=== PATIENT | female | born 1995 | race Caucasian/White ===

== ENCOUNTER 2024-05-20 13:29 | Outpatient (OUT) | payer OTHER, SELFPAY ==
--- NOTE | 2024-05-20 13:32 | US_ITS ---
[address] [address] Patient Name: AUTUMN MCCLURE MRN: [id number] date: 1995 Sex: F Assigned Patient Location: [facility] Current Patient Location: Accession/Order Number: [id number] Exam Date: 05/20/2024 13:32 Report Date: 05/21/2024 04:09 At the request of: ARLETTE GOLD Procedure: US OB transvaginal EXAMINATION: US OB transvaginal HISTORY: MISSED MENSES COMPARISON: No relevant comparison available. FINDINGS: GESTATIONAL SAC: Present and normal appearing. YOLK SAC: Present and normal appearing. POLE: Present and normal appearing. CARDIAC: Present. UTERUS: Normal size and appearance. OVARIES: Right: Normal. Left: Not seen. CERVIX: 5.1 cm in length and closed. CUL-DE-SAC: Normal. OTHER: None. AGE BY LMP: 8 weeks 5 days EMANUEL BY LMP: 12/25/2024 AGE BY US CRL: 8 weeks 5 days EMANUEL BY US CRL: 12/25/2024 US/US OB transvaginal IMPRESSION: 1. Single live intrauterine . Electronically authenticated by: THIAGO LAKHANI Date: 05/21/2024 04:09
== END 2024-05-20 13:30 | disposition home or self-care (01) ==
LOC: NOMS 13:29
PROVIDERS: PCP Family Medicine; Visit Provider Obstetrics & Gynecology
DX: Z34.91 Encounter for supervision of normal pregnancy, unspecified, first trimester (principal); Z3A.08 8 weeks gestation of pregnancy; N92.6 Irregular menstruation, unspecified
CPT/HCPCS: 76817

== ENCOUNTER 2024-06-21 10:46 | Outpatient (OUT) | payer OTHER, SELFPAY ==
--- OUTSIDE RECORDS SUMMARY | 2024-06-21 11:05 | XMS_ITS | CCD ---
Author Organization [facility] Inform ion Partnership [facility] Care Team Providers Care Field Logistics Coordinator Name Role Phone DR VINCENT DUARTE Admitting DR VINCENT Hilario Attending Unavailable DR AZ WARD Consulting Unavailable GUSTAVO GONZALEZ Consulting Unavailable REYES SEXTON Attending Unavailable Reyes Sexton MD Primary Care Provider [phone] Medications Current Medications Medication Drug Class(es) Dates Sig (Normalized) Sig (Original) MV-Min-Fe Fum-FA-DHA ( 1 PO) (1 source) MV-Min- Fe Fum-FA-DHA ( 1 PO) Take 1 tablet by mouth Daily Active Problems Active Problems Problem Classification Problem Date Documented Date Episodic/Chronic Abdominal pain (4 sources) Right lower quadrant pain; Translations: [Unspecified abdominal pain] Onset: 03-16-2022 Episodic Chronic kidney disease (1 source) Chronic kidney disease stage 2; Translations: [Chronic kidney disease, stage 2 (mild)] Onset: 08-06-2023 08-06-2023 Chronic Disorders usually diagnosed in infancy, childhood, or adolescence (1 source) Attention deficit hyperactivity disorder, predominantly inattentive type; Translations: [Other specified behavioral and emotional disorders with onset usually occurring in childhood and adolescence] Onset: 04-09-2023 04-09-2023 Chronic Malaise and fatigue (1 source) Fatigue; Translations: [Chronic fatigue, unspecified] Onset: 08-06-2023 08-06-2023 Chronic Menstrual disorders (2 sources) Missed period; Translations: [Irregular menstruation, unspecified] Onset: 04-09-2023 05-20-2024 Chronic Other and delivery including normal (3 sources) First trimester ; Translations: [Encounter for supervision of normal , unspecified, first trimester] 05-20-2024 Episodic Otitis media and related conditions (1 source) Chronic salpingitis of bilateral eustachian tubes; Translations: [Chronic Eustachian salpingitis, bilateral] Onset: 04-09-2023 04-09-2023 Chronic Residual codes; unclassified (1 source) Gestation period, 8 weeks; Translations: [8 weeks gestation of ] 05-20-2024 Episodic Urinary tract infections (1 source) Urinary tract infection, site not specified; Translations: [UTI SITE NOT SPECIFIED] Onset: 03-19-2022 Episodic Past or Other Problems Problem Classification Problem Date Documented Da te Episodic/Chronic Heart valve disorders (1 source) Heart murmur; Translations: [Cardiac murmur, unspecified] Onset: 04-09-2023 04-09-2023 Episodic Other gastrointestinal disorders (1 source) Chronic constipation; Translations: [Other constipation] Onset: 04-09-2023 04-09-2023 Episodic Results Test Name Value Interpretation Reference Range Facility HCG ( test) Ql (U)o n 05-20-2024 Interpretation and review of laboratory results Abnormal [facility] Preg Test, Ur [facility]inal[facility] macro (dipstick) panel (U)on 05-20-2024 Bilirubin, UA Negative Negative - 4(70) +++ mg/dL [facility] Blood, UA Negative Negative - 50 Shady/mcL [facility] Clarity, UA Clear [facility] re Color, UA Colorless [facility] Glucose, UA Negative Negative - 1999(110) ++++ mg/dL [facility] Interpretation and review of laboratory results Abnormal [facility] Ketones, UA Negative Negative - 160(16) ++++ mg/dL [facility] Leukocytes, UA Trace Negative - 500+++ Kell/mcL [facility] Nitrite, UA Negative Negative - Positive [facility] pH, UA 6.0 5 - 9 [facility] Protein, UA Negative Negative - 1999(20) ++++ mg/dL [facility] Spec Grav, UA 1.005 1 - 1.03 [facility] Urobilinogen, UA 0.2 0.2 - 12 [facility] AMYLASEon 03-16-2022 Amylase [Catalytic activity/Vol] 42 U/L Normal 25-115 [facility] Comment on above: Performed By: #### L IPA, CMP, ALEX #### [facility] [address] [address] [address] Ashley Fung CBC AUTO DIFFon 03-16-2022 BASO # 0.0 103/ul Normal 0.0-0.1 [facility] Comment on above: Performed By: #### C BC #### [facility] [address] [address] [address] Ashley Fung Basophils/100 WBC (Bld) 0.3 % Normal 0.2-2.0 [facility] Comment on above: Performed By: #### C BC #### [facility] [address] [address] [address] Ashley Fung EO # 0.1 103/ul Normal 0.0-0.7 [facility] Comment on above: Performed By: #### C BC #### [facility] [address] [place] [address] Dr. Ashley Fung Eosinophils/100 WBC (Bld) 0.9 % Normal 0.9-7.0 [facility] Comment on above: Performed By: #### C BC #### [facility] [address] [address] [address] Ashley Fung Erythrocyte distribution width (RBC) [Ratio] 11.1 % Normal 11.0-15.0 [facility] Comment on above: Performed By: #### C BC #### [facility] [address] [address] [address] Ashley Fung Hematocrit (Bld) [Volume fraction] 33.9 % Critically low 36.0-48.0 [facility] Comment on above: Performed By: #### C BC #### [facility] [address] [address] [address] Ashley Fung Hemoglobin (Bld) [Mass/Vol] 12.2 g/dL Normal 12.0-16.0 [facility] Comment on above: Performed By: #### C BC #### [facility] [address] [address] [address] Ashley Fung IG # 0.01 10e3/ul Normal 0.00-0.03 [facility] Comment on above: Performed By: #### C BC #### [facility] [address] [place] [address] Dr. Ashley Fung IG % 0.1 % Normal 0.0-0.5 [facility] Comment on above: Performed By: #### C BC #### [facility] [address] [place] [address] Dr. Ashley Fung LYMPH # 1.8 103/ul Normal 1.2-3.8 [facility] Comment on above: Performed By: #### C BC #### [facility] [address] [place] [address] Dr. Ashley Fung Lymphocytes/100 WBC (Bld) 23.2 % Normal 20.5-60.0 [facility] Comment on above: Performed By: #### C BC #### [facility] [address] [place] [address] Dr. Ashley Fung MANUAL DIFF REQ NO Normal [facility] Comment on above: Performed By: #### C BC #### [facility] [address] [place] [address] Dr. Ashley Fung MCH (RBC) [Entitic mass] 31.0 pg Normal 26.7-34.0 [facility] Comment on above: Performed By: #### C BC #### [facility] [address] [place] [address] Dr. Ashley Fung MCHC (RBC) [Mass/Vol] 36.0 g/dL Critically high 29.9-35.2 [facility] Comment on above: Performed By: #### C BC #### [facility] [address] [place] [address] Dr. Ashley Fung MCV (RBC) [Entitic vol] 86.0 fL Normal 81.0-99.0 [facility] Comment on above: Performed By: #### C BC #### [facility] [address] [place] [address] Dr. Ashley Fung MONO # 0.5 103/ul Normal 0.3-0.8 [facility] Comment on above: Performed By: #### C BC #### [facility] [address] [address] [address] Ashley Fung Monocytes/100 WBC (Bld) 6.0 % Normal 1.7-12.0 [facility] Comment on above: Performed By: #### C BC #### [facility] [address] [address] [address] Ashley Fung NEUT # 5.3 103/ul Normal 1.4-6.5 [facility] Comment on above: Performed By: #### C BC #### [facility] [address] [place] [address] Dr. Ashley Fung Neutrophils/100 WBC (Bld) 69.5 % Normal 43.0-75.0 [facility] Comment on above: Performed By: #### C BC #### [facility] [address] [place] [address] Dr. Ashley Fung Platelet mean volume (Bld) [Entitic vol] 9.9 fL Normal 9.5-13.5 [facility] Comment on above: Performed By: #### C BC #### [facility] [address] [place] [address] Dr. Ashley Fung PLT 199 103/ul Normal 150-450 [facility] Comment on above: Performed By: #### C BC #### [facility] [address] [place] [address] Dr. Ashley Fung RBC 3.94 106/ul Critically low 4.20-5.[address] [facility] Comment on above: Performed By: #### C BC #### [facility] [address] [place] [address] Dr. Ashley Fung WBC 7.6 103/ul Normal 4.0-11.0 [facility] Comment on above: Performed By: #### C BC #### [facility] [address] [place] [address] ABD/PELV W CONon 03-16-[address] ABD/PELV W CON EXAMINATION: CT ABD/PELV W CON HISTORY: Right sided abdominal pain COMPARISON: None. TECHNIQUE: CT of abdomen/pelvis with intravenous contrast. Dose reduction techniques were achieved by using automated exposure control and/or adjustment of mA and/or kV according to patient size and/or use of iterative reconstruction technique. FINDINGS: Return Agent Airport: No pertinent findings, which are not already discussed below. Tubes/lines/drains: None. CHEST: Lungs: Clear. Cardiac and vascular: No cardiomegaly or significant pericardial effusion. ABDOMEN: Liver: Mild focal fatty infiltration adjacent to the falciform ligament. Mild periportal edema. Patent portal vein. Gallbladder and Biliary Tree: Unremarkable. Spleen: Heterogeneous enhancement without wedge-shaped hypoattenuation or mass. Normal size. Pancreas: Unremarkable. Adrenal Glands: Unremarkable. Kidneys, Ureters, Bladder: No concerning renal lesions or masses. No urolithiasis. No hydronephrosis or hydroureterosis. Unremarkable bladder. Bilateral ureteral jets visualized on the delayed pelvic images. Gastrointestinal: No mural thickening or inflammatory changes. No dilated loops of small or large bowel. Normal appendix. Reproductive organ(s): Unremarkable. Lymphatic: No concerning retroperitoneal, mesenteric, or inguinal adenopathy. Vessels: Unremarkable. BONES AND SOFT TISSUE: Bones: No acute fracture. No concerning osseous lesions. Soft Tissue: Minute fat-containing umbilical hernia. IMPRESSION: 1. No acute intra-abdominal/pelv ic findings. 2. Mild periportal edema, nonspecific although can be seen with aggressive rehydration therapy, hepatitis, as well as a number of additional etiologies to include hepatic, and CHF. 3. Heterogeneous enhancement of the spleen, which could be secondary to contrast bolus although phase of contrast is more portal venous than arterial. Electronically authenticated by: GUSTAVO GONZALEZ Date: 2022-03-16 10:03 Normal [facility] CULTURE URINEon 03-16-2022 CULTURE URINE Culture Observations: LIGHT GROWTH OF MIXED GENITAL YAHAIRA. NO POTENTIAL PATHOGENS SEEN. Normal [facility] Comment on above: Performed By: #### U RCX #### [facility] [address] [address] [address] Ashley Fung ER URINE PROFILEon 2 Bilirubin Ql (U) SMALL Abnormal NEGATIVE [facility] Comment on above: Performed By: #### E RUR, UMICRO #### [facility] [address] [address] [address] Ashley Fung Clarity (U) SL CLOUDY Abnormal CLEAR [facility] Comment on above: Performed By: #### Sky HOLLEY UMICRO #### [facility] [address] [place] [address] Dr. Ashley Fung Color (U) DK. YELLOW Normal YELLOW [facility] Comment on above: Performed By: #### Sky HOLLEY UMICRO #### [facility] [address] [place] [address] Dr. Ashley PANIAGUA A micrscopic examination will be performed if indicated. Normal [facility] Comment on above: Performed By: #### Sky HOLLEY UMICRO #### [facility] [address] [place] [address] Dr. Ashley Fung Glucose Ql (U) Negative Normal NEGATIVE [facility] Comment on above: Performed By: #### Sky HOLLEY UMICRO #### [facility] [address] [place] [address] Dr. Ashley Fung Hemoglobin Ql (U) Negative Normal NEGATIVE [facility] Comment on above: Performed By: #### Sky HOLLEY UMICRO #### [facility] [address] [place] [address] Dr. Ashley Fung Ketones Ql (U) TRACE Abnormal NEGATIVE [facility] Comment on above: Performed By: #### Sky HOLLEY UMICRO #### [facility] [address] [place] [address] Dr. Ashley Fung LEUKOCYTES TRACE Abnormal NEGATIVE [facility] Comment on above: Performed By: #### Sky HOLLEY UMICRO #### [facility] [address] [place] [address] Dr. Ashley Fung Nitrite Ql (U) Negative Normal NEGATIVE [facility] Comment on above: Performed By: #### Sky HOLLEY UMICRO #### [facility] [address] [place] [address] Dr. Ashley Fung pH (U) 7.0 [pH] Normal 5-9 [facility] Comment on above: Performed By: #### Sky HOLLEY UMICRO #### [facility] [address] [place] [address] Dr. Ashley Fung Protein (U) [Mass/Vol] 100 mg/dL Abnormal NEGATIVE/ TRACE [facility] Comment on above: Performed By: #### TAHIRA PAULSONRO #### [facility] [address] [place] [address] Dr. Ashley Fung SPEC GRAVITY 1.025 Normal 1.005-<=1.025 [facility] Comment on above: Performed By: #### TAHIRA PAULSONRO #### [facility] [address] [place] [address] Dr. Ashley Fung UR MICRO IND INDICATED Normal [facility] Comment on above: Performed By: #### TAHIRA PAULSONRO #### [facility] [address] [place] [address] Dr. Ashley Fung Urobilinogen Qn (U) 1.0 {Stephanie'U}/dL Normal 0.2 - 1. 0 [facility] Comment on above: Performed By: #### TAHIRA PAULSONRO #### [facility] [address] [place] [address] Dr. Ashley Fung LIPASEon 03-16-2022 Lipase [Catalytic activity/Vol] 100.0 U/L Normal 73.0-393.0 [facility] Comment on above: Performed By: #### L IPA, CMP, ALEX #### [facility] [address] [place] [address] Dr. Ashley Fung PREG HCG QUALon 03-16-2022 , QUAL Negative Normal NEGATIVE [facility] Comment on above: Performed By: #### P REG #### [facility] [address] [place] [address] Dr. Ashley Fung PROF 14(COMP METB)on 022 Albumin [Mass/Vol] 3.3 g/dL Critically low 3.4-5.0 [facility] Comment on above: Performed By: #### L IPA, CMP, ALEX #### [facility] [address] [place] [address] Dr. Ashley Fung Albumin/Globulin [Mass ratio] 1.0 {ratio} Normal [facility] Comment on above: Performed By: #### L IPA, CMP, ALEX #### [facility] [address] [place] [address] Dr. Ashley Fung ALP [Catalytic activity/Vol] 58 U/L Normal 46-116 [facility] Comment on above: Performed By: #### L IPA, CMP, ALEX #### [facility] [address] [place] [address] Dr. Ashley Fung ALT [Catalytic activity/Vol] 15 U/L Normal 14-59 [facility] Comment on above: Performed By: #### L IPA, CMP, ALEX #### [facility] [address] [place] [address] Dr. Ashley Fung Anion gap [Moles/Vol] 11.2 mmol/L Normal [facility] Comment on above: Performed By: #### L IPA, CMP, ALEX #### [facility] [address] [place] [address] Dr. Ashley Fung AST [Catalytic activity/Vol] 15 U/L Normal 15-37 [facility] Comment on above: Performed By: #### L IPA, CMP, ALEX #### [facility] [address] [place] [address] Dr. Ashley Fung Bilirubin [Mass/Vol] 0.4 mg/dL Normal 0.2-1.0 [facility] Comment on above: Performed By: #### L IPA, CMP, ALEX #### [facility] [address] [place] [address] Dr. Ashley Fung Calcium [Mass/Vol] 8.7 mg/dL Normal 8.5-10.1 [facility] Comment on above: Performed By: #### L IPA, CMP, ALEX #### [facility] [address] [place] [address] Dr. Ashley Fung Chloride [Moles/Vol] 106 mmol/L Normal 98-107 [facility] Comment on above: Performed By: #### L IPA, CMP, ALEX #### [facility] [address] [place] [address] Dr. Ashley Fung CO2 [Moles/Vol] 27.4 mmol/L Normal 21.0-32.0 [facility] Comment on above: Performed By: #### L IPA CMP, ALEX #### [facility] [address] [address] [address] Ashley Fung Creatinine [Mass/Vol] 1.22 mg/dL Critically high 0.55-1.02 [facility] Comment on above: Performed By: #### L IPA CMP, ALEX #### [facility] [address] [address] [address] Ashley Fung EGFR-AF CITIZEN OF [place] >60 Normal >=60 [facility] Comment on above: Performed By: #### L IPA CMP, ALEX #### [facility] [address] [place] [address] Dr. Ashley Fung EGFR-NON AF CITIZEN OF [place] 52 mL/min/1.73m2 Critically low >=60 [facility] Comment on above: Performed By: #### L IPA CMP, ALEX #### [facility] [address] [place] [address] Dr. Ashley Fung Globulin (S) [Mass/Vol] 3.4 g/dL Normal [facility] Comment on above: Performed By: #### L IPA CMP, ALEX #### [facility] [address] [place] [address] Dr. Ashley Fung Glucose [Mass/Vol] 116 mg/dL Critically high 74-106 [facility] Comment on above: Performed By: #### L IPA CMP, ALEX #### [facility] [address] [address] [address] Ashley Fung Potassium [Moles/Vol] 3.6 mmol/L Normal 3.5-5.1 [facility] Comment on above: Performed By: #### L IPA CMP, ALEX #### [facility] [address] [place] [address] Dr. Ashley Fung Protein [Mass/Vol] 6.7 g/dL Normal 6.4-8.2 [facility] Comment on above: Performed By: #### L IPA, CMP, ALEX #### [facility] [address] [place] [address] Dr. Ashley Fung Sodium [Moles/Vol] 141 mmol/L Normal 136-145 [facility] Comment on above: Performed By: #### L VIDHI CARVAJAL, ALEX #### [facility] [address] [place] [address] Dr. Ashley Fung Urea nitrogen [Mass/Vol] 15.0 mg/dL Normal 7.0-18.0 [facility] Comment on above: Performed By: #### L VIDHI CARVAJAL, ALEX #### [facility] [address] [place] [address] Dr. Ashley Fung Urea nitrogen/Creatinine [Mass ratio] 12.3 mg/mg Normal [facility] Comment on above: Performed By: #### L VIDHI CARVAJAL, ALEX #### [facility] [address] [place] [address] Dr. Ashley Fung URINE MICROSCOPIC ONLYon BACTERIA TRACE Abnormal NONE SEEN [facility] Comment on above: Performed By: #### Sky HOLLEY UMICRO #### [facility] [address] [place] [address] Dr. Ashley Fung Bacteria identified Cx Nom (U) INDICATED Normal [facility] Comment on above: Performed By: #### Sky HOLLEY, UMICRO #### [facility] [address] [place] [address] Dr. Ashley Fung CAST SEEN Abnormal NONE SEEN [facility] Comment on above: Performed By: #### Sky HOLLEY UMICRO #### [facility] [address] [place] [address] Dr. Ashley Fung Crystals LM Nom (Urine sed) NONE SEEN Normal NONE SEEN [facility] Comment on above: Performed By: #### E KISHAN UMICRO #### [facility] [address] [place] [address] Dr. Ashley Fung Epithelial cells LM Ql (Urine sed) RARE Normal NONE SEEN /RARE [facility] Comment on above: Performed By: #### Sky HOLLEY, UMICRO #### [facility] [address] [place] [address] Dr. Ashley Fung MUCOUS MODERATE Abnormal NONE SEEN [facility] Comment on above: Performed By: #### E RUR, UMICRO #### [facility] [address] [address] [address] Ashley Fung RBC NONE SEEN Abnormal 0-2 [facility] Comment on above: Performed By: #### E RUR, UMICRO #### [facility] [address] [address] [address] Ashley Fung WBC 2-5 Abnormal NONE SEEN [facility] Comment on above: Performed By: #### E RUR, UMICRO #### [facility] [address] [address] [address] Ashley Fung XR Abdomen 2 Viewson 022 XR Abdomen 2 Views HISTORY: Low abdominal pain, constipation FINDINGS: Moderate colon stool normally distributed throughout abdomen and pelvis. No evidence of bowel obstruction or free air. No biliary or urinary tract stones. IMPRESSION: Moderate colon stool, no obstruction. Report reported and signed by Mahin London on 11/28/2021 0729 Normal [facility] [employer] Encounters Encounter Date Encounter Type Care Provider Facility Start: 05-20-2024 End: 05-20-2024 Office outpatient visit 5 minutes [facility] Tawanna Nurse [facility] Comment on above: GA: 8w5d Start: 05-20-2024 End: 05-20-2024 ambulatory REYES SEXTON Not Available Start: 07-10-2023 End: 07-10-2023 ambulatory REYES SEXTON Not Available Start: 03-16-2022 End: 03-16-[address] VINCENT DUARTE Facility:[facility] Procedures Date Procedure Procedure Detail Performing Clinician Start: 05-20-2024 Urnls dip stick/tabl et rgnt non-auto w/o micrscp Teo Stacy DO Work Phone: Plan of Treatment Date Care Activity Detail Author Start: 06-21-2024 End: 06-21-2024 Patient encounter procedure 06/21/2024 9:50 AM EST Routine [facility] [address] [place] [id number] Tawanna, Teo, [address] [place] [address] [facility] Start: 05-20-2024 End: 05-20-2025 ABO/Rh ABO/Rh Lab Routine Missed menses , unspecified gestational age Expected: 05/20/2024 (Approximate), Expires: 05/20/2025 [facility] Comment on above: Expected: 05/20/2024 (Approximate), Expires: 05/20/2025 Start: 05-20-2024 End: 05-20-2025 Blood type and Indirect antibody screen panel - Blood Type and screen Lab Routine Missed menses , unspecified gestational age Expected: 05/20/2024 (Approximate), Expires: 05/20/2025 [facility] Work Phone: Comment on above: Expected: 05/20/2024 (Approximate), Expires: 05/20/2025 Start: 05-20-2024 End: 05-20-2025 Drugs of abuse panel - Urine by Screen method Rapid drug screen, urine Lab Routine , unspecified gestational age Encounter for supervision of normal first in first trimester Expected: 05/20/2024 (Approximate), Expires: 05/20/2025 [facility] Comment on above: Expected: 05/20/2024 (Approximate), Expires: 05/20/2025 Start: 05-20-2024 End: 05-20-2025 US Pelvis transvaginal US OB transvaginal Imaging Routine Missed menses Expected: 05/20/2024 (Approximate), Expires: 05/20/2025 [facility] Comment on above: Expected: 05/20/2024 (Approximate), Expires: 05/20/2025 Start: 04-11-2024 Influenza vaccination Influenza Vacc ine (#1) [facility] Start: 02-19-2024 Screening for malign ant neoplasm of cervix [facility] Start: 2015 Screening for malign ant neoplasm of cervix Pap Smear [facility] Bacteria identified in Urine by Culture Urine culture Microbiology Routine Missed menses Ordered: 05/20/2024 [facility] Comment on above: Ordered: 05/20/2024 CBC W Auto Different ial panel - Blood CBC and differential Lab Routine Missed menses , unspecified gestational age Ordered: 05/20/2024 [facility] Comment on above: Ordered: 05/20/2024 Hemoglobin A1c/Hemoglobin.total in Blood Hemoglobin A1c Lab Routine Missed menses , unspecified gestational age Ordered: 05/20/2024 [facility] Comment on above: Ordered: 05/20/2024 Hepatitis B virus surface Ag [Presence] in Serum or Plasma by Immunoassay Hepatitis B surface antigen Lab Routine Missed menses , unspecified gestational age Ordered: 05/20/2024 [facility] Comment on above: Ordered: 05/20/2024 Hepatitis C virus Ab [Presence] in Serum or Plasma by Immunoassay Hepatitis C antibody Lab Routine Missed menses , unspecified gestational age Ordered: 05/20/2024 [facility] Comment on above: Ordered: 05/20/2024 HIV-1/HIV-2 antigen/antibody combination immunoassay HIV-1 and HIV-2 antibodies Lab Routine Missed menses , unspecified gestational age Ordered: 05/20/2024 [facility] Comment on above: Ordered: 05/20/2024 Reagin Ab [Presence] in Serum by RPR RPR Lab Routine Missed menses , unspecified gestational age Ordered: 05/20/2024 [facility] Comment on above: Ordered: 05/20/2024 Rubella antibody, IgG Rubella an tibody, IgG Lab Routine Missed menses , unspecified gestational age Ordered: 05/20/2024 [facility] Comment on above: Ordered: 05/20/2024 Immunizations Immunization Date Immunization Notes Care Provider Od[place] tracy 02-09-2013 meningococcal polysa ccharide (groups A, C, Y and W-135) diphtheria toxoid conjugate vaccine (MCV4P) [facility] Nurse [facility] 02-09-2013 tetanus toxoid, redu rosario diphtheria toxoid, and acellular pertussis vaccine, adsorbed [facility] Nurse [facility] 03-23-1999 diphtheria, tetanus toxoids and acellular pertussis vaccine [facility] Nurse [facility] are 03-23-1999 measles, mumps and r ubella virus vaccine [facility] Nurse [facility] 03-23-1999 trivalent poliovirus vaccine, live, oral [facility] Nurse [facility] 03-02-1997 diphtheria, tetanus toxoids and acellular pertussis vaccine [facility] are 02-16-1996 diphtheria, tetanus toxoids and acellular pertussis vaccine [facility] Nurse [facility] are 02-16-1996 measles, mumps and r ubella virus vaccine [facility] Nurse [facility] 06-11-1995 diphtheria, tetanus toxoids and acellular pertussis vaccine, Haemophilus influenzae type b conjugate, and poliovirus vaccine, inactivated ([id number]) [facility] Nurse [facility] 06-11-1995 hepatitis B vaccine, pediatric or pediatric/adolescent dosage [facility] Nurse [facility] 1994 haemophilus influenz ae type b vaccine, conjugate unspecified formulation [facility] Nurse [facility] 1994 hepatitis B vaccine, pediatric or pediatric/adolescent dosage [facility] 1994 trivalent poliovirus vaccine, live, oral [facility] 1994 diphtheria, tetanus toxoids and acellular pertussis vaccine, Haemophilus influenzae type b conjugate, and poliovirus vaccine, inactivated ([id number]) [facility] 1994 hepatitis B vaccine, pediatric or pediatric/adolescent dosage [facility] Nurse [facility] Payers Date Payer Category Payer Unknown [employer] [id number] 2023-Present [address] [place] [address] [id number] 2023 Unknown [id number] 1994 Unknown [id number] 1994 Unknown [id number] 1994 Unknown [id number] Unknown [id number] Social History Date Type Detail Facility Start: 05-25-2023 Tobacco smoking stat [facility] Never smoked tobacco [facility] Start: 05-25-2023 Tobacco use and exposure Smoke less tobacco non-user [facility] Start: 05-20-2024 Alcoholic beverage intake Curr ent drinker of alcohol (finding) [facility] Start: 07-10-2023 End: 05-20-2024 [facility]olic beverage [facility] Start: 07-10-2023 Tobacco use panel [facility] Start: 04-09-2023 Alcohol Comment Caffeine intak e: 1-2 cups per day coffee [facility] Start: 04-03-2024 [facility] Start: 1994 Sex assigned at Not on file [facility] History of Present illness Narrative 05-20-2024 Miryam Matthews, ADRIANA - 05/20/2024 2:00 PM EDT Note Date & Type Note Facility 05-20-2024 History of Presen t illness Narrative Reason for Appointment: Patient ID: Eloina Breaux is a 29 y.o. female who presents for Amenorrhea Patient presents today for a Nurse OB Intake appointment. Patient is 8w5d with a Estimated Date of Delivery: 12/25/24 OB History Para Term AB Living 1 SAB IAB Ectopic Multiple Live Births # Outcome Date GA Lbr Stoney/2nd Weight Sex Type Anes PTL Lv 1 Current Current Medications: currently has no medications in their medication list. Medical History: Active Ambulatory Problems Diagnosis Date Noted ADD (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 hyperactivity 04/09/2023 Chronic constipation 04/09/2023 Chronic eustachian salpingitis of both ears 04/09/2023 Dysmenorrhea 04/09/2023 Heart murmur 04/09/2023 Stage 2 chronic kidney disease 08/06/2023 Chronic fatigue 08/06/2023 Resolved Ambulatory Problems Diagnosis Date Noted No Resolved Ambulatory Problems Past Medical History: Diagnosis Date ADD (attention deficit disorder) Anxiety Chronic vaginitis Sleep initiation disorder Family History Problem Relation Name Age of Onset Cancer Father Other (Non hodgkins lymphoma) Father No Known Problems Brother Colon cancer Other mothers fam hx Social History Tobacco Use Smoking status: Never Smokeless tobacco: Never Vaping Use Vaping status: Never Used Substance Use Topics Alcohol use: Yes Alcohol/week: 2.0 standard drinks of alcohol Types: 2 Standard drinks or equivalent per week Comment: Caffeine intake: 1-2 cups per day coffee Drug use: Never Past Surgical History: Procedure Laterality Date CYST REMOVAL cyst removed off tailbone TONSILLECTOMY 1996 EUGENIO TOOTH EXTRACTION 07/29/2016 No Known Allergies Vitals: Estimated body mass index is 28.62 kg/m as calculated from the following: Height as of 07/10/23: 5' 5 . Weight as of 07/10/23: 172 lb. BP: Patient's last menstrual period was 03/20/2024. Assessment/Plan Diagnoses and all orders for this visit: Missed menses - Type and screen; Future - ABO/Rh; Future - CBC and differential - Hemoglobin A1c - RPR - Rubella antibody, IgG - Hepatitis B surface antigen - Hepatitis C antibody - HIV-1 and HIV-2 antibodies - Urine culture - US OB transvaginal; Future - POCT , urine manually resulted - POCT urinalysis dipstick manually resulted 8 weeks gestation of First trimester , unspecified gestational age - Type and screen; Future - ABO/Rh; Future - CBC and differential - Hemoglobin A1c - RPR - Rubella antibody, IgG - Hepatitis B surface antigen - Hepatitis C antibody - HIV-1 and HIV-2 antibodies - Rapid drug screen, urine; Future Encounter for supervision of normal first in first trimester - Rapid drug screen, urine; Future Nurse Note: OB Intake: Patient presents today for first OB visit. Patients history has been reviewed in great detail including any potential risks. Patient signed consent forms and patient desires testing in both trimesters. Patient currently has no complaints and has been advised to drink 6-8 glasses of water a day, eat no raw or undercooked meat, and stay away from [facility]. Patient has also been advised to not change litter boxes and eat 6 small meals a day. Patient has been consulted regarding the do's and don'ts of . Patient was given labs and all questions and concerns were answered. Patient did not want to do [place] labs at this time. Follow Up: Patient is to return in 4 weeks for routine OB appointment. Follow Up: Patient is to have labs drawn at directed and return to office for initial OB appointment with provider. Patient may call office as needed with any concerns or questions. Nurse Visit Completed by: Miryam Matthews LPN documented in this encounter [facility] Evaluation note Note Date & Type Note Facility Evaluation note Diagnosis Missed menses 8 weeks gestation of First trimester state, incidental , unspecified gestational age Encounter for supervision of normal first in first trimester documented in this encounter [facility] Summary Purpose Family History No Family History Records FoundNo Family History Records FoundNo Family History Records Found Advance Directives No Advanced Directives Records FoundNo Advanced Directives Records FoundNo Advanced Directives Records Found Additional Source Comments INFORMATION SOURCE (unrecogn ized section and content) DATE CREATED AUTHOR 11/29/2021 [facility] dical Specialist DATE CREATED AUTHOR AUTHOR'S ORGANIZ ATION 03/19/2022 [facility] DATE CREATED AUTHOR AUTHOR'S ORGANIZ ATION 05/22/2024 [facility] dical Specialists EPIC Reason for Visit (unrecogniz ed section and content) Reason Comments Amenorrhea Care Teams (unrecognized sec tion and content) Field Logistics Coordinator Relationship Specialty Start Date End Date Reyes Sexton MD [address] [place] [address] PCP - General Family Medicine 12/17/22 FOR RECORDS PERTAINING TO PATIENTS WHO ARE OR HAVE BEEN ENROLLED IN A CHEMICAL DEPENDENCY/SUBSTANCEABUSE PROGRAM, SOME INFORMATION MAY BE OMITTED. This clinical summary was aggregated from multiple sources. Caution should be exercised in using it in the provision of clinical care. This summary normalizes information from multiple sources, and as a consequence, information in this document may materially change the coding, format and clinical context of patient data. In addition, data may be omitted in some cases. CLINICAL DECISIONS SHOULD BE BASED ON THE PRIMARY CLINICAL RECORDS. [facility] [employer] [facility]. provides no warranty or guarantee of the accuracy or completeness of information in this document.
[2024-06-21 11:16] LABS: Basophils Percent Auto 0.3 % (0.2-2.0); Eosinophils Percent Auto 0.5 % (0.9-7.0); Hematocrit 35.7 % (36.0-48.0); Hemoglobin 13.1 g/dL (12.0-16.0); Immature Granulocytes Abs Auto 0.02 10^3/uL (0.00-0.03); Immature Granulocytes Pct Auto 0.3 % (0.0-0.5); Lymphocytes Absolute Auto 1.7 10^3/uL (1.2-3.8); Lymphocytes Percent Auto 25.5 % (20.5-60.0); Mean Corpuscular HGB Conc 36.7 g/dL (29.9-35.2); Mean Corpuscular Hemoglobin 32.3 pg (26.7-34.0); Mean Corpuscular Volume 88.1 fL (81.0-99.0); Mean Platelet Volume 10.3 fL (9.5-13.5); Monocytes Absolute Auto 0.4 10^3/uL (0.3-0.8); Monocytes Percent Auto 5.6 % (1.7-12.0); Neutrophils Absolute Auto 4.4 10^3/uL (1.4-6.5); Neutrophils Percent Auto 67.8 % (43.0-75.0); Platelet Count 217 10^3/uL (150-450); Red Blood Count 4.05 10^6/uL (4.20-5.40); Red Cell Distribution Width 12.1 % (11.0-15.0); White Blood Count 6.5 10^3/uL (4.0-11.0)
[2024-06-21 11:33] LABS: Amphetamine Screen Urine NEGATIVE (NEGATIVE); Barbiturates Screen Urine NEGATIVE (NEGATIVE); Benzodiazepines Screen Urine NEGATIVE (NEGATIVE); Buprenorphine Screen Urine NEGATIVE (NEGATIVE); Cannabinoid Screen Urine NEGATIVE (NEGATIVE); Cocaine Screen Urine NEGATIVE (NEGATIVE); Methadone Screen Urine NEGATIVE (NEGATIVE); Methamphetamines Screen Urine NEGATIVE (NEGATIVE); Opiate Screen Urine NEGATIVE (NEGATIVE); Oxycodone Screen Urine NEGATIVE (NEGATIVE); Phencyclidine Screen Urine NEGATIVE (NEGATIVE); Tricyclic Antidepressant Urine NEGATIVE (NEGATIVE)
[2024-06-21 12:06] LABS: Estimated Average Glucose 88 mg/dL; Glycohemoglobin A1C 4.7 % (4.5-6.2)
[2024-06-21 14:49] LABS: BOX Test Reference Lab UNITY; BOX Test Sent Out UNITY
[2024-06-22 06:09] LABS: HBsAg Screen Negative (Negative); HCV Ab Non Reactive (Non Reactive); HIV Ab/p24 Ag Screen Non Reactive (Non Reactive)
[2024-06-22 13:08] LABS: Rapid Plasma Reagin, Quant Non Reactive titer (NonRea<1:1)
== END 2024-06-21 10:47 | disposition home or self-care (01) ==
LOC: LAB 10:47
PROVIDERS: PCP Family Medicine; Visit Provider Obstetrics & Gynecology
DX: Z34.01 Encounter for supervision of normal first pregnancy, first trimester (principal); Z36.0 Encounter for antenatal screening for chromosomal anomalies; N92.6 Irregular menstruation, unspecified
CPT/HCPCS: 36415; 80307; 83036; 85025; 86592; 86762; 86803; 86850; 86900; 86901; 87086; 87340; 87389

== ENCOUNTER 2024-07-22 19:35 | Outpatient (REF) | payer OTHER, SELFPAY ==
--- OUTSIDE RECORDS SUMMARY | 2024-07-22 19:40 | XMS_ITS | CCD ---
Author Organization [facility] Inform ion Partnership [facility] Care Team Providers Care Grants Assistant Name Role Phone DR VINCENT DUARTE Admitting DR VINCENT Hilario Attending Unavailable DR AZ WARD Consulting Unavailable GUSTAVO GONZALEZ Consulting Unavailable Reyes Sexton MD Primary Care Provider [phone] REYES SEXTON Attending Unavailable ARLETTE STACY Attending Unavailable Reyes Sexton MD Primary Care Provider Medications Current Medications Medication Drug Class(es) Dates Sig (Normalized) Sig (Original) MV-Min-Fe Fum-FA-DHA ( 1 PO) (5 sources) MV-Min- Fe Fum-FA-DHA ( 1 PO) Take 1 tablet by mouth Daily Active Problems Active Problems Problem Classification Problem Date Documented Date Episodic/Chronic Abdominal pain (4 sources) Right lower quadrant pain; Translations: [Unspecified abdominal pain] Onset: 03-16-2022 Episodic Chronic kidney disease (5 sources) Chronic kidney disease stage 2; Translations: [Chronic kidney disease, stage 2 (mild)] Onset: 08-06-2023 08-06-2023 Chronic Disorders usually diagnosed in infancy, childhood, or adolescence (5 sources) Attention deficit hyperactivity disorder, predominantly inattentive type; Translations: [Other specified behavioral and emotional disorders with onset usually occurring in childhood and adolescence] Onset: 04-09-2023 04-09-2023 Chronic Malaise and fatigue (5 sources) Fatigue; Translations: [Chronic fatigue, unspecified] Onset: 08-06-2023 08-06-2023 Chronic Menstrual disorders (6 sources) Missed period; Translations: [Irregular menstruation, unspecified] Onset: 04-09-2023 05-20-2024 Chronic Other and delivery including normal (7 sources) First trimester ; Translations: [Encounter for supervision of normal , unspecified, first trimester] 05-20-2024 Episodic Otitis media and related conditions (5 sources) Chronic salpingitis of bilateral eustachian tubes; Translations: [Chronic Eustachian salpingitis, bilateral] Onset: 04-09-2023 04-09-2023 Chronic Residual codes; unclassified (1 source) Gestation period, 8 weeks; Translations: [8 weeks gestation of ] 05-20-2024 Episodic Residual codes; unclassified (2 sources) Gestation period, 12 weeks; Translations: [12 weeks gestation of ] 06-21-2024 Episodic Urinary tract infections (1 source) Urinary tract infection, site not specified; Translations: [UTI SITE NOT SPECIFIED] Onset: 03-19-2022 Episodic Past or Other Problems Problem Classification Problem Date Documented Da te Episodic/Chronic Heart valve disorders (5 sources) Heart murmur; Translations: [Cardiac murmur, unspecified] Onset: 04-09-2023 04-09-2023 Episodic Other gastrointestinal disorders (5 sources) Chronic constipation; Translations: [Other constipation] Onset: 04-09-2023 04-09-2023 Episodic Results Test Name Value Interpretation Reference Range Facility ALL RUBELLA IGG ABon 024 RUBELLA ANTIBODIES, IGG 18.80 Immune >0.99 index [facility] Comment on above: Non-immune <0.90 Equivocal 0.90 - 0.99 Immune >0.99 Performed at: [facility] [address] [id number] Drain Layer: Michael Talamantes PhD, Phone: [phone] HBSAG SCREENon 06-22-2024 HBSAG SCREEN Negative Negative [facility] Comment on above: Performed at: [facility] [address] [id number] Drain Layer: Michael Talamantes PhD, Phone: [phone] HCV ANTIBODY RFX TO QUANT PC Jalen 06-22-2024 HCV AB Non-Reactive Non Reactive [facility] INTERPRETATION: Comment . [facility] Comment on above: Not infected with HC V unless early or acute infection is suspected (which may be delayed in an immunocompromised individual), or other evidence exists to indicate HCV infection. HIV AB/P24 AG WITH REFLEXon 06-22-2024 HIV AB/P24 AG SCREEN Non-Reactive Non Reactive [facility] Comment on above: HIV-1/HIV-2 antibodi es and HIV-1 p24 antigen were NOT detected. There is no laboratory evidence of HIV infection. HIV Negative Performed at: [address] [id number] Drain Layer: Michael Talamantes PhD, Phone: [phone] No [facility] RAPID PLASMA REAGIN, QUANTon 06-22-2024 RAPID PLASMA REAGIN, QUANT Non-Reactive NonRea<1:1 titer [facility] Comment on above: Please Note: This te st does not meet current guidelines for screening and diagnosis of syphilis. This test is intended for following treatment response in patients being treated for syphilis infection. To screen for syphilis infection, a reflex cascade that includes both RPR and a treponema-specific assay should be utilized, such as Treponema pallidum (Syphilis) Screening [place] (330218) or Rapid Plasma Reagin (RPR) Test With Reflex to Quantitative RPR and Confirmatory Treponema pallidum Antibodies (530577). Performed at: [address] [id number] Drain Layer: Michael Talamantes PhD, Phone: [phone] URINE CULTURE, ROUTINEon Bacteria identified Cx Nom (U) Urine Culture, Routine [facility] Bacteria identified Cx Nom (U) Mixed urogenital yahaira [facility] Bacteria identified Cx Nom (U) Less than 10,000 colonies/mL [facility] Bacteria identified Cx Nom (U) Performed at: [facility] Bacteria identified Cx Nom (U) [address] [place] [phone] [facility] Bacteria identified Cx Nom (U) Drain Layer: Michael Talamantes PhD, Phone: [phone] [facility] ALL CBC WITH AUTO DIFFon BASOPHILS ABSOLUTE AUTO 0 [facility] Basophils/100 WBC (Bld) 0.3 % 0.2 - 2.0 % [facility] Eosinophils/100 WBC (Bld) 0.5 % Low 0.9 - 7.0 % [facility] Erythrocyte distribution width (RBC) [Ratio] 12.1 % 11.0 - 15.0 % [facility] Hematocrit (Bld) [Volume fraction] 35.7 % Low 36.0 - 48.0 % [facility] Hemoglobin (Bld) [Mass/Vol] 13.1 g/dL 12.0 - 16.0 g/dL [facility] IMMATURE GRANULOCYTES ABS AUTO 0.02 [facility] Immature granulocytes/100 WBC (Bld) 0.3 % 0.0 - 0.5 % [facility] Interpretation and review of laboratory results Abnormal [facility] LYMPHOCYTES ABSOLUTE AUTO 1.7 [facility] Lymphocytes/100 WBC (Bld) 25.5 % 20.5 - 60.0 % [facility] MCH (RBC) [Entitic mass] 32.3 pg 26.7 - 34.0 pg [facility] MCHC (RBC) [Mass/Vol] 36.7 g/dL High 29.9 - 35.2 g/dL [facility] MCV (RBC) [Entitic vol] 88.1 fL 81.0 - 99.0 fL [facility] MONOCYTES ABSOLUTE AUTO 0.4 [facility] Monocytes/100 WBC (Bld) 5.6 % 1.7 - 12.0 % [facility] NEUTROPHILS ABSOLUTE AUTO 4.4 [facility] Neutrophils/100 WBC (Bld) 67.8 % 43.0 - 75.0 % [facility] Platelet mean volume (Bld) [Entitic vol] 10.3 fL 9.5 - 13.5 fL [facility] EO # 0 [facility] TBH PLT 217 [facility] RBC 4.05 Low [facility] WBC 6.5 [facility] ALL TYPE AND SCREENon 2023 ABO and Rh group Nom (Bld) Blood group A Rh(D) negative [facility] BOX TESTon 06-21-2024 BOX TEST SENT OUT [facility] BOX1 [facility] BOX2 06/21/24 [facility] MLR HEMOGLOBIN A1Con 024 Glucose [Mass/Vol] 88 mg/dL [facility] HbA1c (Bld) [Mass fraction] 4.7 % 4.5 - 6.2 % [facility] Comment on above: ADA RECOMMENDED LIMI T 4.0 - 6.0 ADA THERAPEUTIC TARGET < 7.0 ACTION SUGGESTED [facility] RAPID (URINE )on 06-21-2024 AMPHETAMINE SCREEN URINE Negative NEGATIVE [facility] BARBITURATES SCREEN URINE Negative NEGATIVE [facility] BENZODIAZEPINES SCREEN URINE Negative NEGATIVE [facility] BUPRENORPHINE SCREEN URINE Negative NEGATIVE [facility] Comment on above: DRUG CLASS TEST SYST EM CUT-OFF CONCENTRATIONS ARE FOLLOWS: AMP (Amphetamine): 500 ng/mL BAR (Barbiturates): 200 ng/mL BZO (Benzodiazepines): 150 ng/mL BUP (Buprenorphine): 10 ng/mL MASON (Cocaine): 150 ng/mL mAMP (Methamphetamine): 500 ng/mL MTD (Methadone): 200 ng/mL OPI (Opiates): 100 ng/mL OXY (Oxycodone): 100 ng/mL PCP (Phencyclidine): 25 ng/mL THC (Cannabinoids): 50 ng/mL TCA (Trycyclic Antidepressants): 300 ng/mL CANNABINOID SCREEN URINE Negative NEGATIVE [facility] COCAINE SCREEN URINE Negative NEGATIVE [facility] METHADONE SCREEN URINE Negative NEGATIVE [facility] METHAMPHETAMINES SCREEN URINE Negative NEGATIVE [facility] OPIATE SCREEN URINE Negative NEGATIVE [facility] OXYCODONE SCREEN URINE Negative NEGATIVE [facility] PHENCYCLIDINE SCREEN URINE Negative NEGATIVE [facility] TRICYCLIC ANTIDEPRESSANT URINE Negative NEGATIVE [facility] Urinalysis macro (dipstick) panel (U)on 06-21-2024 Bilirubin, UA Negative Negative - 4(70) +++ mg/dL [facility] Blood, UA Negative Negative - 50 [place]/mcL [facility] Clarity, UA Clear [facility] Color, UA Yellow [facility] Glucose, UA Negative Negative - 1999(110) ++++ mg/dL [facility] Interpretation and review of laboratory results Normal [facility] Ketones, UA Negative Negative - 160(16) ++++ mg/dL [facility] Leukocytes, UA Negative Negative - 500+++ Kell/mcL [facility] Nitrite, UA Negative Negative - Positive [facility] pH, UA 5.5 5 - 9 [facility] Protein, UA Negative Negative - 1999(20) ++++ mg/dL [facility] Spec Grav, UA 1.02 1 - 1.03 [facility] Urobilinogen, UA 1.0 0.2 - 12 mg/dL [facility] HCG ( test) Ql (U)o n 05-20-2024 Interpretation and review of laboratory results Abnormal [facility] Preg Test, Ur Positive [facility] Urinalysis macro (dipstick) panel (U)on 05-20-2024 Bilirubin, UA Negative Negative - 4(70) +++ mg/dL [facility] Blood, UA Negative Negative - 50 [place]/mcL [facility] Clarity, UA Clear [facility] Color, UA Colorless [facility] Glucose, UA Negative Negative - 2000(110) ++++ mg/dL [facility] Interpretation and review of laboratory results Abnormal [facility] Ketones, UA Negative Negative - 160(16) ++++ mg/dL [facility] Leukocytes, UA Trace Negative - 500+++ Kell/mcL [facility] Nitrite, UA Negative Negative - Positive [facility] pH, UA 6.0 5 - 9 [facility] Protein, UA Negative Negative - 1999(20) ++++ mg/dL [facility] Spec Grav, UA 1.005 1 - 1.03 [facility] Urobilinogen, UA 0.2 0.2 - 12 mg/dL [facility] AMYLASEon 03-16-2022 Amylase [Catalytic activity/Vol] 42 U/L Normal 25-115 [facility] Comment on above: Performed By: #### L IPA, CMP, DONNA #### [facility] [address] [place] [address] Dr. Ashley Fung CBC AUTO DIFFon 03-16-2022 BASO # 0.0 103/ul Normal 0.0-0.1 [facility] Comment on above: Performed By: #### C BC #### [facility] [address] [place] [address] Dr. Ashley Fung Basophils/100 WBC (Bld) 0.3 % Normal 0.2-2.0 [facility] Comment on above: Performed By: #### C BC #### [facility] [address] [place] [address] Dr. Ashley Fung EO # 0.1 103/ul Normal 0.0-0.7 [facility] Comment on above: Performed By: #### C BC #### [facility] [address] [place] [address] Dr. Ashley Fung Eosinophils/100 WBC (Bld) 0.9 % Normal 0.9-7.0 [facility] Comment on above: Performed By: #### C BC #### [facility] [address] [place] [address] Dr. Ashley Fung Erythrocyte distribution width (RBC) [Ratio] 11.1 % Normal 11.0-15.0 [facility] Comment on above: Performed By: #### C BC #### [facility] [address] [place] [address] Dr. Ashley Fung Hematocrit (Bld) [Volume fraction] 33.9 % Critically low 36.0-48.0 [facility] Comment on above: Performed By: #### C BC #### [facility] [address] [place] [address] Dr. Ashley Fung Hemoglobin (Bld) [Mass/Vol] 12.2 g/dL Normal 12.0-16.0 [facility] Comment on above: Performed By: #### C BC #### [facility] [address] [place] [address] Dr. Ashley Fung IG # 0.01 10e3/ul Normal 0.00-0.03 [facility] Comment on above: Performed By: #### C BC #### [facility] [address] [place] [address] Dr. Ashley Fung IG % 0.1 % Normal 0.0-0.5 [facility] Comment on above: Performed By: #### C BC #### [facility] [address] [place] [address] Dr. Ashley Fung LYMPH # 1.8 103/ul Normal 1.2-3.8 [facility] Comment on above: Performed By: #### C BC #### [facility] [address] [place] [address] Dr. Ashley Fung Lymphocytes/100 WBC (Bld) 23.2 % Normal 20.5-60.0 [facility] Comment on above: Performed By: #### C BC #### [facility] [address] [place] [address] Dr. Ashley Fung MANUAL DIFF REQ NO Normal [facility] Comment on above: Performed By: #### C BC #### [facility] [address] [place] [address] Dr. Ashley Fung MCH (RBC) [Entitic mass] 31.0 pg Normal 26.7-34.0 [facility] Comment on above: Performed By: #### C BC #### [facility] [address] [place] [address] Dr. Ashley Fung MCHC (RBC) [Mass/Vol] 36.0 g/dL Critically high 29.9-35.2 [facility] Comment on above: Performed By: #### C BC #### [facility] [address] [place] [address] Dr. Ashley Fung MCV (RBC) [Entitic vol] 86.0 fL Normal 81.0-99.0 [facility] Comment on above: Performed By: #### C BC #### [facility] [address] [place] [address] Dr. Ashley Fung MONO # 0.5 103/ul Normal 0.3-0.8 [facility] Comment on above: Performed By: #### C BC #### [facility] [address] [place] [address] Dr. Ashley Fung Monocytes/100 WBC (Bld) 6.0 % Normal 1.7-12.0 [facility] Comment on above: Performed By: #### C BC #### [facility] [address] [place] [address] Dr. Ashley Fung NEUT # 5.3 103/ul Normal 1.4-6.5 [facility] Comment on above: Performed By: #### C BC #### [facility] [address] [place] [address] Dr. Ashley Fung Neutrophils/100 WBC (Bld) 69.5 % Normal 43.0-75.0 [facility] Comment on above: Performed By: #### C BC #### [facility] [address] [place] [address] Dr. Ashley Fung Platelet mean volume (Bld) [Entitic vol] 9.9 fL Normal 9.5-13.5 [facility] Comment on above: Performed By: #### C BC #### [facility] [address] [place] [address] Dr. Ashley Fung PLT 199 103/ul Normal 150-450 [facility] Comment on above: Performed By: #### C BC #### [facility] [address] [address] [address] Ashley Fung RBC 3.94 106/ul Critically low 4.20-5.40 [facility] Comment on above: Performed By: #### C BC #### [facility] [address] [place] [address] Dr. Ashley Fung WBC 7.6 103/ul Normal 4.0-11.0 [facility] Comment on above: Performed By: #### C BC #### [facility] [address] [place] [address] ABD/PELV W CONon 03-16-[address] ABD/PELV W CON EXAMINATION: CT ABD/PELV W CON HISTORY: Right sided abdominal pain COMPARISON: None. TECHNIQUE: CT of abdomen/pelvis with intravenous contrast. Dose reduction techniques were achieved by using automated exposure control and/or adjustment of mA and/or kV according to patient size and/or use of iterative reconstruction technique. FINDINGS: Senior Materials Analyst: No pertinent findings, which are not already [...] fat-containing umbilical hernia. IMPRESSION: 1. No acute intra-abdominal/pelvi c findings. 2. Mild periportal edema, nonspecific although can be seen with aggressive rehydration therapy, hepatitis, as well as a number of additional etiologies to include hepatic, and CHF. 3. Heterogeneous enhancement of the spleen, which could be secondary to contrast bolus although phase of contrast is more portal venous than arterial. Electronically authenticated by: GUSTAVO GONZALEZ Date: 2022-03-16 10:03 Normal [facility] CULTURE URINEon 03-16-2022 CULTURE URINE Culture Observations : LIGHT GROWTH OF MIXED GENITAL YAHAIRA. NO POTENTIAL PATHOGENS SEEN. Normal [facility] Comment on above: Performed By: #### U RCX #### [facility] [address] [place] [address] Dr. Ashley Fung ER URINE PROFILEon 2 Bilirubin Ql (U) SMALL Abnormal NEGATIVE [facility] Comment on above: Performed By: #### E RUR, UMICRO #### [facility] [address] [place] [address] Dr. Ashley Fung Clarity (U) SL CLOUDY Abnormal CLEAR [facility] Comment on above: Performed By: #### E RUR, UMICRO #### [facility] [address] [place] [address] Dr. Ashley Fung Color (U) DK. YELLOW Normal YELLOW [facility] Comment on above: Performed By: #### E RUR, UMICRO #### [facility] [address] [place] [address] Dr. Ashley Fung ERUAHD A micrscopic examination will be performed if indicated. Normal [facility] Comment on above: Performed By: #### E RUR, UMICRO #### [facility] [address] [place] [address] Dr. Ashley Fung Glucose Ql (U) Negative Normal NEGATIVE [facility] Comment on above: Performed By: #### E RUR, UMICRO #### [facility] [address] [place] [address] Dr. Ashley Fung Hemoglobin Ql (U) Negative Normal NEGATIVE [facility] Comment on above: Performed By: #### TAHIRA PAULSONRO #### [facility] [address] [place] [address] Dr. Ashley Fung Ketones Ql (U) TRACE Abnormal NEGATIVE [facility] Comment on above: Performed By: #### TAHIRA PAULSONRO #### [facility] [address] [place] [address] Dr. Ashley Fung LEUKOCYTES TRACE Abnormal NEGATIVE [facility] Comment on above: Performed By: #### TAHIRA PAULSONRO #### [facility] [address] [place] [address] Dr. Ashley Fung Nitrite Ql (U) Negative Normal NEGATIVE [facility] Comment on above: Performed By: #### TAHIRA PAULSONRO #### [facility] [address] [place] [address] Dr. Ashley Fung pH (U) 7.0 [pH] Normal 5-9 [facility] Comment on above: Performed By: #### STEPHIE PAULSON #### [facility] [address] [place] [address] Dr. Ashley Fung Protein (U) [Mass/Vol] 100 mg/dL Abnormal NEGATIVE/ TRACE [facility] Comment on above: Performed By: #### TAHIRA PAULSONRO #### [facility] [address] [place] [address] Dr. Ashley Fung SPEC GRAVITY 1.025 Normal 1.005-<=1.025 [facility] Comment on above: Performed By: #### STEPHIE PAULSON #### [facility] [address] [place] [address] Dr. Ashley Fung UR MICRO IND INDICATED Normal [facility] Comment on above: Performed By: #### TAHIRA PAULSONRO #### [facility] [address] [place] [address] Dr. Ashley Fung Urobilinogen Qn (U) 1.0 {Stephanie'U}/dL Normal 0.2 - 1. 0 [facility] Comment on above: Performed By: #### E STEPHIE HOLLEY #### [facility] [address] [address] [address] Ashley Fung LIPASEon 03-16-2022 Lipase [Catalytic activity/Vol] 100.0 U/L Normal 73.0-393.0 [facility] Comment on above: Performed By: #### L IPA, CMP, DONNA #### [facility] [address] [place] [address] Dr. Ashley Fung PREG HCG QUALon 03-16-2022 , QUAL Negative Normal NEGATIVE [facility] Comment on above: Performed By: #### P REG #### [facility] [address] [place] [address] Dr. Ashley Fung PROF 14(COMP METB)on 022 Albumin [Mass/Vol] 3.3 g/dL Critically low 3.4-5.0 [facility] Comment on above: Performed By: #### L IPA, CMP, DONNA #### [facility] [address] [place] [address] Dr. Ashley Fung Albumin/Globulin [Mass ratio] 1.0 {ratio} Normal [facility] Comment on above: Performed By: #### L IPA, CMP, DONNA #### [facility] [address] [place] [address] Dr. Ashley Fung ALP [Catalytic activity/Vol] 58 U/L Normal 46-116 [facility] Comment on above: Performed By: #### L IPA, CMP, DONNA #### [facility] [address] [place] [address] Dr. Ashley Fung ALT [Catalytic activity/Vol] 15 U/L Normal 14-59 [facility] Comment on above: Performed By: #### L IPA, CMP, DONNA #### [facility] [address] [place] [address] Dr. Ashley Fung Anion gap [Moles/Vol] 11.2 mmol/L Normal [facility] Comment on above: Performed By: #### L IPA, CMP, DONNA #### [facility] [address] [address] [address] Ashley Fung AST [Catalytic activity/Vol] 15 U/L Normal 15-37 [facility] Comment on above: Performed By: #### L IPA, CMP, DONNA #### [facility] [address] [address] [address] Ashley Fung Bilirubin [Mass/Vol] 0.4 mg/dL Normal 0.2-1.0 [facility] Comment on above: Performed By: #### L IPA, CMP, DONNA #### [facility] [address] [place] [address] Dr. Ashley Fung Calcium [Mass/Vol] 8.7 mg/dL Normal 8.5-10.1 [facility] Comment on above: Performed By: #### L IPA, CMP, DONNA #### [facility] [address] [place] [address] Dr. Ashley Fung Chloride [Moles/Vol] 106 mmol/L Normal 98-107 [facility] Comment on above: Performed By: #### L IPA, CMP, DONNA #### [facility] [address] [address] [address] Ashley Fung CO2 [Moles/Vol] 27.4 mmol/L Normal 21.0-32.0 [facility] Comment on above: Performed By: #### L IPA, CMP, DONNA #### [facility] [address] [place] [address] Dr. Ashley Fung Creatinine [Mass/Vol] 1.22 mg/dL Critically high 0.55-1.02 [facility] Comment on above: Performed By: #### L IPA, CMP, DONNA #### [facility] [address] [place] [address] Dr. Ashley Fung EGFR-AF BOLIVIAN >60 Normal >=60 [facility] Comment on above: Performed By: #### L IPA, CMP, DONNA #### [facility] [address] [place] [address] Dr. Ashley Fung EGFR-NON AF BOLIVIAN 52 mL/min/1.73m2 Critically low >=60 [facility] Comment on above: Performed By: #### L IPA, CMP, DONNA #### [facility] [address] [address] [address] Ashley Fung Globulin (S) [Mass/Vol] 3.4 g/dL Normal [facility] Comment on above: Performed By: #### L IPA, CMP, DONNA #### [facility] [address] [place] [address] Dr. Ashley Fung Glucose [Mass/Vol] 116 mg/dL Critically high 74-106 [facility] Comment on above: Performed By: #### L IPA, CMP, DONNA #### [facility] [address] [place] [address] Dr. Ashley Fung Potassium [Moles/Vol] 3.6 mmol/L Normal 3.5-5.1 [facility] Comment on above: Performed By: #### L IPA, CMP, DONNA #### [facility] [address] [place] [address] Dr. Ashley Fung Protein [Mass/Vol] 6.7 g/dL Normal 6.4-8.2 [facility] Comment on above: Performed By: #### L IPA, CMP, DONNA #### [facility] [address] [place] [address] Dr. Ashley Fung Sodium [Moles/Vol] 141 mmol/L Normal 136-145 [facility] Comment on above: Performed By: #### L IPA, CMP, DONNA #### [facility] [address] [place] [address] Dr. Ashley Fung Urea nitrogen [Mass/Vol] 15.0 mg/dL Normal 7.0-18.0 [facility] Comment on above: Performed By: #### L IPA, CMP, DONNA #### [facility] [address] [place] [address] Dr. Ashley Fung Urea nitrogen/Creatinine [Mass ratio] 12.3 mg/mg Normal [facility] Comment on above: Performed By: #### L IPA, CMP, DONNA #### [facility] [address] [place] [address] Dr. Ashley Fung URINE MICROSCOPIC ONLYon BACTERIA TRACE Abnormal NONE SEEN [facility] Comment on above: Performed By: #### E RUR, UMICRO #### [facility] [address] [place] [address] Dr. Ashley Fung Bacteria identified Cx Nom (U) INDICATED Normal [facility] Comment on above: Performed By: #### E RUR, UMICRO #### [facility] [address] [place] [address] Dr. Ashley Fung CAST SEEN Abnormal NONE SEEN [facility] Comment on above: Performed By: #### E RUR, UMICRO #### [facility] [address] [place] [address] Dr. Ashley Fung Crystals LM Nom (Urine sed) NONE SEEN Normal NONE SEEN [facility] Comment on above: Performed By: #### E RUR, UMICRO #### [facility] [address] [place] [address] Dr. Ashley Fung Epithelial cells LM Ql (Urine sed) RARE Normal NONE SEEN /RARE [facility] Comment on above: Performed By: #### E RUR UMICRO #### [facility] [address] [place] [address] Dr. Ashley Fugn MUCOUS MODERATE Abnormal NONE SEEN [facility] Comment on above: Performed By: #### E RUR, UMICRO #### [facility] [address] [place] [address] Dr. Ashley Fung RBC NONE SEEN Abnormal 0-2 [facility] Comment on above: Performed By: #### E RUR, UMICRO #### [facility] [address] [place] [address] Dr. Ashley Fung WBC 2-5 Abnormal NONE SEEN [facility] Comment on above: Performed By: #### E RUR UMICRO #### [facility] [address] [place] [address] Dr. Ashley Fung XR Abdomen 2 Viewson 022 XR Abdomen 2 Views HISTORY: Low abdominal pain, constipation FINDINGS: Moderate colon stool normally distributed throughout abdomen and pelvis. No evidence of bowel obstruction or free air. No biliary or urinary tract stones. IMPRESSION: Moderate colon stool, no obstruction. Report reported and signed by Mahin London on 11/28/2021 0729 Normal [facility] [employer] Vital Signs Date Time Vital Sign Value Performing Clinician Kerwin steen 06-21-2024 09:57-0500 Body mass index (BMI) [Ratio] 28.76 kg/m2 Arlette Tawanna DO Work Phone: [facility] 06-21-2024 09:57-0500 Body weight 78.38 kg Arlette Tawanna DO Work Phone: [facility] 06-21-2024 09:57-0500 Diastolic blood pressure 72 mm[Hg] Arlette Tawanna DO Work Phone: [facility] 06-21-2024 09:57-0500 Systolic blood pressure 118 mm[Hg] Arlette Tawanna DO Work Phone: [facility] Healthcare Encounters Encounter Date Encounter Type Care Provider Facility Start: 06-21-2024 End: 06-21-2024 Bamboo flowsheet Arlette Tawanna DO Work Phone: [facility] Start: 06-21-2024 End: 06-21-2024 Bamboo flowsheet Arlette Tawanna DO Work Phone: [facility] Start: 06-21-2024 End: 06-21-2024 Clinisync Result Encounter Generic External Data Provider [facility] External Department Unsolicited Start: 06-21-2024 End: 06-21-2024 flow sheet Arlette Tawanna DO Work Phone: [facility] Comment on above: Second trimester pre gnancy; First trimester ; 12 weeks gestation of Start: 06-21-2024 End: 06-21-2024 ambulatory ARLETTE TAWANNA Not Available Start: 05-20-2024 End: 05-20-2024 Office outpatient visit 5 minutes [facility] Nurse [facility] Comment on above: GA: 8w5d Start: 05-20-2024 End: 05-20-2024 ambulatory EDWARD HEMEYER Not Available Start: 07-10-2023 End: 07-10-2023 ambulatory REYES SEXTON Not Available Start: 03-16-2022 End: 03-16-[address] VINCENT DUARTE Facility: Procedures Date Procedure Procedure Detail Performing Clinician Start: 06-21-2024 Antibody screen Generic Provider Start: 06-21-2024 Urnls dip stick/tabl et rgnt non-auto w/o micrscp Arlette Tawanna DO Work Phone: Start: 06-21-2024 ALL CBC WITH AUTO DIFF Arlette Tawanna DO Work Phone: Start: 06-21-2024 ALL RUBELLA IGG AB Core y Tawanna DO Work Phone: Start: 06-21-2024 ALL TYPE AND SCREEN Cor ey Tawanna DO Work Phone: Start: 06-21-2024 BOX TEST Arlette Fazi o DO Work Phone: Start: 06-21-2024 HBSAG SCREEN Generic Ex ternal Data Provider Start: 06-21-2024 HCV ANTIBODY RFX TO QUANT PCR Arlette Tawanna DO Work Phone: Start: 06-21-2024 HIV AB/P24 AG WITH REFLEX Arlette Tawanna DO Work Phone: Start: 06-21-2024 MLR HEMOGLOBIN A1C Core y Tawanna DO Work Phone: Start: 06-21-2024 RAPID PLASMA REAGIN, QUANT Generic External Data Provider Start: 06-21-2024 Bacteria identified in Urine by Culture Generic External Data Provider Start: 06-21-2024 [facility] DRUG SCREEN RAPI D (URINE) Generic External Data Provider Start: 05-20-2024 Urnls dip stick/tabl et rgnt non-auto w/o micrscp Arlette Tawanna DO Work Phone: Plan of Treatment Date Care Activity Detail Author Start: 07-22-2024 End: 07-22-2024 Patient encounter procedure 07/22/2024 1:30 PM EST Routine [facility] [address] [place] [address] Donna Kennedy PA [address] [place] [address] [facility] Start: 06-21-2024 End: 06-21-2024 Patient encounter procedure 06/21/2024 9:50 AM EST Routine [facility] [address] [place] [id number] Arlette Stacy DO [address] [place] [address] [facility] OB Start: 05-20-2024 End: 05-20-2025 ABO/Rh ABO/Rh Lab Routine Missed menses , unspecified gestational age Expected: 05/20/2024 (Approximate), Expires: 05/20/2025 [facility] Comment on above: Expected: 05/20/2024 (Approximate), Expires: 05/20/2025 Start: 05-20-2024 End: 05-20-2025 Blood type and Indirect antibody screen panel - Blood Type and screen Lab Routine Missed menses , unspecified gestational age Expected: 05/20/2024 (Approximate), Expires: 05/20/2025 [facility] Work Phone: Comment on above: Expected: 05/20/2024 (Approximate), Expires: 05/20/2025 Start: 05-20-2024 End: 05-20-2025 Drugs of abuse panel - Urine by Screen method Rapid drug screen, urine Lab Routine , unspecified gestational age Encounter for supervision of normal first in first trimester Expected: 05/20/2024 (Approximate), Expires: 05/20/2025 [facility] Comment on above: Expected: 05/20/2024 (Approximate), Expires: 05/20/2025 Start: 05-20-2024 End: 05-20-2025 US Pelvis transvaginal US OB transvaginal Imaging Routine Missed menses Expected: 05/20/2024 (Approximate), Expires: 05/20/2025 [facility] Comment on above: Expected: 05/20/2024 (Approximate), Expires: 05/20/2025 Start: 04-11-2024 Influenza vaccination Influenza Vacc ine (#1) [facility] Start: 02-19-2024 Screening for malign ant neoplasm of cervix [facility] Start: 2015 Screening for malign ant neoplasm of cervix Pap Smear [facility] Bacteria identified in Urine by Culture Urine culture Microbiology Routine Missed menses Ordered: 05/20/2024 [facility] Comment on above: Ordered: 05/20/2024 CBC W Auto Different ial panel - Blood CBC and differential Lab Routine Missed menses , unspecified gestational age Ordered: 05/20/2024 [facility] Comment on above: Ordered: 05/20/2024 Hemoglobin A1c/Hemoglobin.total in Blood Hemoglobin A1c Lab Routine Missed menses , unspecified gestational age Ordered: 05/20/2024 [facility] Comment on above: Ordered: 05/20/2024 Hepatitis B virus surface Ag [Presence] in Serum or Plasma by Immunoassay Hepatitis B surface antigen Lab Routine Missed menses , unspecified gestational age Ordered: 05/20/2024 [facility] Comment on above: Ordered: 05/20/2024 Hepatitis C virus Ab [Presence] in Serum or Plasma by Immunoassay Hepatitis C antibody Lab Routine Missed menses , unspecified gestational age Ordered: 05/20/2024 [facility] Comment on above: Ordered: 05/20/2024 HIV-1/HIV-2 antigen/antibody combination immunoassay HIV-1 and HIV-2 antibodies Lab Routine Missed menses , unspecified gestational age Ordered: 05/20/2024 [facility] Comment on above: Ordered: 05/20/2024 Reagin Ab [Presence] in Serum by RPR RPR Lab Routine Missed menses , unspecified gestational age Ordered: 05/20/2024 [facility] Comment on above: Ordered: 05/20/2024 Rubella antibody, IgG Rubella an tibody, IgG Lab Routine Missed menses , unspecified gestational age Ordered: 05/20/2024 [facility] Comment on above: Ordered: 05/20/2024 Immunizations Immunization Date Immunization Notes Care Provider Odessa tracy 02-09-2013 meningococcal polysa ccharide (groups A, C, Y and W-135) diphtheria toxoid conjugate vaccine (MCV4P) [facility] Nurse [facility] 02-09-2013 tetanus toxoid, redu rosario diphtheria toxoid, and acellular pertussis vaccine, adsorbed [facility] Nurse [facility] 03-23-1999 diphtheria, tetanus toxoids and acellular pertussis vaccine [facility] Nurse [facility] are 03-23-1999 measles, mumps and r ubella virus vaccine [facility] Nurse [facility] 03-23-1999 trivalent poliovirus vaccine, live, oral [facility] Nurse [facility] 03-02-1997 diphtheria, tetanus toxoids and acellular pertussis vaccine [facility] Nurse [facility] are 02-16-1996 diphtheria, tetanus toxoids and acellular pertussis vaccine [facility] Nurse [facility] are 02-16-1996 measles, mumps and r ubella virus vaccine [facility] Nurse [facility] 06-11-1995 diphtheria, tetanus toxoids and acellular pertussis vaccine, Haemophilus influenzae type b conjugate, and poliovirus vaccine, inactivated ([id number]) [facility] Nurse [facility] 06-11-1995 hepatitis B vaccine, pediatric or pediatric/adolescent dosage [facility] Nurse [facility] 1994 haemophilus influenz ae type b vaccine, conjugate unspecified formulation [facility] Nurse [facility] 1994 hepatitis B vaccine, pediatric or pediatric/adolescent dosage [facility] Nurse [facility] 1994 trivalent poliovirus vaccine, live, oral [facility] Nurse [facility] 1994 diphtheria, tetanus toxoids and acellular pertussis vaccine, Haemophilus influenzae type b conjugate, and poliovirus vaccine, inactivated ([id number]) [facility] Nurse [facility] 1994 hepatitis B vaccine, pediatric or pediatric/adolescent dosage [facility] Nurse [facility] Payers Date Payer Category Payer Private Health Insurance [employer] [id number] 2023 Unknown [employer] [id number] 2023-Present [address] [place] [address] [id number] 2023 Unknown [id number] 1994 Unknown [id number] 1994 Unknown [id number] 1994 Unknown [id number] 1994 Unknown [id number] Unknown [id number] Social History Date Type Detail Facility Start: 05-25-2023 Tobacco smoking stat [facility] Never smoked tobacco [facility] Start: 05-25-2023 Tobacco use and exposure Smoke less tobacco non-user [facility] Start: 05-20-2024 End: 06-21-2024 Alcoholic beverage intake Current drinker of alcohol (finding) [facility] Start: 07-10-2023 End: 05-20-2024 [facility]coholic beverage intake [facility] Start: 07-10-2023 Tobacco use panel [facility] Start: 04-09-2023 Alcohol Comment Caffeine intak e: 1-2 cups per day coffee [facility] Start: 04-03-2024 [facility] Start: 1994 Sex assigned at Not on file [facility] History of Present illness Narrative 06-21-2024 Bren Moreno LPN - 06/21/2024 9:50 AM EST Note Date & Type Note Facility 06-21-2024 History of Presen t illness Narrative Reason for Appointment: Patient ID: Eloina Breaux is a 29 y.o. female who presents for Routine Visit Patient presents today for Return OB appointment. MEDICATIONS Current Outpatient Medications Medication Instructions MV-Min-Fe Fum-FA-DHA ( 1 PO) 1 tablet, Oral, Daily ALLERGIES No Known Allergies PROBLEMS Active Ambulatory Problems Diagnosis Date Noted ADD (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 hyperactivity 04/09/2023 Chronic constipation 04/09/2023 Chronic eustachian salpingitis of both ears 04/09/2023 Dysmenorrhea 04/09/2023 Heart murmur 04/09/2023 Stage 2 chronic kidney disease 08/06/2023 Chronic fatigue 08/06/2023 Resolved Ambulatory Problems Diagnosis Date Noted No Resolved Ambulatory Problems Past Medical History: Diagnosis Date ADD (attention deficit disorder) Anxiety Chronic vaginitis Sleep initiation disorder HISTORY PAST MEDICAL HISTORY SOCIAL HISTORY Past Medical History: Diagnosis Date ADD (attention deficit disorder) went through counseling to confirm DX Anxiety Chronic vaginitis Sleep initiation disorder Social History Tobacco Use Smoking status: Never Smokeless tobacco: Never Vaping Use Vaping status: Never Used Substance Use Topics Alcohol use: Yes Alcohol/week: 2.0 standard drinks of alcohol Types: 2 Standard drinks or equivalent per week Comment: Caffeine intake: 1-2 cups per day coffee Drug use: Never FAMILY HISTORY Family History Problem Relation Name Age of Onset Cancer Father Other (Non hodgkins lymphoma) Father No Known Problems Brother Colon cancer Other mothers fam hx SURGICAL HISTORY Past Surgical History: Procedure Laterality Date CYST REMOVAL cyst removed off tailbone TONSILLECTOMY 1997 WISDOM TOOTH EXTRACTION 07/29/2016 REVIEW OF SYSTEMS Review of Systems: Review of Systems All other systems reviewed and are negative. OBJECTIVE Objective: Physical Exam Constitutional: Appearance: Normal appearance. She is well-developed. Cardiovascular: Rate and Rhythm: Normal rate and regular rhythm. Pulmonary: Effort: Pulmonary effort is normal. Breath sounds: Normal breath sounds. Abdominal: General: Bowel sounds are normal. There is no distension. Palpations: Abdomen is soft. Tenderness: There is no abdominal tenderness. There is no guarding or rebound. Musculoskeletal: General: No swelling. Normal range of motion. Right lower leg: No edema. Left lower leg: No edema. Neurological: Mental Status: She is alert and oriented to person, place, and time. Skin: General: Skin is warm and dry. Psychiatric: Mood and Affect: Mood normal. Behavior: Behavior normal. Vitals and nursing note reviewed. Exam conducted with a tso present. Vitals: Estimated body mass index is 28.76 kg/m as calculated from the following: Height as of 23: 5' 5 . Weight as of this encounter: 172 lb 12.8 oz. BP: 118/72 Patient's last menstrual period was 03/20/2024. ASSESSMENT & PLAN ICD-10-CM 1. Second trimester Z34.92 Urine dip 2. First trimester Z34.91 Urine dip 3. 12 weeks gestation of Z3A.12 Urine dip New OB: Patient presents today for 1st time obstetrics appointment with provider. Patient is currently 13w2d . Patients history has been reviewed in great detail including any potential risks. Patient stated she currently has no complaints. Expectations throughout regarding labs, ultrasounds, and appointments have been discussed with the patient in detail. It was reiterated that the patient is to drink 6-8 glasses of water a day, eat 6 small meals a day, do not consume raw or undercooked meat, and stay away from [facility]. Patient has been consulted regarding any further do's and don'ts of . Patient voiced understanding and all questions and concerns were answered. Patient given orders for OB labs and [place] to be drawn today at [facility]. Orders Placed This Encounter Procedures Urine dip Follow Up: Patient is to return in 4 weeks for routine OB appointment. Documented by Bren Moreno LPN on behalf of: Arlette Stacy DO documented in this encounter [facility] History of Present illness Narrative 05-20-2024 Miryam Matthews LPN - 05/20/2024 2:00 PM EDT Note Date [...] REMOVAL cyst removed off tailbone TONSILLECTOMY 1996 WISDOM TOOTH EXTRACTION 07/29/2016 No Known Allergies Vitals: [...] or undercooked meat, and stay away from [facility]. Patient has also been advised to not change litter boxes and eat 6 small meals a day. Patient has been consulted regarding the do's and don'ts of . Patient was given labs and all questions and concerns were answered. Patient did not want to do [place] labs at this time. Follow Up: Patient is to return in 4 weeks for routine OB appointment. Follow Up: Patient is to have labs drawn at directed and return to office for initial OB appointment with provider. Patient may call office as needed with any concerns or questions. Nurse Visit Completed by: Miryam Matthews LPN documented in this encounter [facility] Evaluation note Note Date & Type Note Facility Evaluation note Diagnosis Missed menses 8 weeks gestation of First trimester state, incidental , unspecified gestational age Encounter for supervision of normal first in first trimester documented in this encounter [facility] Evaluation note Note Date & Type Note Facility Evaluation note Diagnosis Second trimester state, incidental First trimester state, incidental 12 weeks gestation of documented in this encounter [facility] Summary Purpose Family History No Family History Records FoundNo Family History Records FoundNo Family History Records Found Advance Directives No Advanced Directives Records FoundNo Advanced Directives Records FoundNo Advanced Directives Records Found Additional Source Comments INFORMATION SOURCE (unrecogn ized section and content) DATE CREATED AUTHOR 11/29/2021 [facility] Specialist DATE CREATED AUTHOR AUTHOR'S ORGANIZ ATION 03/19/2022 [facility] DATE CREATED AUTHOR AUTHOR'S ORGANIZ ATION 06/22/2024 [facility]ists EPIC Reason for Visit (unrecogniz ed section and content) Reason Comments Amenorrhea Reason Comments Routine Visit Care Teams (unrecognized sec tion and content) Grants Assistant Relationship Specialty Start Date End Date Reyes Sexton MD [address] [place] [address] PCP - General Family Medicine 12/17/22 Grants Assistant Relationship Specialty Start Date End Date Reyes Sexton MD [address] [phone] (Fax) PCP - General Family Medicine 12/17/22 Grants Assistant Relationship Specialty Start Date End Date Reyes Sexton MD [address] [place] [address] (Fax) PCP - General Family Medicine 12/17/22 Grants Assistant Relationship Specialty Start Date End Date Reyes Sexton MD [address] [place] [phone] (Fax) PCP - General Family Medicine 12/17/22 FOR [...] BE BASED ON THE PRIMARY CLINICAL RECORDS. [facility]. provides no warranty or guarantee of the accuracy or completeness of information in this document.
[2024-07-29 11:10] LABS: Age Gdln ACOG Testing Note (.); HPV Aptima Negative (Negative); IGP, Aptima HPV, rfx 16/18,45 Note (.)
== END 2024-07-22 19:36 | disposition home or self-care (01) ==
LOC: LAB 19:35
PROVIDERS: PCP Family Medicine; Visit Provider Physician Assistant
DX: Z01.419 Encounter for gynecological examination (general) (routine) without abnormal findings (principal)
CPT/HCPCS: 87624; 88175

== ENCOUNTER 2024-10-08 07:33 | Outpatient (RCR) | payer OTHER, SELFPAY ==
[2024-10-08 09:35] VITALS: BP 115/73; PULSE 96; TEMP 36.1; O2SAT 97
[2024-10-08] MEDS: RHO(D) IMMUNE GLOBULIN 1,500 UNIT SYRINGE 1500 UNIT IM (09:38)
[2024-10-08 09:56] LABS: Basophils Percent Auto 0.1 % (0.2-2.0); Eosinophils Absolute Auto 0.1 10^3/uL (0.0-0.7); Eosinophils Percent Auto 0.7 % (0.9-7.0); Hematocrit 30.5 % (36.0-48.0); Hemoglobin 10.8 g/dL (12.0-16.0); Immature Granulocytes Abs Auto 0.03 10^3/uL (0.00-0.03); Immature Granulocytes Pct Auto 0.4 % (0.0-0.5); Lymphocytes Absolute Auto 1.5 10^3/uL (1.2-3.8); Lymphocytes Percent Auto 20.1 % (20.5-60.0); Mean Corpuscular HGB Conc 35.4 g/dL (29.9-35.2); Mean Corpuscular Hemoglobin 32.7 pg (26.7-34.0); Mean Corpuscular Volume 92.4 fL (81.0-99.0); Mean Platelet Volume 10.3 fL (9.5-13.5); Monocytes Absolute Auto 0.4 10^3/uL (0.3-0.8); Monocytes Percent Auto 5.8 % (1.7-12.0); Neutrophils Absolute Auto 5.3 10^3/uL (1.4-6.5); Neutrophils Percent Auto 72.9 % (43.0-75.0); Platelet Count 194 10^3/uL (150-450); Red Cell Distribution Width 12.3 % (11.0-15.0); White Blood Count 7.2 10^3/uL (4.0-11.0)
[2024-10-08 10:29] LABS: Glucose 1 Hour 173 mg/dL (<130)
== END 2024-10-08 23:59 | disposition home or self-care (01) ==
LOC: INF 07:33
PROVIDERS: PCP Family Medicine; Visit Provider Obstetrics & Gynecology
DX: O26.893 Other specified pregnancy related conditions, third trimester (principal); Z67.91 Unspecified blood type, Rh negative; Z3A.00 Weeks of gestation of pregnancy not specified; Z13.1 Encounter for screening for diabetes mellitus
CPT/HCPCS: 36415; 82950; 85025; 86850; 86900; 86901; 96372; J2791

== ENCOUNTER 2024-10-14 07:58 | Outpatient (OUT) | payer OTHER, SELFPAY ==
--- OUTSIDE RECORDS SUMMARY | 2024-10-14 08:11 | XMS_ITS | CCD ---
Author Organization [facility] Care Team Providers [facility] Coordinator Name Role Phone DR VINCENT DUARTE Admitting DR VINCENT Hilario Attending Unavailable DR AZ WARD Consulting Unavailable GUSTAVO GONZALEZ Consulting Unavailable Argelia KATZ, Reyes Bates Primary Care Provider Reyes Stout MD Primary Care Provider Reyes Stout MD Primary Care Provider [phone] Donna Coleman Unavailable DONNA PEGUERO Attending Unavailable ARLETTE STACY Attending Unavailable ARLETTE STACY Attending Unavailable DONNA PEGUERO Attending Unavailable ARLETTE STACY Attending Unavailable Medications Current Medications Medication Drug Class(es) Dates Sig (Normalized) Sig (Original) MV-Min-Fe Fum-FA-DHA ( 1 PO) (20 sources) MV-Min- Fe Fum-FA-DHA ( 1 PO) Take 1 tablet by mouth Daily Active Problems Active Problems Problem Classification Problem Date Documented Date Episodic/Chronic Abdominal pain (4 sources) Right lower quadrant pain; Translations: [Unspecified abdominal pain] Onset: 03-16-2022 Episodic Chronic kidney disease (20 sources) Chronic kidney disease stage 2; Translations: [Chronic kidney disease, stage 2 (mild)] Onset: 08-06-2023 08-06-2023 Chronic Disorders usually diagnosed in infancy, childhood, or adolescence (20 sources) Attention deficit hyperactivity disorder, predominantly inattentive type; Translations: [Other specified behavioral and emotional disorders with onset usually occurring in childhood and adolescence] Onset: 04-09-2023 04-09-2023 Chronic Immunizations and screening for infectious disease (2 sources) Exposure to sexually transmissible disorder; Translations: [Contact with and (suspected) exposure to infections with a predominantly sexual mode of transmission] 07-22-2024 Episodic Malaise and fatigue (20 sources) Fatigue; Translations: [Chronic fatigue, unspecified] Onset: 08-06-2023 08-06-2023 Chronic Menstrual disorders (20 sources) Missed period; Translations: [Irregular menstruation, unspecified] Onset: 04-09-2023 05-20-2024 Chronic Other female genital disorders (2 sources) Vaginal discharge; Translations: [Other specified noninflammatory disorders of vagina] 07-22-2024 Episodic Other and delivery including normal (15 sources) First trimester ; Translations: [Encounter for supervision of normal , unspecified, first trimester] 05-20-2024 Episodic Other screening for suspected conditions (not mental disorders or infectious disease) (4 sources) Patient encounter status; Translations: [Encounter for other specified screening] 07-22-2024 Episodic Otitis media and related conditions (20 sources) Chronic salpingitis of bilateral eustachian tubes; Translations: [Chronic Eustachian salpingitis, bilateral] Onset: 04-09-2023 04-09-2023 Chronic Residual codes; unclassified (1 source) Gestation period, 8 weeks; Translations: [8 weeks gestation of ] 05-20-2024 Episodic Residual codes; unclassified (2 sources) Gestation period, 12 weeks; Translations: [12 weeks gestation of ] 06-21-2024 Episodic Residual codes; unclassified (2 sources) Gestation period, 17 weeks; Translations: [17 weeks gestation of ] 07-22-2024 Episodic Residual codes; unclassified (2 sources) Gestation period, 22 weeks; Translations: [22 weeks gestation of ] 08-24-2024 Episodic Residual codes; unclassified (2 sources) Gestation period, 26 weeks; Translations: [26 weeks gestation of ] 09-21-2024 Episodic Residual codes; unclassified (2 sources) Gestation period, 28 weeks; Translations: [28 weeks gestation of ] 10-06-2024 Episodic Urinary tract infections (1 source) Urinary tract infection, site not specified; Translations: [UTI SITE NOT SPECIFIED] Onset: 03-19-2022 Episodic Past or Other Problems Problem Classification Problem Date Documented Da te Episodic/Chronic Heart valve disorders (20 sources) Heart murmur; Translations: [Cardiac murmur, unspecified] Onset: 04-09-2023 04-09-2023 Episodic Other gastrointestinal disorders (20 sources) Chronic constipation; Translations: [Other constipation] Onset: 04-09-2023 04-09-2023 Episodic Results Test Name Value Interpretation Reference Range Facility ALL CBC WITH AUTO DIFFon BASOPHILS ABSOLUTE AUTO 0 [facility] Basophils/100 WBC (Bld) 0.1 % Low 0.2 - 2.0 % [facility] Eosinophils/100 WBC (Bld) 0.7 % Low 0.9 - 7.0 % [facility] Erythrocyte distribution width (RBC) [Ratio] 12.3 % 11.0 - 15.0 % [facility] Hematocrit (Bld) [Volume fraction] 30.5 % Low 36.0 - 48.0 % [facility] Hemoglobin (Bld) [Mass/Vol] 10.8 g/dL Low 12.0 - 16.0 g/dL [facility] IMMATURE GRANULOCYTES ABS AUTO 0.03 [facility] Immature granulocytes/100 WBC (Bld) 0.4 % 0.0 - 0.5 % [facility] Interpretation and review of laboratory results Abnormal [facility] LYMPHOCYTES ABSOLUTE AUTO 1.5 [facility] Lymphocytes/100 WBC (Bld) 20.1 % Low 20.5 - 60.0 % [facility] MCH (RBC) [Entitic mass] 32.7 pg 26.7 - 34.0 pg [facility] MCHC (RBC) [Mass/Vol] 35.4 g/dL High 29.9 - 35.2 g/dL [facility] MCV (RBC) [Entitic vol] 92.4 fL 81.0 - 99.0 fL [facility] MONOCYTES ABSOLUTE AUTO 0.4 [facility] Monocytes/100 WBC (Bld) 5.8 % 1.7 - 12.0 % [facility] NEUTROPHILS ABSOLUTE AUTO 5.3 [facility] Neutrophils/100 WBC (Bld) 72.9 % 43.0 - 75.0 % [facility] Platelet mean volume (Bld) [Entitic vol] 10.3 fL 9.5 - 13.5 fL [facility] TBH EO # 0.1 [facility] TBH PLT 194 [facility] RBC 3.3 Low [facility] WBC 7.2 [facility] US OB LIMITED 1+ FETUSESon 0 09-22-2024 US OB LIMITED 1+ FETUSES EXAM: US OB LIMITED 1+ FETUSES HISTORY: Follow up anatomy. COMPARISON: OB ultrasound 08/18/2024. TECHNIQUE: Two-dimensional transabdominal grayscale ultrasound imaging of the pelvis was performed. FINDINGS: Gestation: Single Presentation: Breech Cardiac Activity: Present - Not measured Placental Location: Posterior with no sonographic abnormalities identified. Cervical canal: Not visualized Amniotic Fluid: Appears adequate ANATOMY LVOT: Unremarkable RVOT: Unremarkable IMPRESSION: 1. Single, live intrauterine gestation 26 weeks, 4 days by LMP. EMANUEL is 12/25/2024. 2. Unremarkable RVOT and LVOT. Electronically Signed:Electronically signed by CURTIS ROSS II, MD, PHD at 24-Sep-2024 08:39:21 AM [facility] Normal Not Available Comment on above: Order Comment: US OB INCOMPLETE ANATOMY Estimated Date of Delivery: 12/25/24 Gestational Age as of 08/24/2024: 22w3d Urinalysis macro (dipstick) panel (U)on 09-21-2024 Bilirubin, UA Negative Negative - 4(70) +++ mg/dL [facility] Blood, UA Negative Negative - 50 [place]ady/mcL [facility] Clarity, UA Clear [facility] Color, UA Yellow [facility] Glucose, UA Negative Negative - 1999(110) ++++ mg/dL [facility] Interpretation and review of laboratory results Normal [facility] Ketones, UA Negative Negative - 160(16) ++++ mg/dL [facility] Leukocytes, UA Negative Negative - 500+++ Kell/mcL [facility] Nitrite, UA Negative Negative - Positive [facility] pH, UA 7 5 - 9 [facility] Protein, UA Negative Negative - 2000(20) ++++ mg/dL [facility] Spec Grav, UA 1.01 1 - 1.03 [facility] Urobilinogen, UA 0.2 0.2 - 12 mg/dL [facility] Urinalysis macro (dipstick) panel (U)on 08-24-2024 Bilirubin, UA Negative Negative - 4(70) +++ mg/dL [facility] Blood, UA Negative Negative - 50 [place]/mcL [facility] Clarity, UA Clear [facility] Color, UA Yellow [facility] Glucose, UA Negative Negative - 2000(110) ++++ mg/dL [facility] Interpretation and review of laboratory results Abnormal [facility] Ketones, UA Negative Negative - 160(16) ++++ mg/dL [facility] Leukocytes, UA Trace Negative - 500+++ Kell/mcL [facility] Nitrite, UA Negative Negative - Positive [facility] pH, UA 7 5 - 9 [facility] Protein, UA Trace Negative - 2000(20) ++++ mg/dL [facility] Spec Grav, UA 1.02 1 - 1.03 [facility] Urobilinogen, UA 1.0 0.2 - 12 mg/dL [facility] US OB 14+ WEEKS ANATOMY SCAN on 08-18-2024 US OB 14+ WEEKS ANATOMY SCAN TITLE OF EXAM: OB Ultrasound: REASON FOR EXAM: Anatomy. COMPARISON: None. TECHNIQUE: Grayscale and M-mode Doppler imaging is performed. FINDINGS: heart rate: 140 bpm BPD: 5.3 cm HC: 19.6 cm AC: 16.8 cm FL: 3.8 cm GA for sonogram: 21.7 wk (20.3-23.1) Cervix length: 4.6 cm EMANUEL: 12/25/2024 Weight Estimate: Weight: 464 gm / 1 lbs, 0 oz (396-532 gm) [place] Normal: 444 gm (369-520 gm) [place] Wt%: 65% for 21.6 wks Presentation: Cephalic Lie: Longitudinal Amniotic Fluid: Subjectively normal Placental Location: Posterior Distance from Placenta edge to Cervical os: 3.3 cm Cervical Length: 4.6 cm Closed Heart Rate: 140 bpm Anatomy Observed: Lateral Ventricles: Visualized Cerebellum: Visualized Posterior Fossa: Visualized Nose Lips: Visualized Orbits: Visualized 4 Chamber heart: Visualized RVOT/LVOT: Not visualized, position Diaphragm: Visualized Stomach: Visualized Kidneys: Visualized Abd Cord Insert: Visualized Bladder: Visualized Umbilical Arteries: Visualized 3 Vessel Cord: Visualized Spine: Visualized Extremities: Visualized Gender: Not visualized Comments: Active fetus 22 w 0 d IMPRESSION: Single live intrauterine gestation in cephalic position. Visualized structures are unremarkable. Dictated and transcribed 08/18/24/dpd This report has been electronically signed and approved by the interpreting radiologist. Normal Not Available Comment on above: Order Comment: US OB ANATOMY SINGLE W US OB CERVICAL LENGTH Estimated Date of Delivery: 12/25/24 Gestational Age as of 07/22/2024: 21w2d IGP,APTIMA HPV,AGE GDLNon AGE GDLN ACOG TESTING Note . [facility] Comment on above: TESTS RESULT FLAG UN ITS REF RANGE LAB Clinician Provided Cytology Information Source.............Cervix No. of containers..01 ThinPrep Vial Age Algo ACOG Kinsey... FLAG LEGEND: L-Low Normal,H-High Normal,LL-Alert Low,HH-Alert High <-Panic Low,>-Panic High,A-Abnormal,AA-Critical Abnormal Performed at: 01 =G [address] [place] [address] Teri Armijo MD, HPV APTIMA Negative Negative [facility] Comment on above: This nucleic acid am plification test detects fourteen high- risk HPV types (16,18,31,33,35,39,45,51,52,56,58,59,66,68) without differentiation. Performed at: =[address], [place] [id number] [employer] Teacher: Teri Armijo MD, Phone: [phone] Performed at: [address] [id number] [employer] Teacher: Ashley Sunshine PhD, Phone: [phone] IGP, APTIMA HPV, RFX 16/18,45 Note . [facility] Comment on above: TESTS RESULT FLAG UN ITS REF RANGE LAB DIAGNOSIS: 02 NEGATIVE FOR INTRAEPITHELIAL LESION OR MALIGNANCY. Specimen adequacy: 02 Satisfactory for evaluation. No endocervical component is identified. Performed by: 02 Christine Davis, Executive Administrative Asst (ASC) . 02 Note: Note 03 The Pap smear is a screening test designed to aid in the detection of premalignant and malignant conditions of the uterine cervix. It is not a diagnostic procedure and should not be used as the sole means of detecting cervical cancer. Both false-positive and false-negative reports do occur. Test Methodology: Note 03 This liquid based ThinPrep(R) pap test was screened with the use of an image guided system. HPV Genotype Reflex Note 02 Criteria not met, HPV Genotype not performed. FLAG LEGEND: L-Low Normal,H-High Normal,LL-Alert Low,HH-Alert High <-Panic Low,>-Panic High,A-Abnormal,AA-Critical Abnormal Performed at: 02 [place] [facility] [address] [place] [id number] Ashley Sunshine PhD, 03 WB [facility] [address] [address] Teri Armijo MD, SPATULA-ALONE CERVIX [facility] RECURRENT VAGINITIS (HTRX)on 12-14-2024 ATOPOBIUM VAGINAE 0 [facility] ATOPOBIUM VAGINAE Not detected [facility] BVAB 2,3 (BACTERIAL VAGINOSIS ASSOCIATED BACTERIA 2, 3); MOBILUNCUS SPP 0 [facility] BVAB 2,3 (BACTERIAL VAGINOSIS ASSOCIATED BACTERIA 2, 3); MOBILUNCUS SPP Not detected [facility] DARIA ALBICANS, PARAPSILOSIS, TROPICALIS 0 [facility] DARIA ALBICANS, PARAPSILOSIS, TROPICALIS Not detected [facility] DARIA GLABRATA 0 [facility] DARIA GLABRATA Not detected [facility] DARIA KRUSEI 0 [facility] DARIA KRUSEI Not detected [facility] CHLAMYDIA TRACHOMATIS 0 [facility] CHLAMYDIA TRACHOMATIS Not detected N [facility] GARDNERELLA VAGINALIS 0 [facility] GARDNERELLA VAGINALIS Not detected N [facility] MEGASPHAERA (TYPES 1, 2) 0 [facility] MEGASPHAERA (TYPES 1, 2) Not detected [facility] MYCOPLASMA GENITALIUM 0 [facility] MYCOPLASMA GENITALIUM Not detected N [facility] NEISSERIA GONORRHOEAE 0 [facility] NEISSERIA GONORRHOEAE Not detected N [facility] TRICHOMONAS VAGINALIS 0 [facility] TRICHOMONAS VAGINALIS Not detected N [facility] Urinalysis macro (dipstick) panel (U)on 07-22-2024 Bilirubin, UA Negative Negative - 4(70) +++ mg/dL [facility] Blood, UA Negative Negative - 50 [place]/mcL [facility] Clarity, UA Clear [facility] Color, UA Yellow [facility] Glucose, UA Negative Negative - 1999(110) ++++ mg/dL [facility] Interpretation and review of laboratory results Normal [facility] Ketones, UA Negative Negative - 160(16) ++++ mg/dL [facility] Leukocytes, UA Negative Negative - 500+++ Kell/mcL [facility] Nitrite, UA Negative Negative - Positive [facility] pH, UA 6 5 - 9 [facility] Protein, UA Negative Negative - 1999(20) ++++ mg/dL [facility] Spec Grav, UA 1.02 1 - 1.03 [facility] Urobilinogen, UA 1.0 0.2 - 12 mg/dL [facility] ALL RUBELLA IGG ABon 06-22-2 024 RUBELLA ANTIBODIES, IGG 18.80 Immune >0.99 index [facility] Comment on above: Non-immune <0.90 Equivocal 0.90 - 0.99 Immune >0.99 Performed at: [address] [id number] [employer] Teacher: Michael Talamantes PhD, Phone: [phone] HBSAG SCREENon 06-22-2024 HBSAG SCREEN Negative Negative [facility] Comment on above: Performed at: [address] [id number] [employer] Teacher: Michael Talamantes PhD, Phone: [phone] HCV ANTIBODY RFX TO QUANT [facility] Jalen 06-22-2024 HCV AB Non-Reactive Non Reactive [facility] INTERPRETATION: Comment . [facility] Comment on above: Not infected with HC V unless early or acute infection is suspected (which may be delayed in an immunocompromised individual), or other evidence exists to indicate HCV infection. HIV AB/P24 AG WITH REFLEXon 06-22-2024 HIV AB/P24 AG SCREEN Non-Reactive Non Reactive [facility] Comment on above: HIV-1/HIV-2 antibodi es and HIV-1 p24 antigen were NOT detected. There is no laboratory evidence of HIV infection. HIV Negative Performed at: [address] [id number] [employer] Teacher: Michael Talamantes PhD, Phone: [phone] No [facility] 06-[facility] RAPID PLASMA REAGIN, QUANTon 06-22-2024 RAPID PLASMA REAGIN, QUANT Non-Reactive NonRea<1:1 titer [facility] Comment on above: Please Note: This te st does not meet current guidelines for screening and diagnosis of syphilis. This test is intended for following treatment response in patients being treated for syphilis infection. To screen for syphilis infection, a reflex cascade that includes both RPR and a treponema-specific assay should be utilized, such as Treponema pallidum (Syphilis) Screening [place] (195348) or Rapid Plasma Reagin (RPR) Test With Reflex to Quantitative RPR and Confirmatory Treponema pallidum Antibodies (688504). Performed at: [address] [id number] [employer] Teacher: Michael Talamantes PhD, Phone: [phone] URINE CULTURE, ROUTINEon Bacteria identified Cx Nom (U) Urine Culture, Routine [facility] Bacteria identified Cx Nom (U) Mixed urogenital yahaira [facility] Bacteria identified Cx Nom (U) Less than 10,000 colonies/mL [facility] Bacteria identified Cx Nom (U) Performed at: [facility] Bacteria identified Cx Nom (U) [address] [place], [place] [id number] [facility] Bacteria identified Cx Nom (U) [employer] Teacher: Michael Talamantes PhD, Phone: [phone] [facility] ALL CBC WITH AUTO DIFFon BASOPHILS ABSOLUTE AUTO 0 [facility] Basophils/100 WBC (Bld) 0.3 % 0.2 - 2.0 % [facility] Eosinophils/100 WBC (Bld) 0.5 % Low 0.9 - 7.0 % [facility] Erythrocyte distribution width (RBC) [Ratio] 12.1 % 11.0 - 15.0 % [facility] Hematocrit (Bld) [Volume fraction] 35.7 % Low 36.0 - 48.0 % [facility] Hemoglobin (Bld) [Mass/Vol] 13.1 g/dL 12.0 - 16.0 g/dL [facility] IMMATURE GRANULOCYTES ABS AUTO 0.02 [facility] Immature granulocytes/100 WBC (Bld) 0.3 % 0.0 - 0.5 % [facility] Interpretation and review of laboratory results Abnormal [facility] LYMPHOCYTES ABSOLUTE AUTO 1.7 [facility] Lymphocytes/100 WBC (Bld) 25.5 % 20.5 - 60.0 % [facility] MCH (RBC) [Entitic mass] 32.3 pg 26.7 - 34.0 pg [facility] MCHC (RBC) [Mass/Vol] 36.7 g/dL High 29.9 - 35.2 g/dL [facility] MCV (RBC) [Entitic vol] 88.1 fL 81.0 - 99.0 fL [facility] MONOCYTES ABSOLUTE AUTO 0.4 [facility] Monocytes/100 WBC (Bld) 5.6 % 1.7 - 12.0 % [facility] NEUTROPHILS ABSOLUTE AUTO 4.4 [facility] Neutrophils/100 WBC (Bld) 67.8 % 43.0 - 75.0 % [facility] Platelet mean volume (Bld) [Entitic vol] 10.3 fL 9.5 - 13.5 [facility]L [facility] PLT 217 [facility] RBC 4.05 Low [facility] WBC 6.5 [facility] TYPE AND SCREENon 2023 ABO and Rh group Nom (Bld) Blood group A Rh(D) negative [facility] BOX TESTon 06-21-2024 BOX TEST SENT OUT [facility] BOX1 UNITY [facility] BOX2 06/21/24 [facility] UNITY BOX [facility] MLR HEMOGLOBIN A1Con 024 Glucose [Mass/Vol] 88 mg/dL [facility] HbA1c (Bld) [Mass fraction] 4.7 % 4.5 - 6.2 % [facility] Comment on above: ADA RECOMMENDED LIMI T 4.0 - 6.0 ADA THERAPEUTIC TARGET < 7.0 ACTION SUGGESTED > 7.0 [facility] DRUG SCREEN RAPID (URINE )on 06-21-2024 AMPHETAMINE SCREEN URINE Negative NEGATIVE [facility] BARBITURATES SCREEN URINE Negative NEGATIVE [facility] BENZODIAZEPINES SCREEN URINE Negative NEGATIVE [facility] BUPRENORPHINE SCREEN URINE Negative NEGATIVE [facility] Comment on above: DRUG CLASS TEST SYST [...] 300 ng/mL CANNABINOID SCREEN URINE Negative NEGATIVE [facility] COCAINE SCREEN URINE Negative NEGATIVE [facility] METHADONE SCREEN URINE Negative NEGATIVE [facility] METHAMPHETAMINES SCREEN URINE Negative NEGATIVE [facility] OPIATE SCREEN URINE Negative NEGATIVE [facility] OXYCODONE SCREEN URINE Negative NEGATIVE [facility] PHENCYCLIDINE SCREEN URINE Negative NEGATIVE [facility] TRICYCLIC ANTIDEPRESSANT URINE Negative NEGATIVE [facility] Urinalysis macro (dipstick) panel (U)on 06-21-2024 Bilirubin, UA Negative Negative - 4(70) +++ mg/dL [facility] Blood, UA Negative Negative - 50 [place]ady/mcL [facility] Clarity, UA Clear [facility] Color, UA Yellow [facility] Glucose, UA Negative Negative - 1999(110) ++++ mg/dL [facility] Interpretation and review of laboratory results Normal [facility] Ketones, UA Negative Negative - 160(16) ++++ mg/dL [facility] Leukocytes, UA Negative Negative - 500+++ Kell/mcL [facility] Nitrite, UA Negative Negative - Positive [facility] pH, UA 5.5 5 - 9 [facility] Protein, UA Negative Negative - 1999(20) ++++ mg/dL [facility] Spec Grav, UA 1.02 1 - 1.03 [facility] Urobilinogen, UA 1.0 0.2 - 12 mg/dL [facility] HCG ( test) Ql (U)o n 05-20-2024 Interpretation and review of laboratory results Abnormal [facility] Preg Test, Ur Positive [facility] Urinalysis macro (dipstick) panel (U)on 05-20-2024 Bilirubin, UA Negative Negative - 4(70) +++ mg/dL [facility] Blood, UA Negative Negative - 50 [place]ady/mcL [facility] Clarity, UA Clear [facility] Color, UA Colorless [facility] Glucose, UA Negative Negative - 1999(110) ++++ mg/dL [facility] Interpretation and review of laboratory results Abnormal [facility] Ketones, UA Negative Negative - 160(16) ++++ mg/dL [facility] Leukocytes, UA Trace Negative - 500+++ Kell/mcL [facility] Nitrite, UA Negative Negative - Positive [facility] pH, UA 6.0 5 - 9 [facility] Protein, UA Negative Negative - 1999(20) ++++ mg/dL [facility] Spec Grav, UA 1.005 1 - 1.03 [facility] [place] Urobilinogen, UA 0.2 0.2 - 12 mg/dL [facility] AMYLASEon 03-16-2022 Amylase [Catalytic activity/Vol] 42 U/L Normal 25-115 [facility] Comment on above: Performed By: #### L IPA, CMP, DONNA #### [facility] [address] [address] [address] Ashley Fung CBC AUTO DIFFon 03-16-2022 BASO # 0.0 103/ul Normal 0.0-0.1 [facility] Comment on above: Performed By: #### C BC #### [facility] [address] [address] [address] Ashley Fung Basophils/100 WBC (Bld) 0.3 % Normal 0.2-2.0 [facility] Comment on above: Performed By: #### C BC #### [facility] [address] [address] [address] Ashley Fung EO # 0.1 103/ul Normal 0.0-0.7 [facility] Comment on above: Performed By: #### C BC #### [facility] [address] [address] [address] Ashley Fung Eosinophils/100 WBC (Bld) 0.9 % Normal 0.9-7.0 [facility] Comment on above: Performed By: #### C BC #### [facility] [address] [address] [address] Ashley Fung Erythrocyte distribution width (RBC) [Ratio] 11.1 % Normal 11.0-15.0 [facility] Comment on above: Performed By: #### C BC #### [facility] [address] [address] [address] Ashley Fung Hematocrit (Bld) [Volume fraction] 33.9 % Critically low 36.0-48.0 [facility] Comment on above: Performed By: #### C BC #### [facility] [address] [address] [address] Ashley Fung Hemoglobin (Bld) [Mass/Vol] 12.2 g/dL Normal 12.0-16.0 [facility] Comment on above: Performed By: #### C BC #### [facility] [address] [address] [address] Ashley Fung IG # 0.01 10e3/ul Normal 0.00-0.03 [facility] Comment on above: Performed By: #### C BC #### [facility] [address] [place] [address] Dr. Ashley Fung IG % 0.1 % Normal 0.0-0.5 [facility] Comment on above: Performed By: #### C BC #### [facility] [address] [place] [address] Dr. Ashley Fung LYMPH # 1.8 103/ul Normal 1.2-3.8 [facility] Comment on above: Performed By: #### C BC #### [facility] [address] [place] [address] Dr. Ashley Fung Lymphocytes/100 WBC (Bld) 23.2 % Normal 20.5-60.0 [facility] Comment on above: Performed By: #### C BC #### [facility] [address] [place] [address] Dr. Ashley Fung MANUAL DIFF REQ NO Normal [facility] Comment on above: Performed By: #### C BC #### [facility] [address] [place] [address] Dr. Ashley Fung MCH (RBC) [Entitic mass] 31.0 pg Normal 26.7-34.0 [facility] Comment on above: Performed By: #### C BC #### [facility] [address] [place] [address] Dr. Ashley Fung MCHC (RBC) [Mass/Vol] 36.0 g/dL Critically high 29.9-35.2 [facility] Comment on above: Performed By: #### C BC #### [facility] [address] [place] [address] Dr. Ashley Fung MCV (RBC) [Entitic vol] 86.0 fL Normal 81.0-99.0 [facility] Comment on above: Performed By: #### C BC #### [facility] [address] [place] [address] Dr. Ashley Fung MONO # 0.5 103/ul Normal 0.3-0.8 [facility] Comment on above: Performed By: #### C BC #### [facility] [address] [address] [address] Ashley Fung Monocytes/100 WBC (Bld) 6.0 % Normal 1.7-12.0 [facility] Comment on above: Performed By: #### C BC #### [facility] [address] [address] [address] Ashley Fung NEUT # 5.3 103/ul Normal 1.4-6.5 [facility] Comment on above: Performed By: #### C BC #### [facility] [address] [place] [address] Dr. Ashley Fung Neutrophils/100 WBC (Bld) 69.5 % Normal 43.0-75.0 [facility] Comment on above: Performed By: #### C BC #### [facility] [address] [place] [address] Dr. Ashley Fung Platelet mean volume (Bld) [Entitic vol] 9.9 fL Normal 9.5-13.5 [facility] Comment on above: Performed By: #### C BC #### [facility] [address] [place] [address] Dr. Ashley Fung PLT 199 103/ul Normal 150-450 [facility] Comment on above: Performed By: #### C BC #### [facility] [address] [place] [address] Dr. Ashley Fung RBC 3.94 106/ul Critically low 4.20-5.40 [facility] Comment on above: Performed By: #### C BC #### [facility] [address] [place] [address] Dr. Ashley Fung WBC 7.6 103/ul Normal 4.0-11.0 [facility] Comment on above: Performed By: #### C BC #### [facility] [address] [place] [address] ABD/PELV W CONon 03-16-[address] ABD/PELV W CON EXAMINATION: CT ABD/PELV W CON HISTORY: Right sided abdominal pain COMPARISON: None. TECHNIQUE: CT of abdomen/pelvis with intravenous contrast. Dose reduction techniques were achieved by using automated exposure control and/or adjustment of mA and/or kV according to patient size and/or use of iterative reconstruction technique. FINDINGS: Family Development Extension Specialist: No pertinent findings, which are not already [...] GUSTAVO GONZALEZ Date: 2022-03-16 10:03 Normal [facility] CULTURE URINEon 03-16-2022 CULTURE URINE Culture Observations : LIGHT GROWTH OF MIXED GENITAL YAHAIRA. NO POTENTIAL PATHOGENS SEEN. Normal [facility] Comment on above: Performed By: #### U RCX #### [facility] [address] [place] [address] Dr. Ashley Fung ER URINE PROFILEon 2 Bilirubin Ql (U) SMALL Abnormal NEGATIVE [facility] Comment on above: Performed By: #### E RURTAHIRARO #### [facility] [address] [place] [address] Dr. Ashley Fung Clarity (U) SL CLOUDY Abnormal CLEAR [facility] Comment on above: Performed By: #### Sky HOLLEY, UMICRO #### [facility] [address] [place] [address] Dr. Ashley Fung Color (U) DK. YELLOW Normal YELLOW [facility] Comment on above: Performed By: #### E CHAPITOR, UMICRO #### [facility] [address] [place] [address] Dr. Ashley Fung ERUAHCory A micrscopic examination will be performed if indicated. Normal [facility] Comment on above: Performed By: #### E KISHAN, UMICRO #### [facility] [address] [place] [address] Dr. Ashley Fung Glucose Ql (U) Negative Normal NEGATIVE [facility] Comment on above: Performed By: #### Sky HOLLEY UMICRO #### [facility] [address] [place] [address] Dr. Ashley Fung Hemoglobin Ql (U) Negative Normal NEGATIVE [facility] Comment on above: Performed By: #### Sky HOLLEY UMICRO #### [facility] [address] [place] [address] Dr. Ashley Fung Ketones Ql (U) TRACE Abnormal NEGATIVE [facility] Comment on above: Performed By: #### Sky HOLLEY UMICRO #### [facility] [address] [place] [address] Dr. Ashley Fung LEUKOCYTES TRACE Abnormal NEGATIVE [facility] Comment on above: Performed By: #### Sky HOLLEY UMICRO #### [facility] [address] [place] [address] Dr. Ashley Fung Nitrite Ql (U) Negative Normal NEGATIVE [facility] Comment on above: Performed By: #### Sky HOLLEY, UMICRO #### [facility] [address] [place] [address] Dr. Ashley Fung pH (U) 7.0 [pH] Normal 5-9 [facility] Comment on above: Performed By: #### Sky HOLLEY UMICRO #### [facility] [address] [place] [address] Dr. Ashley Fung Protein (U) [Mass/Vol] 100 mg/dL Abnormal NEGATIVE/ TRACE [facility] Comment on above: Performed By: #### TAHIRA PAULSONRO #### [facility] [address] [place] [address] Dr. Ashley Fung SPEC GRAVITY 1.025 Normal 1.005-<=1.025 [facility] Comment on above: Performed By: #### TAHIRA PAULSONRO #### [facility] [address] [place] [address] Dr. Ashley Fung UR MICRO IND INDICATED Normal [facility] Comment on above: Performed By: #### TAHIRA PAULSONRO #### [facility] [address] [place] [address] Dr. Ashley Fung Urobilinogen Qn (U) 1.0 {Stephanie'U}/dL Normal 0.2 - 1. 0 [facility] Comment on above: Performed By: #### TAHIRA PAULSONRO #### [facility] [address] [place] [address] Dr. Ashley Fung LIPASEon 03-16-2022 Lipase [Catalytic activity/Vol] 100.0 U/L Normal 73.0-393.0 [facility] Comment on above: Performed By: #### L IPA, CMP, DONNA #### [facility] [address] [place] [address] Dr. Ashley Fung PREG HCG QUALon 03-16-2022 , QUAL Negative Normal NEGATIVE [facility] Comment on above: Performed By: #### P REG #### [facility] [address] [place] [address] Dr. Ashley Fung PROF 14(COMP METB)on 022 Albumin [Mass/Vol] 3.3 g/dL Critically low 3.4-5.0 [facility] Comment on above: Performed By: #### L IPA, CMP, DONNA #### [facility] [address] [place] [address] Dr. Ashley Fung Albumin/Globulin [Mass ratio] 1.0 {ratio} Normal [facility] Comment on above: Performed By: #### L IPA, CMP, DONNA #### [facility] [address] [place] [address] Dr. Ashley Fung ALP [Catalytic activity/Vol] 58 U/L Normal 46-116 [facility] Comment on above: Performed By: #### L IPA, CMP, DONNA #### [facility] [address] [place] [address] Dr. Ashley Fung ALT [Catalytic activity/Vol] 15 U/L Normal 14-59 [facility] Comment on above: Performed By: #### L IPA, CMP, DONNA #### [facility] [address] [place] [address] Dr. Ashley Fung Anion gap [Moles/Vol] 11.2 mmol/L Normal [facility] Comment on above: Performed By: #### L IPA, CMP, DONNA #### [facility] [address] [place] [address] Dr. Ashley Fung AST [Catalytic activity/Vol] 15 U/L Normal 15-37 [facility] Comment on above: Performed By: #### L IPA, CMP, DONNA #### [facility] [address] [place] [address] Dr. Ashley Fung Bilirubin [Mass/Vol] 0.4 mg/dL Normal 0.2-1.0 [facility] Comment on above: Performed By: #### L IPA, CMP, DONNA #### [facility] [address] [place] [address] Dr. Ashley Fung Calcium [Mass/Vol] 8.7 mg/dL Normal 8.5-10.1 [facility] Comment on above: Performed By: #### L IPA, CMP, DONNA #### [facility] [address] [place] [address] Dr. Ashley Fung Chloride [Moles/Vol] 106 mmol/L Normal 98-107 [facility] Comment on above: Performed By: #### L IPA, CMP, DONNA #### [facility] [address] [place] [address] Dr. Ashley Fung CO2 [Moles/Vol] 27.4 mmol/L Normal 21.0-32.0 [facility] Comment on above: Performed By: #### L IPA CMP, DONNA #### [facility] [address] [address] [address] Ashley Fung Creatinine [Mass/Vol] 1.22 mg/dL Critically high 0.55-1.02 [facility] Comment on above: Performed By: #### L IPA CMP, DONNA #### [facility] [address] [address] [address] Ashley Fung EGFR-AF STATELESS >60 Normal >=60 [facility] Comment on above: Performed By: #### L IPA CMP, DONNA #### [facility] [address] [place] [address] Dr. Ashley Fung EGFR-NON AF STATELESS 52 mL/min/1.73m2 Critically low >=60 [facility] Comment on above: Performed By: #### L IPA CMP, DONNA #### [facility] [address] [place] [address] Dr. Ashley Fung Globulin (S) [Mass/Vol] 3.4 g/dL Normal [facility] Comment on above: Performed By: #### L IPA CMP, DONNA #### [facility] [address] [place] [address] Dr. Ashley Fung Glucose [Mass/Vol] 116 mg/dL Critically high 74-106 [facility] Comment on above: Performed By: #### L IPA CMP, DONNA #### [facility] [address] [address] [address] Ashley Fung Potassium [Moles/Vol] 3.6 mmol/L Normal 3.5-5.1 [facility] Comment on above: Performed By: #### L IPA CMP, DONNA #### [facility] [address] [address] [address] Ashley Fung Protein [Mass/Vol] 6.7 g/dL Normal 6.4-8.2 [facility] Comment on above: Performed By: #### L IPA CMP, DONNA #### [facility] [address] [place] [address] Dr. Ashley Fung Sodium [Moles/Vol] 141 mmol/L Normal 136-145 [facility] Comment on above: Performed By: #### L IPA, CMP, DONNA #### [facility] [address] [place] [address] Dr. Ashley Fung Urea nitrogen [Mass/Vol] 15.0 mg/dL Normal 7.0-18.0 [facility] Comment on above: Performed By: #### L IPA, CMP, DONNA #### [facility] [address] [place] [address] Dr. Ashley Fung Urea nitrogen/Creatinine [Mass ratio] 12.3 mg/mg Normal [facility] Comment on above: Performed By: #### L IPA, CMP, DONNA #### [facility] [address] [place] [address] Dr. Ashley Fung URINE MICROSCOPIC ONLYon BACTERIA TRACE Abnormal NONE SEEN [facility] Comment on above: Performed By: #### Sky URIARTER, UMICRO #### [facility] [address] [place] [address] Dr. Ashley Fung Bacteria identified Cx Nom (U) INDICATED Normal [facility] Comment on above: Performed By: #### Sky URIARTER, UMICRO #### [facility] [address] [place] [address] Dr. Ashley Fung CAST SEEN Abnormal NONE SEEN [facility] Comment on above: Performed By: #### Sky URIARTER, UMICRO #### [facility] [address] [place] [address] Dr. Ashley Fung Crystals LM Nom (Urine sed) NONE SEEN Normal NONE SEEN [facility] Comment on above: Performed By: #### E RUR, UMICRO #### [facility] [address] [place] [address] Dr. Ahsley Fung Epithelial cells LM Ql (Urine sed) RARE Normal NONE SEEN /RARE [facility] Comment on above: Performed By: #### E RUR, UMICRO #### [facility] [address] [address] [address] Ashley Fung MUCOUS MODERATE Abnormal NONE SEEN [facility] Comment on above: Performed By: #### E RUR, UMICRO #### [facility] [address] [address] [address] Ashley Fung RBC NONE SEEN Abnormal 0-2 [facility] Comment on above: Performed By: #### E RUR, UMICRO #### [facility] [address] [address] [address] Ashley Fung WBC 2-5 Abnormal NONE SEEN [facility] Comment on above: Performed By: #### E RUR, UMICRO #### [facility] [address] [place] [address] Dr. Ashley Fung XR Abdomen 2 Viewson 022 XR Abdomen 2 Views HISTORY: Low abdominal pain, constipation FINDINGS: Moderate colon stool normally distributed throughout abdomen and pelvis. No evidence of bowel obstruction or free air. No biliary or urinary tract stones. IMPRESSION: Moderate colon stool, no obstruction. Report reported and signed by Mahin London on 11/28/2021 0729 Normal [facility] Risk Management Specialist Vital Signs Date Time Vital Sign Value Performing Clinician Faci lity 10-06-2024 15:05-0500 Body mass index (BMI) [Ratio] 30.92 kg/m2 Arlette Tawanna DO Work Phone: [facility] 10-06-2024 15:05-0500 Body weight 84.28 kg Arlette Tawanna DO Work Phone: [facility] 10-06-2024 15:05-0500 Diastolic blood pressure 70 mm[Hg] Arlette Tawanna DO Work Phone: [facility] 10-06-2024 15:05-0500 Systolic blood pressure 110 mm[Hg] Arlette Tawanna DO Work Phone: [facility] 09-21-2024 14:51-0500 Body mass index (BMI) [Ratio] 31.62 kg/m2 Donna MADERA Work Phone: [facility] 09-21-2024 14:51-0500 Body weight 86.18 kg Donna [place] PA Work Phone: [facility] 09-21-2024 14:51-0500 Diastolic blood pressure 62 mm[Hg] Donna Marielena PA Work Phone: [facility] 09-21-2024 14:51-0500 Systolic blood pressure 106 mm[Hg] Donna Marielena PA Work Phone: [facility] 08-24-2024 14:10-0500 Body mass index (BMI) [Ratio] 29.69 kg/m2 Arlette Tawanna DO Work Phone: [facility] 08-24-2024 14:10-0500 Body weight 80.92 kg Arlette Tawanna DO Work Phone: [facility] 08-24-2024 14:10-0500 Diastolic blood pressure 66 mm[Hg] Arlette Tawanna DO Work Phone: [facility] 08-24-2024 14:10-0500 Systolic blood pressure 112 mm[Hg] Arlette Tawanna DO Work Phone: [facility] 07-22-2024 14:05-0500 Body mass index (BMI) [Ratio] 28.92 kg/m2 Donna Marielena PA Work Phone: [facility] 07-22-2024 14:05-0500 Body weight 78.83 kg Donna Marielena PA Work Phone: [facility] 07-22-2024 14:05-0500 Diastolic blood pressure 74 mm[Hg] Donna [place] PA Work Phone: [facility] 07-22-2024 14:05-0500 Systolic blood pressure 120 mm[Hg] Donna Marielena PA Work Phone: [facility] 06-21-2024 09:57-0500 Body mass index (BMI) [Ratio] 28.76 kg/m2 Arlette Tawanna DO Work Phone: [facility] 06-21-2024 09:57-0500 Body weight 78.38 kg Arlette Tawanna DO Work Phone: [facility] 06-21-2024 09:57-0500 Diastolic blood pressure 72 mm[Hg] Arlette Tawanna DO Work Phone: [facility] 06-21-2024 09:57-0500 Systolic blood pressure 118 mm[Hg] Arlette Tawanna DO Work Phone: [facility] Encounters Encounter Date Encounter Type Care Provider Facility Start: 10-08-2024 End: 10-08-2024 Clinisync Result Encounter Generic External Data Provider [facility] External Department Unsolicited Start: 10-08-2024 End: 10-08-2024 Clinisync Result Encounter Generic External Data Provider [facility] External [facility] Unsolicited Start: 10-06-2024 End: 10-06-2024 flow sheet Arlette Tawanna DO Work Phone: [facility] Comment on above: Third trimester preg erica; 28 weeks gestation of Start: 10-06-2024 End: 10-06-2024 ambulatory ARLETTE TAWANNA Not Available Start: 10-06-2024 End: 10-06-2024 Bamboo flowsheet Arlette Tawanna DO Work Phone: [facility] Start: 10-06-2024 End: 10-06-2024 Bamboo flowsheet Arlette Tawanna DO Work Phone: [facility] Start: 09-22-2024 End: 09-22-2024 ambulatory DONNA MARIELENA Not Available Start: 09-21-2024 End: 09-21-2024 flow sheet Donna MADERA Work Phone: [facility] Comment on above: Second trimester pre gnancy; 26 weeks gestation of Start: 09-21-2024 End: 09-21-2024 ambulatory DONNA MARIELENA Not Available Start: 09-21-2024 End: 09-21-2024 Bamboo flowsheet Donna MADERA Work Phone: [facility] Start: 09-21-2024 End: 09-21-2024 Bamboo flowsheet Donna MADERA Work Phone: [facility] Start: 08-24-2024 End: 08-24-2024 flow sheet Arlette Tawanna DO Work Phone: [facility] Comment on above: Diabetes mellitus sc reening; 22 weeks gestation of ; Second trimester Start: 08-24-2024 End: 08-24-2024 ambulatory ARLETTE TAWANNA Not Available Start: 08-24-2024 End: 08-24-2024 Bamboo flowsheet Arlette Tawanna DO Work Phone: [facility] Start: 08-24-2024 End: 08-24-2024 Bamboo flowsheet Arlette Tawanna DO Work Phone: [facility] Start: 08-18-2024 End: 08-18-2024 ambulatory DONNA PEGUERO Not Available Start: 07-22-2024 End: 07-22-2024 Bamboo flowsheet Donna MADERA Work Phone: [facility] Start: 07-22-2024 End: 07-29-2024 Bamboo flowsheet Donna MADERA Work Phone: [facility] Start: 07-22-2024 End: 07-29-2024 Clinisync Result Encounter Generic External Data Provider [facility] External Department Unsolicited Start: 07-22-2024 End: 07-24-2024 External Result Encounter Donna MADERA Work Phone: [facility] External Department Unsolicited Start: 07-22-2024 End: 07-22-2024 Patient encounter procedure Donna MADERA Work Phone: [facility] Healthcare Work Phone: Start: 07-22-2024 End: 07-22-2024 Periodic preventive med est patient 18-39 yrs Donna MADERA Work Phone: [facility] Comment on above: Well woman exam with routine gynecological exam; Second trimester ; 17 weeks gestation of ; Vaginal discharge; STD exposure; Screening, , for anatomic survey Start: 07-22-2024 End: 07-22-2024 ambulatory DONNA PEGUERO Not Available Start: 06-21-2024 End: 06-21-2024 Bamboo flowsheet Arlette Tawanna DO Work Phone: [facility] Start: 06-21-2024 End: 06-21-2024 Bamboo flowsheet Arlette Tawanna DO Work Phone: [facility] Start: 06-21-2024 End: 06-21-2024 Clinisync Result Encounter Generic External Data Provider [facility] External Department Unsolicited Start: 06-21-2024 End: 06-21-2024 flow sheet Arlette Tawanna DO Work Phone: [facility] Comment on above: Second trimester pre gnancy; First trimester ; 12 weeks gestation of Start: 06-21-2024 End: 06-21-2024 ambulatory ARLETTE TAWANNA Not Available Start: 05-20-2024 End: 05-20-2024 Office outpatient visit 5 minutes [facility] Nurse [facility] Comment on above: GA: 8w5d Start: 05-20-2024 End: 05-20-2024 ambulatory DONNA PEGUERO Not Available Start: 03-16-2022 End: 03-16-[address] VINCENT DUARTE Facility: Procedures Date Procedure Procedure Detail Performing Clinician Start: 10-08-2024 ALL CBC WITH AUTO DIFF Arlette Tawanna DO Work Phone: Start: 09-21-2024 Urnls dip stick/tabl et rgnt non-auto w/o micrscp Donna MADERA Work Phone: Start: 08-24-2024 Urnls dip stick/tabl et rgnt non-auto w/o micrscp Arlette Tawanna DO Work Phone: Start: 07-22-2024 RECURRENT VAGINITIS (HTRX) Donna MADERA Work Phone: Start: 07-22-2024 Urnls dip stick/tabl et rgnt non-auto w/o micrscp Donna MADERA Work Phone: Start: 07-22-2024 IGP,APTIMA HPV,AGE GDLN Donna MADERA Work Phone: Start: 07-22-2024 Microscopic observat ion [Identifier] in Cervix by Cyto stain Arlette Tawanna DO Work Phone: Start: 06-21-2024 Antibody screen Generic Provider Start: 06-21-2024 Urnls dip stick/tabl et rgnt non-auto w/o micrscp Arlette Tawanna DO Work Phone: Start: 06-21-2024 ALL CBC WITH AUTO DIFF Arlette Tawanna DO Work Phone: Start: 06-21-2024 ALL RUBELLA IGG AB Core y Tawanna DO Work Phone: Start: 06-21-2024 ALL TYPE AND SCREEN Cor ey Tawanna DO Work Phone: Start: 06-21-2024 BOX TEST Arlette [employer] DO Work Phone: Start: 06-21-2024 HBSAG SCREEN Generic Ex ternal Data Provider Start: 06-21-2024 HCV ANTIBODY RFX TO QUANT PCR Arlette Tawanna DO Work Phone: Start: 06-21-2024 HIV AB/P24 AG WITH REFLEX Arlette [employer] DO Work Phone: Start: 06-21-2024 MLR HEMOGLOBIN [...] Treatment Date Care Activity Detail Author Start: 07-22-2029 Screening for malign ant neoplasm of cervix [facility] Start: 10-25-2024 End: 10-25-2024 Patient encounter procedure 10/25/2024 1:00 PM EDT Routine [facility] [address] [place] [id number] Arlette Stacy, DO [address] [place] [address] [facility] Start: 10-06-2024 End: 10-06-2024 Patient encounter procedure [facility] [facility] Comment on above: Arrived Start: 09-22-2024 End: 09-22-2024 Professional / ancillary services management 09/22/2024 2:00 PM EST Ancillary Procedure [facility] [address] [place] [id number] [facility] Start: 09-21-2024 End: 09-21-2024 Patient encounter procedure [facility] Comment on above: Arrived Start: 08-24-2024 End: 08-24-2024 Patient encounter procedure [facility] Comment on above: Arrived Start: 08-24-2024 End: 08-24-2025 CBC panel - Blood by Automated count CBC Lab Routine Diabetes mellitus screening Expected: 08/24/2024 (Approximate), Expires: 08/24/2025 [facility] Work Phone: Comment on above: Expected: 08/24/2024 (Approximate), Expires: 08/24/2025 Start: 08-24-2024 End: 08-24-2025 Measurement of glucose 1 hour after glucose challenge for glucose tolerance test Glucose tolerance, 1 hour Lab Routine Diabetes mellitus screening Expected: 08/24/2024 (Approximate), Expires: 08/24/2025 [facility] Comment on above: Expected: 08/24/2024 (Approximate), Expires: 08/24/2025 Start: 08-24-2024 End: 08-24-2025 US for US OB limited 1+ fetuses Imaging Routine 22 weeks gestation of Second trimester Expected: 08/24/2024, Expires: 08/24/2025 [facility] Comment on above: Expected: 08/24/2024 , Expires: 08/24/2025 Start: 07-22-2024 End: 01-20-2025 Alpha fetoprotein, maternal Alpha fetoprotein, maternal Lab Routine Second trimester 17 weeks gestation of Expected: 07/22/2024 (Approximate), Expires: 01/20/2025 [facility] Comment on above: Expected: 07/22/2024 (Approximate), Expires: 01/20/2025 Start: 07-22-2024 End: 07-22-2025 US for US OB ANATOMY SINGLE W US OB CERVICAL LENGTH Imaging Routine Screening, , for anatomic survey Expected: 07/22/2024 (Approximate), Expires: 07/22/2025 [facility] Comment on above: Expected: 07/22/2024 (Approximate), Expires: 07/22/2025 Start: 07-22-2024 End: 07-22-2024 Patient encounter procedure [facility] Comment on above: Arrived Start: 06-21-2024 End: 06-21-2024 Patient encounter procedure 06/21/2024 9:50 AM EST Routine [facility] [address] [place] [id number] Arlette Stacy DO [address] [place] [address] [facility] Start: 05-20-2024 End: 05-20-2025 ABO/Rh ABO/Rh Lab Routine Missed menses , unspecified gestational age Expected: 05/20/2024 (Approximate), Expires: 05/20/2025 [facility] Comment on above: Expected: 05/20/2024 (Approximate), Expires: 05/20/2025 Start: 05-20-2024 End: 05-20-2025 Blood type and Indirect antibody screen panel - Blood Type and screen Lab Routine Missed menses , unspecified gestational age Expected: 05/20/2024 (Approximate), Expires: 05/20/2025 [facility] Work Phone: Comment on above: Expected: 05/20/2024 (Approximate), Expires: 05/20/2025 Start: 05-20-2024 End: 05-20-2025 Drugs of abuse panel - Urine by Screen method Rapid drug screen, urine Lab Routine , unspecified gestational age Encounter for supervision of normal first in first trimester Expected: 05/20/2024 (Approximate), Expires: 05/20/2025 [facility] Comment on above: Expected: 05/20/2024 (Approximate), Expires: 05/20/2025 Start: 05-20-2024 End: 05-20-2025 US Pelvis transvaginal US OB transvaginal Imaging Routine Missed menses Expected: 05/20/2024 (Approximate), Expires: 05/20/2025 [facility] Comment on above: Expected: 05/20/2024 (Approximate), Expires: 05/20/2025 Start: 04-11-2024 Influenza vaccination Influenza Vacc ine (#1) [facility] Start: 02-19-2024 Screening for malign ant neoplasm of cervix [facility] Start: 2015 Screening for malign ant neoplasm of cervix Pap Smear [facility] Bacteria identified in Urine by Culture Urine culture Microbiology Routine Missed menses Ordered: 05/20/2024 [facility] Comment on above: Ordered: 05/20/2024 CBC W Auto Different ial panel - Blood CBC and differential Lab Routine Missed menses , unspecified gestational age Ordered: 05/20/2024 [facility] Comment on above: Ordered: 05/20/2024 CHLAMYDIA TRACHOMATI S (GENITO/STI) CHLAMYDIA TRACHOMATIS (GENITO/STI) Lab Routine STD exposure Ordered: 07/22/2024 [facility] Comment on above: Ordered: 07/22/2024 Cytology Cervical or vaginal smear or scraping study Pap Smear Pathology and Cytology Routine Well woman exam with routine gynecological exam Ordered: 07/22/2024 [facility] Comment on above: Ordered: 07/22/2024 Hemoglobin A1c/Hemoglobin.total in Blood Hemoglobin A1c Lab Routine Missed menses , unspecified gestational age Ordered: 05/20/2024 [facility] Comment on above: Ordered: 05/20/2024 Hepatitis B virus surface Ag [Presence] in Serum or Plasma by Immunoassay Hepatitis B surface antigen Lab Routine Missed menses , unspecified gestational age Ordered: 05/20/2024 [facility] Comment on above: Ordered: 05/20/2024 Hepatitis C virus Ab [Presence] in Serum or Plasma by Immunoassay Hepatitis C antibody Lab Routine Missed menses , unspecified gestational age Ordered: 05/20/2024 [facility] Comment on above: Ordered: 05/20/2024 HIV-1/HIV-2 antigen/antibody combination immunoassay HIV-1 and HIV-2 antibodies Lab Routine Missed menses , unspecified gestational age Ordered: 05/20/2024 [facility] Comment on above: Ordered: 05/20/2024 Human papilloma viru s DNA [Presence] in Unspecified specimen by Probe with amplification HPV DNA probe, amplified Microbiology Routine Well woman exam with routine gynecological exam Ordered: 07/22/2024 [facility] Comment on above: Ordered: 07/22/2024 Neisseria gonorrhoea e DNA [Presence] in Unspecified specimen by RAMONITA with probe detection Neisseria gonorrhea DNA probe, direct Lab Routine STD exposure Ordered: 07/22/2024 [facility] Comment on above: Ordered: 07/22/2024 Reagin Ab [Presence] in Serum by RPR RPR Lab Routine Missed menses , unspecified gestational age Ordered: 05/20/2024 [facility] Comment on above: Ordered: 05/20/2024 Rubella antibody, IgG Rubella an tibody, IgG Lab Routine Missed menses , unspecified gestational age Ordered: 05/20/2024 [facility] Comment on above: Ordered: 05/20/2024 SURESWAB(R) ADVANCED VAGINITIS PLUS, TMA SURESWAB(R) ADVANCED VAGINITIS PLUS, TMA Pathology and Cytology Routine Vaginal discharge Ordered: 07/22/2024 [facility] Work Phone: Comment on above: Ordered: 07/22/2024 Immunizations Immunization Date Immunization Notes Care Provider [place] tracy 02-09-2013 meningococcal polysa ccharide (groups A, C, Y and W-135) diphtheria toxoid conjugate vaccine (MCV4P) [facility] 02-09-2013 tetanus toxoid, redu rosario diphtheria toxoid, and acellular pertussis vaccine, adsorbed [facility] 03-23-1999 diphtheria, tetanus toxoids and acellular pertussis vaccine [facility] are 03-23-1999 measles, mumps and r ubella virus vaccine [facility] Nurse [facility] 03-23-1999 trivalent poliovirus vaccine, live, oral [facility] 03-02-1997 diphtheria, tetanus toxoids and acellular pertussis vaccine [facility] are 02-16-1996 diphtheria, tetanus toxoids and acellular pertussis vaccine [facility] Nurse [facility] are 02-16-1996 measles, mumps and r ubella virus vaccine [facility] 06-11-1995 diphtheria, tetanus toxoids and acellular pertussis vaccine, Haemophilus influenzae type b conjugate, and poliovirus vaccine, inactivated ([id number]) [facility] Nurse [facility] 06-11-1995 hepatitis B vaccine, pediatric or pediatric/adolescent dosage [facility] Nurse [facility] 1994 haemophilus influenz ae type b vaccine, conjugate unspecified formulation [facility] Nurse [facility] 1994 hepatitis B vaccine, pediatric or pediatric/adolescent dosage [facility] Nurse [facility] 1994 trivalent poliovirus vaccine, live, oral [facility] Nurse [facility] 1994 diphtheria, tetanus toxoids and acellular pertussis vaccine, Haemophilus influenzae type b conjugate, and poliovirus vaccine, inactivated ([id number]) [facility] Nurse [facility] 1994 hepatitis B vaccine, pediatric or pediatric/adolescent dosage [facility] Nurse [facility] Payers Date Payer Category Payer Private Health Insurance [employer] [id number] 2023 Unknown [employer] [id number] 2023-Present [address] [place] [address] [id number] 2023 Unknown [id number] 1994 Unknown [id number] 1994 Unknown [id number]. 9 1994 Unknown [id number]. 9 1994 Unknown [id number]. 9 1994 Unknown [id number]. 9 1994 Unknown [id number] [id number]. 9 1994 Unknown [id number] [id number]. 9 1994 Unknown [id number] [id number]. 9 1994 Unknown [id number] 1259 Unknown [id number] Social History Date Type Detail Facility Start: 05-25-2023 Tobacco smoking stat [facility] Never smoked tobacco [facility] Start: 05-25-2023 Tobacco use and exposure Smoke less tobacco non-user [facility] Start: 05-20-2024 End: 10-06-2024 Alcoholic beverage intake Current drinker of alcohol (finding) [facility] Start: 05-20-2024 End: 10-06-2024 Alcoholic beverage intake [facility] Start: 07-10-2023 End: 05-20-2024 Tobacco use panel [facility] Start: 04-09-2023 Alcohol Comment Caffeine intak e: 1-2 cups per day coffee [facility] Start: 04-03-2024 [facility] Start: 1994 Sex assigned at Not on file [facility] Clinical Notes 05-20-2024 to 10-06-2024 Sofie Ramos NP - 10/06/2024 3:10 PM CASSY Goldstein - 09/21/2024 2:20 PM Adelita Rey LPN - 08/24/2024 2:10 PM CASSY Goldstein - 07/22/2024 1:40 PM EST Note Date & Type Note Facility 10-06-2024 History of Presen t illness Narrative Reason [...] SYSTEMS Review of Systems: Review of Systems Constitutional: Negative. HENT: Negative. Eyes: Negative. Respiratory: Negative. Cardiovascular: Negative. Gastrointestinal: Negative. Genitourinary: Negative. Musculoskeletal: Negative. Skin: Negative. Neurological: Negative. Psychiatric/Behavioral: Negative. Hematological: Negative. Endocrine: Negative. Allergic/Immunologic: Negative. OBJECTIVE Objective: Physical Exam Constitutional: Appearance: Normal appearance. She is normal weight. HENT: Head: Normocephalic. Cardiovascular: Rate and Rhythm: Normal rate. Pulses: Normal pulses. Pulmonary: Effort: Pulmonary effort is normal. Breath sounds: Normal breath sounds. Abdominal: Palpations: Abdomen is soft. Musculoskeletal: General: Normal range of motion. Neurological: General: No focal deficit present. Mental Status: She is alert and oriented to person, place, and time. Psychiatric: Mood and Affect: Mood normal. Behavior: Behavior normal. Thought Content: Thought content normal. Judgment: Judgment normal. Vitals and nursing note reviewed. Vitals: Estimated body mass index is 30.92 kg/m as calculated from the following: Height as of 23: 5' 5 . Weight as of this encounter: 185 lb 12.8 oz. BP: 110/70 Patient's last menstrual period was 03/20/2024. ASSESSMENT & PLAN ICD-10-CM 1. Third trimester Z34.93 2. 28 weeks gestation of Z3A.28 Return OB: Patient presents today for a routine obstetrics appointment. Patient is currently 28w4d . Patient states she is doing well but has complaints of being tired due to current . Patient has verbalizes frequent movement. labor precautions was discussed/given and patient was instructed to perform kick counts three times a day. Patient reports mild complaints of GERD we discussed options for pharmacological treatment. She denies any current vomiting and is going to attempt to avoid not eating 2 hours before lying down at night and if this does not improve we will revisit pharmacological treatment. She does have the order for Rhogam and needs to schedule with the hospital, they have reached out to her to schedule. She is going to schedule her 1 hour GTT on the same day. No orders of the defined types were placed in this encounter. Follow Up: Patient is to return to office in 2 week for routine OB appointment. Documented by Sofie Ramos NP on behalf of: Arlette Stacy DO documented in this encounter [facility] 09-21-2024 History of Presen t illness Narrative Reason [...] SYSTEMS Review of Systems: Review of Systems OBJECTIVE Objective: OBGyn Exam Vitals: Estimated body mass index is 31.62 kg/m as calculated from the following: Height as of 07/10/23: 5' 5 . Weight as of this encounter: 190 lb. BP: 106/62 Patient's last menstrual period was 03/20/2024. ASSESSMENT & PLAN ICD-10-CM 1. Second trimester Z34.92 POCT urinalysis dipstick manually resulted 2. 26 weeks gestation of Z3A.26 Return OB: Patient presents today for a routine obstetrics appointment. Patient is currently 26w3d . Patient states she is doing well but has complaints of being tired due to current . Patient has verbalizes frequent movement. labor precautions was discussed/given and patient was instructed to perform kick counts three times a day. Orders Placed This Encounter Procedures POCT urinalysis dipstick manually resulted Follow Up: Patient is to return to office in 2 week for routine OB appointment. Documented by Brandy Ruiz MA on behalf of: CASSY De La Torre documented in this encounter [facility] 08-24-2024 History of Presen t illness Narrative Reason [...] SYSTEMS Review of Systems: Review of Systems Constitutional: Negative. HENT: Negative. Eyes: Negative. Respiratory: Negative. Cardiovascular: Negative. Gastrointestinal: Negative. Genitourinary: Negative. Musculoskeletal: Negative. Skin: Negative. Neurological: Negative. All other systems reviewed and are negative. Hematological: Negative. Endocrine: Negative. Allergic/Immunologic: Negative. OBJECTIVE Objective: Physical Exam Constitutional: Appearance: Normal [...] nursing note reviewed. Exam conducted with a interior paneler present. Vitals: Estimated body mass index is 29.69 kg/m as calculated from the following: Height as of 07/10/23: 5' 5 . Weight as of this encounter: 178 lb 6.4 oz. BP: 112/66 Patient's last menstrual period was 03/20/2024. ASSESSMENT & PLAN ICD-10-CM 1. Diabetes mellitus screening Z13.1 CBC Glucose tolerance, 1 hour CBC Glucose tolerance, 1 hour 2. 22 weeks gestation of Z3A.22 POCT urinalysis dipstick manually resulted 3. Second trimester Z34.92 Patient presents today for a routine obstetrics appointment. Patient is currently 22w3d with a Estimated Date of Delivery: 12/25/24. Pt given glucose screening with instructions. Pt to return in 4 weeks for scheduled OB appt. Documented by Caroline Rey LPN on behalf of: Arlette Stacy DO documented in this encounter [facility] 07-22-2024 History of Presen t illness Narrative Reason for Appointment: Patient ID: Eloina Breaux is a 29 y.o. female who presents for Well Women Visit, Routine Visit, and STI Screening Patient presents today for Annual Exam. and Return OB appointment. MEDICATIONS Current Outpatient Medications [...] SYSTEMS Review of Systems: Review of Systems Constitutional: Negative. HENT: Negative. Eyes: Negative. Respiratory: Negative. Cardiovascular: Negative. Gastrointestinal: Negative. Genitourinary: Negative. Musculoskeletal: Negative. Skin: Negative. Neurological: Negative. All other systems reviewed and are negative. Hematological: Negative. Endocrine: Negative. Allergic/Immunologic: Negative. OBJECTIVE Objective: Physical Exam Constitutional: Appearance: Normal appearance. She is normal weight. HENT: Head: Normocephalic. Cardiovascular: Rate and Rhythm: Normal rate. Pulses: Normal pulses. Pulmonary: Effort: Pulmonary effort is normal. Breath sounds: Normal breath sounds. Abdominal: Palpations: Abdomen is soft. Musculoskeletal: General: Normal range of motion. Neurological: General: No focal deficit present. Mental Status: She is alert and oriented to person, place, and time. Psychiatric: Mood and Affect: Mood normal. Behavior: Behavior normal. Thought Content: Thought content normal. Judgment: Judgment normal. Vitals and nursing note reviewed. Vitals: Estimated body mass index is 28.92 kg/m as calculated from the following: Height as of 23: 5' 5 . Weight as of this encounter: 173 lb 12.8 oz. BP: 120/74 Patient's last menstrual period was 03/20/2024. ASSESSMENT & PLAN ICD-10-CM 1. Well woman exam with routine gynecological exam Z01.419 Pap Smear HPV DNA probe, amplified 2. Second trimester Z34.92 POCT urinalysis dipstick manually resulted Alpha fetoprotein, maternal Alpha fetoprotein, maternal 3. 17 weeks gestation of Z3A.17 POCT urinalysis dipstick manually resulted Alpha fetoprotein, maternal Alpha fetoprotein, maternal 4. Vaginal discharge N89.8 SURESWAB(R) ADVANCED VAGINITIS PLUS, TMA 5. STD exposure Z20.2 CHLAMYDIA TRACHOMATIS (GENITO/STI) Neisseria gonorrhea DNA probe, direct 6. Screening, , for anatomic survey Z36.89 US OB ANATOMY SINGLE W US OB CERVICAL LENGTH Return OB/Annual Exam: Patient presents today for a annual exam/routine obstetrics appointment. Patient is currently 17w5d . Patient states she is doing well but has complaints of nausea in the morning. Pap and cultures was obtained without difficulty and patient was given orders for anatomy scan and msAFP to be obtained. Orders Placed This Encounter Procedures HPV DNA probe, amplified US OB ANATOMY SINGLE W US OB CERVICAL LENGTH CHLAMYDIA TRACHOMATIS (GENITO/STI) Neisseria gonorrhea DNA probe, direct Alpha fetoprotein, maternal POCT urinalysis dipstick manually resulted Follow Up: Patient is to schedule annual exam for next year and return to office in 4 weeks for OB appointment. Documented by CASSY De La Torre on behalf of: CASSY De La Torre documented in this encounter [facility] 06-21-2024 History of Presen t illness Narrative [...] tailbone TONSILLECTOMY 1996 WISDOM TOOTH EXTRACTION 07/29/2016 REVIEW OF SYSTEMS [...] nursing note reviewed. Exam conducted with a interior paneler present. Vitals: Estimated body mass index is 28.76 kg/m as calculated from the following: Height as of 07/10/23: 5' 5 . Weight as of this [...] or undercooked meat, and stay away from [facility]. Patient has been consulted regarding any further do's and don'ts of . Patient voiced understanding and all questions and concerns were answered. Patient given orders for OB labs and [place] to be drawn today at [facility]. Orders Placed This Encounter Procedures Urine dip Follow Up: Patient is to return in 4 weeks for routine OB appointment. Documented by Bren Moreno LPN on behalf of: Arlette Stacy DO documented in this encounter [facility] 05-20-2024 History of Presen t illness Narrative [...] or undercooked meat, and stay away from [facility]. Patient has also been advised to not change litter boxes and eat 6 small meals a day. Patient has been consulted regarding the do's and don'ts of . Patient was given labs and all questions and concerns were answered. Patient did not want to do [place] labs at this time. Follow Up: Patient is to return in 4 weeks for routine OB appointment. Follow Up: Patient is to have labs drawn at directed and return to office for initial OB appointment with provider. Patient may call office as needed with any concerns or questions. Nurse Visit Completed by: Miryam Matthews LPN documented in this encounter [facility] Evaluation note Diagnosis Missed menses 8 weeks gestation of First trimester state, incidental , unspecified gestational age Encounter for supervision of normal first in first trimester documented in this encounter [facility] Diagnosis Second trimester state, incidental First trimester state, incidental 12 weeks gestation of documented in this encounter [facility]* Diagnosis Well woman exam with routine gynecological exam Routine gynecological examination Second trimester state, incidental 17 weeks gestation of Vaginal discharge Leukorrhea, not specified as infective STD exposure Screening, , for anatomic survey Encounter for anatomic survey documented in this [facility] Diagnosis Diabetes mellitus screening Screening for diabetes mellitus 22 weeks gestation of Second trimester state, incidental documented [facility] Diagnosis Second trimester state, incidental 26 weeks gestation of documented in this [facility]* Diagnosis Third trimester state, incidental 28 weeks gestation of documented in this encounter [facility] Summary Purpose Family History No Family History Records FoundNo Family History Records FoundNo Family History Records Found Advance Directives No Advanced Directives Records FoundNo Advanced Directives Records FoundNo Advanced Directives Records Found Additional Source Comments INFORMATION SOURCE (unrecogn ized section and content) DATE CREATED AUTHOR 11/29/2021 [facility] dical Specialist DATE CREATED AUTHOR AUTHOR'S ORGANIZ ATION 03/19/2022 [facility] DATE CREATED AUTHOR AUTHOR'S ORGANIZ ATION 10/08/2024 [facility] dical Specialists EPIC Reason for Visit (unrecogniz ed section and content) Reason Comments Amenorrhea Reason Comments Routine Visit Reason Comments Well Women Visit Routine Visit STI Screening Care Teams (unrecognized sec tion and content) [facility] Coordinator Relationship Specialty Start Date End Date Reyes Stout MD [address] [place] [address] (Fax) PCP - General Family Medicine 12/17/22 [facility] Coordinator Relationship Specialty Start Date End Date Reyes Stout MD [address] [place] [address] (Fax) PCP - General Family Medicine 12/17/22 [facility] Coordinator Relationship Specialty Start Date End Date Reyes Stout MD [address] [place] [address] (Fax) PCP - General Family Medicine 12/17/22 [facility] Coordinator Relationship Specialty Start Date End Date Reyes Stout MD [address] [place] [address] (Fax) PCP - General Family Medicine 12/17/22 [facility] Coordinator Relationship Specialty Start Date End Date Reyes Stout MD [address] [place] [address] (Fax) PCP - General Family Medicine 12/17/22 [facility] Coordinator Relationship Specialty Start Date End Date Reyes Stout MD [address] [place] [address] (Fax) PCP - General Family Medicine 12/17/22 [facility] Coordinator Relationship Specialty Start Date End Date Reyes Stout MD [address] [place] [address] (Fax) PCP - General Family Medicine 12/17/22 [facility] Coordinator Relationship Specialty Start Date End Date Reyes Stout MD [address] [place] [address] (Fax) PCP - General Family Medicine 12/17/22 [facility] Coordinator Relationship Specialty Start Date End Date Reyes Stout MD [address] [facility] [address] [place] [address] PCP - [facility] 12/17/22 Donna Peguero PA [address] [place] [address] PCP - [facility]compli 01/10/24 08/10/99 [facility] Coordinator Relationship Specialty Start Date End Date Reyes Stout MD [address] [facility] [address] [address] [place] [address] PCP - [facility] 12/17/22 Donna Peguero PA [address] [place] [address] [facility] Acompli 01/10/24 08/10/99 FOR RECORDS PERTAINING TO PATIENTS WHO ARE [...] BE BASED ON THE PRIMARY CLINICAL RECORDS. [employer] [facility]. provides no warranty or guarantee of the accuracy or completeness of information in this document.
[2024-10-14 08:26] LABS: Glucose Fasting 82 mg/dL (<95)
[2024-10-14 09:55] LABS: Glucose 1 Hour 157 mg/dL (<180)
[2024-10-14 10:54] LABS: Glucose 2 Hour 137 mg/dL (<155)
[2024-10-14 11:22] LABS: Glucose 3 Hour 111 mg/dL (<140)
== END 2024-10-14 07:59 | disposition home or self-care (01) ==
LOC: LAB 07:58
PROVIDERS: PCP Family Medicine; Visit Provider Obstetrics & Gynecology
DX: O26.893 Other specified pregnancy related conditions, third trimester (principal); R73.09 Other abnormal glucose
CPT/HCPCS: 36415; 82951; 82952

== ENCOUNTER 2024-11-29 12:06 | Outpatient (REF) | payer OTHER, SELFPAY ==
--- OUTSIDE RECORDS SUMMARY | 2024-11-29 12:19 | XMS_ITS | CCD ---
Author Organization [facility] Care Team Providers Care Doctor Chiropractic Name Role Phone DR VINCENT DUARTE Admitting DR VINCENT Hilario Attending Unavailable ED, DR BERNARDO Consulting Unavailable GUSTAVO GONZALEZ Consulting Unavailable Argelia KATZ, Reyes Bates Primary Care Provider [phone] Reyes Stout MD Primary Care Provider Reyes Stout MD Primary Care Provider [phone] Donna Coleman Unavailable ARLETTE STACY Attending Unavailable DONNA PEGUERO Attending Unavailable ARLETTE STACY Attending Unavailable DONNA PEGUERO Attending Unavailable ARLETTE STACY Attending Unavailable TAWANNA, ARLETTE Attending Unavailable SOFEI RAMOS Referring Unavailable ARLETTE STACY Attending Unavailable ARLETTE STACY Attending Unavailable Medications Current Medications Medication Drug Class(es) Dates Sig (Normalized) Sig (Original) polysaccharide iron complex 391 mg oral capsule (5 sources) Start: 10-11-2024 End: 11-10-2024 take 1 capsule by mouth once daily iron polysaccharides (ProFe) 391.3 (180 Fe) MG capsule Indications: Anemia during in third trimester Take 1 capsule (391.3 mg) by mouth Daily 30 capsule 6 10/11/2024 11/10/2024 Active MV-Min-Fe Fum-FA-DHA ( 1 PO) (20 sources) [...] 07-22-2024 Episodic Other and delivery including normal (19 sources) First trimester ; Translations: [Encounter for [...] [28 weeks gestation of ] 10-06-2024 Episodic Residual codes; unclassified (2 sources) Gestation period, 33 weeks; Translations: [33 weeks gestation of ] 11-09-2024 Episodic Residual codes; unclassified (2 sources) Gestation period, 35 weeks; Translations: [35 weeks gestation of ] 11-23-2024 Episodic Urinary tract infections (1 source) Urinary [...] Test Name Value Interpretation Reference Range Facility Urinalysis macro (dipstick) panel (U)on 11-23-2024 Bilirubin, UA Negative Negative - 4(70) +++ mg/dL [facility] Blood, UA Negative Negative - 50 Shady/mcL [facility] Clarity, UA Clear [facility] Color, UA Yellow [facility] Glucose, UA Negative Negative - 1999(110) ++++ mg/dL [facility] Interpretation and review of laboratory results Abnormal [facility] Ketones, UA Negative Negative - 160(16) ++++ mg/dL [facility] Leukocytes, UA Positive Negative - 500+++ Kell/mcL [facility] Comment on above: Small Nitrite, UA Negative Negative - Positive [facility] pH, UA 7 5 - 9 [facility] Protein, UA Trace Negative - 1999(20) ++++ mg/dL [facility] Spec Grav, UA 1.025 1 - 1.03 [facility] Urobilinogen, UA 0.2 0.2 - 12 mg/dL [facility] Urinalysis macro (dipstick) panel (U)on 11-09-2024 Bilirubin, UA Negative Negative - 4(70) +++ mg/dL [facility] Blood, UA Negative Negative - 50 Shady/mcL [facility] Clarity, UA Clear [facility] Color, UA Yellow [facility] Glucose, UA Negative Negative - 1999(110) ++++ mg/dL [facility] Interpretation and review of laboratory results Abnormal [facility] Ketones, UA Negative Negative - 160(16) ++++ mg/dL [facility] Leukocytes, UA Positive Negative - 500+++ Kell/mcL [facility] Comment on above: small Nitrite, UA Negative Negative - Positive [facility] pH, UA 8.5 5 - 9 [facility] Protein, UA Trace Negative - 1999(20) ++++ mg/dL [facility] Spec Grav, UA 1.02 1 - 1.03 [facility] Urobilinogen, UA 0.2 0.2 - 12 mg/dL [facility] US OB FOLLOW UP TRANSABDOMIN AL APPROACHon 10-27-2024 US OB FOLLOW UP TRANSABDOMINAL APPROACH EXAM: US OB FOLLOW UP TRANSABDOMINAL APPROACH HISTORY: Inconsistent size. COMPARISON: Ob ultrasound 09/22/2024. TECHNIQUE: Two-dimensional transabdominal grayscale ultrasound imaging of the pelvis was performed. FINDINGS: Gestation: Single Presentation: Breech Cardiac Activity: 131 beats per minute Placental Location: Posterior with no sonographic abnormalities identified. Cervical canal: Not visualized Amniotic Fluid Index: 9.3 cm MEASUREMENTS: BPD: 7.6 cm EGA: 30 weeks 2 days HC: 29.6 cm EGA: 32 weeks 5 days AC: 28.0 cm EGA: 32 weeks 0 days FL: 6.0 cm EGA: 31 weeks 2 days HC/AC Ratio: 1.06 The gestational age by today's ultrasound is 31 weeks 4 days (+/- 15 days gestation). Estimated Weight: 1822 grams, +/- 273 grams ( 4 lb 0 oz). Weight Percentile for gestational age: 43 % IMPRESSION: 1. Single, live intrauterine gestation 31 weeks, 4 days by LMP. Today's ultrasound measurements correlate with a gestational age of 31 weeks 4 days. Estimated weight is 1822 grams, +/- 273 grams ( 4 lb 0 oz) which correlates to 43 %. EMANUEL is 12/25/2024. Electronically Signed:Electronically signed by CURTIS ROSS II, MD, PHD at 28-Oct-2024 08:46:48 AM [facility] Normal Not Available Comment on above: Order Comment: US OB SCAN FOR GROWTH Estimated Date of Delivery: 12/25/24 Gestational Age as of 10/25/2024: 31w2d GLUCOSE TOLERANCE 3 HOURon 0 10-14-2024 GLUCOSE TOLERANCE 3 HOUR mg/dL [facility] Comment on above: GLU FAST 82 (<95) Co l: 10/14/24 0805 GLU 1HR 157 (<180) Col: 10/14/24 0908 GLU 2HR 137 (<155) Col: 10/14/24 1008 GLU 3HR 111 (<140) Col: 10/14/24 1107 [facility] ALL CBC WITH AUTO DIFFon BASOPHILS ABSOLUTE AUTO 0 [facility] Basophils/100 WBC (Bld) 0.1 % Low 0.2 - 2.0 % [facility] Eosinophils/100 WBC (Bld) 0.7 % Low 0.9 - 7.0 % [facility] Erythrocyte distribution width (RBC) [Ratio] 12.3 % 11.0 - 15.0 % [facility] Hematocrit (Bld) [Volume fraction] 30.5 % Low 36.0 - 48.0 % [facility] Hemoglobin (Bld) [Mass/Vol] 10.8 g/dL Low 12.0 - 16.0 g/dL [facility] IMMATURE GRANULOCYTES ABS AUTO 0.03 [facility] Immature granulocytes/100 WBC (Bld) 0.4 % 0.0 - 0.5 % [facility] Interpretation and review of laboratory results Abnormal [facility] LYMPHOCYTES ABSOLUTE AUTO 1.5 [facility] Lymphocytes/100 WBC (Bld) 20.1 % Low 20.5 - 60.0 % [facility] MCH (RBC) [Entitic mass] 32.7 pg 26.7 - 34.0 pg [facility] MCHC (RBC) [Mass/Vol] 35.4 g/dL High 29.9 - 35.2 g/dL [facility] MCV (RBC) [Entitic vol] 92.4 fL 81.0 - 99.0 fL [facility] MONOCYTES ABSOLUTE AUTO 0.4 [facility] Monocytes/100 WBC (Bld) 5.8 % 1.7 - 12.0 % [facility] NEUTROPHILS ABSOLUTE AUTO 5.3 [facility] Neutrophils/100 WBC (Bld) 72.9 % 43.0 - 75.0 % [facility] Platelet mean volume (Bld) [Entitic vol] 10.3 fL 9.5 - 13.5 fL [facility] TBH EO # 0.1 [facility] TBH PLT 194 [facility] TB RBC 3.3 Low [facility] WBC 7.2 [facility] US OB LIMITED 1+ FETUSESon 0 09-22-2024 [...] II, MD, PHD at 24-Sep-2024 08:39:21 AM [facility] Normal Not Available Comment on above: Order Comment: US OB INCOMPLETE ANATOMY Estimated Date of Delivery: 12/25/24 Gestational Age as of 08/24/2024: 22w3d Urinalysis macro (dipstick) panel (U)on 09-21-2024 Bilirubin, UA Negative Negative - 4(70) +++ mg/dL [facility] Blood, UA Negative Negative - 50 Shady/mcL [facility] Clarity, UA Clear [facility] Color, UA Yellow [facility] Glucose, UA Negative Negative - 1999(110) ++++ mg/dL [facility] Interpretation and review of laboratory results Normal [facility] Ketones, UA Negative Negative - 160(16) ++++ mg/dL [facility] Leukocytes, UA Negative Negative - 500+++ Kell/mcL [facility] Nitrite, UA Negative Negative - Positive [facility] pH, UA 7 5 - 9 [facility] Protein, UA Negative Negative - 1999(20) ++++ mg/dL [facility] Spec Grav, UA 1.01 1 - 1.03 [facility] Urobilinogen, UA 0.2 0.2 - 12 mg/dL [facility] Urinalysis macro (dipstick) panel (U)on 08-24-2024 Bilirubin, UA Negative Negative - 4(70) +++ mg/dL [facility] Blood, UA Negative Negative - 50 Shady/mcL [facility] Clarity, UA Clear [facility] Color, UA Yellow [facility] Glucose, UA Negative Negative - 2000(110) ++++ mg/dL [facility] Interpretation and review of laboratory results Abnormal [facility] Ketones, UA Negative Negative - 160(16) ++++ mg/dL [facility] Leukocytes, UA Trace Negative - 500+++ Kell/mcL [facility] Nitrite, UA Negative Negative - Positive [facility] pH, UA 7 5 - 9 [facility] Protein, UA Trace Negative - 2000(20) ++++ mg/dL [facility] Spec Grav, UA 1.02 1 - 1.03 [facility] Urobilinogen, UA 1.0 0.2 - 12 mg/dL [...] GDLNon AGE GDLN ACOG TESTING Note . [facility] Comment on above: TESTS RESULT FLAG UN ITS REF RANGE LAB Clinician Provided Cytology Information Source.............Cervix No. of containers..01 ThinPrep Vial Age Algo ACOG Kinsey... 30-65 01 FLAG LEGEND: L-Low Normal,H-High Normal,LL-Alert Low,HH-Alert High <-Panic Low,>-Panic High,A-Abnormal,AA-Critical Abnormal Performed at: 01 =G [address] [address] Teri Armijo MD, HPV APTIMA Negative Negative [facility] Comment on above: This nucleic acid am plification test detects fourteen high- risk HPV types (16,18,31,33,35,39,45,51,52,56,58,59,66,68) without differentiation. Performed at: =[facility] [address] [facility], [place] [id number] It Assistant: Teri Armijo MD, Phone: [phone] Performed at: [address], [place] [id number] It Assistant: Ashley Sunshine PhD, Phone: [phone] IGP, APTIMA HPV, RFX 16/18,45 Note . [facility] Comment on above: TESTS RESULT FLAG UN ITS REF RANGE LAB DIAGNOSIS: 02 NEGATIVE FOR INTRAEPITHELIAL LESION OR MALIGNANCY. Specimen adequacy: 02 Satisfactory for evaluation. No endocervical component is identified. Performed by: 02 Christine Davis, Strip Mill Operator ([facility]) . 02 Note: Note 03 The Pap [...] High <-Panic Low,>-Panic High,A-Abnormal,AA-Critical Abnormal Performed at: [address] [place] [address] Court, [place] [address] Ashley Sunshine PhD, [address] [facility] [address] [address] Teri Armijo MD, SPATULA-ALONE CERVIX [facility] RECURRENT VAGINITIS (HTRX)on 07-24-2024 ATOPOBIUM VAGINAE 0 [facility] ATOPOBIUM VAGINAE Not detected [facility] BVAB 2,3 (BACTERIAL VAGINOSIS ASSOCIATED BACTERIA 2, 3); MOBILUNCUS SPP 0 [facility] BVAB 2,3 (BACTERIAL VAGINOSIS ASSOCIATED BACTERIA 2, 3); MOBILUNCUS SPP Not detected [facility] DARIA ALBICANS, PARAPSILOSIS, TROPICALIS 0 [facility] DARIA ALBICANS, PARAPSILOSIS, TROPICALIS Not detected [facility] DARIA GLABRATA 0 [facility] DARIA GLABRATA Not detected [facility] DARIA KRUSEI 0 [facility] DARIA KRUSEI Not detected [facility] CHLAMYDIA TRACHOMATIS 0 [facility] CHLAMYDIA TRACHOMATIS Not detected [facility] GARDNERELLA VAGINALIS 0 [facility] GARDNERELLA VAGINALIS Not detected [facility] MEGASPHAERA (TYPES 1, 2) 0 [facility] MEGASPHAERA (TYPES 1, 2) Not detected [facility] MYCOPLASMA GENITALIUM 0 [facility] MYCOPLASMA GENITALIUM Not detected [facility] NEISSERIA GONORRHOEAE 0 [facility] NEISSERIA GONORRHOEAE Not detected [facility] TRICHOMONAS VAGINALIS 0 [facility] TRICHOMONAS VAGINALIS Not detected [facility] Urinalysis macro (dipstick) panel (U)on 07-22-2024 Bilirubin, UA Negative Negative - 4(70) +++ mg/dL [facility] Blood, UA Negative Negative - 50 Shady/mcL [facility] Clarity, UA Clear [facility] Color, UA Yellow [facility] Glucose, UA Negative Negative - 2000(110) ++++ mg/dL [facility] Interpretation and review of laboratory results Normal [facility] Ketones, UA Negative Negative - 160(16) ++++ mg/dL [facility] Leukocytes, UA Negative Negative - 500+++ Kell/mcL [facility] Nitrite, UA Negative Negative - Positive [facility] pH, UA 6 5 - 9 [facility] Protein, UA Negative Negative - 1999(20) ++++ mg/dL [facility] Spec Grav, UA 1.02 1 - 1.03 [facility] Urobilinogen, UA 1.0 0.2 - 12 mg/dL [facility] ALL RUBELLA IGG ABon 024 RUBELLA ANTIBODIES, IGG 18.80 Immune >0.99 index [facility] Comment on above: Non-immune <0.90 Equivocal 0.90 - 0.99 Immune >0.99 Performed at: [facility] [id number] It Assistant: Michael Talamantes PhD, Phone: [phone] HBSAG SCREENon 06-22-2024 HBSAG SCREEN Negative Negative [facility] Comment on above: Performed at: [address] [id number] It Assistant: Michael Talamantes PhD, Phone: [phone] HCV ANTIBODY RFX TO QUANT PC Jalen 06-22-2024 HCV AB Non-Reactive Non Reactive [facility] INTERPRETATION: Comment . [facility] Comment on above: Not infected with HC V unless early or acute infection is suspected (which may be delayed in an immunocompromised individual), or other evidence exists to indicate HCV infection. HIV AB/P24 AG WITH REFLEXon 06-22-2024 HIV AB/P24 AG SCREEN Non-Reactive Non Reactive [facility] Comment on above: HIV-1/HIV-2 antibodi es and HIV-1 p24 antigen were NOT detected. There is no laboratory evidence of HIV infection. HIV Negative Performed at: [facility] [id number] It Assistant: Michael Talamantes PhD, Phone: [phone] No Panel Informationon 06-22 [facility] RAPID PLASMA REAGIN, QUANTon 06-22-2024 RAPID PLASMA REAGIN, QUANT Non-Reactive NonRea<1:1 titer [facility] Comment on above: Please Note: This te st does not meet current guidelines for screening and diagnosis of syphilis. This test is intended for following treatment response in patients being treated for syphilis infection. To screen for syphilis infection, a reflex cascade that includes both RPR and a treponema-specific assay should be utilized, such as Treponema pallidum (Syphilis) Screening [place] (156527) or Rapid Plasma Reagin (RPR) Test With Reflex to Quantitative RPR and Confirmatory Treponema pallidum Antibodies (620542). Performed at: [address] [id number] It Assistant: Michael Talamantes PhD, Phone: [phone] URINE CULTURE, ROUTINEon Bacteria identified Cx Nom (U) Urine Culture, Routine [facility] Bacteria identified Cx Nom (U) Mixed urogenital yahaira [facility] Bacteria identified Cx Nom (U) Less than 10,000 colonies/mL [facility] Bacteria identified Cx Nom (U) [facility] Cx Nom (U[facility] [address] [place] [phone] [facility] Bacteria identified Cx Nom (U) It Assistant: Michael Talamantes PhD, Phone: [phone] [facility] ALL CBC WITH AUTO DIFFon BASOPHILS ABSOLUTE AUTO 0 [facility] Basophils/100 WBC (Bld) 0.3 % 0.2 - 2.0 % [facility] Eosinophils/100 WBC (Bld) 0.5 % Low 0.9 - 7.0 % [facility] Erythrocyte distribution width (RBC) [Ratio] 12.1 % 11.0 - 15.0 % [facility] Hematocrit (Bld) [Volume fraction] 35.7 % Low 36.0 - 48.0 % [facility] Hemoglobin (Bld) [Mass/Vol] 13.1 g/dL 12.0 - 16.0 g/dL [facility] IMMATURE GRANULOCYTES ABS AUTO 0.02 [facility] Immature granulocytes/100 WBC (Bld) 0.3 % 0.0 - 0.5 % [facility] Interpretation and review of laboratory results Abnormal [facility] LYMPHOCYTES ABSOLUTE AUTO 1.7 [facility] Lymphocytes/100 WBC (Bld) 25.5 % 20.5 - 60.0 % [facility] MCH (RBC) [Entitic mass] 32.3 pg 26.7 - 34.0 pg [facility] MCHC (RBC) [Mass/Vol] 36.7 g/dL High 29.9 - 35.2 g/dL [facility] MCV (RBC) [Entitic vol] 88.1 fL 81.0 - 99.0 fL [facility] MONOCYTES ABSOLUTE AUTO 0.4 [facility] Monocytes/100 WBC (Bld) 5.6 % 1.7 - 12.0 % [facility] NEUTROPHILS ABSOLUTE AUTO 4.4 [facility] Neutrophils/100 WBC (Bld) 67.8 % 43.0 - 75.0 % [facility] Platelet mean volume (Bld) [Entitic vol] 10.3 fL 9.5 - 13.5 fL [facility] TBH EO # 0 [facility] PLT 217 [facility] RBC 4.05 Low [facility] WBC 6.5 [facility] AND SCREENon 2023 ABO and Rh group Nom (Bld) Blood group A Rh(D) negative [facility] BOX TESTon 06-21-2024 BOX TEST SENT OUT [facility] BOX1 [facility] BOX2 06/21/24 [facility] BOX [facility] MLR HEMOGLOBIN A1Con 024 Glucose [Mass/Vol] 88 mg/dL [facility] HbA1c (Bld) [Mass fraction] 4.7 % 4.5 - 6.2 % [facility] Comment on above: ADA RECOMMENDED LIMI T 4.0 - 6.0 ADA THERAPEUTIC TARGET < 7.0 ACTION SUGGESTED > 7.0 [facility] DRUG SCREEN RAPID (URINE )on 06-21-2024 AMPHETAMINE SCREEN URINE Negative NEGATIVE [facility] BARBITURATES SCREEN URINE Negative NEGATIVE [facility] BENZODIAZEPINES SCREEN URINE Negative NEGATIVE [facility] BUPRENORPHINE SCREEN URINE Negative NEGATIVE [facility] Comment on above: DRUG CLASS TEST SYST [...] 300 ng/mL CANNABINOID SCREEN URINE Negative NEGATIVE [facility] COCAINE SCREEN URINE Negative NEGATIVE [facility] METHADONE SCREEN URINE Negative NEGATIVE [facility] METHAMPHETAMINES SCREEN URINE Negative NEGATIVE [facility] OPIATE SCREEN URINE Negative NEGATIVE [facility] OXYCODONE SCREEN URINE Negative NEGATIVE [facility] PHENCYCLIDINE SCREEN URINE Negative NEGATIVE [facility] TRICYCLIC ANTIDEPRESSANT URINE Negative NEGATIVE [facility] Urinalysis macro (dipstick) panel (U)on 06-21-2024 Bilirubin, UA Negative Negative - 4(70) +++ mg/dL [facility] Blood, UA Negative Negative - 50 Shady/mcL [facility] Clarity, UA Clear [facility] Color, UA Yellow [facility] Glucose, UA Negative Negative - 1999(110) ++++ mg/dL [facility] Interpretation and review of laboratory results Normal [facility] Ketones, UA Negative Negative - 160(16) ++++ mg/dL [facility] Leukocytes, UA Negative Negative - 500+++ Kell/mcL [facility] Nitrite, UA Negative Negative - Positive [facility] pH, UA 5.5 5 - 9 [facility] Protein, UA Negative Negative - 1999(20) ++++ mg/dL [facility] Spec Grav, UA 1.02 1 - 1.03 [facility] Urobilinogen, UA 1.0 0.2 - 12 mg/dL [facility] HCG ( test) Ql (U)o n 05-20-2024 Interpretation and review of laboratory results Abnormal [facility] Preg Test, Ur Positive [facility] Urinalysis macro (dipstick) panel (U)on 05-20-2024 Bilirubin, UA Negative Negative - (70) +++ mg/dL [facility] Blood, UA Negative Negative - 50 Shady/mcL [facility] Clarity, UA Clear [facility] Color, UA Colorless [facility] Glucose, UA Negative Negative - 1999(110) ++++ mg/dL [facility] Interpretation and review of laboratory results Abnormal [facility] Ketones, UA Negative Negative - 160(16) ++++ mg/dL [facility] Leukocytes, UA Trace Negative - 500+++ Kell/mcL [facility] Nitrite, UA Negative Negative - Positive [facility] pH, UA 6.0 5 - 9 [facility] Protein, UA Negative Negative - 1999(20) ++++ mg/dL [facility] Spec Grav, UA 1.005 1 - 1.03 [facility] Urobilinogen, UA 0.2 0.2 - 12 mg/dL [facility] AMYLASEon 03-16-2022 Amylase [Catalytic activity/Vol] 42 U/L Normal 25-115 [facility] Comment on above: Performed By: #### L IPA, CMP, DONNA #### [facility] [address] [address] [address] Ashley Fung CBC AUTO DIFFon 03-16-2022 BASO # 0.0 103/ul Normal 0.0-0.1 [facility] Comment on above: Performed By: #### C BC #### [facility] [address] [place] [address] Dr. Ashley Fung Basophils/100 WBC (Bld) 0.3 % Normal 0.2-2.0 [facility] Comment on above: Performed By: #### C BC #### [facility] [address] [place] [address] Dr. Ashley Fung EO # 0.1 103/ul Normal 0.0-0.7 [facility] Comment on above: Performed By: #### C BC #### [facility] [address] [place] [address] Dr. Ashley Fung Eosinophils/100 WBC (Bld) 0.9 % Normal 0.9-7.0 [facility] Comment on above: Performed By: #### C BC #### [facility] [address] [place] [address] Dr. Ashley Fung Erythrocyte distribution width (RBC) [Ratio] 11.1 % Normal 11.0-15.0 [facility] Comment on above: Performed By: #### C BC #### [facility] [address] [place] [address] Dr. Ashley Fung Hematocrit (Bld) [Volume fraction] 33.9 % Critically low 36.0-48.0 [facility] Comment on above: Performed By: #### C BC #### [facility] [address] [place] [address] Dr. Ashley Fung Hemoglobin (Bld) [Mass/Vol] 12.2 g/dL Normal 12.0-16.0 [facility] Comment on above: Performed By: #### C BC #### [facility] [address] [place] [address] Dr. Ashley Fung IG # 0.01 10e3/ul Normal 0.00-0.03 [facility] Comment on above: Performed By: #### C BC #### [facility] [address] [place] [address] Dr. Ashley Fung IG % 0.1 % Normal 0.0-0.5 [facility] Comment on above: Performed By: #### C BC #### [facility] [address] [place] [address] Dr. Ashley Fung LYMPH # 1.8 103/ul Normal 1.2-3.8 [facility] Comment on above: Performed By: #### C BC #### [facility] [address] [place] [address] Dr. Ashley Fung Lymphocytes/100 WBC (Bld) 23.2 % Normal 20.5-60.0 [facility] Comment on above: Performed By: #### C BC #### [facility] [address] [place] [address] Dr. Ashley Fung MANUAL DIFF REQ NO Normal [facility] Comment on above: Performed By: #### C BC #### [facility] [address] [place] [address] Dr. Ashley Fung MCH (RBC) [Entitic mass] 31.0 pg Normal 26.7-34.0 [facility] Comment on above: Performed By: #### C BC #### [facility] [address] [place] [address] Dr. Ashley Fung MCHC (RBC) [Mass/Vol] 36.0 g/dL Critically high 29.9-35.2 [facility] Comment on above: Performed By: #### C BC #### [facility] [address] [place] [address] Dr. Ashley Fung MCV (RBC) [Entitic vol] 86.0 fL Normal 81.0-99.0 [facility] Comment on above: Performed By: #### C BC #### [facility] [address] [place] [address] Dr. Ashley Fung MONO # 0.5 103/ul Normal 0.3-0.8 [facility] Comment on above: Performed By: #### C BC #### [facility] [address] [place] [address] Dr. Ashley Fung Monocytes/100 WBC (Bld) 6.0 % Normal 1.7-12.0 [facility] Comment on above: Performed By: #### C BC #### [facility] [address] [place] [address] Dr. Ashley Fung NEUT # 5.3 103/ul Normal 1.4-6.5 [facility] Comment on above: Performed By: #### C BC #### [facility] [address] [place] [address] Dr. Ashley Fung Neutrophils/100 WBC (Bld) 69.5 % Normal 43.0-75.0 [facility] Comment on above: Performed By: #### C BC #### [facility] [address] [place] [address] Dr. Ashley Fung Platelet mean volume (Bld) [Entitic vol] 9.9 fL Normal 9.5-13.5 [facility] Comment on above: Performed By: #### C BC #### [facility] [address] [place] [address] Dr. Ashley Fung PLT 199 103/ul Normal 150-450 [facility] Comment on above: Performed By: #### C BC #### [facility] [address] [place] [address] Dr. Ashley Fung RBC 3.94 106/ul Critically low 4.20-5.40 [facility] Comment on above: Performed By: #### C BC #### [facility] [address] [place] [address] Dr. Ashley Fung WBC 7.6 103/ul Normal 4.0-11.0 [facility] Comment on above: Performed By: #### C BC #### [facility] [address] [address] ABD/PELV W CONon 03-16-20 CT ABD/PELV W CON EXAMINATION: CT ABD/PELV W CON HISTORY: Right sided abdominal pain COMPARISON: None. TECHNIQUE: CT of abdomen/pelvis with intravenous contrast. Dose reduction techniques were achieved by using automated exposure control and/or adjustment of mA and/or kV according to patient size and/or use of iterative reconstruction technique. FINDINGS: Icd 9 Coder: No pertinent findings, which are not already [...] by: GUSTAVO GONZALEZ Date: 2022-03-16 10:03 Normal [facility] CULTURE URINEon 03-16-2022 CULTURE URINE Culture Observations : LIGHT GROWTH OF MIXED GENITAL YAHAIRA. NO POTENTIAL PATHOGENS SEEN. Normal [facility] Comment on above: Performed By: #### U RCX #### [facility] [address] [address] [address] Ashley Fung ER URINE PROFILEon 2 Bilirubin Ql (U) SMALL Abnormal NEGATIVE [facility] Comment on above: Performed By: #### Sky HOLLEY UMICRO #### [facility] [address] [place] [address] Dr. Ashley Fung Clarity (U) SL CLOUDY Abnormal CLEAR [facility] Comment on above: Performed By: #### LEIGH PAULSONICRO #### [facility] [address] [place] [address] Dr. Ashley Fung Color (U) DK. YELLOW Normal YELLOW [facility] Comment on above: Performed By: #### TAHIRA PAULSONRO #### [facility] [address] [place] [address] Dr. Ashley PANIAGUA A micrscopic examination will be performed if indicated. Normal [facility] Comment on above: Performed By: #### TAHIRA PAULSONRO #### [facility] [address] [place] [address] Dr. Ashley Fung Glucose Ql (U) Negative Normal NEGATIVE [facility] Comment on above: Performed By: #### TAHIRA PAULSONRO #### [facility] [address] [place] [address] Dr. Ashley Fung Hemoglobin Ql (U) Negative Normal NEGATIVE [facility] Comment on above: Performed By: #### TAHIRA PAULSONRO #### [facility] [address] [place] [address] Dr. Ashley Fung Ketones Ql (U) TRACE Abnormal NEGATIVE [facility] Comment on above: Performed By: #### TAHIRA PAULSONRO #### [facility] [address] [place] [address] Dr. Ashley Fung LEUKOCYTES TRACE Abnormal NEGATIVE [facility] Comment on above: Performed By: #### TAHIRA PAULSONRO #### [facility] [address] [place] [address] Dr. Ashley Fung Nitrite Ql (U) Negative Normal NEGATIVE [facility] Comment on above: Performed By: #### Sky HOLLEY UMICRO #### [facility] [address] [place] [address] Dr. Ashley Fung pH (U) 7.0 [pH] Normal 5-9 [facility] Comment on above: Performed By: #### Sky HOLLEY UMICRO #### [facility] [address] [place] [address] Dr. Ashley Fung Protein (U) [Mass/Vol] 100 mg/dL Abnormal NEGATIVE/ TRACE [facility] Comment on above: Performed By: #### Sky HOLLEY UMICRO #### [facility] [address] [place] [address] Dr. Ashley Fung SPEC GRAVITY 1.025 Normal 1.005-<=1.025 [facility] Comment on above: Performed By: #### LEIGH PAULSONICRO #### [facility] [address] [place] [address] Dr. Ashley Fung UR MICRO IND INDICATED Normal [facility] Comment on above: Performed By: #### Sky HOLLEY UMICRO #### [facility] [address] [place] [address] Dr. Ashley Fung Urobilinogen Qn (U) 1.0 {Stephanie'U}/dL Normal 0.2 - 1. 0 [facility] Comment on above: Performed By: #### LEIGH PAULSONICRO #### [facility] [address] [place] [address] Dr. Ashley Fung LIPASEon 03-16-2022 Lipase [Catalytic activity/Vol] 100.0 U/L Normal 73.0-393.0 [facility] Comment on above: Performed By: #### L IPA, CMP, DONNA #### [facility] [address] [place] [address] Dr. Ashley Fung PREG HCG QUALon 03-16-2022 , QUAL Negative Normal NEGATIVE [facility] Comment on above: Performed By: #### P REG #### [facility] [address] [place] [address] Dr. Ashley Fung PROF 14(COMP METB)on 022 Albumin [Mass/Vol] 3.3 g/dL Critically low 3.4-5.0 [facility] Comment on above: Performed By: #### L IPA, CMP, DONNA #### [facility] [address] [address] [address] Ashley Fung Albumin/Globulin [Mass ratio] 1.0 {ratio} Normal [facility] Comment on above: Performed By: #### L IPA, CMP, DONNA #### [facility] [address] [address] [address] Ashley Fung ALP [Catalytic activity/Vol] 58 U/L Normal 46-116 [facility] Comment on above: Performed By: #### L IPA, CMP, DONNA #### [facility] [address] [address] [address] Ashley Fung ALT [Catalytic activity/Vol] 15 U/L Normal 14-59 [facility] Comment on above: Performed By: #### L IPA, CMP, DONNA #### [facility] [address] [address] [address] Ashley Fung Anion gap [Moles/Vol] 11.2 mmol/L Normal [facility] Comment on above: Performed By: #### L IPA, CMP, DONNA #### [facility] [address] [address] [address] Ashley Fung AST [Catalytic activity/Vol] 15 U/L Normal 15-37 [facility] Comment on above: Performed By: #### L IPA, CMP, DONNA #### [facility] [address] [address] [address] Ashley Fung Bilirubin [Mass/Vol] 0.4 mg/dL Normal 0.2-1.0 [facility] Comment on above: Performed By: #### L IPA, CMP, DONNA #### [facility] [address] [address] [address] Ashley Fung Calcium [Mass/Vol] 8.7 mg/dL Normal 8.5-10.1 [place] Comment on above: Performed By: #### L IPA, CMP, DONNA #### [facility] [address] [address] [address] Ashley Fung Chloride [Moles/Vol] 106 mmol/L Normal 98-107 [facility] Comment on above: Performed By: #### L IPA, CMP, DONNA #### [facility] [address] [address] [address] Ashley Fung CO2 [Moles/Vol] 27.4 mmol/L Normal 21.0-32.0 [facility] Comment on above: Performed By: #### L IPA, CMP, DONNA #### [facility] [address] [address] [address] Ashley Fung Creatinine [Mass/Vol] 1.22 mg/dL Critically high 0.55-1.02 [facility] Comment on above: Performed By: #### L IPA, CMP, DONNA #### [facility] [address] [address] [address] Ashley Fung EGFR-AF SAUDI ARABIAN >60 Normal >=60 [facility] Comment on above: Performed By: #### L IPA, CMP, DONNA #### [facility] [address] [address] [address] Ashley Fung EGFR-NON AF SAUDI ARABIAN 52 mL/min/1.73m2 Critically low >=60 [facility] Comment on above: Performed By: #### L IPA, CMP, DONNA #### [facility] [address] [address] [address] Ashley Fung Globulin (S) [Mass/Vol] 3.4 g/dL Normal [facility] Comment on above: Performed By: #### L IPA, CMP, DONNA #### [facility] [address] [address] [address] Ashley Fung Glucose [Mass/Vol] 116 mg/dL Critically high 74-106 [facility] Comment on above: Performed By: #### L IPA, CMP, DONNA #### [facility] [address] [address] [address] Ashley Fung Potassium [Moles/Vol] 3.6 mmol/L Normal 3.5-5.1 [facility] Comment on above: Performed By: #### L IPA, CMP, DONNA #### [facility] [address] [place] [address] Dr. Ashley Fung Protein [Mass/Vol] 6.7 g/dL Normal 6.4-8.[address] [facility] Comment on above: Performed By: #### L IPA, CMP, DNONA #### [facility] [address] [place] [address] Dr. Ashley Fung Sodium [Moles/Vol] 141 mmol/L Normal 136-[address] [facility] Comment on above: Performed By: #### L IPA, CMP, DONNA #### [facility] [address] [place] [address] Dr. Ashley Fung Urea nitrogen [Mass/Vol] 15.0 mg/dL Normal 7.0-18.0 [facility] Comment on above: Performed By: #### L IPA, CMP, DONNA #### [facility] [address] [place] [address] Dr. Ashley Fung Urea nitrogen/Creatinine [Mass ratio] 12.3 mg/mg Normal [facility] Comment on above: Performed By: #### L IPA, CMP, DONNA #### [facility] [address] [place] [address] Dr. Ashley Fung URINE MICROSCOPIC ONLYon BACTERIA TRACE Abnormal NONE SEEN [facility] Comment on above: Performed By: #### Syk HOLLEY UMICRO #### [facility] [address] [place] [address] Dr. Ashley Fung Bacteria identified Cx Nom (U) INDICATED Normal [facility] Comment on above: Performed By: #### E KISHAN UMICRO #### [facility] [address] [place] [address] Dr. Ashley Fung CAST SEEN Abnormal NONE SEEN [facility] Comment on above: Performed By: #### E KISHAN UMICRO #### [facility] [address] [place] [address] Dr. Ashley Fung Crystals LM Nom (Urine sed) NONE SEEN Normal NONE SEEN [facility] Comment on above: Performed By: #### E RUR, UMICRO #### [facility] [address] [address] [address] Ashley Fung Epithelial cells LM Ql (Urine sed) RARE Normal NONE SEEN /RARE [facility] Comment on above: Performed By: #### E RUR, UMICRO #### [facility] [address] [address] [address] Ashley Fung MUCOUS MODERATE Abnormal NONE SEEN [facility] Comment on above: Performed By: #### E RUR, UMICRO #### [facility] [address] [address] [address] Ashley Fung RBC NONE SEEN Abnormal 0-2 [facility] Comment on above: Performed By: #### E RUR, UMICRO #### [facility] [address] [address] [address] Ashley Fung WBC 2-5 Abnormal NONE SEEN [facility] Comment on above: Performed By: #### E RUR, UMICRO #### [facility] [address] [address] [address] Ashley Fung XR Abdomen 2 Viewson 022 XR Abdomen 2 Views HISTORY: Low abdominal pain, constipation FINDINGS: Moderate colon stool normally distributed throughout abdomen and pelvis. No evidence of bowel obstruction or free air. No biliary or urinary tract stones. IMPRESSION: Moderate colon stool, no obstruction. 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 Vital Signs Date Time Vital Sign Value Performing Clinician Faci lity 11-23-2024 14:28-040 Body mass index (BMI) [Ratio] 32.78 kg/m2 [email or web address] Work Phone: [facility] 11-23-2024 14:040 Body weight 89.36 kg [email or web address] Work Phone: [facility] 11-23-2024 14:28-040 Diastolic blood pressure 70 mm[Hg] [email or web address] Work Phone: [facility] 11-23-2024 14:28-0400 Systolic blood pressure 106 mm[Hg] Arlette Tawanna DO Work Phone: [facility] 11-09-2024 10:07-0400 Body mass index (BMI) [Ratio] 31.78 kg/m2 Arlette Tawanna DO Work Phone: [facility] 11-09-2024 10:07-0400 Body weight 86.64 kg Arlette Tawanna DO Work Phone: [facility] 11-09-2024 10:07-0400 Diastolic blood pressure 68 mm[Hg] Arlette Tawanna DO Work Phone: [facility] 11-09-2024 10:07-0400 Systolic blood pressure 104 mm[Hg] Arlette Tawanna DO Work Phone: [facility] 10-06-2024 15:05-0500 Body mass index (BMI) [Ratio] 30.92 kg/m2 Arlette Tawanna DO Work Phone: [facility] 10-06-2024 15:05-0500 Body weight 84.28 kg Arlette Tawanna DO Work Phone: [facility] 10-06-2024 15:05-0500 Diastolic blood pressure 70 mm[Hg] Arlette Tawanna DO Work Phone: [facility] 10-06-2024 15:05-0500 Systolic blood pressure 110 mm[Hg] Alrette Tawanna DO Work Phone: [facility] 09-21-2024 14:51-0500 Body mass index (BMI) [Ratio] 31.62 kg/m2 Donna MADERA Work Phone: [facility] 09-21-2024 14:51-0500 Body weight 86.18 kg Donna MADERA Work Phone: [facility] 09-21-2024 14:51-0500 Diastolic blood pressure 62 mm[Hg] Donna MADERA Work Phone: [facility] 09-21-2024 14:51-0500 Systolic blood pressure 106 mm[Hg] Donna Brent PA Work Phone: [facility] 08-24-2024 14:10-0500 Body mass index (BMI) [Ratio] 29.69 kg/m2 Arlette Tawanna DO Work Phone: [facility] 08-24-2024 14:10-0500 Body weight 80.92 kg Arlette Tawanna DO Work Phone: [facility] 08-24-2024 14:10-0500 Diastolic blood pressure 66 mm[Hg] Arlette Tawanna DO Work Phone: [facility] 08-24-2024 14:10-0500 Systolic blood pressure 112 mm[Hg] Arlette Tawanna DO Work Phone: [facility] 07-22-2024 14:05-0500 Body mass index (BMI) [Ratio] 28.92 kg/m2 Donna MADERA Work Phone: [facility] 07-22-2024 14:05-0500 Body weight 78.83 kg Donna Peguero PA Work Phone: [facility] 07-22-2024 14:05-0500 Diastolic blood pressure 74 mm[Hg] Donna Peguero PA Work Phone: [facility] 07-22-2024 14:05-0500 Systolic blood pressure 120 mm[Hg] Donna Peguero PA Work Phone: [facility] 06-21-2024 09:57-0500 Body mass index (BMI) [Ratio] 28.76 kg/m2 Arlette Tawanna DO Work Phone: [facility] 06-21-2024 09:57-0500 Body weight 78.38 kg Arlette Tawanna DO Work Phone: [facility] 06-21-2024 09:57-0500 Diastolic blood pressure 72 mm[Hg] Arlette Tawanna DO Work Phone: [facility] 06-21-2024 09:57-0500 Systolic blood pressure 118 mm[Hg] Arlette Tawanna DO Work Phone: [facility] Encounters Encounter Date Encounter Type Care Provider Facility Start: 11-29-2024 End: 11-29-2024 Bamboo flowsheet Arlette Tawanna DO Work Phone: [facility] Start: 11-29-2024 End: 11-29-2024 Bamboo flowsheet Arlette Tawanna DO Work Phone: [facility] Start: 11-23-2024 End: 11-23-2024 flow sheet Arlette Tawanna DO Work Phone: [facility] Comment on above: Third trimester preg erica; 35 weeks gestation of Start: 11-23-2024 End: 11-23-2024 ambulatory ARLETTE TAWANNA Not Available Start: 11-23-2024 End: 11-23-2024 Bamboo flowsheet Arlette Tawanna DO Work Phone: [facility] Start: 11-23-2024 End: 11-23-2024 Bamboo flowsheet Arlette Tawanna DO Work Phone: [facility] Start: 11-09-2024 End: 11-09-2024 Bamboo flowsheet Arlette Tawanna DO Work Phone: [facility] Start: 11-09-2024 End: 11-09-2024 Bamboo flowsheet Arlette Tawanna DO Work Phone: [facility] Start: 11-09-2024 End: 11-09-2024 ambulatory ARLETTE TAWANNA Not Available Start: 11-09-2024 End: 11-09-2024 flow sheet Arlette Tawanna DO Work Phone: [facility] Comment on above: 33 weeks gestation o f ; Third trimester Start: 10-27-2024 End: 10-27-2024 ambulatory SOFIE NANCY Not Available Start: 10-25-2024 End: 10-25-2024 Bamboo flowsheet Arlette Tawanna DO Work Phone: [facility] Start: 10-25-2024 End: 10-25-2024 Bamboo flowsheet Arlette Tawanna DO Work Phone: [facility] Start: 10-25-2024 End: 10-25-2024 ambulatory ARLETTE TAWANNA Not Available Start: 10-14-2024 End: 10-14-2024 Clinisync Result Encounter Arlette Tawanna DO Work Phone: [facility] Unsolicited Start: 10-14-2024 End: 10-14-2024 Clinisync Result Encounter Arlette Tawanna DO Work Phone: [facility] Unsolicited Start: 10-08-2024 End: 10-08-2024 Clinisync Result Encounter Generic External Data Provider [facility] Unsolicited Start: 10-08-2024 End: 10-08-2024 Clinisync Result Encounter Generic External Data Provider [facility] Unsolicited Start: 10-06-2024 End: 10-06-2024 flow sheet Arlette Tawanna DO Work Phone: [facility] Comment on above: Third trimester preg erica; 28 weeks gestation of Start: 10-06-2024 End: 10-06-2024 ambulatory ARLETTE TAWANNA Not Available Start: 10-06-2024 End: 10-06-2024 Bamboo flowsheet Arlette Tawanna DO Work Phone: [facility] Start: 10-06-2024 End: 10-06-2024 Bamboo flowsheet Arlette Tawanna DO Work Phone: [facility] Start: 09-22-2024 End: 09-22-2024 ambulatory ARLETTE TAWANNA Not Available Start: 09-21-2024 End: 09-21-2024 flow sheet oDnna MADERA Work Phone: [facility] Comment on above: Second trimester pre gnancy; 26 weeks gestation of Start: 09-21-2024 End: 09-21-2024 ambulatory DONNA PEGUERO Not Available Start: 09-21-2024 End: 09-21-2024 Bamboo flowsheet Donna MADERA Work Phone: [facility] Start: 09-21-2024 End: 09-21-2024 Bamboo flowsheet Donna MADERA Work Phone: [facility] Start: 08-24-2024 End: 08-24-2024 flow sheet Arlette Tawanna DO Work Phone: [facility] Comment on above: Diabetes mellitus sc reening; 22 weeks gestation of ; Second trimester Start: 08-24-2024 End: 08-24-2024 ambulatory ARLETTE TAWANNA Not Available Start: 08-24-2024 End: 08-24-2024 Bamboo flowsheet Arlette Tawanna DO Work Phone: [facility] Start: 08-24-2024 End: 08-24-2024 Bamboo flowsheet Arlette Tawanna DO Work Phone: [facility] Start: 08-18-2024 End: 08-18-2024 ambulatory ARLETTE TAWANNA Not Available Start: 07-22-2024 End: 07-22-2024 Bamboo flowsheet Donna MADERA Work Phone: [facility] Start: 07-22-2024 End: 07-29-2024 Bamboo flowsheet Donna MADERA Work Phone: [facility] Start: 07-22-2024 End: 07-29-2024 Clinisync Result Encounter Generic External Data Provider [facility] Unsolicited Start: 07-22-2024 End: 07-24-2024 External Result Encounter Donna MADERA Work Phone: [facility] Unsolicited Start: 07-22-2024 End: 07-22-2024 Patient encounter procedure Donna MADERA Work Phone: [facility] Work Phone: Start: 07-22-2024 End: 07-22-2024 Periodic preventive med est patient 18-39 yrs Donna MADERA Work Phone: [facility] Comment on above: Well woman [...] GA: 8w5d Start: 05-20-2024 End: 05-20-2024 ambulatory ARLETTE TAWANNA Not Available Start: 03-16-2022 End: 03-16-[address] VINCENT DUARTE Facility: Procedures Date Procedure Procedure Detail Performing Clinician Start: 11-23-2024 Urnls dip stick/tabl et rgnt non-auto w/o micrscp Arlette Tawanna DO Work Phone: Start: 11-09-2024 Urnls dip stick/tabl et rgnt non-auto w/o micrscp Arlette Tawanna DO Work Phone: Start: 10-14-2024 GLUCOSE TOLERANCE 3 HOUR Generic External Data Provider Start: 10-08-2024 ALL CBC WITH AUTO DIFF [...] Culture Generic External Data Provider Start: 06-21-2024 TB DRUG SCREEN RAPI D (URINE) Generic External Data Provider Start: 05-20-2024 Urnls dip stick/tabl et rgnt non-auto w/o micrscp Arlette Stacy DO Work Phone: Plan of Treatment Date Care Activity Detail Author Start: 07-22-2029 Screening for malign ant neoplasm of cervix [facility] Start: 04-11-2025 Influenza vaccination Influenz a Vaccine (Season Ended) [facility] Start: 11-29-2024 End: 11-29-2024 Patient encounter procedure [facility] Comment on above: Arrived Start: 11-23-2024 End: 11-23-2024 Patient encounter procedure [facility] Comment on above: Arrived Start: 10-25-2024 End: 10-25-2024 Patient encounter procedure [facility] Comment on above: Arrived Start: 10-06-2024 End: 10-06-2024 Patient encounter procedure [facility] Comment on above: Arrived Start: 09-22-2024 End: 09-22-2024 Professional / ancillary services management 09/22/2024 2:00 PM EST Ancillary Procedure [facility] [address] [place] [address] [facility] Start: 09-21-2024 End: 09-21-2024 Patient encounter procedure [facility] Comment on above: Arrived Start: 08-24-2024 End: 08-24-2024 Patient encounter procedure [facility] Comment on above: Arrived Start: 08-24-2024 End: 08-24-2025 CBC panel - Blood by Automated count CBC Lab Routine Diabetes mellitus screening Expected: 08/24/2024 (Approximate), Expires: 08/24/2025 [facility] Work Phone: Comment on above: Expected: 08/24/2024 (Approximate), Expires: 08/24/2025 Start: 08-24-2024 End: 08-24-2025 Measurement of glucose 1 hour after glucose challenge for glucose tolerance test Glucose tolerance, 1 hour Lab Routine Diabetes mellitus screening Expected: 08/24/2024 (Approximate), Expires: 08/24/2025 [facility] Comment on above: Expected: 08/24/2024 (Approximate), Expires: 08/24/2025 Start: 08-24-2024 End: 08-24-2025 US for US OB limited 1+ fetuses Imaging Routine 22 weeks gestation of Second trimester Expected: 08/24/2024, Expires: 08/24/2025 [facility] Comment on above: Expected: 08/24/2024 , [...] AM EST Routine [facility] [address] [place] [id number] Arlette Stacy DO [address] [place] [address] [facility] Start: 05-20-2024 End: 05-20-2025 ABO/Rh ABO/Rh Lab Routine Missed menses , unspecified gestational age Expected: 05/20/2024 (Approximate), Expires: 05/20/2025 [facility] Comment on above: Expected: 05/20/2024 (Approximate), [...] [facility] Comment on above: Ordered: 05/20/2024 CHLAMYDIA TRACHOMATI S (GENITO/STI) CHLAMYDIA TRACHOMATIS (GENITO/STI) Lab Routine STD exposure Ordered: 07/22/2024 [facility] Comment on above: Ordered: 07/22/2024 Cytology Cervical or vaginal smear or scraping study Pap Smear Pathology and Cytology Routine Well woman exam with routine gynecological exam Ordered: 07/22/2024 [facility] Comment on above: Ordered: 07/22/2024 Hemoglobin A1c/Hemoglobin.total [...] [facility] Comment on above: Ordered: 05/20/2024 Human papilloma viru s DNA [Presence] in Unspecified specimen by Probe with amplification HPV DNA probe, amplified Microbiology Routine Well woman exam with routine gynecological exam Ordered: 07/22/2024 [facility] Comment on above: Ordered: 07/22/2024 Neisseria gonorrhoea e DNA [Presence] in Unspecified specimen by RAMONITA with probe detection Neisseria gonorrhea DNA probe, direct Lab Routine STD exposure Ordered: 07/22/2024 [facility] Comment on above: Ordered: 07/22/2024 Reagin Ab [Presence] in Serum by RPR RPR Lab Routine Missed menses , unspecified gestational age Ordered: 05/20/2024 [facility] Comment on above: Ordered: 05/20/2024 Rubella antibody, IgG Rubella an tibody, IgG Lab Routine Missed menses , unspecified gestational age Ordered: 05/20/2024 [facility] Comment on above: Ordered: 05/20/2024 SURESWAB(R) ADVANCED VAGINITIS PLUS, TMA SURESWAB(R) ADVANCED VAGINITIS PLUS, TMA Pathology and Cytology Routine Vaginal discharge Ordered: 07/22/2024 [facility] Work Phone: Comment on above: Ordered: 07/22/2024 Immunizations Immunization Date Immunization Notes Care Provider Odessa tracy 02-09-2013 meningococcal polysa ccharide (groups A, C, Y and W-135) diphtheria toxoid conjugate vaccine (MCV4P) Nom Nurse [facility] 02-09-2013 tetanus toxoid, redu rosario diphtheria toxoid, and acellular pertussis vaccine, adsorbed [facility] Nurse [facility] 03-23-1999 diphtheria, tetanus toxoids and acellular pertussis vaccine [facility] are 03-23-1999 measles, mumps and r ubella virus vaccine [facility] 03-23-1999 trivalent poliovirus vaccine, live, oral [facility] Nurse [facility] 03-02-1997 diphtheria, tetanus toxoids and acellular pertussis vaccine [facility] are 02-16-1996 diphtheria, tetanus toxoids and acellular pertussis vaccine [facility] are 02-16-1996 measles, mumps and r ubella virus vaccine [facility] 06-11-1995 diphtheria, tetanus toxoids and acellular pertussis vaccine, Haemophilus influenzae type b conjugate, and poliovirus vaccine, inactivated (PQcO-Cyd-BJT) [facility] 06-11-1995 hepatitis B vaccine, pediatric or pediatric/adolescent dosage [facility] 1994 haemophilus influenz ae type b vaccine, conjugate unspecified formulation [facility] Nurse [facility] 1994 hepatitis B vaccine, pediatric or pediatric/adolescent dosage [facility] 1994 trivalent poliovirus vaccine, live, oral [facility] 1994 diphtheria, tetanus toxoids and acellular pertussis vaccine, Haemophilus influenzae type b conjugate, and poliovirus vaccine, inactivated (VXaW-Spa-CFF) [facility] 1994 hepatitis B vaccine, pediatric or pediatric/adolescent dosage [facility] Payers Date Payer Category Payer [facility] Insurance [employer] [id number] 2023 Unknown [employer] [id number] 2023-Present [address] [place] [address] [id number] 2023 Unknown [id number] 1994 Unknown [id number] 2.16.840.1.076575.3.579.2. 593 1994 Unknown [id number] 2.16.840.1.399091.3.579.2. 1258 1994 Unknown [id number] 2.16.840.1.804037.3.579.2. 1258 1994 Unknown [id number] 2.16.840.1.170170.3.579.2. 1258 1994 Unknown [id number] 2.16.840.1.665710.3.579.2. 1258 1994 Unknown [id number] 2.16.840.1.944408.3.579.2. 1258 1994 Unknown [id number] 2.16.840.1.188508.3.579.2. 1258 1994 Unknown [id number] 2.16.840.1.328357.3.579.2. 1258 1994 Unknown [id number] 2.16.840.1.954919.3.579.2. 1258 1994 Unknown [id number] 2.16.840.1.231992.3.579.2. 1258 1994 Unknown [id number] 2.16.840.1.628277.3.579.2. 1258 1994 Unknown [id number] 2.16.840.1.216411.3.579.2. 1259 1994 Unknown [id number] 2.16.840.1.446289.3.579.2. 1259 Unknown [id number] Social History Date Type Detail Facility Start: 05-25-2023 Tobacco smoking stat [facility] Never smoked tobacco [facility] Start: 05-25-2023 Tobacco use and exposure Smoke less tobacco non-user [facility] Start: 05-20-2024 End: 11-09-2024 Alcoholic beverage intake Current drinker of alcohol (finding) [facility] Start: 05-20-2024 End: 11-09-2024 [facility]coholic beverage intake [facility] Start: 07-10-2023 End: 05-20-2024 Tobacco use panel [facility] Start: 04-09-2023 Alcohol Comment Caffeine intak e: 1-2 cups per day coffee [facility] Start: 04-03-2024 [facility] Start: 1995 Sex assigned at Not on file [facility] Clinical Notes 05-20-2024 to 11-23-2024 Caroline Rey LPN - 11/23/2024 2:20 PM CASSY Aguila - 11/09/2024 9:50 AM Gertrudis Ramos NP - 10/06/2024 3:10 PM CASSY Goldstein - 09/21/2024 2:20 PM CASSY Goldstein - 07/22/2024 1:40 PM EST Note Date & Type Note Facility 11-23-2024 History of Presen t illness Narrative Reason for Appointment: Patient ID: Eloina Breaux is a 29 y.o. female who presents for Routine Visit Patient presents today for Return OB appointment. MEDICATIONS Current Outpatient Medications Medication Instructions MV-Min-Fe Fum-FA-DHA ( 1 PO) 1 tablet, Daily ALLERGIES No Known Allergies PROBLEMS Active [...] nursing note reviewed. Exam conducted with a health club attendant present. Vitals: Estimated body mass index is 32.78 kg/m as calculated from the following: Height as of 07/10/23: 5' 5 . Weight as of this encounter: 197 lb. BP: 106/70 Patient's last menstrual period was 03/20/2024. ASSESSMENT & PLAN ICD-10-CM 1. Third trimester Z34.93 POCT urinalysis dipstick manually resulted 2. 35 weeks gestation of Z3A.35 Return OB: Patient presents today for a routine obstetrics appointment. Patient is currently 35w3d . Patient states she is doing well but has complaints of being tired due to current . Patient has verbalizes frequent movement. labor precautions was discussed/given and patient was instructed to perform kick counts three times a day. Orders Placed This Encounter Procedures POCT urinalysis dipstick manually resulted Follow Up: Patient is to return to office in 1 week for routine OB appointment. Documented by Caroline Rey LPN on behalf of: Arlette Stacy DO documented in this encounter [facility] 11-09-2024 History of Presen t illness Narrative Reason for Appointment: Patient ID: Eloina Breaux is a 29 y.o. female who presents for No chief complaint on file. Patient presents today for Return OB appointment. MEDICATIONS Current Outpatient Medications Medication Instructions iron polysaccharides (PROFE) 391.3 mg, Oral, Daily MV-Min-Fe Fum-FA-DHA ( 1 PO) 1 tablet, Daily ALLERGIES No Known Allergies PROBLEMS Active [...] reviewed. Vitals: Estimated body mass index is 31.78 kg/m as calculated from the following: Height as of 07/10/23: 5' 5 . Weight as of this encounter: 191 lb. BP: 104/68 Patient's last menstrual period was 03/20/2024. ASSESSMENT & PLAN ICD-10-CM 1. 33 weeks gestation of Z3A.33 POCT urinalysis dipstick manually resulted 2. Third trimester Z34.93 POCT urinalysis dipstick manually resulted Return OB: Patient presents today for a routine obstetrics appointment. Patient is currently 33w3d . Patient states she is doing well [...] week for routine OB appointment. Documented by CASSY [place] on behalf of: Arlette Stacy DO documented in this encounter [facility] 10-06-2024 History of Presen t illness Narrative [...] Arlette Stacy DO documented in this encounter [facility] 09-21-2024 History of Presen t illness Narrative [...] [place] documented in this encounter [facility] 08-24-2024 History of Presen t illness Narrative [...] nursing note reviewed. Exam conducted with a health club attendant present. Vitals: Estimated body mass index is [...] Arlette Stacy DO documented in this encounter [facility] 07-22-2024 History of Presen t illness Narrative [...] [place] documented in this encounter [facility] 06-21-2024 History of Presen t illness Narrative [...] nursing note reviewed. Exam conducted with a health club attendant present. Vitals: Estimated body mass index is [...] or undercooked meat, and stay away from [facility]. Patient has been consulted regarding any further do's and don'ts of . Patient voiced understanding and all questions and concerns were answered. Patient given orders for OB labs and [place]keye to be drawn today at [facility]. Orders Placed This Encounter Procedures Urine dip Follow Up: Patient is to return in 4 weeks for routine OB appointment. Documented by Bren Moreno LPN on behalf of: Arlette Stacy DO documented in this encounter [facility] 05-20-2024 History of Presen t illness Narrative [...] or undercooked meat, and stay away from [facility]. Patient has also been advised to not change litter boxes and eat 6 small meals a day. Patient has been consulted regarding the do's and don'ts of . Patient was given labs and all questions and concerns were answered. Patient did not want to do Buckeye labs at this time. Follow Up: Patient is to return in 4 weeks for routine OB appointment. Follow Up: Patient is to have labs drawn at directed and return to office for initial OB appointment with provider. Patient may call office as needed with any concerns or questions. Nurse Visit Completed by: Miryam Matthews LPN documented in this encounter [facility] Evaluation note Diagnosis Missed menses 8 [...] [facility] Diagnosis 33 weeks gestation of Third trimester state, incidental [facility] Diagnosis Third trimester state, incidental 35 weeks gestation of documented in this encounter [facility] Summary Purpose Family History No Family History Records FoundNo Family History Records FoundNo Family History Records Found Advance Directives No Advanced Directives Records FoundNo Advanced Directives Records FoundNo Advanced Directives Records Found Additional Source Comments INFORMATION SOURCE (unrecogn ized section and content) DATE CREATED AUTHOR 11/29/2021 [facility] dical Specialist DATE CREATED AUTHOR AUTHOR'S ORGANIZ ATION 03/19/2022 [facility] pital DATE CREATED AUTHOR AUTHOR'S ORGANIZ ATION 11/25/2024 [facility] dical Specialists EPIC Reason for Visit (unrecogniz ed section and content) Reason Comments Amenorrhea Reason Comments Routine Visit Reason Comments Well Women Visit Routine Visit STI Screening Care Teams (unrecognized sec tion and content) Doctor Chiropractic Relationship Specialty Start Date End Date Reyes Stout MD [address] [place] [address] (Fax) PCP - General Family Medicine 12/17/22 Doctor Chiropractic Relationship Specialty Start Date End Date Reyes Stout MD [address] [place] [address] (Fax) PCP - General Family Medicine 12/17/22 Doctor Chiropractic Relationship Specialty Start Date End Date Reyes Stout MD [address] [place] [phone] (Fax) PCP - General Family Medicine 12/17/22 Doctor Chiropractic Relationship Specialty Start Date End Date Reyes Stout MD [address] [place] [phone] (Fax) PCP - General Family Medicine 12/17/22 Doctor Chiropractic Relationship Specialty Start Date End Date Reyes Stout MD [address] [place] [address] (Fax) PCP - General Family Medicine 12/17/22 Doctor Chiropractic Relationship Specialty Start Date End Date Reyes Stout MD [address] [place] [address] (Fax) PCP - General Family Medicine 12/17/22 Doctor Chiropractic Relationship Specialty Start Date End Date Reyes Stout MD [address] [place] [address] (Fax) PCP - General Family Medicine 12/17/22 Doctor Chiropractic Relationship Specialty Start Date End Date Reyes Stout MD [address] [place] [address] (Fax) PCP - General Family Medicine 12/17/22 Doctor Chiropractic Relationship Specialty Start Date End Date Reyes Stout MD [address] [place] [address] (Fax) PCP - General Family Medicine 12/17/22 Donna Peguero PA [address] [place] [address] PCP - Medical [place] [employer] 01/10/24 08/10/99 Doctor Chiropractic Relationship Specialty Start Date End Date Reyes Stout MD [address] [address] (Fax) PCP - General Family Medicine 12/17/22 Donna Peguero PA [address] [place] [address] PCP - Medical [place] [employer] 01/10/24 08/10/99 Doctor Chiropractic Relationship Specialty Start Date End Date Reyes Stout MD [address] [address] (Fax) PCP - General Family Medicine 12/17/22 Donna Peguero PA [address] [place] [address] PCP - Medical [place] [employer] 01/10/24 08/10/99 Doctor Chiropractic Relationship Specialty Start Date End Date Reyes Stout MD [address] [place] [address] (Fax) PCP - General Family Medicine 12/17/22 Donna Peguero PA [address] [place], [facility] PCP - Medical [place] [employer] 01/10/24 08/10/99 FOR RECORDS PERTAINING TO PATIENTS [...] BE BASED ON THE PRIMARY CLINICAL RECORDS. [employer] provides no warranty or guarantee of the accuracy or completeness of information in this document.
== END 2024-11-29 12:07 | disposition home or self-care (01) ==
LOC: LAB 12:06
PROVIDERS: PCP Family Medicine; Visit Provider Obstetrics & Gynecology
DX: Z34.93 Encounter for supervision of normal pregnancy, unspecified, third trimester (principal); Z3A.36 36 weeks gestation of pregnancy
CPT/HCPCS: 36415; 87081

== ENCOUNTER 2024-12-17 14:52 | Outpatient (OUT) | payer OTHER, SELFPAY ==
--- NOTE | 2024-12-17 | US_ITS ---
The [address] [address] Patient Name: AUTUMN MCCLURE MRN: [facility]:[id number] date: 1995 Sex: F Assigned Patient Location: Current Patient Location: Accession/Order Number: [id number] Exam Date: 12/20/2024 09:29 Report Date: 12/20/2024 09:36 At the request of: ARLETTE GOLD DO Procedure: US OB growth ULTRASOUND OB GROWTH COMPARISON: 05/20/2024 CLINICAL DATA: Large for gestational age There is a single live intrauterine gestation in cephalic presentation. There is cardiac and somatic activity with heart rate of 141 bpm. The amniotic fluid index measures 16.1 cm which is in upper normal range. There is a potential nuchal cord. The following measurements were obtained: Biparietal diameter 9.5 cm 38 weeks 5 days 77% Head circumference 34.1 cm 39 weeks 2 days 47% Abdominal circumference 35.2 cm 39 weeks 0 days 76% Femur length 7.4 cm 38 weeks 0 days 36% The composite ultrasound age based on these measurements is 38 weeks 5 days +/- 2 weeks 5 days. The estimated weight is 7 lbs. 15 oz. +/- 1 lb. 13 oz. (68%). US/US OB growth IMPRESSION: SINGLE LIVE INTRAUTERINE GESTATION WITH ULTRASOUND AGE OF 38 WEEKS 5 DAYS POSSIBLE NUCHAL CORD. Impression dictated by: Caroline Chambers M.D. 12/20/2024 9:36 AM Dictation Location: [place] [address] Electronically authenticated by: [id number] Y Date: 12/20/2024 09:36
== END 2024-12-17 14:53 | disposition home or self-care (01) ==
LOC: US 14:53
PROVIDERS: PCP Family Medicine; Visit Provider Obstetrics & Gynecology
DX: O36.63X1 Maternal care for excessive fetal growth, third trimester, fetus 1 (principal); Z3A.38 38 weeks gestation of pregnancy
CPT/HCPCS: 76816

== ENCOUNTER 2024-12-28 18:31 | Inpatient (IN) | payer OTHER, SELFPAY ==
[2024-12-28] VITALS (14 sets, daily range): BP systolic 97–126; BP diastolic 56–73; PULSE 87–100
--- OUTSIDE RECORDS SUMMARY | 2024-12-28 18:40 | XMS_ITS | CCD ---
Author Organization [facility] Care Team Providers Care Bias Binding Cutter Name Role Phone DR VINCENT DUARTE Admitting DR VINCENT Hilario Attending Unavailable ED, DR BERNARDO Consulting Unavailable GUSTAVO GONZALEZ Consulting Unavailable Argelia KATZ, Reyes Bates Primary Care Provider Argelia KATZ, Reyes Bates Primary Care Provider Argelia KATZ, Reyes Bates Primary Care Provider Marielena MADERA, Donna Unavailable ARLETTE STACY Attending Unavailable RACHEL, SOFIE Attending Unavailable TAWANNA, ARLETTE Attending Unavailable TAWANNA, RALETTE Attending Unavailable RACHEL, SOFIE Attending Unavailable TAWANNA, ARLETTE Attending Unavailable TAWANNA, ARLETTE Attending Unavailable DONNA PEGUERO Attending Unavailable TAWANNA, ARLETTE Attending Unavailable RACHEL, SOFIE Referring Unavailable TAWANNA, ARLETTE Attending Unavailable TAWANNA, ARLETTE Attending Unavailable MARIELENA, DONNA Attending Unavailable Medications Current Medications Medication Drug Class(es) Dates Sig (Normalized) Sig (Original) polysaccharide iron complex 391 mg oral capsule (17 sources) Start: 10-11-2024 End: 12-07-2024 take 1 capsule by mouth once daily iron polysaccharides (ProFe) 391.3 (180 Fe) MG capsule Indications: 37 weeks gestation of , Third trimester , Anemia during in third trimester Take 1 capsule (391.3 mg) by mouth Daily 30 capsule 3 12/07/2024 Active MV-Min-Fe Fum-FA-DHA ( 1 PO) (20 [...] menstruation, unspecified] Onset: 04-09-2023 05-20-2024 Chronic Other complications of (2 sources) Anemia of ; Translations: [Anemia complicating , third trimester] 12-07-2024 Chronic Other complications of (2 sources) Large for gestation age fetus; Translations: [Maternal care for excessive growth, unspecified trimester, other fetus] 12-16-2024 Episodic Other female genital disorders (2 sources) Vaginal discharge; Translations: [Other specified noninflammatory disorders of vagina] 07-22-2024 Episodic Other and delivery including normal (20 sources) First trimester ; Translations: [Encounter for supervision of normal , unspecified, first trimester] 05-20-2024 Episodic Other screening for suspected conditions (not mental disorders or infectious disease) (4 sources) Patient encounter status; Translations: [Encounter for other specified screening] 07-22-2024 Episodic Otitis media and related conditions (20 sources) Chronic salpingitis of bilateral eustachian tubes; Translations: [Chronic Eustachian salpingitis, bilateral] Onset: 04-09-2023 04-09-2023 Chronic Prolonged (2 sources) Post-term ; Translations: [Post-term ] 12-22-2024 Episodic Residual codes; unclassified (1 source) Gestation period, [...] [35 weeks gestation of ] 11-23-2024 Episodic Residual codes; unclassified (2 sources) Gestation period, 36 weeks; Translations: [36 weeks gestation of ] 11-29-2024 Episodic Residual codes; unclassified (2 sources) Gestation period, 37 weeks; Translations: [37 weeks gestation of ] 12-07-2024 Episodic Residual codes; unclassified (2 sources) Gestation period, 38 weeks; Translations: [38 weeks gestation of ] 12-16-2024 Episodic Residual codes; unclassified (2 sources) Gestation period, 39 weeks; Translations: [39 weeks gestation of ] 12-22-2024 Episodic Urinary tract infections (1 source) Urinary [...] Test Name Value Interpretation Reference Range Facility US OB GROWTHon 12-20-2024 [place] [address] Ultrasound Report Signed Patient: AUTUMN MCCLURE MR#: [id number] : 1995 Acct:[id number] Age/Sex: 29 / F ADM Date: 12/17/24 Loc: US Attending Dr: Arlette Stacy D.O. Ordering Physician: Arlette Stacy D.O. Date of Service: 12/17/24 Procedure(s): US OB growth Accession Number(s): [id number] cc: Arlette Stacy D.O.; REYES [place] [address] Patient Name: AUTUMN MCCLURE MRN: [id number] date: 1995 Sex: F Assigned Patient Location: US Current Patient Location: Accession/Order Number: [id number] Exam Date: 12/20/2024 09:29 Report Date: 12/20/2024 09:36 At the request of: ARLETTE STACY DO Procedure: US OB growth ULTRASOUND OB GROWTH COMPARISON: 05/20/2024 CLINICAL DATA: Large for gestational age There is a single live intrauterine gestation in cephalic presentation. There is cardiac and somatic activity with heart rate of 141 bpm. The amniotic fluid index measures 16.1 cm which is in upper normal range. There is a potential nuchal cord. The following measurements were obtained: Biparietal diameter 9.5 cm 38 weeks 5 days 77% Head circumference 34.1 cm 39 weeks 2 days 47% Abdominal circumference 35.2 cm 39 weeks 0 days 76% Femur length 7.4 cm 38 weeks 0 days 36% The composite ultrasound age based on these measurements is 38 weeks 5 days +/- 2 weeks 5 days. The estimated weight is 7 lbs. 15 oz. +/- 1 lb. 13 oz. (68%). US/US OB growth IMPRESSION: SINGLE LIVE INTRAUTERINE GESTATION WITH ULTRASOUND AGE OF 38 WEEKS 5 DAYS POSSIBLE NUCHAL CORD. Impression dictated by: Caroline Chambers M.D. 12/20/2024 9:36 AM Dictation Location: [place] [address] Electronically authenticated by: [id number] Y Date: 12/20/2024 09:36 Dictated By: Caroline Chambers M.D. Signed By: 12/20/24938 DD/ 5 TD/TT: Grade Setter: [facility], Radiologist, - 12/20/2024 [place] [address] Ultrasound Report Signed Patient: AUTUMN MCCLURE MR#: [id number] : 1995 Acct:[id number] Age/Sex: 29 / F ADM Date: 12/17/24 Loc: US Attending Dr: Arlette Stacy D.O. Ordering Physician: Arlette Stacy D.O. Date of Service: 12/17/24 Procedure(s): US OB growth Accession Number(s): [id number] cc: Arlette Stacy D.O.; RE[place] [address] Patient Name: AUTUMN MCCLURE MRN: [facility]:[id number] date: 1995 Sex: F Assigned Patient Location: Current Patient Location: Accession/Order Number: [id number] Exam Date: 12/20/2024 09:29 Report Date: 12/20/2024 09:36 At the request of: ARLETTE STACY DO Procedure: US OB growth ULTRASOUND OB GROWTH COMPARISON: 05/20/2024 CLINICAL DATA: Large for gestational age There is a single live intrauterine gestation in cephalic presentation. There is cardiac and somatic activity with heart rate of 141 bpm. The amniotic fluid index measures 16.1 cm which is in upper normal range. There is a potential nuchal cord. The following measurements were obtained: Biparietal diameter 9.5 cm 38 weeks 5 days 77% Head circumference 34.1 cm 39 weeks 2 days 47% Abdominal circumference 35.2 cm 39 weeks 0 days 76% Femur length 7.4 cm 38 weeks 0 days 36% The composite ultrasound age based on these measurements is 38 weeks 5 days +/- 2 weeks 5 days. The estimated weight is 7 lbs. 15 oz. +/- 1 lb. 13 oz. (68%). US/US OB growth IMPRESSION: SINGLE LIVE INTRAUTERINE GESTATION WITH ULTRASOUND AGE OF 38 WEEKS 5 DAYS POSSIBLE NUCHAL CORD. Impression dictated by: Caroline Chabmers M.D. 12/20/2024 9:36 AM Dictation Location: [place] [address] Electronically authenticated by: [id number] Y Date: 12/20/2024 09:36 Dictated By: Caroline Chambers M.D. Signed By: 12/20/2439 DD/ 5 TD/TT: Grade Setter: [facility] Rad[facility] Study observation (narrative) [facility] US OB GROWTHOrdered By: Jas ologamie Radiology on 12-20-2024 [facility] Work Phone: Urinalysis macro (dipstick) panel (U)on 12-16-2024 Bilirubin, UA Negative Negative - 4(70) +++ mg/dL [facility] Blood, UA Negative Negative - 50 Shady/mcL [facility] Clarity, UA Clear [facility] Color, UA Yellow [facility] Glucose, UA Negative Negative - 2000(110) ++++ mg/dL [facility] Interpretation and review of laboratory results Abnormal [facility] Ketones, UA Negative Negative - 160(16) ++++ mg/dL [facility] Leukocytes, UA Positive Negative - 500+++ Kell/mcL [facility] Comment on above: small Nitrite, UA Negative Negative - Positive [facility] pH, UA 8.5 5 - 9 [facility] Protein, UA Positive Negative - 2000(20) ++++ mg/dL [facility] Comment on above: 30 Spec Grav, UA 1.02 1 - 1.03 [facility] Urobilinogen, UA 1.0 0.2 - 12 mg/dL [facility] STREP GP B CULTURE+RFLXon STREP GP B CULTURE+RFLX SEE SCANNED REPORT [facility] Urinalysis macro (dipstick) panel (U)on 12-07-2024 Bilirubin, UA Negative Negative - 4(70) +++ mg/dL [facility] Blood, UA Negative Negative - 50 Shady/mcL [facility] Clarity, UA Clear [facility] Color, UA Yellow [facility] Glucose, UA Negative Negative - 1999(110) ++++ mg/dL [facility] Interpretation and review of laboratory results Normal [facility] Ketones, UA Negative Negative - 160(16) ++++ mg/dL [facility] Leukocytes, UA Negative Negative - 500+++ Kell/mcL [facility] Nitrite, UA Negative Negative - Positive [facility] pH, UA 7.5 5 - 9 [facility] Protein, UA Negative Negative - 1999(20) ++++ mg/dL [facility] Spec Grav, UA 1.02 1 - 1.03 [facility] Urobilinogen, UA 1.0 0.2 - 12 mg/dL [facility] Urinalysis macro (dipstick) panel (U)on 11-29-2024 Bilirubin, UA Negative Negative - 4(70) +++ mg/dL [facility] Blood, UA Negative Negative - 50 Shady/mcL [facility] Clarity, UA Clear [facility] Color, UA Yellow [facility] Glucose, UA Negative Negative - 1999(110) ++++ mg/dL [facility] Interpretation and review of laboratory results Normal [facility] Ketones, UA Negative Negative - 160(16) ++++ mg/dL [facility] Leukocytes, UA Positive Negative - 500+++ Kell/mcL [facility] Comment on above: small Nitrite, UA Negative Negative - Positive [facility] pH, UA 7.5 5 - 9 [facility] Protein, UA Negative Negative - 1999(20) ++++ mg/dL [facility] Spec Grav, UA 1.015 1 - 1.03 [facility] Urobilinogen, UA 0.2 0.2 - 12 mg/dL [facility] Urinalysis macro (dipstick) panel (U)on 11-23-2024 Bilirubin, UA Negative Negative - 4(70) +++ mg/dL [facility] Blood, UA Negative Negative - 50 Shady/mcL [facility] Clarity, UA Clear [facility] Color, UA Yellow [facility] Glucose, UA Negative Negative - 1999(110) ++++ mg/dL [facility] Interpretation and review of laboratory results Abnormal [facility] Ketones, UA Negative Negative - 160(16) ++++ mg/dL [facility] Leukocytes, UA Positive Negative - 500+++ Kell/mcL [facility] Comment on above: Small Nitrite, UA Negative Negative - Positive [facility] pH, UA 7 5 - 9 [facility] Protein, UA Trace Negative - 1999(20) ++++ mg/dL [facility] Spec Grav, UA 1.025 1 - 1.03 [facility] Urobilinogen, UA 0.2 0.2 - 12 mg/dL [facility] Urinalysis macro (dipstick) panel (U)on 11-09-2024 Bilirubin, UA Negative Negative - 4(70) +++ mg/dL [facility] Blood, UA Negative Negative - 50 Shady/mcL [facility] Clarity, UA Clear [facility] Color, UA Yellow [facility] Glucose, UA Negative Negative - 1999(110) ++++ mg/dL [facility] Interpretation and review of laboratory results Abnormal [facility] Ketones, UA Negative Negative - 160(16) ++++ mg/dL [facility] Leukocytes, UA Positive Negative - 500+++ Kell/mcL [facility] Comment on above: small Nitrite, UA Negative Negative - Positive [facility] pH, UA 8.5 5 - 9 [facility] Protein, UA Trace Negative - 1999(20) ++++ mg/dL [facility] Spec Grav, UA 1.02 1 - 1.03 [facility] Urobilinogen, UA 0.2 0.2 - 12 mg/dL [facility] US OB FOLLOW UP TRANSABDOMIN AL APPROACHon [...] II, MD, PHD at 28-Oct-2024 08:46:48 AM [facility] Normal Not Available Comment on above: Order Comment: US OB SCAN FOR GROWTH Estimated Date of Delivery: 12/25/24 Gestational Age as of 10/25/2024: 31w2d GLUCOSE TOLERANCE 3 HOURon 0 10-14-2024 GLUCOSE TOLERANCE 3 HOUR mg/dL [facility] Comment on above: GLU FAST 82 (<95) Co l: 10/14/24 0805 GLU 1HR 157 (<180) Col: 10/14/24 0908 GLU 2HR 137 (<155) Col: 10/14/24 1008 GLU 3HR 111 (<140) Col: 10/14/24 1107 [facility] ALL CBC WITH AUTO DIFFon BASOPHILS ABSOLUTE AUTO 0 [facility] Basophils/100 WBC (Bld) 0.1 % Low 0.2 - 2.0 % [facility] Eosinophils/100 WBC (Bld) 0.7 % Low 0.9 - 7.0 % [facility] Erythrocyte distribution width (RBC) [Ratio] 12.3 % 11.0 - 15.0 % [facility] Hematocrit (Bld) [Volume fraction] 30.5 % Low 36.0 - 48.0 % [facility] Hemoglobin (Bld) [Mass/Vol] 10.8 g/dL Low 12.0 - 16.0 g/dL [facility] IMMATURE GRANULOCYTES ABS AUTO 0.03 [facility] Immature granulocytes/100 WBC (Bld) 0.4 % 0.0 - 0.5 % [facility] Interpretation and review of laboratory results Abnormal [facility] LYMPHOCYTES ABSOLUTE AUTO 1.5 [facility] Lymphocytes/100 WBC (Bld) 20.1 % Low 20.5 - 60.0 % [facility] MCH (RBC) [Entitic mass] 32.7 pg 26.7 - 34.0 pg [facility] MCHC (RBC) [Mass/Vol] 35.4 g/dL High 29.9 - 35.2 g/dL [facility] MCV (RBC) [Entitic vol] 92.4 fL 81.0 - 99.0 fL [facility] MONOCYTES ABSOLUTE AUTO 0.4 [facility] Monocytes/100 WBC (Bld) 5.8 % 1.7 - 12.0 % [facility] NEUTROPHILS ABSOLUTE AUTO 5.3 [facility] Neutrophils/100 WBC (Bld) 72.9 % 43.0 - 75.0 % [facility] Platelet mean volume (Bld) [Entitic vol] 10.3 fL 9.5 - 13.5 fL [facility] EO # 0.1 [facility] PLT 194 [facility] RBC 3.3 Low [facility] TB WBC 7.2 [facility] US OB LIMITED 1+ FETUSESon 0 09-22-2024 [...] II, MD, PHD at 24-Sep-2024 08:39:21 AM [facility] Normal Not Available Comment on above: Order Comment: US OB INCOMPLETE ANATOMY Estimated Date of Delivery: 12/25/24 Gestational Age as of 08/24/2024: 22w3d Urinalysis macro (dipstick) panel (U)on 09-21-2024 Bilirubin, UA Negative Negative - 4(70) +++ mg/dL [facility] Blood, UA Negative Negative - 50 Shady/mcL [facility] Clarity, UA Clear [facility] Color, UA Yellow [facility] Glucose, UA Negative Negative - 1999(110) ++++ mg/dL [facility] Interpretation and review of laboratory results Normal [facility] Ketones, UA Negative Negative - 160(16) ++++ mg/dL [facility] Leukocytes, UA Negative Negative - 500+++ Kell/mcL [facility] Nitrite, UA Negative Negative - Positive [facility] pH, UA 7 5 - 9 [facility] Protein, UA Negative Negative - 1999(20) ++++ mg/dL [facility] Spec Grav, UA 1.01 1 - 1.03 [facility] Urobilinogen, UA 0.2 0.2 - 12 mg/dL [facility] Urinalysis macro (dipstick) panel (U)on 08-24-2024 Bilirubin, UA Negative Negative - 4(70) +++ mg/dL [facility] Blood, UA Negative Negative - 50 Shady/mcL [facility] Clarity, UA Clear [facility] Color, UA Yellow [facility] Glucose, UA Negative Negative - 1999(110) ++++ mg/dL [facility] Interpretation and review of laboratory results Abnormal [facility] Ketones, UA Negative Negative - 160(16) ++++ mg/dL [facility] Leukocytes, UA Trace Negative - 500+++ Kell/mcL [facility] Nitrite, UA Negative Negative - Positive [facility] pH, UA 7 5 - 9 [facility] Protein, UA Trace Negative - 1999(20) ++++ mg/dL [facility] Spec Grav, UA 1.02 1 - 1.03 [facility] Urobilinogen, UA 1.0 0.2 - 12 mg/dL [facility] US OB 14+ WEEKS ANATOMY SCAN on [...] GDLNon AGE GDLN ACOG TESTING Note . [facility] Comment on above: TESTS RESULT FLAG UN ITS REF RANGE LAB Clinician Provided Cytology Information Source.............Cervix No. of containers..01 ThinPrep Vial Age Algo ACOG Kinsey... 29- FLAG LEGEND: L-Low Normal,H-High Normal,LL-Alert Low,HH-Alert High <-Panic Low,>-Panic High,A-Abnormal,AA-Critical Abnormal Performed at: 01 =[address] [place] [address] Teri Armijo MD, HPV APTIMA Negative Negative [facility] Comment on above: This nucleic acid am plification test detects fourteen high- risk HPV types (16,18,31,33,35,39,45,51,52,56,58,59,66,68) without differentiation. Performed at: =[address], [place] [id number] Wood Cabinet Finisher: Teri Armijo MD, Phone: [phone] Performed at: [address], [place] [id number] Wood Cabinet Finisher: Ashley Sunshine PhD, Phone: [phone] IGP, APTIMA HPV, RFX 16/18,45 Note . [facility] Comment on above: TESTS RESULT FLAG UN ITS REF RANGE LAB DIAGNOSIS: 02 NEGATIVE FOR INTRAEPITHELIAL LESION OR MALIGNANCY. Specimen adequacy: 02 Satisfactory for evaluation. No endocervical component is identified. Performed by: Lauren Davis, Travel Clerk ([facility]) . 02 Note: Note 03 The Pap [...] High,A-Abnormal,AA-Critical Abnormal Performed at: 02 [facility] [address] [address] Ashley Sunshine PhD, [address] [address] Teri Armijo MD, SPATULA-ALONE CERVIX [facility] RECURRENT VAGINITIS (HTRX)on 07-24-2024 ATOPOBIUM VAGINAE 0 [facility] ATOPOBIUM VAGINAE Not detected [facility] BVAB 2,3 (BACTERIAL VAGINOSIS ASSOCIATED BACTERIA 2, 3); MOBILUNCUS SPP 0 [facility] BVAB 2,3 (BACTERIAL VAGINOSIS ASSOCIATED BACTERIA 2, 3); MOBILUNCUS SPP Not detected [facility] DARIA ALBICANS, PARAPSILOSIS, TROPICALIS 0 [facility] [...] TRICHOMONAS VAGINALIS Not detected [facility] Urinalysis macro (dipstick) panel (U)on 07-22-2024 Bilirubin, UA Negative Negative - 4(70) +++ mg/dL [facility] Blood, UA Negative Negative - 50 Shady/mcL [facility] Clarity, UA Clear [facility] Color, UA Yellow [facility] Glucose, UA Negative Negative - 1999(110) ++++ mg/dL [facility] Interpretation and review of laboratory results Normal [facility] Ketones, UA Negative Negative - 160(16) ++++ mg/dL [facility] Leukocytes, UA Negative Negative - 500+++ Kell/mcL [facility] Nitrite, UA Negative Negative - Positive [facility] pH, UA 6 5 - 9 [facility] Protein, UA Negative Negative - 1999(20) ++++ mg/dL [facility] Spec Grav, UA 1.02 1 - 1.03 [facility] Urobilinogen, UA 1.0 0.2 - 12 mg/dL [facility] ALL RUBELLA IGG ABon 024 RUBELLA ANTIBODIES, IGG 18.80 Immune >0.99 index [facility] Comment on above: Non-immune <0.90 Equivocal 0.90 - 0.99 Immune >0.99 Performed at: [facility] [address] [id number] Wood Cabinet Finisher: Michael Talamantes PhD, Phone: [phone] HBSAG SCREENon 06-22-2024 HBSAG SCREEN Negative Negative [facility] Comment on above: Performed at: [facility] [address] [id number] Wood Cabinet Finisher: Michael Talamantes PhD, Phone: [phone] HCV ANTIBODY RFX TO QUANT PC Jalen 06-22-2024 HCV AB Non-Reactive Non Reactive [facility] INTERPRETATION: Comment . [facility] Comment on above: Not infected with HC V unless early or acute infection is suspected (which may be delayed in an immunocompromised individual), or other evidence exists to indicate HCV infection. HIV AB/P24 AG WITH REFLEXon 06-22-2024 HIV AB/P24 AG SCREEN Non-Reactive Non Reactive [facility] Comment on above: HIV-1/HIV-2 antibodi es and HIV-1 p24 antigen were NOT detected. There is no laboratory evidence of HIV infection. HIV Negative Performed at: [address] [id number] Wood Cabinet Finisher: Michael Talamantes PhD, Phone: [phone] No [facility] 06[facility] RAPID PLASMA REAGIN, QUANTon 06-22-2024 RAPID PLASMA REAGIN, QUANT Non-Reactive NonRea<1:1 titer [facility] Comment on above: Please Note: This te st does not meet current guidelines for screening and diagnosis of syphilis. This test is intended for following treatment response in patients being treated for syphilis infection. To screen for syphilis infection, a reflex cascade that includes both RPR and a treponema-specific assay should be utilized, such as Treponema pallidum (Syphilis) Screening [place] (137625) or Rapid Plasma Reagin (RPR) Test With Reflex to Quantitative RPR and Confirmatory Treponema pallidum Antibodies (774580). Performed at: [address] [id number] Wood Cabinet Finisher: Michael Talamantes PhD, Phone: [phone] URINE CULTURE, ROUTINEon Bacteria identified Cx Nom (U) Urine Culture, Routine [facility] Bacteria identified Cx Nom (U) Mixed urogenital yahaira [facility] Bacteria identified Cx Nom (U) Less than 10,000 colonies/mL [facility] Bacteria identified Cx Nom (U) Performed at: [facility] Bacteria identified Cx Nom (U) [address] [place] [phone] [facility] Bacteria identified Cx Nom (U) Wood Cabinet Finisher: Michael Talamantes PhD, Phone: [phone] [facility] ALL CBC WITH AUTO DIFFon BASOPHILS ABSOLUTE AUTO 0 [facility] Basophils/100 WBC (Bld) 0.3 % 0.2 - 2.0 % [facility] Eosinophils/100 WBC (Bld) 0.5 % Low 0.9 - 7.0 % [facility] Erythrocyte distribution width (RBC) [Ratio] 12.1 % 11.0 - 15.0 % [facility] Hematocrit (Bld) [Volume fraction] 35.7 % Low 36.0 - 48.0 % [facility] Hemoglobin (Bld) [Mass/Vol] 13.1 g/dL 12.0 - 16.0 g/dL [facility] IMMATURE GRANULOCYTES ABS AUTO 0.02 [facility] Immature granulocytes/100 WBC (Bld) 0.3 % 0.0 - 0.5 % [facility] Interpretation and review of laboratory results Abnormal [facility] LYMPHOCYTES ABSOLUTE AUTO 1.7 [facility] Lymphocytes/100 WBC (Bld) 25.5 % 20.5 - 60.0 % [facility] MCH (RBC) [Entitic mass] 32.3 pg 26.7 - 34.0 pg [facility] MCHC (RBC) [Mass/Vol] 36.7 g/dL High 29.9 - 35.2 g/dL [facility] MCV (RBC) [Entitic vol] 88.1 fL 81.0 - 99.0 fL [facility] MONOCYTES ABSOLUTE AUTO 0.4 [facility] Monocytes/100 WBC (Bld) 5.6 % 1.7 - 12.0 % [facility] NEUTROPHILS ABSOLUTE AUTO 4.4 [facility] Neutrophils/100 WBC (Bld) 67.8 % 43.0 - 75.0 % [facility] Platelet mean volume (Bld) [Entitic vol] 10.3 fL 9.5 - 13.5 fL [facility] TBH EO # 0 [facility] PLT 217 [facility] RBC 4.05 Low [facility] WBC 6.5 [facility] ALL TYPE AND SCREENon 2023 ABO and Rh group Nom (Bld) Blood group A Rh(D) negative [facility] BOX TESTon 06-21-2024 BOX TEST SENT OUT [facility] BOX1 [facility] BOX2 06/21/24 [facility] BOX [facility] MLR HEMOGLOBIN A1Con 024 Glucose [Mass/Vol] 88 mg/dL [facility] HbA1c (Bld) [Mass fraction] 4.7 % 4.5 - 6.2 % [facility] Comment on above: ADA RECOMMENDED LIMI T 4.0 - 6.0 ADA THERAPEUTIC TARGET < 7.0 ACTION SUGGESTED > 7.0 [facility] DRUG SCREEN RAPID (URINE )on 06-21-2024 AMPHETAMINE SCREEN URINE Negative NEGATIVE [facility] BARBITURATES SCREEN URINE Negative NEGATIVE [facility] BENZODIAZEPINES SCREEN URINE Negative NEGATIVE [facility] BUPRENORPHINE SCREEN URINE Negative NEGATIVE [facility] Comment on above: DRUG CLASS TEST [...] 300 ng/mL CANNABINOID SCREEN URINE Negative NEGATIVE [facility] COCAINE SCREEN URINE Negative NEGATIVE [facility] METHADONE SCREEN URINE Negative NEGATIVE [facility] METHAMPHETAMINES SCREEN URINE Negative NEGATIVE [facility] OPIATE SCREEN URINE Negative NEGATIVE [facility] OXYCODONE SCREEN URINE Negative NEGATIVE [facility] PHENCYCLIDINE SCREEN URINE Negative NEGATIVE [facility] TRICYCLIC ANTIDEPRESSANT URINE Negative NEGATIVE [facility] Urinalysis macro (dipstick) panel (U)on 06-21-2024 Bilirubin, UA Negative Negative - 4(70) +++ mg/dL [facility] Blood, UA Negative Negative - 50 Shady/mcL [facility] Clarity, UA Clear [facility] Color, UA Yellow [facility] Glucose, UA Negative Negative - 1999(110) ++++ mg/dL [facility] Interpretation and review of laboratory results Normal [facility] Ketones, UA Negative Negative - 160(16) ++++ mg/dL [facility] Leukocytes, UA Negative Negative - 500+++ Kell/mcL [facility] Nitrite, UA Negative Negative - Positive [facility] pH, UA 5.5 5 - 9 [facility] Protein, UA Negative Negative - 1999(20) ++++ mg/dL [facility] Spec Grav, UA 1.02 1 - 1.03 [facility] Urobilinogen, UA 1.0 0.2 - 12 mg/dL [facility] HCG ( test) Ql (U)o n 05-20-2024 Interpretation and review of laboratory results Abnormal [facility] Preg Test, Ur Positive [facility] Urinalysis macro (dipstick) panel (U)on 05-20-2024 Bilirubin, UA Negative Negative - 4(70) +++ mg/dL [facility] Blood, UA Negative Negative - 50 Shady/mcL [facility] Clarity, UA Clear [facility] Color, UA Colorless [facility] Glucose, UA Negative Negative - 1999(110) ++++ mg/dL [facility] Interpretation and review of laboratory results Abnormal [facility] Ketones, UA Negative Negative - 160(16) ++++ mg/dL [facility] Leukocytes, UA Trace Negative - 500+++ Kell/mcL [facility] Nitrite, UA Negative Negative - Positive [facility] pH, UA 6.0 5 - 9 [facility] Protein, UA Negative Negative - 1999(20) ++++ mg/dL [facility] Spec Grav, UA 1.005 1 - 1.03 [facility] Urobilinogen, UA 0.2 0.2 - 12 mg/dL [facility] AMYLASEon 03-16-2022 Amylase [Catalytic activity/Vol] 42 U/L Normal 25-115 [facility] Comment on above: Performed By: #### L IPA, CMP, DONNA #### [facility] [address] [place] [address] Dr. Ashley Fung CBC AUTO DIFFon 03-16-2022 BASO # 0.0 103/ul Normal 0.0-0.1 [facility] Comment on above: Performed By: #### C BC #### [facility] [address] [place] [address] Dr. Ashley Fung Basophils/100 WBC (Bld) 0.3 % Normal 0.2-2.0 [facility] Comment on above: Performed By: #### C BC #### [facility] [address] [place] [address] Dr. Ashley Fung EO # 0.1 103/ul Normal 0.0-0.7 [facility] Comment on above: Performed By: #### C BC #### [facility] [address] [place] [address] Dr. Ashley Fung Eosinophils/100 WBC (Bld) 0.9 % Normal 0.9-7.0 [facility] Comment on above: Performed By: #### C BC #### [facility] [address] [place] [address] Dr. Ashley Fung Erythrocyte distribution width (RBC) [Ratio] 11.1 % Normal 11.0-15.0 [facility] Comment on above: Performed By: #### C BC #### [facility] [address] [place] [address] Dr. Ashley Fung Hematocrit (Bld) [Volume fraction] 33.9 % Critically low 36.0-48.0 [facility] Comment on above: Performed By: #### C BC #### [facility] [address] [place] [address] Dr. Ashley Fung Hemoglobin (Bld) [Mass/Vol] 12.2 g/dL Normal 12.0-16.0 [facility] Comment on above: Performed By: #### C BC #### [facility] [address] [place] [address] Dr. Ashley Fung IG # 0.01 10e3/ul Normal 0.00-0.03 [facility] Comment on above: Performed By: #### C BC #### [facility] [address] [place] [address] Dr. Ashley Fung IG % 0.1 % Normal 0.0-0.5 [facility] Comment on above: Performed By: #### C BC #### [facility] [address] [place] [address] Dr. Ashley Fung LYMPH # 1.8 103/ul Normal 1.2-3.8 [facility] Comment on above: Performed By: #### C BC #### [facility] [address] [place] [address] Dr. Ashley Fung Lymphocytes/100 WBC (Bld) 23.2 % Normal 20.5-60.0 [facility] Comment on above: Performed By: #### C BC #### [facility] [address] [place] [address] Dr. Ashley Fung MANUAL DIFF REQ NO Normal [facility] Comment on above: Performed By: #### C BC #### [facility] [address] [place] [address] Dr. Ashley Fung MCH (RBC) [Entitic mass] 31.0 pg Normal 26.7-34.0 [facility] Comment on above: Performed By: #### C BC #### [facility] [address] [place] [address] Dr. Ashley Fung MCHC (RBC) [Mass/Vol] 36.0 g/dL Critically high 29.9-35.2 [facility] Comment on above: Performed By: #### C BC #### [facility] [address] [place] [address] Dr. Ashley Fung MCV (RBC) [Entitic vol] 86.0 fL Normal 81.0-99.0 [facility] Comment on above: Performed By: #### C BC #### [facility] [address] [place] [address] Dr. Ashley Fnug MONO # 0.5 103/ul Normal 0.3-0.8 [facility] Comment on above: Performed By: #### C BC #### [facility] [address] [place] [address] Dr. Ashley Fung Monocytes/100 WBC (Bld) 6.0 % Normal 1.7-12.0 [facility] Comment on above: Performed By: #### C BC #### [facility] [address] [place] [address] Dr. Ashley Fung NEUT # 5.3 103/ul Normal 1.4-6.5 [facility] Comment on above: Performed By: #### C BC #### [facility] [address] [place] [address] Dr. Ashley Fung Neutrophils/100 WBC (Bld) 69.5 % Normal 43.0-75.0 [facility] Comment on above: Performed By: #### C BC #### [facility] [address] [place] [address] Dr. Ashley Fung Platelet mean volume (Bld) [Entitic vol] 9.9 fL Normal 9.5-13.5 [facility] Comment on above: Performed By: #### C BC #### [facility] [address] [address] [address] Ashley Fung PLT 199 103/ul Normal 150-450 [facility] Comment on above: Performed By: #### C BC #### [facility] [address] [address] [address] Ashley Fung RBC 3.94 106/ul Critically low 4.20-5.40 [facility] Comment on above: Performed By: #### C BC #### [facility] [address] [address] [address] Ashlye Fung WBC 7.6 103/ul Normal 4.0-11.0 [facility] Comment on above: Performed By: #### C BC #### [facility] [address] [address] [address] ABD/PELV W CONon 03-16-20 CT ABD/PELV W CON EXAMINATION: CT ABD/PELV W CON HISTORY: Right sided abdominal pain COMPARISON: None. TECHNIQUE: CT of abdomen/pelvis with intravenous contrast. Dose reduction techniques were achieved by using automated exposure control and/or adjustment of mA and/or kV according to patient size and/or use of iterative reconstruction technique. FINDINGS: [place] P[employer]: No pertinent findings, which are not already [...] GUSTAVO GONZALEZ Date: 2022-03-16 10:03 Normal [facility] CULTURE URINEon 03-16-2022 CULTURE URINE Culture Observations : LIGHT GROWTH OF MIXED GENITAL YAHAIRA. NO POTENTIAL PATHOGENS SEEN. Normal [facility] Comment on above: Performed By: #### U RCX #### [facility] [address] [place] [address] Dr. Ashley Fung ER URINE PROFILEon 2 Bilirubin Ql (U) SMALL Abnormal NEGATIVE [facility] Comment on above: Performed By: #### E RUR, UMICRO #### [facility] [address] [place] [address] Dr. Ashley Fung Clarity (U) SL CLOUDY Abnormal CLEAR [facility] Comment on above: Performed By: #### E RUR, UMICRO #### [facility] [address] [place] [address] Dr. Ashley Fung Color (U) DK. YELLOW Normal YELLOW [facility] Comment on above: Performed By: #### E RUR, UMICRO #### [facility] [address] [place] [address] Dr. Ashley PUENTECory A micrscopic examination will be performed if indicated. Normal [facility] Comment on above: Performed By: #### E RUR, UMICRO #### [facility] [address] [place] [address] Dr. Ashley Fung Glucose Ql (U) Negative Normal NEGATIVE The [facility] Comment on above: Performed By: #### E RUR, UMICRO #### [facility] [address] [place] [address] Dr. Ashley Fung Hemoglobin Ql (U) Negative Normal NEGATIVE [facility] Comment on above: Performed By: #### E RUR, UMICRO #### [facility] [address] [place] [address] Dr. Ashley Fung Ketones Ql (U) TRACE Abnormal NEGATIVE The [facility] Comment on above: Performed By: #### TAHIRA PAULSONRO #### [facility] [address] [place] [address] Dr. Ashley Fung LEUKOCYTES TRACE Abnormal NEGATIVE [facility] Comment on above: Performed By: #### TAHIRA PAULSONRO #### [facility] [address] [place] [address] Dr. Ashley Fung Nitrite Ql (U) Negative Normal NEGATIVE The [facility] Comment on above: Performed By: #### TAHIRA PAULSONRO #### [facility] [address] [place] [address] Dr. Ashley Fung pH (U) 7.0 [pH] Normal 5-9 [facility] Comment on above: Performed By: #### TAHIRA PAULSONRO #### [facility] [address] [place] [address] Dr. Ashley Fung Protein (U) [Mass/Vol] 100 mg/dL Abnormal NEGATIVE/ TRACE [facility] Comment on above: Performed By: #### TAHIRA PAULSONRO #### [facility] [address] [place] [address] Dr. Ashley Fung SPEC GRAVITY 1.025 Normal 1.005-<=1.025 [facility] Comment on above: Performed By: #### TAHIRA PAULSONRO #### [facility] [address] [place] [address] Dr. Ashley Fung UR MICRO IND INDICATED Normal [facility] Comment on above: Performed By: #### TAHIRA PAULSONRO #### [facility] [address] [place] [address] Dr. Ashley Fung Urobilinogen Qn (U) 1.0 {Stephanie'U}/dL Normal 0.2 - 1. 0 [facility] Comment on above: Performed By: #### TAHIRA PAULSONRO #### [facility] [address] [place] [address] Dr. Ashley Fung LIPASEon 03-16-2022 Lipase [Catalytic activity/Vol] 100.0 U/L Normal 73.0-393.0 [facility] Comment on above: Performed By: #### L IPA, CMP, DONNA #### [facility] [address] [place] [address] Dr. Ashley Fung PREG HCG QUALon 03-16-2022 , QUAL Negative Normal NEGATIVE [facility] Comment on above: Performed By: #### P REG #### [facility] [address] [place] [address] Dr. Ashley Fung PROF 14(COMP METB)on 022 Albumin [Mass/Vol] 3.3 g/dL Critically low 3.4-5.0 [facility] Comment on above: Performed By: #### L IPA, CMP, DONNA #### [facility] [address] [place] [address] Dr. Ashley Fung Albumin/Globulin [Mass ratio] 1.0 {ratio} Normal [facility] Comment on above: Performed By: #### L IPA, CMP, DONNA #### [facility] [address] [place] [address] Dr. Ashley Fung ALP [Catalytic activity/Vol] 58 U/L Normal 46-116 [facility] Comment on above: Performed By: #### L IPA, CMP, DONNA #### [facility] [address] [place] [address] Dr. Ashley Fung ALT [Catalytic activity/Vol] 15 U/L Normal 14-59 [facility] Comment on above: Performed By: #### L IPA, CMP, DONNA #### [facility] [address] [place] [address] Dr. Ashley Fung Anion gap [Moles/Vol] 11.2 mmol/L Normal [facility] Comment on above: Performed By: #### L IPA, CMP, DONNA #### [facility] [address] [place] [address] Dr. Ashley Fung AST [Catalytic activity/Vol] 15 U/L Normal 15-37 [facility] Comment on above: Performed By: #### L IPA, CMP, DONNA #### [facility] [address] [address] [address] Ashley Fung Bilirubin [Mass/Vol] 0.4 mg/dL Normal 0.2-1.0 [facility] Comment on above: Performed By: #### L IPA, CMP, DONNA #### [facility] [address] [place] [address] Dr. Ashley Fung Calcium [Mass/Vol] 8.7 mg/dL Normal 8.5-10.1 [facility] Comment on above: Performed By: #### L IPA, CMP, DONNA #### [facility] [address] [place] [address] Dr. Ashley Fung Chloride [Moles/Vol] 106 mmol/L Normal 98-107 [facility] Comment on above: Performed By: #### L IPA, CMP, DONNA #### [facility] [address] [place] [address] Dr. Ashley Fung CO2 [Moles/Vol] 27.4 mmol/L Normal 21.0-32.0 [facility] Comment on above: Performed By: #### L IPA, CMP, DONNA #### [facility] [address] [place] [address] Dr. Ashley Fung Creatinine [Mass/Vol] 1.22 mg/dL Critically high 0.55-1.02 [facility] Comment on above: Performed By: #### L IPA, CMP, DONNA #### [facility] [address] [place] [address] Dr. Ashley Fung EGFR-AF CITIZ[place] >60 Normal >=60 [facility] Comment on above: Performed By: #### L IPA, CMP, DONNA #### [facility] [address] [place] [address] Dr. Ashley Fung EGFR-NON AF CITIZEN [place] 52 mL/min/1.73m2 Critically low >=60 [facility] Comment on above: Performed By: #### L IPA, CMP, DONNA #### [facility] [address] [place] [address] Dr. Ashley Fung Globulin (S) [Mass/Vol] 3.4 g/dL Normal [facility] Comment on above: Performed By: #### L IPA, CMP, DONNA #### [facility] [address] [place] [address] Dr. Ashley Fung Glucose [Mass/Vol] 116 mg/dL Critically high 74-106 [facility] Comment on above: Performed By: #### L IPA, CMP, DONNA #### [facility] [address] [place] [address] Dr. Ashley Fung Potassium [Moles/Vol] 3.6 mmol/L Normal 3.5-5.1 [facility] Comment on above: Performed By: #### L IPA CMP, DONNA #### [facility] [address] [place] [address] Dr. Ashley Fung Protein [Mass/Vol] 6.7 g/dL Normal 6.4-8.2 [facility] Comment on above: Performed By: #### L IPA, CMP, DONNA #### [facility] [address] [place] [address] Dr. Ashley Fung Sodium [Moles/Vol] 141 mmol/L Normal 136-145 [facility] Comment on above: Performed By: #### L IPA CMP, DONNA #### [facility] [address] [place] [address] Dr. Ashley Fung Urea nitrogen [Mass/Vol] 15.0 mg/dL Normal 7.0-18.0 [facility] Comment on above: Performed By: #### L IPA, CMP, DONNA #### [facility] [address] [place] [address] Dr. Ashley Fung Urea nitrogen/Creatinine [Mass ratio] 12.3 mg/mg Normal [facility] Comment on above: Performed By: #### L IPA, CMP, DONNA #### [facility] [address] [place] [address] Dr. Ashley Fung URINE MICROSCOPIC ONLYon BACTERIA TRACE Abnormal NONE SEEN [facility] Comment on above: Performed By: #### E STEPHIE HOLLEY #### [facility] [address] [place] [address] Dr. Ashley Fung Bacteria identified Cx Nom (U) INDICATED Normal [facility] Comment on above: Performed By: #### Sky HOLLEY UMICRO #### [facility] [address] [place] [address] Dr. Ashley Fung CAST SEEN Abnormal NONE SEEN [facility] Comment on above: Performed By: #### E KISHAN UMICRO #### [facility] [address] [place] [address] Dr. Ashley Fung Crystals LM Nom (Urine sed) NONE SEEN Normal NONE SEEN [facility] Comment on above: Performed By: #### E KISHAN UMICRO #### [facility] [address] [place] [address] Dr. Ashley Fung Epithelial cells LM Ql (Urine sed) RARE Normal NONE SEEN /RARE [facility] Comment on above: Performed By: #### Sky HOLLEY UMICRO #### [facility] [address] [place] [address] Dr. Ashley Fung MUCOUS MODERATE Abnormal NONE SEEN [facility] Comment on above: Performed By: #### Sky HOLLEY UMICRO #### [facility] [address] [place] [address] Dr. Ashley Fung RBC NONE SEEN Abnormal 0-2 [facility] Comment on above: Performed By: #### Sky HOLLEY UMICRO #### [facility] [address] [place] [address] Dr. Ashley Fung WBC 2-5 Abnormal NONE SEEN [facility] Comment on above: Performed By: #### Sky HOLLEY UMICRO #### [facility] [address] [place] [address] Dr. Ashley Fung XR Abdomen 2 Viewson 022 XR Abdomen 2 Views HISTORY: Low abdominal pain, constipation FINDINGS: Moderate colon stool normally distributed throughout abdomen and pelvis. No evidence of bowel obstruction or free air. No biliary or urinary tract stones. IMPRESSION: Moderate colon stool, no obstruction. Report reported and signed by Mahin London on 11/28/2021 0729 Normal [facility] Specialist Vital Signs Date Time Vital Sign Value Performing Clinician Faci lit 12-22-2024 09:40-0400 Body mass index (BMI) [Ratio] 33.18 kg/m2 Sofie Rachel [employer]ICENSING REG[employer]RATION EXAMINER Work Phone: [facility] 12-22-2024 09:40-0400 Body weight 90.45 kg Sofie Rachel [employer]ICENSING REGISTRATION EXAMINER Work Phone: [facility] 12-22-2024 09:40-0400 Diastolic blood pressure 72 mm[Hg] Sofie Rachel [employer]ICENSING REGISTRATION EXAMINER Work Phone: [facility] 12-22-2024 09:40-0400 Systolic blood pressure 112 mm[Hg] Sofie Rachel [employer]ICENSING REGISTRATION EXAMINER Work Phone: [facility] 12-16-2024 10:19-0400 Body mass index (BMI) [Ratio] 33.18 kg/m2 Arlette Tawanna DO Work Phone: [facility] 12-16-2024 10:19-0400 Body weight 90.45 kg Arlette Tawanna DO Work Phone: [facility] 12-16-2024 10:19-0400 Diastolic blood pressure 68 mm[Hg] Arlette Tawanna DO Work Phone: [facility] 12-16-2024 10:19-0400 Systolic blood pressure 110 mm[Hg] Alrette Tawanna DO Work Phone: [facility] 12-07-2024 09:00-0400 Body mass index (BMI) [Ratio] 32.85 kg/m2 Sofie Rachel [employer]ICENSING REGISTRATION EXAMINER Work Phone: [facility] 12-07-2024 09:00-0400 Body weight 89.54 kg Sofie Rachel [employer]ICENSING REGISTRATION EXAMINER Work Phone: [facility] 12-07-2024 09:00-0400 Diastolic blood pressure 60 mm[Hg] Sofie Rachel [employer]ICENSING REGISTRATION EXAMINER Work Phone: [facility] 12-07-2024 09:00-0400 Systolic blood pressure 110 mm[Hg] Sofie Rachel [employer]ICENSING REGISTRATION EXAMINER Work Phone: [facility] 11-29-2024 09:18-0400 Body mass index (BMI) [Ratio] 32.95 kg/m2 Arlette Tawanna DO Work Phone: [facility] 11-29-2024 09:18-0400 Body weight 89.81 kg Arlette Tawanna DO Work Phone: [facility] 11-29-2024 09:18-0400 Diastolic blood pressure 70 mm[Hg] Arlette Tawanna DO Work Phone: [facility] 11-29-2024 09:18-0400 Systolic blood pressure 114 mm[Hg] Arlette Tawanna DO Work Phone: [facility] 11-23-2024 14:28-0400 Body mass index (BMI) [Ratio] 32.78 kg/m2 Arlette Tawanna DO Work Phone: [facility] 11-23-2024 14:28-0400 Body weight 89.36 kg Arlette Tawanna DO Work Phone: [facility] 11-23-2024 14:28-0400 Diastolic blood pressure 70 mm[Hg] Arlette Tawanna DO Work Phone: [facility] 11-23-2024 14:28-0400 Systolic blood pressure 106 mm[Hg] Arlette Tawanna DO Work Phone: [facility] 11-09-2024 10:07-0400 Body mass index (BMI) [Ratio] 31.78 kg/m2 Arlette Tawanna DO Work Phone: [facility] 11-09-2024 10:07-0400 Body weight 86.64 kg Arlette Tawanna DO Work Phone: [facility] 11-09-2024 10:07-0400 Diastolic blood pressure 68 mm[Hg] Arlette Tawanna DO Work Phone: [facility] 11-09-2024 10:07-0400 Systolic blood pressure 104 mm[Hg] Arlette Tawanna DO Work Phone: [facility] 10-06-2024 15:05-0500 Body mass index (BMI) [Ratio] 30.92 kg/m2 Arlette Tawanna DO Work Phone: [facility] 10-06-2024 15:05-0500 Body weight 84.28 kg Arlette Tawanna DO Work Phone: [facility] 10-06-2024 15:05-0500 Diastolic blood pressure 70 mm[Hg] Arlette Tawanna DO Work Phone: [facility] 10-06-2024 15:05-0500 Systolic blood pressure 110 mm[Hg] Arlette Tawanna DO Work Phone: [facility] 09-21-2024 14:51-0500 Body mass index (BMI) [Ratio] 31.62 kg/m2 Donna Leon PA Work Phone: [facility] 09-21-2024 14:51-0500 Body weight 86.18 kg Donna Marielena PA Work Phone: [facility] 09-21-2024 14:51-0500 Diastolic blood pressure 62 mm[Hg] Donna Leon PA Work Phone: [facility] 09-21-2024 14:51-0500 Systolic blood pressure 106 mm[Hg] Donna Marielena PA Work Phone: [facility] 08-24-2024 14:10-0500 Body mass index (BMI) [Ratio] 29.69 kg/m2 Arlette Tawanna DO Work Phone: [facility] 08-24-2024 14:10-0500 Body weight 80.92 kg Arlette Tawanna DO Work Phone: [facility] 08-24-2024 14:10-0500 Diastolic blood pressure 66 mm[Hg] Arlette Tawanna DO Work Phone: [facility] 08-24-2024 14:10-0500 Systolic blood pressure 112 mm[Hg] Arlette Tawanna DO Work Phone: [facility] 07-22-2024 14:05-0500 Body mass index (BMI) [Ratio] 28.92 kg/m2 Donna MADERA Work Phone: [facility] 07-22-2024 14:05-0500 Body weight 78.83 kg Donna Marielena MADERA Work Phone: [facility] 07-22-2024 14:05-0500 Diastolic blood pressure 74 mm[Hg] Donna MADERA Work Phone: [facility] 07-22-2024 14:05-0500 Systolic blood pressure 120 mm[Hg] Donna Peguero PA Work Phone: [facility] 06-21-2024 09:57-0500 Body mass index (BMI) [Ratio] 28.76 kg/m2 Arlette Tawanna DO Work Phone: [facility] 06-21-2024 09:57-0500 Body weight 78.38 kg Arlette Tawanna DO Work Phone: [facility] 06-21-2024 09:57-0500 Diastolic blood pressure 72 mm[Hg] Arlette Tawanna DO Work Phone: [facility] 06-21-2024 09:57-0500 Systolic blood pressure 118 mm[Hg] Arlette Tawanna DO Work Phone: [facility] Healthcare Encounters Encounter Date Encounter Type Care Provider Facility Start: 12-28-2024 End: 12-28-2024 Bamboo flowsheet Arlette Tawanna DO Work Phone: [facility] Start: 12-28-2024 End: 12-28-2024 Bamboo flowsheet Arlette Tawanna DO Work Phone: [facility] Start: 12-22-2024 End: 12-22-2024 Bamboo flowsheet Sofie Ramos NP Work Phone: [facility] Start: 12-22-2024 End: 12-22-2024 Bamboo flowsheet Sofie Ramos [employer]ICENSING REGISTRATION EXAMINER Work Phone: [facility] Start: 12-22-2024 End: 12-22-2024 ambulatory SOFIE RACHEL Not Available Start: 12-22-2024 End: 12-22-2024 flow sheet Sofie Ramos [employer]ING REGISTRATION EXAMINER Work Phone: [facility] Comment on above: Third trimester preg erica; 39 weeks gestation of ; Post term over 40 weeks Start: 12-20-2024 End: 12-20-2024 Clinisync Result Encounter Generic External Data Provider [facility] External Department Unsolicited Start: 12-20-2024 End: 12-20-2024 Clinisync Result Encounter Generic External Data Provider [facility] External Department Unsolicited Start: 12-16-2024 End: 12-16-2024 Bamboo flowsheet Arlette Tawanna DO Work Phone: [facility] Start: 12-16-2024 End: 12-16-2024 Bamboo flowsheet Arlette Tawanna DO Work Phone: [facility] Start: 12-16-2024 End: 12-16-2024 flow sheet Arlette Tawanna DO Work Phone: [facility] Comment on above: 38 weeks gestation o f ; Third trimester ; Evaluate growth, large for dates, antepartum, unspecified trimester, other fetus Start: 12-16-2024 End: 12-16-2024 ambulatory ARLETTE TAWANNA Not Available Start: 12-07-2024 End: 12-07-2024 Bamboo flowsheet Sofiemonique Ramos [employer]ICENSING REGISTRATION EXAMINER Work Phone: [facility] Start: 12-07-2024 End: 12-07-2024 Bamboo flowsheet Sofie Rachel LICENSING REGISTRATION EXAMINER Work Phone: [facility] Start: 12-07-2024 End: 12-07-2024 flow sheet Sofie Rachel LICENSING REGISTRATION EXAMINER Work Phone: [facility] Comment on above: 37 weeks gestation o f ; Third trimester ; Anemia during in third trimester Start: 12-07-2024 End: 12-07-2024 ambulatory SOFIE RACHEL Not Available Start: 11-29-2024 End: 11-29-2024 Bamboo flowsheet Arlette Tawanna DO Work Phone: [facility] Start: 11-29-2024 End: 12-07-2024 Bamboo flowsheet Arlette Tawanna DO Work Phone: [facility] Start: 11-29-2024 End: 12-07-2024 Clinisync Result Encounter Generic External Data Provider [facility] Department Unsolicited Start: 11-29-2024 End: 11-29-2024 flow sheet Arlette Tawanna DO Work Phone: [facility] Comment on above: Third trimester preg erica; 36 weeks gestation of Start: 11-29-2024 End: 11-29-2024 ambulatory ARLETTE TAWANNA Not Available Start: 11-23-2024 End: 11-23-2024 flow sheet Arlette [...] trimester Start: 10-27-2024 End: 10-27-2024 ambulatory SOFIE RAMOS Not Available Start: 10-25-2024 End: 10-25-2024 Bamboo [...] Start: 09-21-2024 End: 09-21-2024 Bamboo flowsheet Donna Peguero PA Work Phone: [facility] Start: 08-24-2024 End: 08-24-2024 flow sheet Arlette Tawanna DO Work Phone: [facility] Comment on above: Diabetes mellitus sc reening; 22 weeks gestation of ; Second trimester Start: 08-24-2024 End: 08-24-2024 ambulatory ARLETTE TAWANNA Not Available Start: 08-24-2024 End: 08-24-2024 Bamboo flowsheet Arlette Atwanna DO Work Phone: [facility] Start: [...] Date Procedure Procedure Detail Performing Clinician Start: 12-20-2024 OB GROWTH Generic Ex ternal Data Provider Start: 12-16-2024 Urnls dip stick/tabl et rgnt non-auto w/o micrscp Arlette Tawanna DO Work Phone: Start: 12-07-2024 Urnls dip stick/tabl et rgnt non-auto w/o micrscp Sofie Rachel LICENSING REGISTRATION EXAMINER Work Phone: Start: 11-29-2024 Urnls dip stick/tabl et rgnt non-auto w/o micrscp Arlette Tawanna DO Work Phone: Start: 11-29-2024 STREP GP B CULTURE+RFLX Arlette Tawanna DO Work Phone: Start: 11-23-2024 Urnls dip stick/tabl et rgnt [...] Screening for malign ant neoplasm of cervix [facility] Start: 07-22-2027 Screening for malign ant neoplasm of cervix [facility] Start: 04-11-2025 Influenza vaccination Influenz a Vaccine (Season Ended) [facility] Start: 12-28-2024 End: 12-28-2024 Patient encounter procedure 12/28/2024 9:30 AM EDT Routine [facility] [address] [place] [address] Arlette Stacy DO [address] [place] [address] [facility] Start: 12-22-2024 End: 06-24-2025 US biophysical profile w non stress test US biophysical profile w non stress test Imaging Routine Post term over 40 weeks Expected: 12/22/2024 (Approximate), Expires: 06/24/2025 [facility] Work Phone: Comment on above: Expected: 12/22/2024 (Approximate), Expires: 06/24/2025 Start: 12-22-2024 End: 12-22-2024 Patient encounter procedure 12/22/2024 9:20 AM EDT Routine [facility] [address] [place] [id number] Sofie Ramos, SHAAN [address] [place] [id number] [facility] Start: 12-16-2024 End: 04-18-2025 US for US OB follow up transabdominal approach Imaging Routine 38 weeks gestation of Third trimester Evaluate growth, large for dates, antepartum, unspecified trimester, other fetus Expected: 12/16/2024, Expires: 04/18/2025 [facility] Work Phone: Comment on above: Expected: 12/16/2024 , Expires: 04/18/2025 Start: 12-16-2024 End: 12-16-2024 Patient encounter procedure [facility] Comment on above: Arrived Start: 12-07-2024 End: 12-07-2024 Patient encounter procedure [facility] Comment on above: Arrived Start: 11-29-2024 End: 11-29-2025 CULTURE, GROUP B STREP WITH SUSCEPTIBLITY CULTURE, GROUP B STREP WITH SUSCEPTIBLITY Lab Routine Third trimester Expected: 11/29/2024, Expires: 11/29/2025 [facility] Work Phone: Comment on above: Expected: 11/29/2024 , Expires: 11/29/2025 Start: 11-29-2024 End: 11-29-2024 Patient encounter procedure [...] EST Ancillary Procedure [facility] [address] [place] [address] [facility] Start: 09-21-2024 End: 09-21-2024 Patient encounter procedure [facility] Comment on above: Arrived Start: 08-24-2024 End: 08-24-2024 Patient encounter procedure [facility] Comment on above: Arrived Start: 08-24-2024 End: 08-24-2025 CBC panel - Blood by Automated count CBC Lab Routine Diabetes mellitus screening Expected: 08/24/2024 (Approximate), Expires: 08/24/2025 [facility] Work Phone: Comment on above: Expected: 08/24/2024 (Approximate), Expires: 08/24/2025 Start: 08-24-2024 End: 08-24-2025 Measurement of glucose 1 hour after glucose challenge for glucose tolerance test Glucose tolerance, 1 hour Lab Routine Diabetes mellitus screening Expected: 08/24/2024 (Approximate), Expires: 08/24/2025 [facility] Comment on above: Expected: 08/24/2024 (Approximate), [...] gestation of Expected: 07/22/2024 (Approximate), Expires: 01/20/2025 [facility] Comment on above: Expected: 07/22/2024 (Approximate), [...] EST Routine [facility] [address] [place] [phone] Arlette Stacy DO [address] [place] [address] [facility] Start: 05-20-2024 End: 05-20-2025 ABO/Rh ABO/Rh Lab Routine Missed menses , unspecified gestational age Expected: 05/20/2024 (Approximate), Expires: 05/20/2025 [facility] Comment on above: Expected: 05/20/2024 (Approximate), Expires: 05/20/2025 Start: 05-20-2024 End: 05-20-2025 Blood type and Indirect antibody screen panel - Blood Type and screen Lab Routine Missed menses , unspecified gestational age Expected: 05/20/2024 (Approximate), Expires: 05/20/2025 [facility] Work Phone: Comment on above: Expected: 05/20/2024 (Approximate), Expires: 05/20/2025 Start: 05-20-2024 End: 05-20-2025 Drugs of abuse panel - Urine by Screen method Rapid drug screen, urine Lab Routine , unspecified gestational age Encounter for supervision of normal first in first trimester Expected: 05/20/2024 (Approximate), Expires: 05/20/2025 [facility] Comment on above: Expected: 05/20/2024 (Approximate), Expires: 05/20/2025 Start: 05-20-2024 End: 05-20-2025 US Pelvis transvaginal US OB transvaginal Imaging Routine Missed menses Expected: 05/20/2024 (Approximate), Expires: 05/20/2025 [facility] Comment on above: Expected: 05/20/2024 (Approximate), Expires: 05/20/2025 Start: 04-11-2024 Influenza vaccination Influenza Vacc ine (#1) [facility] Start: 02-19-2024 Screening for malign ant neoplasm of cervix [facility] Start: 2015 Screening for malign ant neoplasm of cervix Pap Smear [facility] Bacteria identified in Urine by Culture Urine culture Microbiology Routine Missed menses Ordered: 05/20/2024 [facility] Comment on above: Ordered: 05/20/2024 CBC W Auto Different ial panel - Blood CBC and differential Lab Routine Missed menses , unspecified gestational age Ordered: 05/20/2024 [facility] Comment on above: Ordered: 05/20/2024 CHLAMYDIA TRACHOMATI S (GENITO/STI) CHLAMYDIA TRACHOMATIS (GENITO/STI) Lab Routine STD exposure Ordered: 07/22/2024 [facility] Comment on above: Ordered: 07/22/2024 Cytology Cervical or vaginal smear or scraping study Pap Smear Pathology and Cytology Routine Well woman exam with routine gynecological exam Ordered: 07/22/2024 [facility] Comment on above: Ordered: 07/22/2024 Hemoglobin A1c/Hemoglobin.total in Blood Hemoglobin A1c Lab Routine Missed menses , unspecified gestational age Ordered: 05/20/2024 [facility] Comment on above: Ordered: 05/20/2024 Hepatitis B virus surface Ag [Presence] in Serum or Plasma by Immunoassay Hepatitis B surface antigen Lab Routine Missed menses , unspecified gestational age Ordered: 05/20/2024 [facility] Comment on above: Ordered: 05/20/2024 Hepatitis C virus Ab [Presence] in Serum or Plasma by Immunoassay Hepatitis C antibody Lab Routine Missed menses , unspecified gestational age Ordered: 05/20/2024 [facility] Comment on above: Ordered: 05/20/2024 HIV-1/HIV-2 antigen/antibody combination immunoassay HIV-1 and HIV-2 antibodies Lab Routine Missed menses , unspecified gestational age Ordered: 05/20/2024 [facility] Comment on above: Ordered: 05/20/2024 Human papilloma viru s DNA [Presence] in Unspecified specimen by Probe with amplification HPV DNA probe, amplified Microbiology Routine Well woman exam with routine gynecological exam Ordered: 07/22/2024 [facility] Comment on above: Ordered: 07/22/2024 Neisseria gonorrhoea e DNA [Presence] in Unspecified specimen by RAMONITA with probe detection Neisseria gonorrhea DNA probe, direct Lab Routine STD exposure Ordered: 07/22/2024 [facility] Comment on above: Ordered: 07/22/2024 Reagin Ab [Presence] in Serum by RPR RPR Lab Routine Missed menses , unspecified gestational age Ordered: 05/20/2024 [facility] Comment on above: Ordered: 05/20/2024 Rubella antibody, IgG Rubella an tibody, IgG Lab Routine Missed menses , unspecified gestational age Ordered: 05/20/2024 [facility] Comment on above: Ordered: 05/20/2024 SURESWAB(R) ADVANCED VAGINITIS PLUS, TMA SURESWAB(R) ADVANCED VAGINITIS PLUS, TMA Pathology and Cytology Routine Vaginal discharge Ordered: 07/22/2024 [facility] Work Phone: Comment on above: Ordered: 07/22/2024 Immunizations Immunization Date Immunization Notes Care Provider Odessa tracy 02-09-2013 meningococcal polysa ccharide (groups A, C, Y and W-135) diphtheria toxoid conjugate vaccine (MCV4P) [facility] 02-09-2013 tetanus toxoid, redu rosario diphtheria toxoid, and acellular pertussis vaccine, adsorbed [facility] 03-23-1999 diphtheria, tetanus toxoids and acellular pertussis vaccine [facility] 03-23-1999 measles, mumps and r ubella virus vaccine [facility] 03-23-1999 trivalent poliovirus vaccine, live, oral [facility] Nurse [facility] 03-02-1997 diphtheria, tetanus toxoids and acellular pertussis vaccine [facility] Nurse [facility] 02-16-1996 diphtheria, tetanus toxoids and acellular pertussis vaccine [facility] Nurse [facility] are 02-16-1996 measles, mumps and r ubella virus vaccine [facility] Nurse [facility] 06-11-1995 diphtheria, tetanus toxoids and acellular pertussis vaccine, Haemophilus influenzae type b conjugate, and poliovirus vaccine, inactivated ([id number]) [facility] Nurse [facility] 06-11-1995 hepatitis B vaccine, pediatric or pediatric/adolescent dosage [facility] Nurse [facility] 1994 haemophilus influenz ae type b vaccine, conjugate unspecified formulation [facility] Nurse [facility] 1994 hepatitis B vaccine, pediatric or pediatric/adolescent dosage [facility] Nurse [facility] 1994 trivalent poliovirus vaccine, live, oral [facility] Nurse [facility] 1994 diphtheria, tetanus toxoids and acellular pertussis vaccine, Haemophilus influenzae type b conjugate, and poliovirus vaccine, inactivated ([id number]) [facility] Nurse [facility] 1994 hepatitis B vaccine, pediatric or pediatric/adolescent dosage [facility] Nurse [facility] Payers Date Payer Category Payer [facility] [employer] [id number] 2023 Unknown [employer] [id number] 2023-Present [address] [place] [address] [id number] 2023 Unknown [id number] 1994 Unknown [id number] 2.16.840.1.786651.3.579.2. 593 1994 Unknown [id number] 2.16.840.1.378066.3.579.2. 1258 1994 Unknown [id number] 2.16.840.1.353691.3.579.2. 1258 1994 Unknown [id number] 2.16.840.1.743414.3.579.2. 1258 1994 Unknown [id number] 2.16.840.1.788608.3.579.2. 1258 1994 Unknown [id number] 2.16.840.1.155384.3.579.2. 1258 1994 Unknown [id number] 2.16.840.1.650546.3.579.2. 1258 1994 Unknown [id number] 2.16.840.1.550295.3.579.2. 1258 1994 Unknown [id number] 2.16.840.1.532348.3.579.2. 1258 1994 Unknown [id number] 2.16.840.1.774856.3.579.2. 1258 1994 Unknown [id number] 2.16.840.1.308195.3.579.2. 1258 1994 Unknown [id number] 2.16.840.1.676168.3.579.2. 1258 1994 Unknown [id number] 2.16.840.1.913724.3.579.2. 1258 1994 Unknown [id number] 2.16.840.1.213289.3.579.2. 1258 1994 Unknown [id number] 2.16.840.1.849351.3.579.2. 1258 1994 Unknown [id number] 2.16.840.1.991775.3.579.2. 1259 1994 Unknown [id number] 2.16.840.1.140564.3.579.2. 1259 Unknown [id number] Social History Date Type Detail Facility Start: 05-25-2023 [facility] Start: 05-25-2023 Tobacco use and exposure Smoke less tobacco non-user [facility] Start: 05-20-2024 End: 12-22-2024 Alcoholic beverage intake Current drinker of alcohol (finding) [facility] Start: 05-20-2024 End: 12-22-2024 Alcoholic beverage intake [facility] Start: 07-10-2023 End: 05-20-2024 Tobacco use panel [facility] Start: 04-09-2023 Alcohol Comment Caffeine intak e: 1-2 cups per day coffee [facility] Start: 04-03-2024 [facility] Start: 1995 Sex assigned at Not on file [facility] Clinical Notes 05-20-2024 to 12-22-2024 Sofie Ramos, SHAAN - 12/22/2024 9:20 AM Montse Moreno, APPAREL MACHINERY INSTRUCTOR - 12/16/2024 9:50 AM Gertrudis Ramos, SHAAN - 12/07/2024 8:50 AM Shahriar Matthews LPN - 11/29/2024 9:10 AM EDT Note Date & Type Note Facility 12-22-2024 History of Presen t illness Narrative Reason for Appointment: Patient ID: Autumn Mcclure is a 29 y.o. female who presents [...] nursing note reviewed. Exam conducted with a sales development representative present. Vitals: Estimated body mass index is 33.18 kg/m as calculated from the following: Height [...] Sofie Ramos NP documented in this encounter [facility] 12-16-2024 History of Presen t illness Narrative Reason for Appointment: Patient ID: Autumn Mcclure is a 29 y.o. female who presents [...] nursing note reviewed. Exam conducted with a sales development representative present. Vitals: Estimated body mass index is 33.18 kg/m as calculated from the following: Height as of 07/10/23: 5' 5 . Weight as of this encounter: 199 lb 6.4 oz. BP: 110/68 Patient's last menstrual period was 03/20/2024. ASSESSMENT & PLAN ICD-10-CM 1. 38 weeks gestation of Z3A.38 POCT urinalysis dipstick manually resulted 2. Third trimester Z34.93 POCT urinalysis dipstick manually resulted Patient presents today for a routine obstetrics appointment. Patient is currently 38w5d with a Estimated Date of Delivery: 12/25/24. Patient does not desire to have induction of labor. Patient to return to clinic in 1 week for routine OB appointment. If patient changes mind in regards to IOL she will discuss it at next appointment. If patient does not delivery prior to 12/30/24 then she will be induced on that day. Documented by Bren Moreno LPN on behalf of: Arlette Stacy DO documented in this encounter [facility] 12-07-2024 History of Presen t illness Narrative Reason for Appointment: Patient ID: Autumn Mcclure is a 29 y.o. female who presents [...] tailbone TONSILLECTOMY 1996 EUGENIO TOOTH EXTRACTION 07/29/2016 REVIEW OF SYSTEMS Review [...] nursing note reviewed. Exam conducted with a sales development representative present. Vitals: Estimated body mass index is 32.85 kg/m as calculated from the following: Height as of 07/10/23: 5' 5 . Weight as of this encounter: 197 lb 6.4 oz. BP: 110/60 Patient's last menstrual period was 03/20/2024. ASSESSMENT & PLAN ICD-10-CM 1. 37 weeks gestation of Z3A.37 POCT urinalysis dipstick manually resulted iron polysaccharides (ProFe) 391.3 (180 Fe) MG capsule 2. Third trimester Z34.93 POCT urinalysis dipstick manually resulted iron polysaccharides (ProFe) 391.3 (180 Fe) MG capsule 3. Anemia during in third trimester O99.013 iron polysaccharides (ProFe) 391.3 (180 Fe) MG capsule Return OB: Patient presents today for a routine obstetrics appointment. Patient is currently 37w3d . Patient states she is doing well [...] Sofie Ramos NP documented in this encounter [facility] 11-29-2024 History of Presen t illness Narrative Reason for Appointment: Patient ID: Autumn Mcclure is a 29 y.o. female who presents [...] nursing note reviewed. Exam conducted with a sales development representative present. Vitals: Estimated body mass index is 32.95 kg/m as calculated from the following: Height as of 07/10/23: 5' 5 . Weight as of this encounter: 198 lb. BP: 114/70 Patient's last menstrual period was 03/20/2024. ASSESSMENT & PLAN ICD-10-CM 1. Third trimester Z34.93 POCT urinalysis dipstick manually resulted CULTURE, GROUP B STREP WITH SUSCEPTIBLITY CULTURE, GROUP B STREP WITH SUSCEPTIBLITY CANCELED: CULTURE, GROUP B STREP WITH SUSCEPTIBLITY 2. 36 weeks gestation of Z3A.36 Patient is doing well but has complaints of being tired and having maternal discomfort due to . Patient verbalized frequent movement and was instructed to perform kick counts three times per day. labor precautions were given, LARC consent was signed/declined, and GBS was obtained. Cervical check was performed and patient is 0cm dilated. Orders Placed This Encounter Procedures CULTURE, GROUP B STREP WITH SUSCEPTIBLITY POCT urinalysis dipstick manually resulted Follow Up: Patient is to return to office in 1 week for routine OB appointment Documented by Miryam Matthews LPN on behalf of: Arlette Stacy DO documented in this encounter [facility] 11-23-2024 History of Presen t illness Narrative Reason for Appointment: Patient ID: Autumn Mcclure is a 29 y.o. female who presents [...] nursing note reviewed. Exam conducted with a sales development representative present. Vitals: Estimated body mass index is [...] Arlette Stacy DO documented in this encounter [facility] 11-09-2024 History of Presen t illness Narrative Reason for Appointment: Patient ID: Autumn Mcclure is a 29 y.o. female who presents [...] Arlette Stacy DO documented in this encounter [facility] 10-06-2024 History of Presen t illness Narrative Reason for Appointment: Patient ID: Autumn Mcclure is a 29 y.o. female who presents [...] Arlette Stacy DO documented in this encounter [facility] 09-21-2024 History of Presen t illness Narrative Reason for Appointment: Patient ID: Autumn Mcclure is a 29 y.o. female who presents [...] [place] documented in this encounter [facility] 08-24-2024 History of Presen t illness Narrative Reason for Appointment: Patient ID: Autumn Mcclure is a 29 y.o. female who presents [...] nursing note reviewed. Exam conducted with a sales development representative present. Vitals: Estimated body mass index is [...] Arlette Stacy DO documented in this encounter [facility] 07-22-2024 History of Presen t illness Narrative Reason for Appointment: Patient ID: Autumn Mcclure is a 29 y.o. female who presents [...] [place] documented in this encounter [facility] 06-21-2024 History of Presen t illness Narrative Reason for Appointment: Patient ID: Autumn Mcclure is a 29 y.o. female who presents [...] nursing note reviewed. Exam conducted with a sales development representative present. Vitals: Estimated body mass index is [...] or undercooked meat, and stay away from [facility]. Patient has been consulted regarding any further do's and don'ts of . Patient voiced understanding and all questions and concerns were answered. Patient given orders for OB labs and Rudolph to be drawn today at [facility]. Orders Placed This Encounter Procedures Urine dip Follow Up: Patient is to return in 4 weeks for routine OB appointment. Documented by Bren Moreno LPN on behalf of: Arlette Stacy DO documented in this encounter [facility] 05-20-2024 History of Presen t illness Narrative Reason for Appointment: Patient ID: Autumn Mcclure is a 29 y.o. female who presents [...] or undercooked meat, and stay away from [facility]. Patient has also been advised to not change litter boxes and eat 6 small meals a day. Patient has been consulted regarding the do's and don'ts of . Patient was given labs and all questions and concerns were answered. Patient did not want to do Rudolph labs at this time. Follow Up: Patient is to return in 4 weeks for routine OB appointment. Follow Up: Patient is to have labs drawn at directed and return to office for initial OB appointment with provider. Patient may call office as needed with any concerns or questions. Nurse Visit Completed by: Miryam Matthews LPN documented in this encounter [facility] Evaluation note Diagnosis Missed menses [...] HealthcareEvaluation note* Diagnosis Third trimester state, incidental 36 weeks gestation of documented in this encounter [facility]* Diagnosis 37 weeks gestation of Third trimester state, incidental Anemia during in third trimester documented in this encounter [facility]* Diagnosis 38 weeks gestation of Third trimester state, incidental Evaluate growth, large for dates, antepartum, unspecified trimester, other fetus [facility] Diagnosis Third trimester state, incidental 39 weeks gestation of Post term over 40 weeks documented in this encounter [facility] Summary Purpose Family History No Family History Records FoundNo Family History Records FoundNo Family History Records Found Advance Directives No Advanced Directives Records FoundNo Advanced Directives Records FoundNo Advanced Directives Records Found Additional Source Comments INFORMATION SOURCE (unrecogn ized section and content) DATE CREATED AUTHOR 11/29/2021 [facility] dical Specialist DATE CREATED AUTHOR AUTHOR'S ORGANIZ ATION 03/19/2022 [facility] DATE CREATED AUTHOR AUTHOR'S ORGANIZ ATION 12/23/2024 [facility] dical Specialists EPIC Reason for Visit (unrecogniz ed section and content) Reason Comments Amenorrhea Reason Comments Routine Visit Reason Comments Well Women Visit Routine Visit STI Screening Care Teams (unrecognized sec tion and content) Bias Binding Cutter Relationship Specialty Start Date End Date Reyes Sexton MD [place] [address] (Fax) PCP - General Family Medicine 12/17/22 Bias Binding Cutter Relationship Specialty Start Date End Date Reyes Sexton MD [address] [place] [address] (Fax) PCP - General Family Medicine 12/17/22 Bias Binding Cutter Relationship Specialty Start Date End Date Reyes Sexton MD [address] [place] [address] (Fax) PCP - General Family Medicine 12/17/22 Bias Binding Cutter Relationship Specialty Start Date End Date Reyes Sexton MD [address] [place] [address] (Fax) PCP - General Family Medicine 12/17/22 Bias Binding Cutter Relationship Specialty Start Date End Date Reyes Sexton MD [address] [place] [address] (Fax) PCP - General Family Medicine 12/17/22 Bias Binding Cutter Relationship Specialty Start Date End Date Reyes Sexton MD [address] [place] [address] (Fax) PCP - General Family Medicine 12/17/22 Bias Binding Cutter Relationship Specialty Start Date End Date Reyes Sexton MD [address] [place] [address] (Fax) PCP - General Family Medicine 12/17/22 Bias Binding Cutter Relationship Specialty Start Date End Date Reyes Sexton MD [address] [place] [phone] (Fax) PCP - General Family Medicine 12/17/22 Bias Binding Cutter Relationship Specialty Start Date End Date Reyes Sexton MD [address] [address] [place] [address] (Fax) PCP - General Family Medicine 12/17/22 Donna Peguero PA [address] [place], [place] [address] [address] PCP - Medical [employer] 01/10/24 08/10/99 Bias Binding Cutter Relationship Specialty Start Date End Date Reyes Sexton MD [address] [place] [address] (Fax) PCP - General Family Medicine 12/17/22 Donna Peguero PA [address] [place], [place] [address] [address] PCP - Medical [place] [employer] 01/10/24 08/10/99 Bias Binding Cutter Relationship Specialty Start Date End Date Reyes Sexton MD [address] [address] PCP - General Family Medicine 12/17/22 Donna Peguero PA [facility] [place] [id number] PCP - Medical [place] [employer] 01/10/24 08/10/99 Bias Binding Cutter Relationship Specialty Start Date End Date Reyes Sxeton MD [address] [place] [address] PCP - General Family Medicine 12/17/22 Donna Peguero PA [facility] [place] [id number] PCP - Medical [place] [employer] 01/10/24 08/10/99 Bias Binding Cutter Relationship Specialty Start Date End Date Reyes Sexton MD [address] [place] [address] PCP - General Family Medicine 12/17/22 Donna Peguero PA [facility] [place] [address] PCP - Medical [place] [employer] 01/10/24 08/10/99 Bias Binding Cutter Relationship Specialty Start Date End Date Reyes Sexton MD [address] [place] [address] PCP - General Family Medicine 12/17/22 Donna Peguero PA [facility] [place] [address] PCP - Medical [place] [employer] 01/10/24 08/10/99 Bias Binding Cutter Relationship Specialty Start Date End Date Reyes Sexton MD 112 [facility] 100 [place] [address] PCP - General Family Medicine 12/17/22 Donna Peguero PA [facility] [place] [address] PCP - Medical [place] [employer] 01/10/24 08/10/99 Bias Binding Cutter Relationship Specialty Start Date End Date Reyes Sexton MD [address] [address] PCP - General Family Medicine 12/17/22 Donna Peguero PA [address] [place], [place] [address] [address] PCP - Medical [place] [employer] 01/10/24 08/10/99 Bias Binding Cutter Relationship Specialty Start Date End Date Reyes Sexton MD [address] [address] PCP - General Family Medicine 12/17/22 Donna Peguero PA [address] [place], [place] [address] [address] PCP - Medical [place] [employer] 01/10/24 08/10/99 Bias Binding Cutter Relationship Specialty Start Date End Date Reyes Sexton MD [address] [place] [address] [address] PCP - General Family Medicine 12/17/22 Donna Peguero PA [facility] [place] [address] PCP - Medical [place] [employer] 01/10/24 08/10/99 FOR RECORDS PERTAINING TO [...] BE BASED ON THE PRIMARY CLINICAL RECORDS. [employer] provides no warranty or guarantee of the accuracy or completeness of information in this document.
[2024-12-28 19:43] LABS: Amphetamine Screen Urine NEGATIVE (NEGATIVE); Barbiturates Screen Urine NEGATIVE (NEGATIVE); Benzodiazepines Screen Urine NEGATIVE (NEGATIVE); Buprenorphine Screen Urine NEGATIVE (NEGATIVE); Cannabinoid Screen Urine NEGATIVE (NEGATIVE); Cocaine Screen Urine NEGATIVE (NEGATIVE); Methadone Screen Urine NEGATIVE (NEGATIVE); Methamphetamines Screen Urine NEGATIVE (NEGATIVE); Opiate Screen Urine NEGATIVE (NEGATIVE); Oxycodone Screen Urine NEGATIVE (NEGATIVE); Phencyclidine Screen Urine NEGATIVE (NEGATIVE); Tricyclic Antidepressant Urine NEGATIVE (NEGATIVE)
[2024-12-28] MEDS: MISOPROSTOL 100 MCG TABLET 25 MCG VAGINAL ×2 (19:52→22:52)
[2024-12-28 20:06] LABS: Hematocrit 31.3 % (36.0-48.0); Hemoglobin 10.9 g/dL (12.0-16.0); Mean Corpuscular HGB Conc 34.8 g/dL (29.9-35.2); Mean Corpuscular Hemoglobin 30.3 pg (26.7-34.0); Mean Corpuscular Volume 86.9 fL (81.0-99.0); Mean Platelet Volume 11.2 fL (9.5-13.5); Platelet Count 167 10^3/uL (150-450); Red Cell Distribution Width 14.1 % (11.0-15.0); White Blood Count 7.1 10^3/uL (4.0-11.0)
[2024-12-29] VITALS (97 sets, daily range): BP systolic 88–135; BP diastolic 50–113; PULSE 40–108; TEMP 36.4–37.1; O2SAT 99–100
[2024-12-29] MEDS: MISOPROSTOL 100 MCG TABLET 25 MCG VAGINAL (01:54)
[2024-12-29] MEDS: CALCIUM CARBONATE 500 MG (200MG ELEMENTAL) TAB CHEW PO (04:01)
[2024-12-29] MEDS: 0.9 % SODIUM CHLORIDE 1,000 ML 125 ML IV ×3 (05:25→15:14)
[2024-12-29] MEDS: 0.9 % SODIUM CHLORIDE 1,000 ML 999 ML IV (06:10)
[2024-12-29] MEDS: ROPIVACAINE HCL/PF 400 MG/200 ML PREMIX 8 MG EPIDURAL (07:23)
[2024-12-29] MEDS: OXYTOCIN/0.9 % SODIUM CHLORIDE 10 UNITS/500 ML PLAST..BAG 6 UNIT IV (08:00)
[2024-12-29] MEDS: METOCLOPRAMIDE HCL 10 MG/2 ML VIAL IVP (16:27)
[2024-12-29] MEDS: CITRIC ACID/SODIUM CITRATE 30 ML SOLUTION ORACIT SHOHL'S SOLN PO (16:27)
[2024-12-29] MEDS: FAMOTIDINE/PF 20 MG/2 ML VIAL IV (16:27)
[2024-12-29] MEDS: CEFAZOLIN SODIUM/DEXTROSE,ISO 2 GM/50 ML PIGGYBACK IV ×2 (16:38→22:23)
[2024-12-29] MEDS: LACTATED RINGER'S SOLUTION 1,000 ML 50 ML IV ×2 (16:58→17:03)
--- NOTE | 2024-12-29 17:19 | PM.ONB ---
Brief Operative Note Date of procedure: 12/29/24 Pre-op diagnosis general: iup at 40 4/7wks, failure to descend, failure to dilate, recurrent variables Post-op diagnosis: same as pre-op Procedure: NAME OF PROCEDURE: [ section ] PROCEDURE: Patient was taken back to the Operating Room where she was given a spinal anesthesia with Duramorph without difficulty. She was prepped and draped in the normal sterile fashion. A Pfannenstiel skin incision was then made 2 cm above the symphysis pubis and carried down to underlying rectus fascia using a Bovie. The fascia was incised in the midline and extended laterally using Jensen scissors. Two Jesus clamps were placed on the superior aspect of the fascia and dissected off the underlying rectus muscles. The same was performed on the inferior aspect as well. The muscles were then in the midline. Peritoneum was identified and entered bluntly. The peritoneum was then extended superiorly and inferiorly with good visualization of the bladder. The bladder blade was inserted. A low transverse incision was made on the patient's uterus and extended laterally digitally. The infant was then delivered atraumatically after the bladder blade was removed in the cephalic position. The cord was clamped and cut. Cord blood was obtained. The was handed off to awaiting team. The patient's placenta was spontaneously delivered. The uterus was then exteriorized. The uterus was cleared of all clots and debris. The bladder blade was reinserted. The patient's uterine incision was closed using #0 Vicryl in a running lock fashion. Excellent hemostasis was assured. The uterus was then returned to the patient's abdomen. The patient's abdomen was copiously irrigated using warm saline. Peritoneal gutters were cleared of all clots and debris. Again excellent hemostasis was assured. The patient's peritoneum was closed using 3-0 Vicryl in a running fashion. The patient's fascia was closed using #0 Vicryl in a running fashion. The patient's skin was closed using 4-0 Vicryl subcuticularly. The patient tolerated the procedure well. Sponge, lap, and needle counts were correct x2. The patient was taken to the Recovery Room in stable condition. Anesthesia: epidural Surgeon: Teo Stacy Residential Sales Representative: Liz Meredith Estimated blood loss (mL): 700 Pathology: other (placenta) Condition: stable Disposition: PACU Urinary Catheter Management Urinary Catheter Management Urethral: Cath placed during this visit: no
--- NOTE | 2024-12-29 17:21 | PM.OBPRCCS ---
Procedure Pre-op/Post-op diagnoses: Pre-Op/Post-Op Diagnoses Operation Date: 12/29/24 16:30 <No data on this case meets the specified criteria> Procedure: Procedures Operation Date: 12/29/24 16:30 Actual Procedure Side Surgeon p Not Applicable Teo Stacy DO Aquatics Assistant Department Head: Liz Meredith Estimated blood loss (mL): 700 Disposition: PACU Anesthesia type: Epidural
[2024-12-29] MEDS: ACETAMINOPHEN 500 MG TABLET 1000 MG PO (22:56)
[2024-12-29] MEDS: KETOROLAC TROMETHAMINE 30 MG/ML VIAL IVP (23:00)
[2024-12-30] MEDS: ACETAMINOPHEN 500 MG TABLET 1000 MG PO ×3 (05:51→21:26)
[2024-12-30] MEDS: KETOROLAC TROMETHAMINE 30 MG/ML VIAL IVP ×3 (05:51→21:26)
[2024-12-30] MEDS: ENOXAPARIN SODIUM 40 MG/0.4 ML SYRINGE SUBQ (05:51)
[2024-12-30 06:36] LABS: Basophils Percent Auto 0.1 % (0.2-2.0); Hematocrit 26.4 % (36.0-48.0); Hemoglobin 8.9 g/dL (12.0-16.0); Immature Granulocytes Abs Auto 0.08 10^3/uL (0.00-0.03); Immature Granulocytes Pct Auto 0.5 % (0.0-0.5); Lymphocytes Absolute Auto 1.2 10^3/uL (1.2-3.8); Mean Corpuscular HGB Conc 33.7 g/dL (29.9-35.2); Mean Corpuscular Hemoglobin 30.2 pg (26.7-34.0); Mean Corpuscular Volume 89.5 fL (81.0-99.0); Mean Platelet Volume 11.3 fL (9.5-13.5); Monocytes Absolute Auto 0.7 10^3/uL (0.3-0.8); Monocytes Percent Auto 4.7 % (1.7-12.0); Neutrophils Absolute Auto 13.2 10^3/uL (1.4-6.5); Neutrophils Percent Auto 86.7 % (43.0-75.0); Platelet Count 169 10^3/uL (150-450); Red Blood Count 2.95 10^6/uL (4.20-5.40); Red Cell Distribution Width 14.6 % (11.0-15.0); White Blood Count 15.2 10^3/uL (4.0-11.0)
--- NOTE | 2024-12-30 09:20 | PM.OBPN ---
OB - PN: Subj Subjective Patient comments: no complaints [place] status: doing well and well [place] feeding status: exclusively Exam Constitutional Vital Signs, click to edit/add: Last Vital Signs Temp 97.7 F 12/29/24 22:40 Pulse 82 12/29/24 22:40 Resp 15 12/29/24 22:40 BP 109/71 12/29/24 22:40 Pulse Ox 99 12/29/24 22:38 O2 Del Method Room Air 12/29/24 22:45 Documenting provider has reviewed patient's vital signs: yes Common normals: no apparent distress General appearance: cooperative Orientation/consciousness: Yes awake, Yes oriented to person, Yes oriented to place and Yes oriented to time HENMT Common normals: normocephalic Eye Common normals: EOMs intact bilaterally General eye: normal appearance of both eyes Neck & C-Spine Common normals: full ROM General: normal visual inspection Thyroid: thyroid normal Lymph Lymphatic: no lymphadenopathy noted Chest Common normals: inspection of chest normal Respiratory Common normals: normal respiratory effort Effort & inspection: able to speak in complete sentences Auscultation: clear to auscultation bilaterally Cardio Common normals: regular rate and regular rhythm Rate: regular rate Rhythm: regular rhythm GI Common normals: Normal to inspection, nondistended, normoactive bowel sounds present Inspection: normal to inspection Auscultation: normoactive bowel sounds Palpation: soft Percussion: normal to percussion Common normals: no CVA tenderness Back & Pelvis Common normals: no CVA tenderness Thoracic spine/upper back: normal to inspection Extremity Common normals: normal to inspection General: normal exam except as noted Neuro Common normals: oriented x3 Sensorium/orientation: awake, alert, oriented to person, oriented to place and oriented to time Psych Common normals: mental status grossly normal, thought process normal, cooperative, affect normal, speech normal, activity/motor behavior normal, denies hallucinations, denies homicidal ideation and denies suicidal ideation Appearance: grossly normal Attitude: calm Results Labs Labs: Short CBC 12/30/24 Range/Units 06:26 WBC 15.2 H (4.0-11.0) 10^3/uL Hgb 8.9 L (12.0-16.0) g/dL Hct 26.4 L (36.0-48.0) % Plt Count 169 (150-450) 10^3/uL Urinary Catheter Management Urinary Catheter Management Urethral: Cath placed during this visit: no OB - PN: A/P Plan - day: 1 Plan: routine postop care Time Spent with Patient Time: Total time spent is greater than 50% in coordination of care (as documented) at patient's floor/unit and/or counseling patient: Total time spent with greater than 50% in coordination of care (as documented) at patient's floor/unit and/or counseling patient: less than 15 minutes
[2024-12-30 09:35] VITALS: BP 110/55; PULSE 80; TEMP 36.7
[2024-12-30] MEDS: DOCUSATE SODIUM 100 MG CAPSULE PO ×2 (09:44→21:26)
[2024-12-30 12:00] VITALS: TEMP 36.9
[2024-12-30 12:01] VITALS: BP 99/56; PULSE 77
[2024-12-30 15:43] VITALS: BP 106/60; PULSE 96
[2024-12-30 15:45] VITALS: TEMP 36.8
[2024-12-30] MEDS: RHO(D) IMMUNE GLOBULIN 1,500 UNIT SYRINGE 1500 UNIT IV (15:45)
[2024-12-31 00:16] VITALS: BP 102/68; PULSE 82; TEMP 36.7
[2024-12-31] MEDS: ACETAMINOPHEN 500 MG TABLET 1000 MG PO (03:04)
[2024-12-31] MEDS: KETOROLAC TROMETHAMINE 30 MG/ML VIAL IVP ×2 (03:04→09:12)
[2024-12-31] MEDS: ENOXAPARIN SODIUM 40 MG/0.4 ML SYRINGE SUBQ (05:57)
--- NOTE | 2024-12-31 07:43 | P.OBPN_ITS ---
OB - PN: Subj Subjective Patient comments: no complaints and pain well controlled [place] status: doing well Exam Constitutional Vital Signs, click to edit/add: Last Vital Signs Temp 98.0 F 12/31/24 00:16 Pulse 82 12/31/24 00:16 Resp 14 12/30/24 15:45 BP 102/68 12/31/24 00:16 Pulse Ox 99 12/29/24 22:38 O2 Del Method Room Air 12/31/24 00:00 Documenting provider has reviewed patient's vital signs: yes Common normals: no apparent distress Respiratory Common normals: normal respiratory effort and clear to auscultation bilaterally Cardio Common normals: regular rate and regular rhythm GI Common normals: Normal to inspection, nondistended, normoactive bowel sounds present Extremity Common normals: normal to inspection and no clubbing, cyanosis or edema Urinary Catheter Management Urinary Catheter Management Urethral: Cath placed during this visit: no OB - PN: A/P Plan - day: 2 Plan: routine postop care, discharge home and other (fu 1wk) Time Spent with Patient Time: Total time spent is greater than 50% in coordination of care (as documented) at patient's floor/unit and/or counseling patient: Total time spent with greater than 50% in coordination of care (as documented) at patient's floor/unit and/or counseling patient: less than 15 minutes
[2024-12-31 10:35] VITALS: BP 114/65; PULSE 90
[2024-12-31] MEDS: DOCUSATE SODIUM 100 MG CAPSULE PO (10:36)
== END 2024-12-31 14:05 | disposition home or self-care (01) | DRG 788 ==
PROVIDERS: Admitting Provider Obstetrics & Gynecology; PCP Family Medicine; Visit Provider Obstetrics & Gynecology
PROC: 10D00Z1 Extraction of Products of Conception, Low, Open Approach (ICD-10-PCS; CPT 59514; principal; 2024-12-29 16:30)
DX: O48.0 Post-term pregnancy (principal); O26.893 Other specified pregnancy related conditions, third trimester; O32.4XX0 Maternal care for high head at term, not applicable or unspecified; O62.0 Primary inadequate contractions; O76 Abnormality in fetal heart rate and rhythm complicating labor and delivery; Z3A.40 40 weeks gestation of pregnancy; Z37.0 Single live birth; Z67.11 Type A blood, Rh negative
CPT/HCPCS: 36415; 51702; 59050; 64488; 80307; 85025; 85027; 85461; 86850; 86900; 86901; 88307; 94667; 94668; J0131; J0665; J0690; J1100; J1650; J1885; J2274; J2401; J2405; J2590; J2765; J2791; J2795; J3490

== ENCOUNTER 2025-01-03 11:08 | Outpatient (OUT) | payer OTHER, SELFPAY ==
--- OUTSIDE RECORDS SUMMARY | 2024-12-22 09:20 | XMS_ITS | Encounter Summary ---
Author Organization [facility] Address [address] [place] [address] Care Team Providers Care Merchandise Flow Team Member Name Role Phone Reyes Stout MD Primary Care Provider + [phone] Donna Kennedy Unavailable Reason for Visit * Reason Comments Routine Visit Encounter Details Date Type Department Care Team (Late st Contact Info) Description 12/22/2024 9:20 AM EDT Routine [facility] [address] [place] [address] Sofie Ramos, ASSISTANT GOLF PROFESSIONAL [address] [place] [address] Third trimester ; 39 weeks gestation of ; Post term over 40 weeks Social History Tobacco Use Types Packs/Day Years Used Date Smoking Tobacco: Never Smokeless Tobacco: Never Alcohol Use Standard Drinks/Week Comments Yes 2 (1 standard drink = 0.6 oz pure alcohol) Caffeine intake: 1-2 cups per day coffee Estimated Date of Delivery Comme nts Yes 12/25/2024 Based on last me nstrual period of 03/20/2024 Sex and Gender Information Value Date Recorded Sex Assigned at Not on file Legal Sex Female 7:22 PM EDT Gender Identity Not on file Sexual Orientation Not on file 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 Industry 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 Start Date Job End Date 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 Exam conducted with a acid strength inspector present. Vitals: Estimated body mass index is 33.18 kg/m?? as calculated from the following: Height as of 07/10/23: 5' 5 . Weight as of this encounter: 199 lb 6.4 oz. BP: 112/72 Patient's last menstrual period was 03/20/2024. ASSESSMENT & PLAN ICD-10-CM 1. Third trimester Z34.93 2. 39 weeks gestation of Z3A.39 3. Post term over 40 weeks O48.0 US biophysical profile w non stress test Return OB: Patient presents today for a routine obstetrics appointment. Patient is currently 39w4d . Patient states she is doing well but has complaints of being tired due to current . Patient has verbalizes frequent movement. labor precautions was discussed/given and patient was instructed to perform kick counts three times a day. Orders Placed This Encounter Procedures US biophysical profile w non stress test Follow Up: Patient is to return to office in 1 week for routine OB appointment. Patient will begin NST's and BPPs beginning at 40 weeks. Order was given today. Documented by Sofie Ramos NP on behalf of: Sofie Ramos NP documented in this encounter Plan of Treatment Scheduled Orders Name Type Priority Associated Diagnoses Orde r Schedule US biophysical profile w non stress test Imaging Routine Post term over 40 weeks Expected: 12/22/2024 (Approximate), Expires: 06/24/2025 documented as of this encounter Visit Diagnoses Diagnosis Third trimester state, incidental 39 weeks gestation of Post term over 40 weeks documented in this encounter Care Teams Merchandise Flow Team Member Relationship Specialty Start Date End Date Reyes Stout MD [address] [address] PCP - General Family Medicine 12/17/22 Donna Kennedy PA [address] [facility] [place] [address] PCP - Medical [place] [employer] 01/10/24 08/10/99 documented as of this encounter
--- OUTSIDE RECORDS SUMMARY | 2024-12-28 09:30 | XMS_ITS ---
Author Name Auto Generated Organization OHIP Support Name Relationship Address Phone AL MARSHALLNY Next of Kin Unknown + CHUY MCCLURE Next of Kin [address] [place] [address] + ROLANDO, JAYDON Next of Kin Unknown + CHUY MCCLURE Next of Kin [address] [place] [address] + ROLANDO, JAYDON Next of Kin Unknown + CHUY MCCLURE Next of Kin [address] [place] [address] + ROLANDO, JAYDON Next of Kin Unknown + CHUY MCCLURE Next of Kin [address] [place] [address] + LAIRD, JAYDON Next of Kin Unknown + BISI MCCLURENDAN Next of Kin [address] [place] [address] + LAIBONIFACIO, JAYDON Next of Kin Unknown + REN CHUY Next of Kin [address] [place] [address] + LAIRD, JAYDON Next of Kin Unknown + REN CHUY Next of Kin [address] [place] [address] + LAIRD, JAYDON Next of Kin Unknown + REN, CHUY Next of Kin [address] [place] [address] + KARENARD, JAYDON Next of Kin Unknown + REN, CHUY Next of Kin [address] [place] [address] + LAIRD, JAYDON Next of Kin Unknown + REN, CHUY Next of Kin [address] [place] [address] + LAIRD, JAYDON Next of Kin Unknown + REN, CHUY Next of Kin [address] [place] [address] + LAIRD, JAYDON Next of Kin Unknown + REN, CHUY Next of Kin [address] [place] [address] + LAIRD, JAYDON Next of Kin Unknown + REN, CHUY Next of Kin [address] [place] [address] + LAIRD, JAYDON Next of Kin Unknown + REN, CHUY Next of Kin [address] [place] [address] + LAIRD, JAYDON Next of Kin Unknown + REN, CHUY Next of Kin [address] [place] [address] + LAIRD, JAYDON Next of Kin Unknown + REN, CHUY Next of Kin [address] [place] [address] + LAIRD, JAYDON Next of Kin Unknown + REN, CHUY Next of Kin [address] [place] [address] + Care Team Providers Care Direct Support Worker Name Role Phone ALEX PEGUERO Attending Unavailable ARLETTE GOLD Attending Unavailable ARLETTE GOLD Attending Unavailable RHEA CRUZ Referring Unavailable ARLETTE GOLD Attending Unavailable ARLETTE GOLD Attending Unavailable ARLETTE GOLD Attending Unavailable ARLETTE GOLD Attending Unavailable RHEA CRUZ Attending Unavailable ARLETTE GOLD Attending Unavailable RHEA CRUZ Attending Unavailable ARLETTE GOLD Attending Unavailable ALEX PEGUERO Attending Unavailable ARLETTE GOLD Attending Unavailable PROBLEMS No Problem Records Found PROCEDURES No Procedure Records Found RESULTS US OB FOLLOW UP TRANSABDOMINAL APPROACH Observed: 10/27/2024 11:25 AM Status: F Source: [facility] EP[facility] Order Comment: US OB SCAN FO R GROWTH Estimated Date of Delivery: 12/25/24 Gestational Age as of 10/25/2024: 31w2d EXAM: US OB FOLLOW UP TRANSA BDOMINAL APPROACH HISTORY: Inconsistent size. COMPARISON: Ob ultrasound [...] II, MD, PHD at 28-Oct-2024 08:46:48 AM [facility] US OB LIMITED 1+ FETUSES Observed: 09/22 1:53 PM Status: F Source: [facility] EPIC Order Comment: US OB INCOMPL ETE ANATOMY Estimated Date of Delivery: 12/25/24 Gestational Age as of 08/24/2024: 22w3d EXAM: US OB LIMITED 1+ FETUS ES HISTORY: Follow up anatomy. COMPARISON: OB ultrasound [...] II, MD, PHD at 24-Sep-2024 08:39:21 AM [facility] US OB 14+ WEEKS ANATOMY SCAN Observed: 0 08/18/2024 8:25 AM Status: F Source: [facility] EPIC Order Comment: US OB ANATOMY SINGLE W US OB CERVICAL LENGTH Estimated Date of Delivery: 12/25/24 Gestational Age as of 07/22/2024: 21w2d TITLE OF EXAM: OB Ultrasound : REASON FOR EXAM: Anatomy. COMPARISON: None. TECHNIQUE: [...] Visualized structures are unremarkable. Dictated and transcribed 08/18/24/mona This report has been electronically signed and approved by the interpreting radiologist. ALLERGIES No Allergies Records Found ENCOUNTERS ADMIT/DISCHARGE ACCOUNT NUMBER ADMITTING ENCOUNTER CLASS LOCATION SOURCE 12/28/2024/ 5 [id number] Ambulatory Building:[facility] EPIC 12/22/2024/ 5 [id number] Ambulatory Building:[facility] EPIC 12/16/2024/ 5 [id number] Ambulatory Building:[facility] EP[facility] 12/07/2024/ 5 [id number] Ambulatory Building:[facility] EPIC 11/29/2024/ 5 [id number] Ambulatory Building:[facility] 11/23/2024/ 5 [id number] Ambulatory Building:[facility] 11/09/2024/ 5 [id number] Ambulatory Building:[facility] 10/27/2024/ 5 [id number] Ambulatory Building:[facility] EPIC 10/25/2024/ 5 [id number] Ambulatory Building:[facility] 10/06/2024/ 5 [id number] Ambulatory Building:[facility] 09/22/2024/ 5 [id number] Ambulatory Building:[facility] EPIC 09/21/2024/ 5 [id number] Ambulatory Building:[facility] EPIC 08/24/2024/ 5 [id number] Ambulatory Building:[facility] EP[facility] 08/18/2024/ 5 [id number] Ambulatory Building:[facility] EPIC 07/22/2024/ 4 [id number] Ambulatory Building:[facility] EPIC 06/21/2024/ 4 [id number] Ambulatory Building:[facility] EPIC 05/20/2024/ [id number] Ambulatory Building:[facility] EPIC PAYERS ENCOUNTER GUARANTOR PAYER SUBSCRIBER SOURCE 12/28/2024 AUTUMN [facility]IB[facility] [place] [address]Qvf: (HP) Primary Insurance:MEDICAL MUTUALPolicy Number: [id number] e Date:2023-07-10 AUTUMN SUSIB: [id number] [place] [address] [facility] EPIC 12/22/2024 AUTUMN GOLDMANB: [place] [address]Aab: (HP) Primary Insurance:MEDICAL MUTUALPolicy Number: [id number] e Date:2023-07-10 AUTUMN GOLDMANB: [id number] [place] [address] [facility] EPIC 12/16/2024 AUTUMN GOLDMANB: [place] [address]Ynx: (HP) Primary Insurance:MEDICAL MUTUALPolicy Number: [id number] e Date:2023-07-10 AUTUMN GOLDMANB: [id number] [place] [address] [facility] EPIC 12/07/2024 AUTUMN GOLDMANB: [place] [address]Bau: (HP) Primary Insurance:MEDICAL MUTUALPolicy Number: [id number] e Date:2023-07-10 AUTUMN GOLDMANB: [id number] [place] [address] [facility] EPIC 11/29/2024 AUTUMN HENRY: [place] [address]Bao: (HP) Primary Insurance:MEDICAL MUTUALPolicy Number: [id number] e Date:2023-07-10 AUTUMN HILLANTONIODOB: [id number] [facility] [facility] EPIC 11/23/2024 AUTUMN HILLANTONIODOB: [place] [id number]: (HP) Primary Insurance:MEDICAL MUTUALPolicy Number: [id number] e Date:2023-07-10 AUTUMN HILLJAIRONB: [id number] [place] [id number] [facility] EPIC 11/09/2024 AUTUMN HILLJAIRONB: [place] [address]Tel: (HP) Primary Insurance:MEDICAL MUTUALPolicy Number: [id number] e Date:2023-07-10 AUTUMN HILLANTONIODOB: [id number] [place] [id number] [facility] EPIC 10/27/2024 AUTUMN HILLANTONIODOB: [place] [id number]: (HP) Primary Insurance:MEDICAL MUTUALPolicy Number: [id number] e Date:2023-07-10 AUTUMN HILLANTONIODOB: [id number] [place] [address] [facility] EPIC 10/25/2024 AUTUMN HILLANTONIODOB: [place] [address]Pdd: (HP) Primary Insurance:MEDICAL MUTUALPolicy Number: [id number] e Date:2023-07-10 AUTUMN RENDOB: [id number] [place] [place] [address] [facility] EPIC 10/06/2024 AUTUMN LIZBBDOB: [place] [address]Prz: (HP) Primary Insurance:MEDICAL MUTUALPolicy Number: [id number] e Date:2023-07-10 AUTUMN RENDOB: [id number] [place] [address] [facility] EPIC 09/22/2024 AUTUMN RENDOB: [place] [address]Njq: (HP) Primary Insurance:MEDICAL MUTUALPolicy Number: [id number] e Date:2023-07-10 AUTUMN RENDOB: [id number] [place] [address] [facility] EPIC 09/21/2024 AUTUMN RENDOB: [place] [address]Esa: (HP) Primary Insurance:MEDICAL MUTUALPolicy Number: [id number] e Date:2023-07-10 AUTUMN RENDOB: [id number] [facility] [place] [address] [facility] EPIC 08/24/2024 AUTUMN LIZBBDOB: [place] [address]Slg: (HP) Primary Insurance:MEDICAL MUTUALPolicy Number: [id number] e Date:2023-07-10 AUTUMN ILZBBDOB: [id number] [place] [address] [facility] EPIC 08/18/2024 AUTUMN RENDOB: [place] [address]Efl: (HP) Primary Insurance:MEDICAL MUTUALPolicy Number: [id number] e Date:2023-07-10 AUTUMN SUSIB: [id number] [place] [address] [facility] EPIC 07/22/2024 AUTUMN SUSIB: [place] [address]Iac: (HP) Primary Insurance:MEDICAL MUTUALPolicy Number: [id number] e Date:2023-07-10 AUTUMN SUSIB: [id number] [place] [phone] [facility] EPIC 06/21/2024 AUTUMN SUSIB: [place] [address]Tel: () Primary Insurance:MEDICAL MUTUALPolicy Number: [id number] e Date:2023-07-10 AUTUMN SUSIB: [id number] [place] [address] [facility] EPIC 05/20/2024 AUTUMN SUSIB: [place] [address]Dce: () Primary Insurance:MEDICAL MUTUALPolicy Number: [id number] e Date:2023-07-10 AUTUMN SUSIB: [id number] [place] [address] [facility] EPIC
--- OUTSIDE RECORDS SUMMARY | 2024-12-28 09:30 | XMS_ITS | Encounter Summary ---
Author Organization [facility] Address [address] [place] [address] Care Team Providers Care Sheet Manager Name Role Phone Reyes Stout MD Primary Care Provider + [phone] Donna Kennedy Unavailable Reason for Visit * Reason Comments Routine Visit Encounter Details Date Type Department Care Team (Late st Contact Info) Description 12/28/2024 9:30 AM EDT Routine [facility] [address] [id number] Teo Stacy, DO [address] Nuria [place], [facility]11 Third trimester ; 40 weeks gestation of Social History Tobacco Use Types Packs/Day Years [...] Job Start Date Job End Date 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 She is well-developed. Genitourinary: Vulva normal. Cardiovascular: Rate and Rhythm: Normal rate and [...] nursing note reviewed. Exam conducted with a risk analyst present. Vitals: Estimated body mass index is 33.12 kg/m?? as calculated from the following: Height as of 23: 5' 5 . Weight as of this encounter: 199 lb. BP: 110/72 Patient's last menstrual period was 03/20/2024. ASSESSMENT & PLAN ICD-10-CM 1. Third trimester Z34.93 2. 40 weeks gestation of Z3A.40 Return OB: Patient presents today for a routine obstetrics appointment. Patient is currently 40w3d . Patient states she is doing well but has complaints of being tired due to current . Patient has verbalizes frequent movement. labor precautions was discussed/given and patient was instructed to perform kick counts three times a day. IOL signed- cytotec at 2030- get to fbcat 1830 No orders of the defined types were placed in this encounter. Follow Up: Patient is to return to office in 1 week for routine OB appointment. Documented by Caroline Rey LPN on behalf of: Teo Stacy DO documented in this encounter Plan of Treatment Not on file documented as of this encounter Visit Diagnoses Diagnosis Third trimester state, incidental 40 weeks gestation of documented in this encounter Care Teams Sheet Manager Relationship Specialty Start Date End Date Reyes Stout MD [address] [place] [address] PCP - General Family Medicine 12/17/22 Donna Kennedy PA [address] [place] [address] PCP - Medical [place] [employer] 01/10/24 08/10/99 documented as of this encounter
--- OUTSIDE RECORDS SUMMARY | 2025-01-03 11:11 | XMS_ITS | Encounter Summary ---
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 [address] [place] [address] PCP - Medical [place] [employer] 01/10/24 08/10/99 documented as of this encounter
--- OUTSIDE RECORDS SUMMARY | 2025-01-03 11:11 | XMS_ITS | Encounter Summary ---
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 Not on file Not o n file Not on file documented as of this encounter Plan of Treatment Not on file documented as of this encounter Procedures Procedure Name Priority Date/Time Associated Diagnosis Comments US OB TRANSVAGINAL 05/21/2024 4: 09 AM EDT documented in this encounter Results * US OB TRANSVAGINAL (05/21/2024 4:09 AM EDT) Anatomical Region Laterality Modality Other 05/21/2024 4:09 AM EDT Narrative 05/21/2024 4:12 [place] [address] Ultrasound Report Signed Patient: Autumn MCCLURE MR#: [id number] : 1995 Acct:[id number] Age/Sex: 29 / F ADM Date: 05/20/24 Loc: [facility] Attending Dr: Arlette Stacy D.O. Ordering Physician: Arlette Stacy D.O. Date of Service: 05/20/24 Procedure(s): US OB transvaginal Accession Number(s): [id number] cc: Arlette Stacy D.O.; REYES SEXTON [place] [id number] Patient Name: AUTUMN MCCLURE MRN: [id number] date: 1995 Sex: F Assigned Patient Location: [facility] Current Patient Location: Accession/Order Number: [id number] Exam Date: 05/20/2024 13:32 Report Date: 05/21/2024 04:09 At the request of: ARLETTE STACY Procedure: US OB transvaginal EXAMINATION: US OB transvaginal HISTORY: MISSED MENSES COMPARISON: No relevant comparison available. FINDINGS: GESTATIONAL SAC: Present and normal appearing. YOLK SAC: Present and normal appearing. POLE: Present and normal appearing. CARDIAC: Present. UTERUS: Normal size and appearance. OVARIES: Right: Normal. Left: Not seen. CERVIX: 5.1 cm in length and closed. CUL-DE-SAC: Normal. OTHER: None. AGE BY LMP: 8 weeks 5 days EMANUEL BY LMP: 12/25/2024 AGE BY US CRL: 8 weeks 5 days EMANUEL BY US CRL: 12/25/2024 US/US OB transvaginal IMPRESSION: 1. Single live intrauterine . Electronically authenticated by: RENZO IBARRA Date: 05/21/2024 04:09 Dictated By: Renzo Ibarra M.D. Signed By: 05/21/242 DD/ 8 TD/TT: Shoe Coverer: Procedure Note Radiology, Radiologist, - 05/21/2024 [place] [address] Ultrasound Report Signed Patient: Autumn MCCLURE AMR#: [id number] : 1995Acct:[id number] Age/Sex: 29 / FADM Date: 05/20/24 Loc: [facility] Attending Dr: Arlette Stacy D.O. Ordering Physician: Arlette Stacy D.O. Date of Service: 05/20/24 Procedure(s): US OB transvaginal Accession Number(s): [id number] cc: Arlette Stacy D.O.; REYES SEXTON [place] [address] Patient Name: AUTUMN MCCLURE MRN: [id number] date: 1995 Sex: F Assigned Patient Location: [facility] Current Patient Location: Accession/Order Number: [id number] Exam Date: 05/20/2024 13:32 Report Date: 05/21/2024 04:09 At the request of: ARLETTE STACY Procedure: US OB transvaginal EXAMINATION: US OB transvaginal HISTORY: MISSED MENSES COMPARISON: No relevant comparison available. FINDINGS: GESTATIONAL SAC: Present and normal appearing. YOLK SAC: Present and normal appearing. POLE: Present and normal appearing. CARDIAC: Present. UTERUS: Normal size and appearance. OVARIES: Right: Normal. Left: Not seen. CERVIX: 5.1 cm in length and closed. CUL-DE-SAC: Normal. OTHER: None. AGE BY LMP: 8 weeks 5 days EMANUEL BY LMP: 12/25/2024 AGE BY US CRL: 8 weeks 5 days EMANUEL BY US CRL: 12/25/2024 US/US OB transvaginal IMPRESSION: 1. Single live intrauterine . Electronically authenticated by: RENZO IBARRA Date: 05/21/2024 04:09 Dictated By: Renzo Ibarra M.D. Signed By:05/21/24411 DD/ 8 TD/TT: Shoe Coverer: us Arlette Tawanna DO [facility] Final Result documented in this encounter Visit Diagnoses Not on filedocumented in this encounter Care Teams Wireless Sales Representative Relationship Specialty Start Date End Date Reyes Sexton MD 112 [facility] 100 [place] [address] PCP - General Family Medicine 12/17/22 Donna Kennedy PA [address] [facility] [place] [address] PCP - Medical [place] Commercial 01/10/24 08/10/99 documented as of this encounter
--- OUTSIDE RECORDS SUMMARY | 2025-01-03 11:11 | XMS_ITS | Encounter Summary ---
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
--- OUTSIDE RECORDS SUMMARY | 2025-01-03 11:11 | XMS_ITS | Encounter Summary ---
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
--- OUTSIDE RECORDS SUMMARY | 2025-01-03 11:11 | XMS_ITS | Encounter Summary ---
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
--- OUTSIDE RECORDS SUMMARY | 2025-01-03 11:12 | XMS_ITS | Encounter Summary ---
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 Not on file Not o n file Not on file documented as of this encounter Plan of Treatment Not on file documented as of this encounter Procedures Procedure Name Priority Date/Time Associated Diagnosis Comments ALL CBC WITH AUTO DIFF Routine 12/30/2024 6:26 AM EDT documented in this encounter Results * (ABNORMAL) ALL CBC WITH AUTO DIFF (12/30/2024 6:26 AM EDT) [facility] WBC 15.2(H) 4.0 - 11.0 10 3/uL TBH TBH RBC 2.95(L) 4.20 - 5.40 10 6/uL TBH TBH HGB 8.9(L) 12.0 - 16.0 g/dL TBH TBH HCT 26.4(L) 36.0 - 48.0 % TBH TBH MCV 89.5 81.0 - 99.0 fL TBH TBH MCH 30.2 26.7 - 34.0 pg TBH TBH MCHC 33.7 29.9 - 35.2 g/dL TBH TBH RDW 14.6 11.0 - 15.0 % TBH TBH PLT 169 150 - 450 10 3/uL TBH TBH MPV 11.3 9.5 - 13.5 fL TBH NEUTROPHILS PERCENT AUTO 86.7(H) 43.0 - 75.0 % TBH LYMPHOCYTES PERCENT AUTO 8.0(L) 20.5 - 60.0 % TBH MONOCYTES PERCENT AUTO 4.7 1.7 - 12.0 % TBH TBH EO % 0.0(L) 0.9 - 7.0 % TBH BASOPHILS PERCENT AUTO 0.1(L) 0.2 - 2.0 % TBH IMMATURE GRANULOCYTES PCT AUTO 0.5 0.0 - 0.5 % TBH NEUTROPHILS ABSOLUTE AUTO 13.2(H) 1.4 - 6.5 10 3/uL TBH LYMPHOCYTES ABSOLUTE AUTO 1.2 1.2 - 3.8 10 3/uL TBH MONOCYTES ABSOLUTE AUTO 0.7 0.3 - 0.8 10 3/uL TBH TBH EO # 0.0 0.0 - 0.7 10 3/uL TBH BASOPHILS ABSOLUTE AUTO 0.0 0.0 - 0.1 10 3/uL TBH IMMATURE GRANULOCYTES ABS AUTO 0.08(H) 0.00 - 0.03 10 3/uL TBH 12/30/2024 6:26 AM EDT 12/30/2024 6:30 AM EDT Narrative [facility] - 12/30/2024 6:38 AM EDT Teo Tawanna DO [facility] Final Result [facility] documented in this encounter Visit Diagnoses Not on filedocumented in this encounter Care Teams Transportation Museum Helper Relationship Specialty Start Date End Date Reyes Stout MD [address] [place] [address] PCP - General Family Medicine 12/17/22 Donna Kennedy PA [address] [facility] [place] [address] PCP - Medical [place] Commercial 01/10/24 08/10/99 documented as of this encounter
--- OUTSIDE RECORDS SUMMARY | 2025-01-03 11:12 | XMS_ITS | Encounter Summary ---
Author Organization [facility] Address [address] [place] [address] Care Team Providers Care Electrical Instrument Technician Name Role Phone Reyes Stout MD Primary Care Provider + [phone] Donna Kennedy Unavailable Encounter Details Date Type Department Care Team (Late st Contact Info) Description 08/06/2024 Orders Only [facility] OB [address] [facility] [place] [id number] Brandy Ruiz MA [address] [facility] 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 Not on file Not o n file Not on file documented as of this encounter Plan of Treatment Not on file documented as of this encounter Procedures Procedure Name Priority Date/Time Associated Diagnosis Comments PAP SMEAR Routine 07/22/2024 12:00 AM EST documented in this encounter Results * Pap Smear (07/22/2024 12:00 AM EST) Swab Cervical swab / Unknown Donna [facility] ORDERABLES Final Re sult EXTERNAL LAB documented in this encounter Visit Diagnoses Not on filedocumented in this encounter Care Teams Electrical Instrument Technician Relationship Specialty Start Date End Date Reyes Stout MD 112 [facility] 100 [place] [address] PCP - General Family Medicine 12/17/22 Donna Kennedy PA [address] [facility] [place] [address] PCP - Medical [place] Commercial 01/10/24 08/10/99 documented as of this encounter
--- OUTSIDE RECORDS SUMMARY | 2025-01-03 11:12 | XMS_ITS | Encounter Summary ---
Author Organization [facility] Address [address] [place] [address] Care Team Providers Care Loaf Counter Name Role Phone Reyes Stout MD Primary Care Provider + [phone] Donna Kennedy Unavailable Encounter Details Date Type Department Care Team (Late st Contact Info) Description 12/28/2024 Clinisync Result Encounter [facility] External Department Unsolicited Teo Stacy, DO [address] 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 Not on file Not o n file Not on file documented as of this encounter Plan of Treatment Not on file documented as of this encounter Procedures Procedure Name Priority Date/Time Associated Diagnosis Comments HP CBC WITH PLATELET NO DIFFERENTIAL Routine 12/28/2024 7:25 PM EDT TB DRUG SCREEN RAPID (URINE) Routine 12/28/2024 6:50 PM EDT documented in this encounter Results * (ABNORMAL) [facility] CBC WITH PLATELET NO DIFFERENTIAL (12/28/2024 7:25 PM EDT) TB WBC 7.1 4.0 - 11.0 10 3/uL TBH TBH RBC 3.60(L) 4.20 - 5.40 10 6/uL TBH TBH HGB 10.9(L) 12.0 - 16.0 g/dL TBH TBH HCT 31.3(L) 36.0 - 48.0 % TBH TBH MCV 86.9 81.0 - 99.0 fL TBH TBH MCH 30.3 26.7 - 34.0 pg TBH TBH MCHC 34.8 29.9 - 35.2 g/dL TBH TBH RDW 14.1 11.0 - 15.0 % TBH TBH PLT 167 150 - 450 10 3/uL TBH TBH MPV 11.2 9.5 - 13.5 fL TBH 12/28/2024 7:25 PM EDT 12/28/2024 8:04 PM EDT Narrative [facility] - 12/28/2024 8:08 PM EDT us Teo Tawanna DO [facility] TB DRUG SCREEN RAPID (URINE) (12/28/2024 6:50 PM EDT) CANNABINOID SCREEN URINE NEGATIVE NEGATIVE TBH PHENCYCLIDINE SCREEN URINE NEGATIVE NEGATIVE TBH COCAINE SCREEN URINE NEGATIVE NEGATIVE TBH METHAMPHETAMINES SCREEN URINE NEGATIVE NEGATIVE TBH OPIATE SCREEN URINE NEGATIVE NEGATIVE TBH AMPHETAMINE SCREEN URINE NEGATIVE NEGATIVE TBH BENZODIAZEPINES SCREEN URINE NEGATIVE NEGATIVE TBH TRICYCLIC ANTIDEPRESSANT URINE NEGATIVE NEGATIVE TBH METHADONE SCREEN URINE NEGATIVE NEGATIVE TBH BARBITURATES SCREEN URINE NEGATIVE NEGATIVE TBH OXYCODONE SCREEN URINE NEGATIVE NEGATIVE TBH BUPRENORPHINE SCREEN URINE NEGATIVE NEGATIVE TBH Comment: DRUG CLASS TEST SYSTEM CUT-OFF CONCENTRATIONS ARE FOLLOWS: AMP (Amphetamine): 500 ng/mL BAR (Barbiturates): 200 ng/mL BZO (Benzodiazepines): 150 ng/mL BUP (Buprenorphine): 10 ng/mL MASON (Cocaine): 150 ng/mL mAMP (Methamphetamine): 500 ng/mL MTD (Methadone): 200 ng/mL OPI (Opiates): 100 ng/mL OXY (Oxycodone): 100 ng/mL PCP (Phencyclidine): 25 ng/mL THC (Cannabinoids): 50 ng/mL TCA (Trycyclic Antidepressants): 300 ng/mL 12/28/2024 6:50 PM EDT 12/28/2024 7:26 PM EDT Narrative CLIN[facility] - 12/28/2024 7:44 PM EDT us Teo Tawanna DO CLIN[facility] Final Result [facility] documented in this encounter Visit Diagnoses Not on filedocumented in this encounter Care Teams Loaf Counter Relationship Specialty Start Date End Date Reyes Stout MD 112 [facility] 100 [place] [address] PCP - General Family Medicine 12/17/22 Donna Kennedy PA [address] [place] [address] [place] [address] PCP - Medical [place] [employer] 01/10/24 08/10/99 documented as of this encounter
--- OUTSIDE RECORDS SUMMARY | 2025-01-03 11:12 | XMS_ITS | Encounter Summary ---
Author Organization [facility] Address [address] [place] [address] Care Team Providers Care Motion Picture Projectionist Apprentice Name Role Phone Reyes Stout MD Primary Care Provider + [phone] Donna Kennedy Unavailable Encounter Details Date Type Department Care Team (Late st Contact Info) Description 12/22/2024 [employer] flowsheet [facility] B[facility] OB [address] [facility] [place] [address] Sofie Ramos, DIRECTOR PRODUCT DEVELOPMENT [address] [facility] [place] [address] Social History Tobacco Use Types Packs/Day Years [...] Job Start Date Job End Date 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
--- OUTSIDE RECORDS SUMMARY | 2025-01-03 11:12 | XMS_ITS | Encounter Summary ---
Author Organization [facility] Address [address] [place] [address] Care Team Providers Care Physical Therapy Nurse Name Role Phone Reyes Stout MD Primary Care Provider + [phone] Donna Kennedy Unavailable Encounter Details Date Type Department Care Team (Late st Contact Info) Description 05/25/2023 Abstract [facility] [address] [place] [address] Reyes Stout MD [address] [place] [address] [address] [place] [address] Social History Tobacco Use Types Packs/Day Years Used Date Smoking Tobacco: Never Smokeless Tobacco: Never Tobacco Cessation:Counseling Given: Not Answered Alcohol Use Standard Drinks/Week Comments Yes 2 (1 standard drink = 0.6 oz pure alcohol) Caffeine intake: 1-2 cups per day coffee Comments Unknown Sex and Gender Information Value Date Recorded Sex Assigned at Not on file Legal Sex Female 7:22 PM EDT Gender Identity Not on file Sexual Orientation Not on file Occupation Industry Job Start Date Job End Date 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
--- OUTSIDE RECORDS SUMMARY | 2025-01-03 11:12 | XMS_ITS | Encounter Summary ---
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
--- OUTSIDE RECORDS SUMMARY | 2025-01-03 11:12 | XMS_ITS | Encounter Summary ---
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 Not on file Not o n file Not on file documented as of this encounter Plan of Treatment Not on file documented as of this encounter Procedures Procedure Name Priority Date/Time Associated Diagnosis Comments US OB GROWTH 12/20/2024 9:36 AM EDT documented in this encounter Results * US OB GROWTH (12/20/2024 9:36 AM EDT) Anatomical Region Laterality Modality Other 12/20/2024 9:36 AM EDT Narrative 12/20/2024 9:39 [place] [address] Ultrasound Report Signed Patient: AUTUMN MCCLURE MR#: [id number] : 1995 Acct:[id number] Age/Sex: 29 / F ADM Date: 12/17/24 Loc: US Attending Dr: Teo Stacy D.O. Ordering Physician: Teo Stacy D.O. Date of Service: 12/17/24 Procedure(s): US OB growth Accession Number(s): [id number] cc: Teo Stacy D.O.; REYES [place] [address] Patient Name: AUTUMN MCCLURE MRN: [id number] date: 1995 Sex: F Assigned Patient Location: US Current Patient Location: Accession/Order Number: [id number] Exam Date: 12/20/2024 09:29 Report Date: 12/20/2024 09:36 At the request of: TEO STACY DO Procedure: US OB growth ULTRASOUND [...] Chambers M.D. 12/20/2024 9:36 AM Dictation Location: [place] [address] Electronically authenticated by: [id number] Y Date: 12/20/2024 09:36 Dictated By: Caroline Chambers M.D. Signed By: 12/20/2439 DD/ 5 TD/TT: Chief Of [employer]: Procedure Note Radiology, Radiologist, MD - 12/20/2024 [place] [address] Ultrasound Report Signed Patient: AUTUMN MCCLURE AMR#: [id number] : 1995Acct:[id number] Age/Sex: 29 / FADM Date: 12/17/24 Loc: US Attending Dr: Teo Stacy D.O. Ordering Physician: Teo Stacy D.O. Date of Service: 12/17/24 Procedure(s): US OB growth Accession Number(s): [id number] cc: Teo Stacy D.O.; REYES [place] [address] Patient Name: AUTUMN MCCLURE MRN: [id number] date: 1995 Sex: F Assigned Patient Location: Current Patient Location: Accession/Order Number: [id number] Exam Date: 12/20/2024 09:29 Report Date: 12/20/2024 09:36 At the request of: TEO STACY DO Procedure: US OB growth ULTRASOUND OB GROWTH COMPARISON: 05/20/2024 CLINICAL DATA: Large for gestational age There is a single live intrauterine gestation in cephalic presentation.There is cardiac and somatic activity with heart rate of 141 bpm. The amniotic fluid index measures 16.1 cm which is in upper normal range.There is a potential nuchal cord. The following measurements were obtained: Biparietal diameter 9.5 cm 38 weeks 5 days 77% Head circumference 34.1 cm 39 weeks 2 days 47% Abdominal circumference 35.2 cm 39 weeks 0 days 76% Femur length 7.4 cm 38 weeks 0 days 36% The composite ultrasound age based on these measurements is 38 weeks 5days +/- 2 weeks 5 days. The estimated weight is 7 lbs. 15 oz. +/- 1 lb.13 oz. (68%). US/US OB growth IMPRESSION: SINGLE LIVE INTRAUTERINE GESTATION WITH ULTRASOUND AGE OF 38 WEEKS 5 DAYS POSSIBLE NUCHAL CORD. Impression dictated by: Caroline Chambers M.D. 12/20/2024 9:36 AM Dictation Location: [place] [address] Electronically authenticated by: [id number] Y Date: 9:36 Dictated By: Caroline Chambers M.D. Signed By:12/20/2439 DD/ 5 TD/TT: Chief Of [employer]: us Generic External Data Provider [facility] Final Result documented in this encounter Visit Diagnoses Not on filedocumented in this encounter Care Teams Php Magento Developer Relationship Specialty Start Date End Date Reyes Sexton MD [address] [address] PCP - General Family Medicine 12/17/22 Donna Kennedy PA [address] [place] [address] [place] [address] PCP - Medical [place] [employer] 01/10/24 08/10/99 documented as of this encounter
--- OUTSIDE RECORDS SUMMARY | 2025-01-03 11:12 | XMS_ITS | Encounter Summary ---
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
--- OUTSIDE RECORDS SUMMARY | 2025-01-03 11:12 | XMS_ITS | Encounter Summary ---
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 [address] [place], [facility] PCP - Medical [place] [employer] 01/10/24 08/10/99 documented as of this encounter
--- OUTSIDE RECORDS SUMMARY | 2025-01-03 11:12 | XMS_ITS | Clinical Summary ---
Author Organization [facility] Address [address] [place] [address] Care Team Providers Care Geothermal Technician Name Role Phone Reyes Sexton MD Primary Care Provider + [phone] Donna Kennedy Unavailable Allergies No known active allergies Medications MV-Min-Fe Fum-FA-DHA ( 1 PO) Take 1 tablet by mouth Daily Active iron polysaccharides (ProFe) 391.3 (180 Fe) MG capsuleIndications: 37 weeks gestation of ,Third trimester ,Anemia during in third trimester Take 1 capsule (391.3 mg) by mouth Daily 30 capsule 3 5 Active iron polysaccharides (ProFe) 391.3 (180 Fe) MG capsule Take 391.3 mg by mouth Daily 025 Discontin ued(Reord er) Active Problems Problem Noted Date Diagnosed Date Stage 2 chronic kidney disease 08/06/2023 Chronic fatigue 08/06/2023 ADD (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 hyperac tivity 04/09/2023 Chronic constipation 04/09/2023 Chronic eustachian salpingitis of both ears 03/13 Dysmenorrhea 04/09/2023 Heart murmur 04/09/2023 Estimated Date of Delivery Comme nts Yes 12/25/2024 Based on last me nstrual period of 03/20/2024 Encounters Date Type Department Care Team Description 12/30/2024 Clinisync Result Encounter [facility] External Department Unsolicited Arlette Stacy, DO 12/28/2024 9:30 AM EDT Routine [facility] [address] [place] [address] [place] [address] Arlette Stacy, Third trimester ; 40 weeks gestation of 12/28/2024 Clinisync Result Encounter [facility] External Department Unsolicited Arlette Stacy, DO 12/28/2024 Abstract [facility] [address] [facility] [place] [address] Arlette Stcay, DO 12/28/2024 Bamboo flowsheet [facility] [address] [facility] [place] [address] Arlette Stacy, DO 12/22/2024 9:20 AM EDT Routine [facility] [address] [facility] [place] [address] Sofie Ramos, SHAAN Third trimester ; 39 weeks gestation of ; Post term over 40 weeks 12/22/2024 Bamboo flowsheet [facility] [address] [facility] [place] [address] Sofie Ramos, SHAAN 12/20/2024 Clinisync Result Encounter [facility] External Department Unsolicited Provider, Generic External Data 12/16/2024 9:50 AM EDT Routine [facility] [address] [facility] [place] [place] [address] Arlette Stacy, DO 38 weeks gestation of ; Third trimester ; Evaluate growth, large for dates, antepartum, unspecified trimester, other fetus 12/16/2024 Bamboo flowsheet [facility] [address] [facility] [place] [address] Arlette Stacy, DO 12/07/2024 8:50 AM EDT Routine [facility] [address] [facility] [place] [place] [address] Sofie Ramos, SHAAN 37 weeks gestation of ; Third trimester ; Anemia during in third trimester 12/07/2024 Bamboo flowsheet [facility] [address] [facility] [place] [address] Sofie Ramos NP 11/29/2024 9:10 AM EDT Routine [facility] [address] [facility] [place] [address] Arlette Stacy, Third trimester ; 36 weeks gestation of 11/29/2024 Clinisync Result Encounter [facility] External Department Unsolicited Provider, Generic External Data 11/29/2024 Bamboo flowsheet [facility] [address] [facility] [place] [address] Arlette Stacy, 11/23/2024 2:20 PM EDT Routine [facility] [address] [facility] [place] [address] Arlette Stacy, Third trimester ; 35 weeks gestation of 11/23/2024 Bamboo flowsheet [facility] [address] [facility] [place] [address] Arlette Stacy, 11/09/2024 9:50 AM EDT Routine [facility] [address] [facility] [place] [address] Arlette Stacy, 33 weeks gestation of ; Third trimester 11/09/2024 Bamboo flowsheet [facility] [address] [facility] [place] [address] Arlette Stacy, 10/27/2024 11:30 AM EDT Ancillary Procedure [facility] [address] [facility] [place] [address] size inconsistent with dates 10/25/2024 1:00 PM EDT Routine [facility] [address] [facility] [place] [address] Arlette Stacy, Third trimester ; 31 weeks gestation of ; size inconsistent with dates 10/25/2024 Bamboo flowsheet [facility] [address] [facility] [place] [address] Arlette Stacy, 10/14/2024 Clinisync Result Encounter [facility] External Department Unsolicited Arlette Stacy DO 10/11/2024 Telephone [facility] [address] [facility] [place] [address] Arlette Stacy DO 10/08/2024 Clinisync Result Encounter [facility] External Department Unsolicited Provider, Generic External Data 10/06/2024 3:10 PM EST Routine [facility] [address] [place] [address] Arlette Stacy, Third trimester ; 28 weeks gestation of 10/06/2024 Bamboo flowsheet [facility] [address] [facility] [place] [address] Arlette Stacy, from Last 3 Months Immunizations Immunization Administration Dates Next Due DTaP 03/23/1999,03/02/1997,02/16/1996 DTaP / HiB / IPV 06/11/1995,1994 Hep B, Adolescent or Pediatric 06/11/1995,1994,1994 HiB, unspecified 1994 MMR 03/23/1999,02/16/1996 Meningococcal MCV4P 02/09/2013 OPV 03/23/1999,1994 Tdap 02/09/2013 Family History Medical History Relation Name Comments No Known Problems Brother Cancer Father Non hodgkins lymphoma Father Colon cancer Other mothers fam hx Relation Name Status Comments Brother 3 brothers Father Alive Mother Alive Other mothers fam hx Social History Tobacco Use Types Packs/Day Years Used Date Smoking Tobacco: Never Smokeless Tobacco: Never Tobacco Cessation:Counseling Given: Yes Alcohol Use Standard Drinks/Week Comments Yes 2 [...] Job Start Date Job End Date 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, 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 Not on file Not o n file Not on file Last Filed Vital Signs Vital Sign Reading Time Taken Comments Blood Pressure 110/72 12/28/2024 10:06 AM EDT Pulse - - Temperature - - Respiratory Rate - - Oxygen Saturation - - Inhaled Oxygen Concentration - - Weight 90.3 kg (199 lb) 12/28/2024 10:06 AM EDT Height 165.1 cm (5' 5 ) 07/10/2023 9:00 AM EST Body Mass Index 33.12 07/10/2023 9:00 AM EST Plan of Treatment Health Maintenance Due Date Last Done Comments HPV/Cotest 02/19/2024 Influenza Vaccine (Season Ended) 2025 Cervical Cancer Screening 07/22/2027 Pap Smear 07/22/2027 07/22/2024 Procedures Procedure Name Priority Date/Time Associated Diagnosis Comments ALL CBC WITH AUTO DIFF Routine 6:26 AM EDT [facility] CBC WITH PLATELET NO DIFFERENTIAL Routine 12/28/2024 7:25 PM EDT [facility] DRUG SCREEN RAPID (URINE) Routine 12/28/2024 6:50 PM EDT US OB GROWTH 12/20/2024 9:36 AM EDT POCT URINALYSIS DIPSTICK Routine 12/16/2024 10:26 AM EDT 38 weeks gestation of Third trimester POCT URINALYSIS DIPSTICK Routine 12/07/2024 8:54 AM EDT 37 weeks gestation of Third trimester POCT URINALYSIS DIPSTICK Routine 11/29/2024 9:23 AM EDT Third trimester STREP GP B CULTURE+RFLX Routine 11/29/2024 9:07 AM EDT POCT URINALYSIS DIPSTICK Routine 11/23/2024 2:34 PM EDT Third trimester POCT URINALYSIS DIPSTICK Routine 11/09/2024 10:16 AM EDT 33 weeks gestation of Third trimester US OB FOLLOW UP TRANSABDOMINAL APPROACH Routine 10/27/2024 11:50 AM EDT size inconsistent with dates GLUCOSE TOLERANCE 3 HOUR Routine 10/14/2024 8:05 AM EST GLUCOSE 1 HOUR Routine 10/08/2024 9:27 AM EST ALL CBC WITH AUTO DIFF Routine 9:27 AM EST PAP SMEAR Routine 07/22/2024 12:00 AM EST from Last 3 Months or Most Recently Relevant to Health Maintenance Results * (ABNORMAL) ALL CBC WITH AUTO DIFF (12/30/2024 6:26 AM EDT) Only the most recent of2 resultswithin the time period is included. [facility] WBC 15.2(H) 4.0 - 11.0 10 [...] Narrative CLINISY[facility] - 12/30/2024 6:38 AM EDT us Arlette Tawanna DO CLINISYNC Final Result [facility] * (ABNORMAL) [facility] CBC WITH PLATELET NO DIFFERENTIAL (12/28/2024 7:25 [...] CLINISYNC - 12/28/2024 8:08 PM EDT us Arlette Tawanna DO CLINISYNC Final Result [facility] * [facility] DRUG SCREEN RAPID (URINE) (12/28/2024 6:50 PM EDT) Pathologist [facility] CANNABINOID SCREEN URINE NEGATIVE NEGATIVE [facility] PHENCYCLIDINE [...] CLINISYNC - 12/28/2024 7:44 PM EDT us Arlette Tawanna DO CLINISYNC Final Result [facility] * US OB GROWTH (12/20/2024 9:36 AM EDT) Anatomical Region Laterality Modality Other 12/20/2024 9:36 AM EDT Narrative 12/20/2024 9:39 [place] [address] Ultrasound Report Signed Patient: AUTUMN MCCLURE MR#: [id number] : 1995 Acct:[id number] Age/Sex: 29 / F ADM Date: 12/17/24 Loc: US Attending Dr: Arlette Stacy D.O. Ordering Physician: Arlette Stacy D.O. Date of Service: 12/17/24 Procedure(s): US OB growth Accession Number(s): [id number] cc: Arlette Stacy D.O.; REYES [place] [id number] Patient Name: AUTUMN MCCLURE MRN: [id number] date: 1995 Sex: F Assigned Patient Location: US Current Patient Location: Accession/Order Number: [id number] Exam Date: 12/20/2024 09:29 Report Date: 12/20/2024 [...] Chambers M.D. 12/20/2024 9:36 AM Dictation Location: [place] [address] Electronically authenticated by: [id number] Y Date: 12/20/2024 09:36 Dictated By: Caroline Chambers M.D. Signed By: 12/20/24938 DD/ 5 TD/TT: Safety Scientist: Procedure Note Radiology, Radiologist, - 12/20/2024 [place] [address] Ultrasound Report Signed Patient: AUTUMN MCCLURE AMR#: [id number] : 1995Acct:[id number] Age/Sex: 29 / FADM Date: 12/17/24 Loc: US Attending Dr: Arlette Stacy D.O. Ordering Physician: Arlette Stacy D.O. Date of Service: 12/17/24 Procedure(s): US OB growth Accession Number(s): [id number] cc: Arlette Stacy D.O.; [place] [address] Patient Name: AUTUMN MCCLURE MRN: [id number] date: 1995 Sex: F Assigned Patient Location: Current Patient Location: Accession/Order Number: [id number] Exam Date: 12/20/2024 09:29 Report Date: 12/20/2024 [...] Chabmers M.D. 12/20/2024 9:36 AM Dictation Location: [place] [address] Electronically authenticated by: [id number] Y Date: 9:36 Dictated By: Caroline Chambers M.D. Signed By:12/20/2439 DD/ 5 TD/TT: Safety Scientist: Generic External Data Provider [facility] IMAGING Final Result * (ABNORMAL) POCT urinalysis dipstick manually resulted (12/16/2024 10:26 AM EDT) Only the most recent of5 resultswithin the time period is included. Color, UA Yellow Clarity, UA Clear Glucose, UA Negative Negative - 2000(110) ++++ mg/dL Bilirubin, UA Negative Negative - 4(70) +++ mg/dL Ketones, UA Negative Negative - 160(16) ++++ mg/dL Spec Grav, UA 1.020 1 - 1.03 Blood, UA Negative Negative - 50 Shady/mcL pH, UA 8.5 5 - 9 Protein, UA Positive Negative - 2000(20) ++++ mg/dL Comment:30 Urobilinogen, UA 1.0 0.2 - 12 mg/dL Leukocytes, UA Positive Negative - 500+++ Kell/mcL Comment:small Nitrite, UA Negative Negative - Positive Urine 12/16/2024 10:2 6 AM EDT [facility] T[place]anna DO POINT OF CARE TEST ENTER/EDIT OR DERABLES Final Result * STREP GP B CULTURE+RFLX (11/29/2024 9:07 AM EDT) STREP GP B CULTURE+RFLX SEE SCANNED REPORT [facility] 11/29/2024 9:07 AM EDT 11/29/2024 12:08 PM EDT Narrative [facility] - 12/07/2024 4:26 PM EDT us Arlette Stacy DO LAB BLOOD ORDERABLES Final Resul t [facility] * US OB follow up transabdominal approach (10/27/2024 11:50 AM EDT) Anatomical Region Laterality Modality Body Ultrasound 10/28/2024 8:48 AM EDT Narrative 10/28/2024 8:48 AM EDT EXAM: US OB FOLLOW UP TRANSABDOMINAL APPROACH [...] II, MD, PHD at 28-Oct-2024 08:46:48 AM [facility] Procedure Note Curtis Ross MD - 10/28/2024 EXAM: US OB FOLLOW UP TRANSABDOMINAL APPROACH HISTORY: Inconsistent size. COMPARISON: Ob ultrasound 09/22/2024. TECHNIQUE: Two-dimensional transabdominal grayscale ultrasound imaging ofthe pelvis was performed. FINDINGS: Gestation: Single Presentation: Breech Cardiac Activity: 131 beats per minute Placental Location: Posterior with no sonographic abnormalitiesidentified. Cervical canal: Not visualized Amniotic Fluid Index: 9.3 cm MEASUREMENTS: BPD: 7.6 cm EGA: 30 weeks 2 days HC: 29.6 cm EGA: 32 weeks 5 days AC: 28.0 cm EGA: 32 weeks 0 days FL: 6.0 cm EGA: 31 weeks 2 days HC/AC Ratio: 1.06 The gestational age by today's ultrasound is 31 weeks 4 days (+/- 15 daysgestation). Estimated Weight: 1822 grams, +/- 273 grams ( 4 lb 0 oz). Weight Percentile for gestational age: 43 % IMPRESSION: 1. Single, live intrauterine gestation 31 weeks, 4 days by LMP. Today'sultrasound measurements correlate with a gestational age of 31 weeks 4days. Estimated weight is 1822 grams, +/- 273 grams ( 4 lb 0 oz)which correlates to 43 %. EMANUEL is 12/25/2024. Electronically Signed:Electronically signed by CURTIS ROSS II, MD, PHDat 28-Oct-2024 08:46:48 AM [facility] Sofie Rmaos DIRECTOR SUPPLY CHAIN IMG OB US PROCEDURES Final Re sult * GLUCOSE TOLERANCE 3 HOUR (10/14/2024 8:05 AM EST) GLUCOSE TOLERANCE 3 HOUR mg/dL TB Comment: GLU FAST 82 (<95) Col: 10/14/24 0805 GLU 1HR 157 (<180) Col: 10/14/24 0908 GLU 2HR 137 (<155) Col: 10/14/24 1008 GLU 3HR 111 (<140) Col: 10/14/24 1107 10/14/2024 8:05 AM EST 10/14/2024 8:09 AM EST Narrative [facility]IN[facility]NC - 10/14/2024 11:24 AM EST us Generic External Data Provider LAB BLOOD ORDERAB LES Final Result [facility] * (ABNORMAL) GLUCOSE 1 HOUR (10/08/2024 9:27 AM EST) GLUCOSE 1 HOUR 173(H) <130 mg/dL [facility] 10/08/2024 9:27 AM EST 10/08/2024 9:50 AM EST Narrative CLINISYNC - 10/08/2024 10:45 AM EST us Arlette Tawanna DO LAB BLOOD ORDERABLES Final Resul t CLINISYNC TB * Pap Smear (07/22/2024 12:00 AM EST) Swab Cervical swab / Unknown us Donna MADERA LAB CYTOLOGY ORDERABLES Final Re sult Performing Organization Address City/[facility]/ZIP Co de Phone Number EXTERNAL LAB from Last 3 Months or Most Recently Relevant to Health Maintenance Insurance [employer] Care Teams Geothermal Technician Relationship Specialty Start Date End Date Reyes Sexton MD [address] [address] PCP - General Family Medicine 12/17/22 Donna Kennedy PA [address] [place] [address] (work) PCP - Medical [employer] 01/10/24 08/10/99
[2025-01-03 13:00] VITALS: BP 108/69; PULSE 90; TEMP 36.8
== END 2025-01-03 14:00 | disposition home or self-care (01) ==
LOC: FBCO 11:10
PROVIDERS: PCP Family Medicine; Visit Provider Obstetrics & Gynecology
DX: Z39.1 Encounter for care and examination of lactating mother (principal)

== ENCOUNTER 2025-01-04 08:39 | Outpatient (OUT) | payer OTHER, SELFPAY | END 2025-01-04 13:08 | disposition home or self-care (01) | LOC: FBCO 08:41 | PROVIDERS: PCP Family Medicine; Visit Provider Obstetrics & Gynecology | DX: Z39.1 Encounter for care and examination of lactating mother (principal) | CPT/HCPCS: G0463 ==

== ENCOUNTER 2025-01-06 07:46 | Outpatient (OUT) | payer OTHER, SELFPAY ==
--- OUTSIDE RECORDS SUMMARY | 2025-01-06 07:58 | XMS_ITS | CCD ---
Author Organization [facility] Inform ion [facility] Care Team Providers Care Baker Bench Name Role Phone DR VINCENT DUARTE Admitting DR VINCENT Hilario Attending Unavailable ED, DR BERNARDO Consulting Unavailable GUSTAVO GONZALEZ Consulting Unavailable Argelia KATZ, Reyes Bates Primary Care Provider [phone] Argelia KATZ, Reyes Bates Primary Care Provider Argelia KATZ, Reyes Bates Primary Care Provider Donna Coleman Unavailable DONNA PEGUERO Attending Unavailable TAWANNA, ARLETTE Attending Unavailable TAWANNA, ARLETTE Attending Unavailable RACHEL, SOFIE Referring Unavailable TAWANNA, ARLETTE Attending Unavailable TAWANNA, ARLETTE Attending Unavailable TAWANNA, ARLETTE Attending Unavailable TAWANNA, ARLETTE Attending Unavailable RACHEL, SOFIE Attending Unavailable TAWANNA, ARLETTE Attending Unavailable RACHEL, SOFIE Attending Unavailable TAWANNA, ARLETTE Attending Unavailable DONNA PEGUERO Attending Unavailable TAWANNA, ARLETTE Attending Unavailable Medications Current Medications Medication Drug Class(es) Dates Sig (Normalized) Sig (Original) ibuprofen 800 mg oral tablet (2 sources) Nonsteroidal Anti-inflammatory Drug Start: 12-31-2024 take 1 tablet by mouth every eight hours ibuprofen 800 MG tablet Take 800 mg by mouth every 8 (eight) hours 12/31/2024 Active polysaccharide iron complex 391 mg oral capsule (20 sources) Start: 10-11-2024 End: 12-07-2024 take 1 [...] [39 weeks gestation of ] 12-22-2024 Episodic Residual codes; unclassified (2 sources) Gestation period, 40 weeks; Translations: [40 weeks gestation of ] 12-28-2024 Episodic Urinary tract infections (1 source) Urinary [...] AUTO DIFFon BASOPHILS ABSOLUTE AUTO 0 [facility] Basophils/100 WBC (Bld) 0.1 % Low 0.2 - 2.0 % [facility] Eosinophils/100 WBC (Bld) 0 % Low 0.9 - 7.0 % [facility] Erythrocyte distribution width (RBC) [Ratio] 14.6 % 11.0 - 15.0 % [facility] Hematocrit (Bld) [Volume fraction] 26.4 % Low 36.0 - 48.0 % [facility] Hemoglobin (Bld) [Mass/Vol] 8.9 g/dL Low 12.0 - 16.0 g/dL [facility] IMMATURE GRANULOCYTES ABS AUTO 0.08 High [facility] Immature granulocytes/100 WBC (Bld) 0.5 % 0.0 - 0.5 % [facility] Interpretation and review of laboratory results Abnormal [facility] LYMPHOCYTES ABSOLUTE AUTO 1.2 [facility] Lymphocytes/100 WBC (Bld) 8 % Low 20.5 - 60.0 % [facility] MCH (RBC) [Entitic mass] 30.2 pg 26.7 - 34.0 pg [facility] MCHC (RBC) [Mass/Vol] 33.7 g/dL 29.9 - 35.2 g/dL [facility] MCV (RBC) [Entitic vol] 89.5 fL 81.0 - 99.0 fL [facility] MONOCYTES ABSOLUTE AUTO 0.7 [facility] Monocytes/100 WBC (Bld) 4.7 % 1.7 - 12.0 % [facility] NEUTROPHILS ABSOLUTE AUTO 13.2 High [facility] Neutrophils/100 WBC (Bld) 86.7 % High 43.0 - 75.0 % [facility] Platelet mean volume (Bld) [Entitic vol] 11.3 fL 9.5 - 13.5 fL [facility] TBH EO # 0 [facility] PLT 169 [facility] RBC 2.95 Low [facility] TB WBC 15.2 High [facility] TB DRUG SCREEN RAPID (URINE )on 12-28-2024 AMPHETAMINE SCREEN URINE Negative NEGATIVE [facility] BARBITURATES SCREEN URINE Negative NEGATIVE [facility] BENZODIAZEPINES SCREEN URINE Negative NEGATIVE [facility] BUPRENORPHINE SCREEN URINE Negative NEGATIVE [facility] Comment on above: DRUG CLASS TEST SYST [...] 300 ng/mL CANNABINOID SCREEN URINE Negative NEGATIVE [facility] COCAINE SCREEN URINE Negative NEGATIVE [facility] METHADONE SCREEN URINE Negative NEGATIVE [facility] METHAMPHETAMINES SCREEN URINE Negative NEGATIVE [facility] OPIATE SCREEN URINE Negative NEGATIVE [facility] OXYCODONE SCREEN URINE Negative NEGATIVE [facility] PHENCYCLIDINE SCREEN URINE Negative NEGATIVE [facility] TRICYCLIC ANTIDEPRESSANT URINE Negative NEGATIVE [facility] OB GROWTHon 12-20-2024 [place] [id number] Ultrasound Report Signed Patient: AUTUMN MCCLURE MR#: [id number] : 1995 Acct:[id number] Age/Sex: 29 / F ADM Date: 12/17/24 Loc: US Attending Dr: Arlette Stacy D.O. Ordering Physician: Arlette Stacy D.O. Date of Service: 12/17/24 Procedure(s): US OB growth Accession Number(s): [id number] cc: Arlette Stacy D.O.; REYES SEXTON [address] [address] Patient Name: AUTUMN MCCLURE MRN: [facility]:[id number] date: 1995 Sex: F Assigned Patient Location: Current Patient Location: Accession/Order Number: [id number] Exam Date: 12/20/2024 09:29 Report Date: 12/20/2024 [...] Chambers M.D. 12/20/2024 9:36 AM Dictation Location: [place] [address] Electronically authenticated by: [id number] Y Date: 12/20/2024 09:36 Dictated By: Caroline Chambers M.D. 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 Ordering Physician: Arlette Stacy D.O. Date of Service: 12/17/24 Procedure(s): US OB growth Accession Number(s): [id number] cc: Arlette Stacy D.O.; REYES SEXTON [place] [address] Patient Name: AUTUMN MCCLURE MRN: [id number]:[id number] date: 1995 Sex: F Assigned Patient Location: US Current Patient Location: Accession/Order Number: [id number] Exam Date: 12/20/2024 09:29 Report Date: 12/20/2024 [...] Chambers M.D. 12/20/2024 9:36 AM Dictation Location: [place] [address] Electronically authenticated by: [id number] Y Date: 12/20/2024 09:36 Dictated By: Caroline Chambers M.D. Signed By: 12/20/2439 DD/ 5 TD/TT: [employer] Operator: [facility] Radiology Study observation (narrative) [facility] OB GROWTHOrdered By: Jas ologamie Radiology on 12-20-2024 [facility] Work Phone: Urinalysis macro (dipstick) panel (U)on 12-16-2024 Bilirubin, UA Negative Negative - 4(70) +++ mg/dL [facility] Blood, UA Negative Negative - 50 Shady/mcL [facility] Clarity, UA Clear [facility] Color, UA Yellow [facility] Glucose, UA Negative Negative - 1999(110) ++++ mg/dL [facility] Interpretation and review of laboratory results Abnormal [facility] Ketones, UA Negative Negative - 160(16) ++++ mg/dL [facility] Leukocytes, UA Positive Negative - 500+++ Kell/mcL [facility] Comment on above: small Nitrite, UA Negative Negative - Positive [facility] pH, UA 8.5 5 - 9 [facility] Protein, UA Positive Negative - 1999(20) ++++ mg/dL [facility] Comment on above: 30 Spec Grav, UA 1.02 1 - 1.03 [facility] Urobilinogen, UA 1.0 0.2 - 12 mg/dL [facility] STREP GP B CULTURE+RFLXon STREP GP B CULTURE+RFLX SEE SCANNED REPORT [facility] Urinalysis macro (dipstick) panel (U)on 12-07-2024 Bilirubin, UA Negative Negative - 4(70) +++ mg/dL [facility] Blood, UA Negative Negative - 50 Shady/mcL [facility] Clarity, UA Clear [facility] Color, UA Yellow [facility] Glucose, UA Negative Negative - 1999(110) ++++ mg/dL [facility] Interpretation and review of laboratory results Normal [facility] Ketones, UA Negative Negative - 160(16) ++++ mg/dL [facility] Leukocytes, UA Negative Negative - 500+++ Kell/mcL [facility] Nitrite, UA Negative Negative - Positive [facility] pH, UA 7.5 5 - 9 [facility] Protein, UA Negative Negative - 1999(20) ++++ mg/dL [facility] Spec Grav, UA 1.02 1 - 1.03 [facility] Urobilinogen, UA 1.0 0.2 - 12 mg/dL [facility] Urinalysis macro (dipstick) panel (U)on 11-29-2024 Bilirubin, UA Negative Negative - 4(70) +++ mg/dL [facility] Blood, UA Negative Negative - 50 Shady/mcL [facility] Clarity, UA Clear [facility] Color, UA Yellow [facility] Glucose, UA Negative Negative - 1999(110) ++++ mg/dL [facility] Interpretation and review of laboratory results Normal [facility] Ketones, UA Negative Negative - 160(16) ++++ mg/dL [facility] Leukocytes, UA Positive Negative - 500+++ Kell/mcL [facility] Comment on above: small Nitrite, UA Negative Negative - Positive [facility] pH, UA 7.5 5 - 9 [facility] Protein, UA Negative Negative - 1999(20) ++++ mg/dL [facility] Spec Grav, UA 1.015 1 - 1.03 [facility] Urobilinogen, UA 0.2 0.2 - 12 mg/dL [facility] Urinalysis macro (dipstick) panel (U)on 11-23-2024 Bilirubin, UA Negative Negative - 4(70) +++ mg/dL [facility] Blood, UA Negative Negative - 50 Shady/mcL [facility] Clarity, UA Clear [facility] Color, UA Yellow [facility] Glucose, UA Negative Negative - 1999(110) ++++ mg/dL [facility] Interpretation and review of laboratory results Abnormal [facility] Ketones, UA Negative Negative - 160(16) ++++ mg/dL [facility] Leukocytes, UA Positive Negative - 500+++ Kell/mcL [facility] Comment on above: Small Nitrite, UA Negative Negative - Positive [facility] pH, UA 7 5 - 9 [facility] Protein, UA Trace Negative - 1999(20) ++++ mg/dL [facility] Spec Grav, UA 1.025 1 - 1.03 [facility] Urobilinogen, UA 0.2 0.2 - 12 mg/dL [facility] Urinalysis macro (dipstick) panel (U)on 11-09-2024 Bilirubin, UA Negative Negative - 4(70) +++ mg/dL [facility] Blood, UA Negative Negative - 50 Shady/mcL [facility] Clarity, UA Clear [facility] Color, UA Yellow [facility] Glucose, UA Negative Negative - 1999(110) ++++ mg/dL [facility] Interpretation and review of laboratory results Abnormal [facility] Ketones, UA Negative Negative - 160(16) ++++ mg/dL [facility] Leukocytes, UA Positive Negative - 500+++ Kell/mcL [facility] Comment on above: small Nitrite, UA Negative Negative - Positive [facility] pH, UA 8.5 5 - 9 [facility] Protein, UA Trace Negative - 2000(20) ++++ mg/dL [facility] Spec Grav, UA 1.02 1 - 1.03 [facility] Urobilinogen, UA 0.2 0.2 - 12 mg/dL [facility] US OB FOLLOW UP TRANSABDOMIN AL [...] II, MD, PHD at 28-Oct-2024 08:46:48 AM [facility] Normal Not Available Comment on above: Order Comment: US OB SCAN FOR GROWTH Estimated Date of Delivery: 12/25/24 Gestational Age as of 10/25/2024: 31w2d GLUCOSE TOLERANCE 3 HOURon 0 10-14-2024 GLUCOSE TOLERANCE 3 HOUR mg/dL [facility] Comment on above: GLU FAST 82 (<95) Co l: 10/14/24 0805 GLU 1HR 157 (<180) Col: 10/14/24 0908 GLU 2HR 137 (<155) Col: 10/14/24 1008 GLU 3HR 111 (<140) Col: 10/14/24 1107 [facility] ALL CBC WITH AUTO DIFFon BASOPHILS ABSOLUTE AUTO 0 [facility] Basophils/100 WBC (Bld) 0.1 % Low 0.2 - 2.0 % [facility] Eosinophils/100 WBC (Bld) 0.7 % Low 0.9 - 7.0 % [facility] Erythrocyte distribution width (RBC) [Ratio] 12.3 % 11.0 - 15.0 % [facility] Hematocrit (Bld) [Volume fraction] 30.5 % Low 36.0 - 48.0 % [facility] Hemoglobin (Bld) [Mass/Vol] 10.8 g/dL Low 12.0 - 16.0 g/dL [facility] IMMATURE GRANULOCYTES ABS AUTO 0.03 [facility] Immature granulocytes/100 WBC (Bld) 0.4 % 0.0 - 0.5 % [facility] Interpretation and review of laboratory results Abnormal [facility] LYMPHOCYTES ABSOLUTE AUTO 1.5 [facility] Lymphocytes/100 WBC (Bld) 20.1 % Low 20.5 - 60.0 % [facility] MCH (RBC) [Entitic mass] 32.7 pg 26.7 - 34.0 pg [facility] MCHC (RBC) [Mass/Vol] 35.4 g/dL High 29.9 - 35.2 g/dL [facility] MCV (RBC) [Entitic vol] 92.4 fL 81.0 - 99.0 fL [facility] MONOCYTES ABSOLUTE AUTO 0.4 [facility] Monocytes/100 WBC (Bld) 5.8 % 1.7 - 12.0 % [facility] NEUTROPHILS ABSOLUTE AUTO 5.3 [facility] Neutrophils/100 WBC (Bld) 72.9 % 43.0 - 75.0 % [facility] Platelet mean volume (Bld) [Entitic vol] 10.3 fL 9.5 - 13.5 fL [facility] TBH EO # 0.1 [facility] TB PLT 194 [facility] RBC 3.3 Low [facility] WBC 7.2 [facility] US OB LIMITED 1+ FETUSESon 0 09-22-2024 [...] II, MD, PHD at 24-Sep-2024 08:39:21 AM [facility] Normal Not Available Comment on above: Order Comment: US OB INCOMPLETE ANATOMY Estimated Date of Delivery: 12/25/24 Gestational Age as of 08/24/2024: 22w3d Urinalysis macro (dipstick) panel (U)on 09-21-2024 Bilirubin, UA Negative Negative - 4(70) +++ mg/dL [facility] Blood, UA Negative Negative - 50 Shady/mcL [facility] Clarity, UA Clear [facility] Color, UA Yellow [facility] Glucose, UA Negative Negative - 1999(110) ++++ mg/dL [facility] Interpretation and review of laboratory results Normal [facility] Ketones, UA Negative Negative - 160(16) ++++ mg/dL [facility] Leukocytes, UA Negative Negative - 500+++ Kell/mcL [facility] Nitrite, UA Negative Negative - Positive [facility] pH, UA 7 5 - 9 [facility] Protein, UA Negative Negative - 2000(20) ++++ mg/dL [facility] Spec Grav, UA 1.01 1 - 1.03 [facility] Urobilinogen, UA 0.2 0.2 - 12 mg/dL [facility] Urinalysis macro (dipstick) panel (U)on 08-24-2024 Bilirubin, UA Negative Negative - 4(70) +++ mg/dL [facility] Blood, UA Negative Negative - 50 Shady/mcL [facility] Clarity, UA Clear [facility] Color, UA Yellow [facility] Glucose, UA Negative Negative - 2000(110) ++++ mg/dL [facility] Interpretation and review of laboratory results Abnormal [facility] Ketones, UA Negative Negative - 160(16) ++++ mg/dL [facility] Leukocytes, UA Trace Negative - 500+++ Kell/mcL [facility] Nitrite, UA Negative Negative - Positive [facility] pH, UA 7 5 - 9 [facility] Protein, UA Trace Negative - 2000(20) ++++ mg/dL [facility] Spec Grav, UA 1.02 1 - 1.03 [facility] Urobilinogen, UA 1.0 0.2 - 12 mg/dL [facility] US OB 14+ WEEKS ANATOMY SCAN [...] GDLNon AGE GDLN ACOG TESTING Note . [facility] Comment on above: TESTS RESULT FLAG UN ITS REF RANGE LAB Clinician Provided Cytology Information Source.............Cervix No. of containers..01 ThinPrep Vial Age Algo ACOG Kinsey... FLAG LEGEND: L-Low Normal,H-High Normal,LL-Alert Low,HH-Alert High <-Panic Low,>-Panic High,A-Abnormal,AA-Critical Abnormal Performed at: 01 = [facility] [place] [address] Teri Armijo MD, HPV APTIMA Negative Negative [facility] Comment on above: This nucleic acid am plification test detects fourteen high- risk HPV types (16,18,31,33,35,39,45,51,52,56,58,59,66,68) without differentiation. Performed at: =[facility] [id number] Pharmacist Helper: Teri Armijo MD, Phone: [phone] Performed at: [address], [place] [id number] Pharmacist Helper: Ashley Sunshine PhD, Phone: [phone] IGP, APTIMA HPV, RFX 16/18,45 Note . [facility] Comment on above: TESTS RESULT FLAG UN ITS REF RANGE LAB DIAGNOSIS: 02 NEGATIVE FOR INTRAEPITHELIAL LESION OR MALIGNANCY. Specimen adequacy: 02 Satisfactory for evaluation. No endocervical component is identified. Performed by: 02 Christine Davis, [employer] Tender ([facility]) . 02 Note: Note 03 [...] <-Panic Low,>-Panic High,A-Abnormal,AA-Critical Abnormal Performed at: 02 PPEE [facility] [address] [place] [address] Ashley Sunshine PhD, 03 WB [facility] [address] [address] Teri Armijo MD, SPATULA-ALONE CERVIX [facility] RECURRENT VAGINITIS (HTRX)on 07-24-2024 ATOPOBIUM VAGINAE 0 [facility] ATOPOBIUM VAGINAE Not detected [facility] BVAB 2,3 (BACTERIAL VAGINOSIS ASSOCIATED BACTERIA 2, 3); MOBILUNCUS SPP 0 [facility] BVAB 2,3 (BACTERIAL VAGINOSIS ASSOCIATED BACTERIA 2, 3); MOBILUNCUS SPP Not detected [facility] DARIA ALBICANS, PARAPSILOSIS, TROPICALIS 0 [facility] DARIA ALBICANS, PARAPSILOSIS, TROPICALIS Not detected [facility] DARIA GLABRATA 0 [facility] DARIA GLABRATA Not detected [facility] DARIA KRUSEI 0 [facility] DARIA KRUSEI Not detected [facility] CHLAMYDIA TRACHOMATIS 0 [facility] CHLAMYDIA TRACHOMATIS Not detected N [facility] GARDNERELLA VAGINALIS 0 [facility] GARDNERELLA VAGINALIS Not detected N [facility] MEGASPHAERA (TYPES 1, 2) 0 [facility] MEGASPHAERA (TYPES 1, 2) Not detected [facility] MYCOPLASMA GENITALIUM 0 [facility] MYCOPLASMA GENITALIUM Not detected N [facility] NEISSERIA GONORRHOEAE 0 [facility] NEISSERIA GONORRHOEAE Not detected N [facility] TRICHOMONAS VAGINALIS 0 [facility] TRICHOMONAS VAGINALIS Not detected N [facility] Urinalysis macro (dipstick) panel (U)on 07-22-2024 Bilirubin, UA Negative Negative - 4(70) +++ mg/dL [facility] Blood, UA Negative Negative - 50 Shady/mcL [facility] Clarity, UA Clear [facility] Color, UA Yellow [facility] Glucose, UA Negative Negative - 1999(110) ++++ mg/dL [facility] Interpretation and review of laboratory results Normal [facility] Ketones, UA Negative Negative - 160(16) ++++ mg/dL [facility] Leukocytes, UA Negative Negative - 500+++ Kell/mcL [facility] Nitrite, UA Negative Negative - Positive [facility] pH, UA 6 5 - 9 [facility] Protein, UA Negative Negative - 1999(20) ++++ mg/dL [facility] Spec Grav, UA 1.02 1 - 1.03 [facility] Urobilinogen, UA 1.0 0.2 - 12 mg/dL [facility] ALL RUBELLA IGG ABon 11-12-2 024 RUBELLA ANTIBODIES, IGG 18.80 Immune >0.99 index [facility] Comment on above: Non-immune <0.90 Equivocal 0.90 - 0.99 Immune >0.99 Performed at: [address] [id number] Pharmacist Helper: Michael Talamantes PhD, Phone: [phone] HBSAG SCREENon 06-22-2024 HBSAG SCREEN Negative Negative [facility] Comment on above: Performed at: [facility] [address] [id number] Pharmacist Helper: Michael Talamantes PhD, Phone: [phone] HCV ANTIBODY RFX TO QUANT PC Jalen 06-22-2024 HCV AB Non-Reactive Non Reactive [facility] INTERPRETATION: Comment . [facility] Comment on above: Not infected with HC V unless early or acute infection is suspected (which may be delayed in an immunocompromised individual), or other evidence exists to indicate HCV infection. HIV AB/P24 AG WITH REFLEXon 06-22-2024 HIV AB/P24 AG SCREEN Non-Reactive Non Reactive [facility] Comment on above: HIV-1/HIV-2 antibodi es and HIV-1 p24 antigen were NOT detected. There is no laboratory evidence of HIV infection. HIV Negative Performed at: [address] [id number] Pharmacist Helper: Michael Talamantes PhD, Phone: [phone] No [facility] RAPID PLASMA REAGIN, QUANTon 06-22-2024 RAPID PLASMA REAGIN, QUANT Non-Reactive NonRea<1:1 titer [facility] Comment on above: Please Note: This te st does not meet current guidelines for screening and diagnosis of syphilis. This test is intended for following treatment response in patients being treated for syphilis infection. To screen for syphilis infection, a reflex cascade that includes both RPR and a treponema-specific assay should be utilized, such as Treponema pallidum (Syphilis) Screening [place] (063281) or Rapid Plasma Reagin (RPR) Test With Reflex to Quantitative RPR and Confirmatory Treponema pallidum Antibodies ([id number]). Performed at: CB - [facility] [id number] Pharmacist Helper: Michael Talamantes PhD, Phone: [phone] URINE CULTURE, ROUTINEon Bacteria identified Cx Nom (U) Urine Culture, Routine [facility] Bacteria identified Cx Nom (U) Mixed urogenital yahaira [facility] Bacteria identified Cx Nom (U) Less than 10,000 colonies/mL [facility] Bacteria identified Cx Nom (U) [facility] Cx Nom (U) [address] [place] [phone] [facility] Bacteria identified Cx Nom (U) Pharmacist Helper: Michael Talamantes PhD, Phone: [phone] [facility] ALL CBC WITH AUTO DIFFon BASOPHILS ABSOLUTE AUTO 0 [facility] Basophils/100 WBC (Bld) 0.3 % 0.2 - 2.0 % [facility] Eosinophils/100 WBC (Bld) 0.5 % Low 0.9 - 7.0 % [facility] Erythrocyte distribution width (RBC) [Ratio] 12.1 % 11.0 - 15.0 % [facility] Hematocrit (Bld) [Volume fraction] 35.7 % Low 36.0 - 48.0 % [facility] Hemoglobin (Bld) [Mass/Vol] 13.1 g/dL 12.0 - 16.0 g/dL [facility] IMMATURE GRANULOCYTES ABS AUTO 0.02 [facility] Immature granulocytes/100 WBC (Bld) 0.3 % 0.0 - 0.5 % [facility] Interpretation and review of laboratory results Abnormal [facility] LYMPHOCYTES ABSOLUTE AUTO 1.7 [facility] Lymphocytes/100 WBC (Bld) 25.5 % 20.5 - 60.0 % [facility] MCH (RBC) [Entitic mass] 32.3 pg 26.7 - 34.0 pg [facility] MCHC (RBC) [Mass/Vol] 36.7 g/dL High 29.9 - 35.2 g/dL [facility] MCV (RBC) [Entitic vol] 88.1 fL 81.0 - 99.0 fL [facility] MONOCYTES ABSOLUTE AUTO 0.4 [facility] Monocytes/100 WBC (Bld) 5.6 % 1.7 - 12.0 % [facility] NEUTROPHILS ABSOLUTE AUTO 4.4 [facility] Neutrophils/100 WBC (Bld) 67.8 % 43.0 - 75.0 % [facility] Platelet mean volume (Bld) [Entitic vol] 10.3 fL 9.5 - 13.5 fL [facility] EO # 0 [facility] PLT 217 [facility] RBC 4.05 Low [facility] WBC 6.5 [facility] [place] TYPE AND SCREENon 2023 ABO and Rh group Nom (Bld) Blood group A Rh(D) negative [facility] [place] BOX TESTon 06-21-2024 BOX TEST SENT OUT UNITY [facility] BOX1 UNITY [facility] BOX2 06/21/24 [facility] BOX [facility] MLR HEMOGLOBIN A1Con 024 Glucose [Mass/Vol] 88 mg/dL [facility] HbA1c (Bld) [Mass fraction] 4.7 % 4.5 - 6.2 % [facility] Comment on above: ADA RECOMMENDED LIMI T 4.0 - 6.0 ADA THERAPEUTIC TARGET < 7.0 ACTION SUGGESTED > 7.0 [facility] DRUG SCREEN RAPID (URINE )on 06-21-2024 AMPHETAMINE SCREEN URINE Negative NEGATIVE [facility] BARBITURATES SCREEN URINE Negative NEGATIVE [facility] BENZODIAZEPINES SCREEN URINE Negative NEGATIVE [facility] BUPRENORPHINE SCREEN URINE Negative NEGATIVE [facility] Comment on above: DRUG CLASS TEST SYST [...] ng/mL CANNABINOID SCREEN URINE Negative NEGATIVE [facility] COCAINE SCREEN URINE Negative NEGATIVE [facility] METHADONE SCREEN URINE Negative NEGATIVE [facility] METHAMPHETAMINES SCREEN URINE Negative NEGATIVE [facility] OPIATE SCREEN URINE Negative NEGATIVE [facility] OXYCODONE SCREEN URINE Negative NEGATIVE [facility] PHENCYCLIDINE SCREEN URINE Negative NEGATIVE [facility] TRICYCLIC ANTIDEPRESSANT URINE Negative NEGATIVE [facility] Urinalysis macro (dipstick) panel (U)on 06-21-2024 Bilirubin, UA Negative Negative - 4(70) +++ mg/dL [facility] Blood, UA Negative Negative - 50 Shady/mcL [facility] Clarity, UA Clear [facility] Color, UA Yellow [facility] Glucose, UA Negative Negative - 1999(110) ++++ mg/dL [facility] Interpretation and review of laboratory results Normal [facility] Ketones, UA Negative Negative - 160(16) ++++ mg/dL [facility] Leukocytes, UA Negative Negative - 500+++ Kell/mcL [facility] Nitrite, UA Negative Negative - Positive [facility] pH, UA 5.5 5 - 9 [facility] Protein, UA Negative Negative - 1999(20) ++++ mg/dL [facility] Spec Grav, UA 1.02 1 - 1.03 [facility] Urobilinogen, UA 1.0 0.2 - 12 mg/dL [facility] HCG ( test) Ql (U)o n 05-20-2024 Interpretation and review of laboratory results Abnormal [facility] Preg Test, Ur Positive [facility] Urinalysis macro (dipstick) panel (U)on 05-20-2024 Bilirubin, UA Negative Negative - 4(70) +++ mg/dL [facility] Blood, UA Negative Negative - 50 Shady/mcL [facility] Clarity, UA Clear [facility] Color, UA Colorless [facility] Glucose, UA Negative Negative - 1999(110) ++++ mg/dL [facility] Interpretation and review of laboratory results Abnormal [facility] Ketones, UA Negative Negative - 160(16) ++++ mg/dL [facility] Leukocytes, UA Trace Negative - 500+++ Kell/mcL [facility] Nitrite, UA Negative Negative - Positive [facility] pH, UA 6.0 5 - 9 [facility] Protein, UA Negative Negative - 1999(20) ++++ mg/dL [facility] Spec Grav, UA 1.005 1 - 1.03 [facility] Urobilinogen, UA 0.2 0.2 - 12 mg/dL [facility] AMYLASEon 03-16-2022 Amylase [Catalytic activity/Vol] 42 U/L Normal 25-115 [facility] Comment on above: Performed By: #### L IPA, CMP, DONNA #### [facility] [address] [place] [address] Dr. Ashley Fung CBC AUTO DIFFon 03-16-2022 BASO # 0.0 103/ul Normal 0.0-0.1 [facility] Comment on above: Performed By: #### C BC #### [facility] [address] [place] [address] Dr. Ashley Fung Basophils/100 WBC (Bld) 0.3 % Normal 0.2-2.0 [facility] Comment on above: Performed By: #### C BC #### [facility] [address] [place] [address] Dr. Ashley Fung EO # 0.1 103/ul Normal 0.0-0.7 [facility] Comment on above: Performed By: #### C BC #### [facility] [address] [place] [address] Dr. Ashley Fung Eosinophils/100 WBC (Bld) 0.9 % Normal 0.9-7.0 [facility] Comment on above: Performed By: #### C BC #### [facility] [address] [place] [address] Dr. Ashley Fung Erythrocyte distribution width (RBC) [Ratio] 11.1 % Normal 11.0-15.0 [facility] Comment on above: Performed By: #### C BC #### [facility] [address] [place] [address] Dr. Ashley Fung Hematocrit (Bld) [Volume fraction] 33.9 % Critically low 36.0-48.0 [facility] Comment on above: Performed By: #### C BC #### [facility] [address] [place] [address] Dr. Ashley Fung Hemoglobin (Bld) [Mass/Vol] 12.2 g/dL Normal 12.0-16.0 [facility] Comment on above: Performed By: #### C BC #### [facility] [address] [place] [address] Dr. Ashley Fung IG # 0.01 10e3/ul Normal 0.00-0.03 [facility] Comment on above: Performed By: #### C BC #### [facility] [address] [place] [address] Dr. Ashley Fung IG % 0.1 % Normal 0.0-0.5 [facility] Comment on above: Performed By: #### C BC #### [facility] [address] [place] [address] Dr. Ashley Fung LYMPH # 1.8 103/ul Normal 1.2-3.8 [facility] Comment on above: Performed By: #### C BC #### [facility] [address] [place] [address] Dr. Ashley Fung Lymphocytes/100 WBC (Bld) 23.2 % Normal 20.5-60.0 [facility] Comment on above: Performed By: #### C BC #### [facility] [address] [place] [address] Dr. Ashley Fung MANUAL DIFF REQ NO Normal [facility] Comment on above: Performed By: #### C BC #### [facility] [address] [place] [address] Dr. Ashley Fung MCH (RBC) [Entitic mass] 31.0 pg Normal 26.7-34.0 [facility] Comment on above: Performed By: #### C BC #### [facility] [address] [place] [address] Dr. Ashley Fung MCHC (RBC) [Mass/Vol] 36.0 g/dL Critically high 29.9-35.2 [facility] Comment on above: Performed By: #### C BC #### [facility] [address] [place] [address] Dr. Ashley Fung MCV (RBC) [Entitic vol] 86.0 fL Normal 81.0-99.0 [facility] Comment on above: Performed By: #### C BC #### [facility] [address] [place] [address] Dr. Ashley Fung MONO # 0.5 103/ul Normal 0.3-0.8 [facility] Comment on above: Performed By: #### C BC #### [facility] [address] [place] [address] Dr. Ashley Fung Monocytes/100 WBC (Bld) 6.0 % Normal 1.7-12.0 [facility] Comment on above: Performed By: #### C BC #### [facility] [address] [place] [address] Dr. Ashley Fung NEUT # 5.3 103/ul Normal 1.4-6.5 [facility] Comment on above: Performed By: #### C BC #### [facility] [address] [place] [address] Dr. Ashley Fung Neutrophils/100 WBC (Bld) 69.5 % Normal 43.0-75.0 [facility] Comment on above: Performed By: #### C BC #### [facility] [address] [place] [address] Dr. Ashley Fung Platelet mean volume (Bld) [Entitic vol] 9.9 fL Normal 9.5-13.5 [facility] Comment on above: Performed By: #### C BC #### [facility] [address] [place] [address] Dr. Ashley Fung PLT 199 103/ul Normal 150-450 [facility] Comment on above: Performed By: #### C BC #### [facility] [address] [place] [address] Dr. Ashley Fung RBC 3.94 106/ul Critically low 4.20-5.40 [facility] Comment on above: Performed By: #### C BC #### [facility] [address] [place] [address] Dr. Ashley Fung WBC 7.6 103/ul Normal 4.0-11.0 [facility] Comment on above: Performed By: #### C BC #### [facility] [address] [place] [address] ABD/PELV W CONon 03-16-[address] ABD/PELV W CON EXAMINATION: CT ABD/PELV W CON HISTORY: Right sided abdominal pain COMPARISON: None. TECHNIQUE: CT of abdomen/pelvis with intravenous contrast. Dose reduction techniques were achieved by using automated exposure control and/or adjustment of mA and/or kV according to patient size and/or use of iterative reconstruction technique. FINDINGS: Inside Polisher: No pertinent findings, which are not already [...] GUSTAVO GONZALEZ Date: 2022-03-16 10:03 Normal [facility] CULTURE URINEon 03-16-2022 CULTURE URINE Culture Observations : LIGHT GROWTH OF MIXED GENITAL YAHAIRA. NO POTENTIAL PATHOGENS SEEN. Normal [facility] Comment on above: Performed By: #### U RCX #### [facility] [address] [address] [address] Ashley Fung ER URINE PROFILEon 2 Bilirubin Ql (U) SMALL Abnormal NEGATIVE [facility] Comment on above: Performed By: #### E STEPHIE HOLLEY #### [facility] [address] [address] [address] Ashley Fung Clarity (U) SL CLOUDY Abnormal CLEAR [facility] Comment on above: Performed By: #### TAHIRA PAULSONRO #### [facility] [address] [place] [address] Dr. Ashley Fung Color (U) DK. YELLOW Normal YELLOW [facility] Comment on above: Performed By: #### TAHIRA PAULSONRO #### [facility] [address] [place] [address] Dr. Ashley PANIAGUA A micrscopic examination will be performed if indicated. Normal [facility] Comment on above: Performed By: #### TAHIRA PAULSONRO #### [facility] [address] [place] [address] Dr. Ashley Fung Glucose Ql (U) Negative Normal NEGATIVE [facility] Comment on above: Performed By: #### TAHIRA PAULSONRO #### [facility] [address] [place] [address] Dr. Ashley Fung Hemoglobin Ql (U) Negative Normal NEGATIVE [facility] Comment on above: Performed By: #### TAHIRA PAULSONRO #### [facility] [address] [place] [address] Dr. Ashley Fung Ketones Ql (U) TRACE Abnormal NEGATIVE [facility] Comment on above: Performed By: #### TAHIRA PAULSONRO #### [facility] [address] [address] [address] Ashley Fung LEUKOCYTES TRACE Abnormal NEGATIVE [facility] Comment on above: Performed By: #### TAHIRA PAULSONRO #### [facility] [address] [place] [address] Dr. Ashley Fung Nitrite Ql (U) Negative Normal NEGATIVE [facility] Comment on above: Performed By: #### TAHIRA PAULSONRO #### [facility] [address] [place] [address] Dr. Ashley Fung pH (U) 7.0 [pH] Normal 5-9 [facility] Comment on above: Performed By: #### Sky HOLLEY UMICRO #### [facility] [address] [place] [address] Dr. Ashley Fung Protein (U) [Mass/Vol] 100 mg/dL Abnormal NEGATIVE/ TRACE [facility] Comment on above: Performed By: #### Sky HOLLEY UMICRO #### [facility] [address] [place] [address] Dr. Ashley Fung SPEC GRAVITY 1.025 Normal 1.005-<=1.025 [facility] Comment on above: Performed By: #### Sky HOLLEY UMICRO #### [facility] [address] [place] [address] Dr. Ashley Fung UR MICRO IND INDICATED Normal [facility] Comment on above: Performed By: #### TAHIRA PAULSONRO #### [facility] [address] [place] [address] Dr. Ashley Fung Urobilinogen Qn (U) 1.0 {Stephanie'U}/dL Normal 0.2 - 1. 0 [facility] Comment on above: Performed By: #### TAHIRA PAULSONRO #### [facility] [address] [place] [address] Dr. Ashley Fung LIPASEon 03-16-2022 Lipase [Catalytic activity/Vol] 100.0 U/L Normal 73.0-393.0 [facility] Comment on above: Performed By: #### L IPA, CMP, DONNA #### [facility] [address] [place] [address] Dr. Ashley Fung PREG HCG QUALon 03-16-2022 , QUAL Negative Normal NEGATIVE [facility] Comment on above: Performed By: #### P REG #### [facility] [address] [place] [address] Dr. Ashley Fung PROF 14(COMP METB)on 022 Albumin [Mass/Vol] 3.3 g/dL Critically low 3.4-5.0 [facility] Comment on above: Performed By: #### L IPA, CMP, DONNA #### [facility] [address] [address] [address] Ashley Fung Albumin/Globulin [Mass ratio] 1.0 {ratio} Normal [facility] Comment on above: Performed By: #### L IPA, CMP, DONNA #### [facility] [address] [address] [address] Ashley Fung ALP [Catalytic activity/Vol] 58 U/L Normal 46-116 [facility] Comment on above: Performed By: #### L IPA, CMP, DONNA #### [facility] [address] [address] [address] Ashley Fung ALT [Catalytic activity/Vol] 15 U/L Normal 14-59 [facility] Comment on above: Performed By: #### L IPA, CMP, DONNA #### [facility] [address] [address] [address] Ashley Fung Anion gap [Moles/Vol] 11.2 mmol/L Normal [facility] Comment on above: Performed By: #### L IPA, CMP, DONNA #### [facility] [address] [address] [address] Ashley Fung AST [Catalytic activity/Vol] 15 U/L Normal 15-37 [facility] Comment on above: Performed By: #### L IPA, CMP, DONNA #### [facility] [address] [address] [address] Ashley Fung Bilirubin [Mass/Vol] 0.4 mg/dL Normal 0.2-1.0 [facility] Comment on above: Performed By: #### L IPA, CMP, DONNA #### [facility] [address] [address] [address] Ashley Fung Calcium [Mass/Vol] 8.7 mg/dL Normal 8.5-10.1 [facility] Comment on above: Performed By: #### L IPA, CMP, DONNA #### [facility] [address] [address] [address] Ashley Fung Chloride [Moles/Vol] 106 mmol/L Normal 98-107 [facility] Comment on above: Performed By: #### L IPA, CMP, DONNA #### [facility] [address] [address] [address] Ashley Fung CO2 [Moles/Vol] 27.4 mmol/L Normal 21.0-32.0 [facility] Comment on above: Performed By: #### L IPA, CMP, DONNA #### [facility] [address] [address] [address] Ashley Fung Creatinine [Mass/Vol] 1.22 mg/dL Critically high 0.55-1.02 [facility] Comment on above: Performed By: #### L IPA, CMP, DONNA #### [facility] [address] [address] [address] Ashley Fung EGFR-AF NIUEAN >60 Normal >=60 [facility] Comment on above: Performed By: #### L IPA, CMP, DONNA #### [facility] [address] [address] [address] Ashley Fung EGFR-NON AF NIUEAN 52 mL/min/1.73m2 Critically low >=60 [facility] Comment on above: Performed By: #### L IPA, CMP, DONNA #### [facility] [address] [address] [address] Ashley Fung Globulin (S) [Mass/Vol] 3.4 g/dL Normal [facility] Comment on above: Performed By: #### L IPA, CMP, DONNA #### [facility] [address] [address] [address] Ashley Fung Glucose [Mass/Vol] 116 mg/dL Critically high 74-106 [facility] Comment on above: Performed By: #### L IPA, CMP, DONNA #### [facility] [address] [address] [address] Ashley Fung Potassium [Moles/Vol] 3.6 mmol/L Normal 3.5-5.1 [facility] Comment on above: Performed By: #### L IPA, CMP, DONNA #### [facility] [address] [address] [address] Ashley Fung Protein [Mass/Vol] 6.7 g/dL Normal 6.4-8.2 [facility] Comment on above: Performed By: #### L IPA, CMP, DONNA #### [facility] [address] [place] [address] Dr. Ashley Fung Sodium [Moles/Vol] 141 mmol/L Normal 136-145 [facility] Comment on above: Performed By: #### L IPA, CMP, DONNA #### [facility] [address] [place] [address] Dr. Ashley Fung Urea nitrogen [Mass/Vol] 15.0 mg/dL Normal 7.0-18.0 [facility] Comment on above: Performed By: #### L IPA, CMP, DONNA #### [facility] [address] [place] [address] Dr. Ashley Fung Urea nitrogen/Creatinine [Mass ratio] 12.3 mg/mg Normal [facility] Comment on above: Performed By: #### L IPA, CMP, DONNA #### [facility] [address] [place] [address] Dr. Ashley Fung URINE MICROSCOPIC ONLYon BACTERIA TRACE Abnormal NONE SEEN [facility] Comment on above: Performed By: #### E RUR UMICRO #### [facility] [address] [place] [address] Dr. Ashley Fung Bacteria identified Cx Nom (U) INDICATED Normal [facility] Comment on above: Performed By: #### E RUR, UMICRO #### [facility] [address] [place] [address] Dr. Ashley Fung CAST SEEN Abnormal NONE SEEN [facility] Comment on above: Performed By: #### E RUR, UMICRO #### [facility] [address] [place] [address] Dr. Ashley Fung Crystals LM Nom (Urine sed) NONE SEEN Normal NONE SEEN [facility] Comment on above: Performed By: #### E RUR, UMICRO #### [facility] [address] [place] [address] Dr. Ashley Fung Epithelial cells LM Ql (Urine sed) RARE Normal NONE SEEN /RARE [facility] Comment on above: Performed By: #### E RUR, UMICRO #### [facility] [address] [address] [address] Ashley Fung MUCOUS MODERATE Abnormal NONE SEEN [facility] Comment on above: Performed By: #### E RUR, UMICRO #### [facility] [address] [place], [place] [address] Dr. Ashley Fung RBC NONE SEEN Abnormal 0-2 [facility] Comment on above: Performed By: #### E RUR, UMICRO #### [facility] [address] [address] [address] Ashley Fung WBC 2-5 Abnormal NONE SEEN [facility] Comment on above: Performed By: #### E RUR, UMICRO #### [facility] [address] [address] [address] Ashley Fung XR Abdomen 2 Viewson 022 XR Abdomen 2 Views HISTORY: Low abdominal pain, constipation FINDINGS: Moderate colon stool normally distributed throughout abdomen and pelvis. No evidence of bowel obstruction or free air. No biliary or urinary tract stones. IMPRESSION: Moderate colon stool, no obstruction. Report reported and signed by Mahin London on 11/28/2021 0729 Normal [facility] [place] Vital Signs Date Time Vital Sign Value Performing Clinician Kerwin steen 01-05-2025 14:51-0400 Body mass index (BMI) [Ratio] 31.09 kg/m2 Donna MADERA Work Phone: [facility] 01-05-2025 14:51-0400 Body weight 84.73 kg Donna MADERA Work Phone: [facility] 01-05-2025 14:51-0400 Diastolic blood pressure 70 mm[Hg] Donna MADERA Work Phone: [facility] 01-05-2025 14:51-0400 Systolic blood pressure 114 mm[Hg] Donna MADERA Work Phone: [facility] 12-28-2024 10:06-0400 Body mass index (BMI) [Ratio] 33.12 kg/m2 Arlette Stacy DO Work Phone: [facility] 12-28-2024 10:06-0400 Body weight 90.27 kg Arlette Tawanna DO Work Phone: [facility] 12-28-2024 10:06-0400 Diastolic blood pressure 72 mm[Hg] Arlette Tawanna DO Work Phone: [facility] 12-28-2024 10:06-0400 Systolic blood pressure 110 mm[Hg] Arlette Tawanna DO Work Phone: [facility] 12-22-2024 09:40-0400 Body mass index (BMI) [Ratio] 33.18 kg/m2 Sofie Rachel HAND RIGGER Work Phone: [facility] 12-22-2024 09:40-0400 Body weight 90.45 kg Sofie Rachel HAND RIGGER Work Phone: [facility] 12-22-2024 09:40-0400 Diastolic blood pressure 72 mm[Hg] Sofie Rachel HAND RIGGER Work Phone: [facility] 12-22-2024 09:40-0400 Systolic blood pressure 112 mm[Hg] Sofie Rachel HAND RIGGER Work Phone: [facility] 12-16-2024 10:19-0400 Body mass index (BMI) [Ratio] 33.18 kg/m2 Arlette Tawanna DO Work Phone: [facility] 12-16-2024 10:19-0400 Body weight 90.45 kg Arlette Tawanna DO Work Phone: [facility] 12-16-2024 10:19-0400 Diastolic blood pressure 68 mm[Hg] Arlette Tawanna DO Work Phone: [facility] 12-16-2024 10:19-0400 Systolic blood pressure 110 mm[Hg] Arlette Tawanna DO Work Phone: [facility] 12-07-2024 09:00-0400 Body mass index (BMI) [Ratio] 32.85 kg/m2 Sofie Rachel HAND RIGGER Work Phone: [facility] 12-07-2024 09:00-0400 Body weight 89.54 kg Sofie Rachel HAND RIGGER Work Phone: [facility] 12-07-2024 09:00-0400 Diastolic blood pressure 60 mm[Hg] Sofie Rachel HAND RIGGER Work Phone: [facility] 12-07-2024 09:00-0400 Systolic blood pressure 110 mm[Hg] Sofie Rachel HAND RIGGER Work Phone: [facility] 11-29-2024 09:18-0400 Body mass index (BMI) [Ratio] 32.95 kg/m2 Arlette Tawanna DO Work Phone: [facility] 11-29-2024 09:18-0400 Body weight 89.81 kg Arlette Tawanna DO Work Phone: [facility] 11-29-2024 09:18-0400 Diastolic blood pressure 70 mm[Hg] Arlette Tawanna DO Work Phone: [facility] 11-29-2024 09:18-0400 Systolic blood pressure 114 mm[Hg] Arlette Tawanna DO Work Phone: [facility] 11-23-2024 14:28-0400 Body mass index (BMI) [Ratio] 32.78 kg/m2 Arlette Tawanna DO Work Phone: [facility] 11-23-2024 14:28-0400 Body weight 89.36 kg Arlette Tawanna DO Work Phone: [facility] 11-23-2024 14:28-0400 Diastolic blood pressure 70 mm[Hg] Arlette Tawanna DO Work Phone: [facility] 11-23-2024 14:28-0400 Systolic blood pressure 106 mm[Hg] Arlette Tawanna DO Work Phone: [facility] 11-09-2024 10:07-0400 Body mass index (BMI) [Ratio] 31.78 kg/m2 Arlette Tawanna DO Work Phone: [facility] 11-09-2024 10:07-0400 Body weight 86.64 kg Arlette Tawanna DO Work Phone: [facility] 11-09-2024 10:07-0400 Diastolic blood pressure 68 mm[Hg] Arlette Tawanna DO Work Phone: [facility] 11-09-2024 10:07-0400 Systolic blood pressure 104 mm[Hg] Arlette Tawanna DO Work Phone: [facility] 10-06-2024 15:05-0500 Body mass index (BMI) [Ratio] 30.92 kg/m2 Arlette Tawanna DO Work Phone: [facility] 10-06-2024 15:05-0500 Body weight 84.28 kg Arlette Tawanna DO Work Phone: [facility] 10-06-2024 15:05-0500 Diastolic blood pressure 70 mm[Hg] Arlette Tawanna DO Work Phone: [facility] 10-06-2024 15:05-0500 Systolic blood pressure 110 mm[Hg] Arlette Tawanna DO Work Phone: [facility] 09-21-2024 14:51-0500 Body mass index (BMI) [Ratio] 31.62 kg/m2 Donna MADERA Work Phone: [facility] 09-21-2024 14:51-0500 Body weight 86.18 kg Donna MADERA Work Phone: [facility] 09-21-2024 14:51-0500 Diastolic blood pressure 62 mm[Hg] Donna Peguero PA Work Phone: [facility] 09-21-2024 14:51-0500 Systolic blood pressure 106 mm[Hg] Donna Peguero PA Work Phone: [facility] 08-24-2024 14:10-0500 Body mass index (BMI) [Ratio] 29.69 kg/m2 Arlette Tawanna DO Work Phone: [facility] 08-24-2024 14:10-0500 Body weight 80.92 kg Arlette Tawanna DO Work Phone: [facility] 08-24-2024 14:10-0500 Diastolic blood pressure 66 mm[Hg] Arlette Tawanna DO Work Phone: [facility] 08-24-2024 14:10-0500 Systolic blood pressure 112 mm[Hg] Arlette Tawanna DO Work Phone: [facility] 07-22-2024 14:05-0500 Body mass index (BMI) [Ratio] 28.92 kg/m2 Donna MADERA Work Phone: [facility] 07-22-2024 14:05-0500 Body weight 78.83 kg Donna MADERA Work Phone: [facility] 07-22-2024 14:05-0500 Diastolic blood pressure 74 mm[Hg] Donna MADERA Work Phone: [facility] 07-22-2024 14:05-0500 Systolic blood pressure 120 mm[Hg] Donna MADERA Work Phone: [facility] 06-21-2024 09:57-0500 Body mass index (BMI) [Ratio] 28.76 kg/m2 Arlette Tawanna DO Work Phone: [facility] 06-21-2024 09:57-0500 Body weight 78.38 kg Arlette Tawanna DO Work Phone: [facility] 06-21-2024 09:57-0500 Diastolic blood pressure 72 mm[Hg] Arlette Tawanna DO Work Phone: [facility] 06-21-2024 09:57-0500 Systolic blood pressure 118 mm[Hg] Arlette Tawanna DO Work Phone: [facility] Encounters Encounter Date Encounter Type Care Provider Facility Start: 01-05-2025 End: 01-05-2025 Postop follow up visit related to original px Donna MADERA Work Phone: [facility] Comment on above: Encounter for postpa rtum visit; S/P section Start: 12-30-2024 End: 12-30-2024 Clinisync Result Encounter Arlette Tawanna DO Work Phone: [facility] Unsolicited Start: 12-30-2024 End: 12-30-2024 Clinisync Result Encounter Arlette Tawanna DO Work Phone: [facility] Unsolicited Start: 12-28-2024 End: 12-28-2024 Bamboo flowsheet Arlette Tawanna DO Work Phone: [facility] Start: 12-28-2024 End: 12-28-2024 Bamboo flowsheet Arlette Tawanna DO Work Phone: [facility] Start: 12-28-2024 End: 12-28-2024 Clinisync Result Encounter Arlette Tawanna DO Work Phone: [facility] Unsolicited Start: 12-28-2024 End: 12-28-2024 ambulatory ARLETTE TAWANNA Not Available Start: 12-28-2024 End: 12-28-2024 flow sheet Arlette Tawanna DO Work Phone: [facility] Comment on above: Third trimester preg erica; 40 weeks gestation of Start: 12-22-2024 End: 12-22-2024 Bamboo flowsheet Sofie Rachel HAND RIGGER Work Phone: [facility] Start: 12-22-2024 End: 12-22-2024 Bamboo flowsheet Sofie Rachel HAND RIGGER Work Phone: [facility] Start: 12-22-2024 End: 12-22-2024 ambulatory SOFIE RACHEL Not Available Start: 12-22-2024 End: 12-22-2024 flow sheet Sofie Rachel HAND RIGGER Work Phone: [facility] Comment on [...] Available Start: 12-07-2024 End: 12-07-2024 Bamboo flowsheet Sofie Ramos HAND RIGGER Work Phone: [facility] Start: 12-07-2024 End: 12-07-2024 Bamboo flowsheet Sofie Ramos HAND RIGGER Work Phone: [facility] Start: 12-07-2024 End: 12-07-2024 flow sheet Sofie Ramos HAND RIGGER Work Phone: [facility] Comment on [...] trimester Start: 10-27-2024 End: 10-27-2024 ambulatory SOFIE RACHEL Not Available Start: 10-25-2024 End: 10-25-2024 Bamboo [...] OB Start: 09-22-2024 End: 09-22-2024 ambulatory DONNA PEGUERO Not Available Start: 09-21-2024 End: 09-21-2024 flow [...] Bamboo flowsheet Arlette Tawanna DO Work Phone: [facility] Start: 08-18-2024 End: 08-18-2024 ambulatory DONNA PEGUERO Not Available Start: 07-22-2024 End: 07-22-2024 Bamboo flowsheet Donna MADERA Work Phone: [facility] Start: 07-22-2024 End: 07-29-2024 Bamboo flowsheet Donna MADERA Work Phone: [facility] Start: 07-22-2024 End: 07-29-2024 Clinisync Result Encounter Generic External Data Provider [facility] Unsolicited Start: 07-22-2024 End: 07-24-2024 External Result Encounter Donna MADERA Work Phone: [facility] External Department Unsolicited Start: 07-22-2024 End: 07-22-2024 [...] Date Procedure Procedure Detail Performing Clinician Start: 12-30-2024 ALL CBC WITH AUTO DIFF Arlette Tawanna DO Work Phone: Start: 12-28-2024 TB DRUG SCREEN RAPI D (URINE) Arlette Tawanna DO Work Phone: Start: 12-20-2024 US OB GROWTH Generic Ex ternal Data Provider Start: 12-16-2024 Urnls dip stick/tabl et rgnt non-auto w/o micrscp Arlette Tawanna DO Work Phone: Start: 12-07-2024 Urnls dip stick/tabl et rgnt non-auto w/o micrscp Sofie Ramos HAND RIGGER Work Phone: Start: 11-29-2024 Urnls dip stick/tabl [...] w/o micrscp Arlette Tawanna DO Work Phone: H/O: section S/P sectio n Donna MADERA Work Phone: Plan of Treatment Date Care Activity Detail Author Start: 07-22-2029 Screening for malign ant neoplasm of cervix [facility] Start: 07-22-2027 Screening for malign ant neoplasm of cervix [facility] Start: 04-11-2025 Influenza vaccination Influenz a Vaccine (Season Ended) [facility] Start: 12-28-2024 End: 12-28-2024 Patient encounter procedure 12/28/2024 9:30 AM EDT Routine [facility] [address] [place] [id number] Arlette Stacy, DO [address] [place], [place] [id number] [facility] Start: 12-22-2024 End: 06-24-2025 US biophysical profile w non stress test US biophysical profile w non stress test Imaging Routine Post term over 40 weeks Expected: 12/22/2024 (Approximate), Expires: 06/24/2025 [facility] Work Phone: Comment on above: Expected: 12/22/2024 (Approximate), Expires: 06/24/2025 Start: 12-22-2024 End: 12-22-2024 Patient encounter procedure 12/22/2024 9:20 AM EDT Routine [facility] [address] [place] [address] Sofie Ramos, HAND RIGGER [address] [place] [address] [facility] Start: 12-16-2024 End: 04-18-2025 [...] Ancillary Procedure [facility] [address] [place] [address] [facility] Start: 09-21-2024 End: 09-21-2024 Patient encounter procedure [facility] Comment on above: Arrived Start: 08-24-2024 End: 08-24-2024 Patient encounter procedure [facility] Comment on above: Arrived Start: 08-24-2024 End: 08-24-2025 CBC panel - Blood by Automated count CBC Lab Routine Diabetes mellitus screening Expected: 08/24/2024 (Approximate), Expires: 08/24/2025 [facility] Work Phone: Comment on above: Expected: 08/24/2024 (Approximate), Expires: 08/24/2025 Start: 08-24-2024 End: 08-24-2025 Measurement of glucose 1 hour after glucose challenge for glucose tolerance test Glucose tolerance, 1 hour Lab Routine Diabetes mellitus screening Expected: 08/24/2024 (Approximate), Expires: 08/24/2025 [facility] Comment on above: Expected: 08/24/2024 (Approximate), Expires: 08/24/2025 Start: 08-24-2024 End: 08-24-2025 US for US OB limited 1+ fetuses Imaging Routine 22 weeks gestation of Second trimester Expected: 08/24/2024, Expires: 08/24/2025 [facility] Comment on above: Expected: 08/24/2024 , [...] AM EST Routine [facility] [address] [place] [id number] Arlette Stacy DO [address] [place] [address] [facility] Start: 05-20-2024 End: 05-20-2025 ABO/Rh ABO/Rh Lab Routine Missed menses , unspecified gestational age Expected: 05/20/2024 (Approximate), Expires: 05/20/2025 [facility] Comment on above: Expected: 05/20/2024 (Approximate), Expires: 05/20/2025 Start: 05-20-2024 End: 05-20-2025 Blood type and Indirect antibody screen panel - Blood Type and screen Lab Routine Missed menses , unspecified gestational age Expected: 05/20/2024 (Approximate), Expires: 05/20/2025 [facility] Work Phone: Comment on above: Expected: 05/20/2024 (Approximate), Expires: 05/20/2025 Start: 05-20-2024 End: 05-20-2025 Drugs of abuse panel - Urine by Screen method Rapid drug screen, urine Lab Routine , unspecified gestational age Encounter for supervision of normal first in first trimester Expected: 05/20/2024 (Approximate), Expires: 05/20/2025 [facility] Comment on above: Expected: 05/20/2024 (Approximate), Expires: 05/20/2025 Start: 05-20-2024 End: 05-20-2025 US Pelvis transvaginal US OB transvaginal Imaging Routine Missed menses Expected: 05/20/2024 (Approximate), Expires: 05/20/2025 [facility] Comment on above: Expected: 05/20/2024 (Approximate), Expires: 05/20/2025 Start: 04-11-2024 Influenza vaccination Influenza Vacc ine (#1) [facility] Start: 02-19-2024 Screening for malign ant neoplasm of cervix [facility] Start: 2015 Screening for malign ant neoplasm of cervix Pap Smear [facility] Bacteria identified in Urine by Culture Urine culture Microbiology Routine Missed menses Ordered: 05/20/2024 [facility] Comment on above: Ordered: 05/20/2024 CBC W Auto Different ial panel - Blood CBC and differential Lab Routine Missed menses , unspecified gestational age Ordered: 05/20/2024 [facility] Comment on above: Ordered: 05/20/2024 CHLAMYDIA TRACHOMATI S (GENITO/STI) CHLAMYDIA TRACHOMATIS (GENITO/STI) Lab Routine STD exposure Ordered: 07/22/2024 [facility] Comment on above: Ordered: 07/22/2024 Cytology Cervical or vaginal smear or scraping study Pap Smear Pathology and Cytology Routine Well woman exam with routine gynecological exam Ordered: 07/22/2024 [facility] Comment on above: Ordered: 07/22/2024 Hemoglobin A1c/Hemoglobin.total in Blood Hemoglobin A1c Lab Routine Missed menses , unspecified gestational age Ordered: 05/20/2024 [facility] Comment on above: Ordered: 05/20/2024 Hepatitis B virus surface Ag [Presence] in Serum or Plasma by Immunoassay Hepatitis B surface antigen Lab Routine Missed menses , unspecified gestational age Ordered: 05/20/2024 [facility] Comment on above: Ordered: 05/20/2024 Hepatitis C virus Ab [Presence] in Serum or Plasma by Immunoassay Hepatitis C antibody Lab Routine Missed menses , unspecified gestational age Ordered: 05/20/2024 [facility] Comment on above: Ordered: 05/20/2024 HIV-1/HIV-2 antigen/antibody combination immunoassay HIV-1 and HIV-2 antibodies Lab Routine Missed menses , unspecified gestational age Ordered: 05/20/2024 [facility] Comment on above: Ordered: 05/20/2024 Human papilloma viru s DNA [Presence] in Unspecified specimen by Probe with amplification HPV DNA probe, amplified Microbiology Routine Well woman exam with routine gynecological exam Ordered: 07/22/2024 [facility] Comment on above: Ordered: 07/22/2024 Neisseria gonorrhoea e DNA [Presence] in Unspecified specimen by RAMONITA with probe detection Neisseria gonorrhea DNA probe, direct Lab Routine STD exposure Ordered: 07/22/2024 [facility] Comment on above: Ordered: 07/22/2024 Reagin Ab [Presence] in Serum by RPR RPR Lab Routine Missed menses , unspecified gestational age Ordered: 05/20/2024 [facility] Comment on above: Ordered: 05/20/2024 Rubella antibody, IgG Rubella an tibody, IgG Lab Routine Missed menses , unspecified gestational age Ordered: 05/20/2024 [facility] Comment on above: Ordered: 05/20/2024 SURESWAB(R) ADVANCED VAGINITIS PLUS, TMA SURESWAB(R) ADVANCED VAGINITIS PLUS, TMA Pathology and Cytology Routine Vaginal discharge Ordered: 07/22/2024 [facility] Work Phone: Comment on above: Ordered: 07/22/2024 Immunizations Immunization Date Immunization Notes Care Provider Odessa tracy 02-09-2013 meningococcal polysa ccharide (groups A, C, Y and W-135) diphtheria toxoid conjugate vaccine (MCV4P) [facility] 02-09-2013 tetanus toxoid, redu rosario diphtheria toxoid, and acellular pertussis vaccine, adsorbed [facility] Nurse [facility] 03-23-1999 diphtheria, tetanus toxoids and acellular pertussis vaccine [facility] 03-23-1999 measles, mumps and r ubella virus vaccine [facility] Nurse [facility] 03-23-1999 trivalent poliovirus vaccine, live, oral [facility] 03-02-1997 diphtheria, tetanus toxoids and acellular pertussis vaccine [facility] are 02-16-1996 diphtheria, tetanus toxoids and acellular pertussis vaccine [facility] Nurse [facility] are 02-16-1996 measles, mumps and r ubella virus vaccine [facility] Nurse [facility] 06-11-1995 diphtheria, tetanus toxoids and acellular pertussis vaccine, Haemophilus influenzae type b conjugate, and poliovirus vaccine, inactivated ([id number]) [facility] Nurse [facility] 06-11-1995 hepatitis B vaccine, pediatric or pediatric/adolescent dosage [facility] Nurse [facility] 1994 haemophilus influenz ae type b vaccine, conjugate unspecified formulation [facility] 1994 hepatitis B vaccine, pediatric or pediatric/adolescent dosage [facility] Nurse [facility] 1994 trivalent poliovirus vaccine, live, oral [facility] 1994 diphtheria, tetanus toxoids and acellular pertussis vaccine, Haemophilus influenzae type b conjugate, and poliovirus vaccine, inactivated ([id number]) [facility] Nurse [facility] 1994 hepatitis B vaccine, pediatric or pediatric/adolescent dosage [facility] Nurse [facility] Payers Date Payer Category Payer Private Health Insurance [employer] [id number] 2023 Unknown [employer] [id number] 2023-Present [address] [place] [address] [id number] 2023 Unknown [id number] 1994 Unknown [id number] 2.16.840.1.257382.3.579.2. 593 1994 Unknown [id number] 2.16.840.1.500307.3.579.2. 1258 1994 Unknown [id number] 2.16.840.1.399679.3.579.2. 1258 1994 Unknown [id number] 2.16.840.1.453932.3.579.2. 1258 1994 Unknown [id number] 2.16.840.1.048425.3.579.2. 1258 1994 Unknown [id number] 2.16.840.1.489543.3.579.2. 1258 1994 Unknown [id number] 2.16.840.1.534133.3.579.2. 1258 1994 Unknown [id number] 2.16840.1.153769.3.579.2. 1258 1994 Unknown [id number] 2.16.840.1.884582.3.579.2. 1258 1994 Unknown [id number] 2.16840.1.724977.3.579.2. 1258 1994 Unknown [id number] 2.16.840.1.843722.3.579.2. 1258 1994 Unknown [id number] 2.16840.1.761267.3.579.2. 1258 1994 Unknown [id number] 2.16.840.1.591839.3.579.2. 1258 1994 Unknown [id number] 2.16.840.1.339022.3.579.2. 1258 1994 Unknown [id number] 2.16.840.1.770704.3.579.2. 1258 1994 Unknown [id number] 2.16.840.1.392175.3.579.2. 1258 1994 Unknown [id number] 2.16.840.1.141096.3.579.2. 1259 1994 Unknown [id number] 2.16.840.1.250093.3.579.2. 1259 Unknown [id number] Social History Date Type Detail Facility Start: [facility]25[facility]2023 [facility] Start: 05-25-2023 Tobacco use and exposure Smoke less tobacco non-user [facility] Start: 05-20-2024 End: 01-05-2025 Alcoholic beverage intake Current drinker of alcohol (finding) [facility] Start: 05-20-2024 End: 01-05-2025 Alcoholic beverage intake [facility] Start: 07-10-2023 End: 05-20-2024 Tobacco use panel [facility] Start: 04-09-2023 Alcohol Comment Caffeine intak e: 1-2 cups per day coffee [facility] Start: 04-03-2024 [facility] Start: 1994 Sex assigned at Not on file [facility] Clinical Notes 05-20-2024 to 01-05-2025 CASSY De La Torre - 01/05/2025 2:40 PM Brina Rey [facility] - 12/28/2024 9:30 AM Gertrudis Ramos NP - 12/22/2024 9:20 AM Montse Moreno J[facility] - 12/16/2024 9:50 AM EDT Note Date & Type Note Facility 01-05-2025 History of Presen t illness Narrative Reason for Appointment: Patient ID: Autumn Mcclure is a 29 y.o. female who presents for Care and Post-op Visit Patient presents today for Post Follow Up appointment. and 1 Week Post Op Follow Up appointment. MEDICATIONS Current Outpatient Medications Medication Instructions ibuprofen 800 mg, Every 8 hours iron polysaccharides (PROFE) 391.3 mg, Oral, Daily [...] reviewed. Vitals: Estimated body mass index is 31.09 kg/m as calculated from the following: Height as of 07/10/23: 5' 5 . Weight as of this encounter: 186 lb 12.8 oz. BP: 114/70 Patient's last menstrual period was 03/20/2024. ASSESSMENT & PLAN ICD-10-CM 1. Encounter for visit Z39.2 2. S/P section Z98.891 Patient presents today for a one week postop section check. Patient is doing well with minor complaints of pain. Incision has been noted as healing well with no signs and symptoms of infection. Follow Up: Patient is to return in 5 weeks for 6 week evaluation. Documented by CASSY De La Torre on behalf of: CASSY De La Torre documented in this encounter [facility] 12-28-2024 History of Presen t illness Narrative Reason [...] nursing note reviewed. Exam conducted with a rough planer tender present. Vitals: Estimated body mass index is 33.12 kg/m as calculated from the following: Height [...] IOL signed- cytotec at 2030- get to fbc at 1830 No orders of the defined types were placed in this encounter. Follow Up: Patient is to return to office in 1 week for routine OB appointment. Documented by Caroline Rey LPN on behalf of: Arlette Stacy DO documented in this encounter [facility] 12-22-2024 History of Presen t illness Narrative [...] nursing note reviewed. Exam conducted with a rough planer tender present. Vitals: Estimated body mass index is [...] Sofie Ramos NP documented in this encounter [facility] 12-16-2024 History of Presen t illness Narrative [...] nursing note reviewed. Exam conducted with a rough planer tender present. Vitals: Estimated body mass index is [...] Stacy DO documented in this encounter [facility] 12-07-2024 History of Presen t illness Narrative [...] nursing note reviewed. Exam conducted with a rough planer tender present. Vitals: Estimated body mass index is [...] Sofie Ramos NP documented in this encounter [facility] 11-29-2024 History of Presen t illness Narrative [...] nursing note reviewed. Exam conducted with a rough planer tender present. Vitals: Estimated body mass index is [...] Stacy DO documented in this encounter [facility] 11-23-2024 History of Presen t illness Narrative [...] nursing note reviewed. Exam conducted with a rough planer tender present. Vitals: Estimated body mass index is [...] Stacy DO documented in this encounter [facility] 11-09-2024 History of Presen t illness Narrative [...] Stacy DO documented in this encounter [facility] 10-06-2024 History of Presen t illness Narrative [...] Stacy DO documented in this encounter [facility] 09-21-2024 History of Presen t illness Narrative [...] [place] documented in this encounter [facility] 08-24-2024 History of Presen t illness Narrative [...] nursing note reviewed. Exam conducted with a rough planer tender present. Vitals: Estimated body mass index is [...] Stacy DO documented in this encounter [facility] 07-22-2024 History of Presen t illness Narrative [...] [place] documented in this encounter [facility] 06-21-2024 History of Presen t illness Narrative [...] nursing note reviewed. Exam conducted with a rough planer tender present. Vitals: Estimated body mass index is [...] or undercooked meat, and stay away from [facility]. Patient has been consulted regarding any further do's and don'ts of . Patient voiced understanding and all questions and concerns were answered. Patient given orders for OB labs and [place] to be drawn today at [facility]. Orders Placed This Encounter Procedures Urine dip Follow Up: Patient is to return in 4 weeks for routine OB appointment. Documented by Bren Moreno LPN on behalf of: Arlette Stacy DO documented in this encounter [facility] 05-20-2024 History of Presen t illness Narrative [...] tailbone TONSILLECTOMY 1997 WISDOM TOOTH EXTRACTION 07/29/2016 No Known Allergies [...] or undercooked meat, and stay away from [facility]. Patient has also been advised to not change litter boxes and eat 6 small meals a day. Patient has been consulted regarding the do's and don'ts of . Patient was given labs and all questions and concerns were answered. Patient did not want to do [place] labs at this time. Follow Up: Patient is to return in 4 weeks for routine OB appointment. Follow Up: Patient is to have labs drawn at directed and return to office for initial OB appointment with provider. Patient may call office as needed with any concerns or questions. Nurse Visit Completed by: Miryam Matthews LPN documented in this encounter [facility] Evaluation note Diagnosis Missed menses 8 [...] 40 weeks [facility] Diagnosis Third trimester state, incidental 40 weeks gestation of [facility] Diagnosis Encounter for visit S/P section Other postprocedural status documented in this encounter [facility] Summary Purpose Family History No Family History Records FoundNo Family History Records FoundNo Family History Records Found Advance Directives No Advanced Directives Records FoundNo Advanced Directives Records FoundNo Advanced Directives Records Found Additional Source Comments INFORMATION SOURCE (unrecogn ized section and content) DATE CREATED AUTHOR 11/29/2021 [facility] DATE CREATED AUTHOR AUTHOR'S ORGANIZ ATION 03/19/2022 [facility] DATE CREATED AUTHOR AUTHOR'S ORGANIZ ATION 12/29/2024 [facility]ists EPIC Reason for Visit (unrecogniz ed section and content) Reason Comments Amenorrhea Reason Comments Routine Visit Reason Comments Well Women Visit Routine Visit STI Screening Reason Comments Care Post-op Visit Care Teams (unrecognized sec tion and content) Baker Bench Relationship Specialty Start Date End Date Reyes Sexton MD [address] [place] [address] (Fax) PCP - General Family Medicine 12/17/22 Baker Bench Relationship Specialty Start Date End Date Reyes Sexton MD [address] [place] [address] (Fax) PCP - General Family Medicine 12/17/22 Baker Bench Relationship Specialty Start Date End Date Reyes Sexton MD [address] [place] [address] (Fax) PCP - General Family Medicine 12/17/22 Baker Bench Relationship Specialty Start Date End Date Reyes Sexton MD [address] [place] [address] (Fax) PCP - General Family Medicine 12/17/22 Baker Bench Relationship Specialty Start Date End Date Reyes Sexton MD [address] [address] (Fax) PCP - General Family Medicine 12/17/22 Baker Bench Relationship Specialty Start Date End Date Reyes Sexton MD [address] [place] [phone] (Fax) PCP - General Family Medicine 12/17/22 Baker Bench Relationship Specialty Start Date End Date Reyes Sexton MD [address] [address] (Fax) PCP - General Family Medicine 12/17/22 Baker Bench Relationship Specialty Start Date End Date Reyes Sexton MD [address] [address] (Fax) PCP - General Family Medicine 12/17/22 Baker Bench Relationship Specialty Start Date End Date Reyes Sexton MD [address] [address] (Fax) PCP - General Family Medicine 12/17/22 Donna Peguero PA [facility] [address] PCP - Medical [place] [employer] 01/10/24 08/10/99 Baker Bench Relationship Specialty Start Date End Date Reyes Sexton MD [address] [address] (Fax) PCP - General Family Medicine 12/17/22 Donna Peguero PA [address] [place], [place] [address] [id number] PCP - Medical [place] [employer] 01/10/24 08/10/99 Baker Bench Relationship Specialty Start Date End Date Reyes Sexton MD [address] [place] [phone] (Fax) PCP - General Family Medicine 12/17/22 Donna Peguero PA [address] [place], [place] [address] [address] PCP - Medical [place] [employer] 01/10/24 08/10/99 Baker Bench Relationship Specialty Start Date End Date Reyes Sexton MD [address] [address] PCP - General Family Medicine 12/17/22 Donna Peguero PA [facility] [place] [address] PCP - Medical [place] [employer] 01/10/24 08/10/99 Baker Bench Relationship Specialty Start Date End Date Reyes Sexton MD [address] [place] [address] PCP - General Family Medicine 12/17/22 Donna Peguero PA [address] [place] [address] [place] [address] PCP - Medical [place] [employer] 01/10/24 08/10/99 Baker Bench Relationship Specialty Start Date End Date Reyes Sexton MD [address] [address] PCP - General Family Medicine 12/17/22 Donna Peguero PA [address] [place] [address] [place] [address] PCP - Medical [place] [employer] 01/10/24 08/10/99 Baker Bench Relationship Specialty Start Date End Date Reyes Sexton MD [address] [place] [address] PCP - General Family Medicine 12/17/22 Donna Peguero PA [address] [place] [address] [place] [address] PCP - Medical [place] [employer] 01/10/24 08/10/99 Baker Bench Relationship Specialty Start Date End Date Reyes Sexton MD [address] [place] [address] PCP - General Family Medicine 12/17/22 Donna Peguero PA [address] [place] [address] PCP - Medical [place] [employer] 01/10/24 08/10/99 Baker Bench Relationship Specialty Start Date End Date Reyes Sexton MD 112 [facility] [address] [place] [address] PCP - General Family Medicine 12/17/22 Donna Peguero PA [address] [place] [address] [place] [address] PCP - Medical [place] [employer] 01/10/24 08/10/99 Baker Bench Relationship Specialty Start Date End Date Reyes Sexton MD [address] [address] PCP - General Family Medicine 12/17/22 Donna Peguero PA [address] [facility] [place] [address] PCP - Medical [place] [employer] 01/10/24 08/10/99 Baker Bench Relationship Specialty Start Date End Date Reyes Sexton MD [address] [address] PCP - General Family Medicine 12/17/22 Donna Peguero PA [address] [facility] [place] [address] PCP - Medical [place] [employer] 01/10/24 08/10/99 FOR RECORDS PERTAINING TO [...] BE BASED ON THE PRIMARY CLINICAL RECORDS. [facility] [employer] [facility]. provides no warranty or guarantee of the accuracy or completeness of information in this document.
--- NOTE | 2025-01-06 11:29 | PC.NURSE ---
Eloina and Vince arrive for support. Mom immediately reports I have stopped direct again States nipples are simply too sore, I can not stand it Nipples are raw, excoriated bilaterally. Scabbed, red areas noted bilaterally. No S/S of mastitis at this time. Discussed use of APNO (All Purpose Nipple ointment) to heal and aid in preventing Mastitis. Pt interested in APNO. Discussed evaluation of oral structures such as posterior tongue tie and slight upper lip tie. Mother states something else has to be happening, I feel like her latch is really good. Given information on tongue tie, revision, and healing. Referral list given for providers in the area. States has been pumping with her [employer] wearable pump has been using 21mm flange inserts, continues to feel pinching. Measured at 23mm, so will use 24mm flange. Given example of exclusive pumping and using power pumping to increase and maintain supply. Pt states is relieved to have the information and will call for appointment to have baby evaluated. Will use APNO as directed. Pt aware to call for follow up appointment after revision of oral structures has been determined. Leaves with questions answered and feels better with decisions. Aware to call for concerns. Dr Stacy's office, Bren Moreno LPN, called and message left for Script for APNO ointment for Eloina. Dr Stacy aware.
== END 2025-01-06 12:57 | disposition home or self-care (01) ==
LOC: FBCO 07:46
PROVIDERS: PCP Family Medicine; Visit Provider Obstetrics & Gynecology
DX: Z39.1 Encounter for care and examination of lactating mother (principal)

== ENCOUNTER 2025-07-26 19:01 | Outpatient (REF) | payer OTHER, SELFPAY ==
--- OUTSIDE RECORDS SUMMARY | 2025-07-26 11:00 | XMS_ITS | Encounter Summary ---
Author Organization [facility] Address [address] [place] [address] Care Team Providers Care Cash Processing Specialist Name Role Phone Reyes Stout MD Primary Care Provider + [phone] Reyes Stout MD Unavailable [phone] Reason for Visit * ReasonCommentsGynecologic Exam Encounter Details DateTypeDepartmentCare Team (Latest Contact Info)Lukgqaajjnz34/16/2025 11:00 AM ESTOffice Visit [facility] [address] [place] [phone] Donna Kennedy PA [address] [facility] [place] [address] Well woman exam with routine gynecological exam Social History Tobacco UseTypesPacks/DayYears UsedDateSmoking Tobacco: NeverSmokeless Tobacco: NeverAlcohol UseStandard Drinks/WeekCommentsYes2 (1 standard drink = 0.6 oz pure alcohol)Caffeine intake: 1-2 cups per day coffeeCommentsUnknownSex and Gender InformationValueDate RecordedSex Assigned at BirthNot on fileLegal Sex Sdaxwk4810/23/2022 7:22 PM EDTGender IdentityNot on fileSexual OrientationNot on fileOccupationIndustryJob Start DateJob End DateWorks associate sales representative, restaurant managerNot on fileNot on fileNot on filedocumented as of this encounter Last Filed Vital Signs Vital SignReadingTime TakenCommentsBlood Swyhwdiq727/7207/26/2025 11:19 AM EST Pulse--Temperature--Respiratory Rate--Oxygen Saturation--Inhaled Oxygen Concentration--Ogfqmy39.6 kg (160 lb)07/26/2025 11:19 AM ESTHeight--Body Mass Index26.6307/10/2023 9:00 AM ESTdocumented in this encounter Progress Notes * CASSY De [place] - 07/26/2025 11:00 AM EST Reason for Appointment: Patient ID: Eloina Breaux is a 30 y.o. female who presents for Gynecologic Exam Patient presents today for Annual Exam. MEDICATIONS Current Outpatient Medications Medication Instructions ibuprofen [...] appearance. She is well-developed. Genitourinary: Vulva normal. Right Adnexa: not tender and no mass present. Left Adnexa: not tender and no mass present. No cervical discharge. Breasts: Breasts are soft. Right: Normal. Left: Normal. HENT: Head: Normocephalic. Nose: Nose normal. Mouth/Throat: Mouth: Mucous membranes are moist. Cardiovascular: Rate and Rhythm: Normal rate and regular rhythm. Pulmonary: Effort: Pulmonary effort is normal. Breath sounds: Normal breath sounds. Abdominal: General: Bowel sounds are normal. There is no distension. Palpations: Abdomen is soft. Tenderness: There is no abdominal tenderness. There is no guarding or rebound. Musculoskeletal: General: No swelling. Normal range of motion. Cervical back: Normal range of motion. Right lower leg: No edema. Left lower leg: No edema. Neurological: General: No focal deficit present. Mental Status: She is alert and oriented to person, place, and time. Skin: General: Skin is warm and dry. Psychiatric: Mood and Affect: Mood normal. Behavior: Behavior normal. Vitals and nursing note reviewed. Exam conducted with a equipment or machinery cleaner present. Vitals: Estimated body mass index is 26.63 kg/m?? as calculated from the following: Height as of 07/10/23: 5' 5 . Weight as of this encounter: 160 lb. BP: 112/72 No LMP recorded. Assessment/Plan ICD-10-CM 1. Well woman exam with routine gynecological exam Z01.419 Pap Smear HPV DNA probe, amplified Assessment/Plan Annual Exam: Patient presents today for an annual exam. Patient states she is doing well and has no complaints. Pap was obtained without difficulty. Orders Placed This Encounter Procedures HPV DNA probe, amplified Follow Up: Patient is to return in one year for annual unless needed otherwise. Documented by Miryam Matthews LPN on behalf of: CASSY De [place] documented in this encounter Plan of Treatment DateTypeDepartmentCare Team (Latest Contact Info)Wpsfjephkzc81/17/2026 11:00 AM ESTProcedure Visit [facility] [address] [place] [address] [place] [address] Donna Kennedy PA [address] [place] [address] [place] [address] NameTypePriorityAssociated DiagnosesOrder SchedulePap SmearPathology and CytologyRoutine Well woman exam with routine gynecological exam Ordered: 07/26/2025HPV DNA probe, amplifiedMicrobiologyRoutine Well woman exam with routine gynecological exam Ordered: 07/26/2025documented as of this encounter Visit Diagnoses Diagnosis Well woman exam with routine gynecological exam Routine gynecological examination documented in this encounter Care Teams Team MemberRelationshipSpecialtyStart DateEnd Date Reyes Stout MD [address] [address] PCP - GeneralFamily Medicine12/17/22 Reyes Stout MD [address] [address] (Fax) PCP - Medical [place] [employer]01/10/2412documented as of this encounter
--- OUTSIDE RECORDS SUMMARY | 2025-07-26 19:06 | XMS_ITS | Clinical Summary ---
Author Organization [facility] Address [address] [place] [address] Care Team Providers Care Vice President Business & Corporate Development Name Role Phone Reyes Stout MD Primary Care Provider [phone] Reyes Stout MD Unavailable [phone] Allergies No known active allergies Medications MedicationSigDispense QuantityRefillsLast FilledStart DateEnd DateStatus MV-Min-Fe Fum-FA-DHA ( 1 PO) Take 1 tablet by mouth DailyActive iron polysaccharides (ProFe) 391.3 (180 Fe) MG capsule Indications:37 weeks gestation of ([facility]-HCC),Third trimester ([facility]HS-HCC),Anemia during in third trimester ([facility]-HCC)Take 1 capsule (391.3 mg) by mouth Daily 30 capsule 5Active ibuprofen 800 MG tablet Take 800 mg by mouth every 8 (eight) hours5Active Active Problems ProblemNoted DateDiagnosed DateStage 2 chronic kidney spicdpw41/27/2023Chronic yxdjyvl47/27/2023ADD (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 hyperactivity 3Chronic dhslevsztrzq36/30/2023hronic eustachian salpingitis of both ears04/09/20234683Motorleesrwv77/30/2023Heart jqvein5204/09/2023 Encounters DateTypeDepartmentCare SsogQuyidcdwrxr31/16/2025 11:00 AM ESTOffice Visit [facility] [address] [facility] [place] [address] Donna Kennedy PA Well woman exam with routine gynecological exam07/26/2025amboo flowsheet [facility] [address] [place] [address] Donna Kennedy PA from Last 3 Months Immunizations ImmunizationAdministration DatesNext YhwNYvS0603/23/1999,03/02/1997,02/16/1996DTaP / HiB / IPV06/11/1995,1994Hep B, Adolescent or Yfcshskux38/01/1995, 1994,1994HiB, tirorwtzvdb22/25/6771ROB7403/23/1999,02/16/1996 Meningococcal DHB1W0302/09/2013OPV03/23/1999,1994Tdap02/09/2013 Family History Medical HistoryRelationNameCommentsNo Known ProblemsBrotherCancerFatherNon hodgkins lymphomaFatherColon cancerOthermothers fam hxRelationNameStatusComments Brother3 brothersFatherAliveMotherAliveOthermothers fam hx Social History Tobacco UseTypesPacks/DayYears UsedDateSmoking Tobacco: NeverSmokeless Tobacco: Never Tobacco Cessation:Counseling Given: Yes Alcohol UseStandard Drinks/WeekCommentsYes2 (1 standard drink = 0.6 oz pure alcohol)Caffeine intake: 1-2 cups per day coffeeCommentsUnknownSex and Gender InformationValueDate RecordedSex Assigned at BirthNot on fileLegal Sex Vonqgw3610/23/2022 7:22 PM EDTGender IdentityNot on fileSexual OrientationNot on fileOccupationIndustryJob Start DateJob End DateWorks methods time analyst, restaurant managerNot on fileNot on fileNot on file Last Filed Vital Signs Vital SignReadingTime TakenCommentsBlood Nrqdxpsc770/7207/26/2025 11:19 AM EST Pulse--Temperature--Respiratory Rate--Oxygen Saturation--Inhaled Oxygen Concentration--Keasuu14.6 kg (160 lb)07/26/2025 11:19 AM PHJLpcnqy699.1 cm (5' 5 )07/10/2023 9:00 AM ESTBody Mass Index26.6307/10/2023 9:00 AM EST Plan of Treatment DateTypeDepartmentCare Team (Latest Contact Info)Kdgsibnlogq82/17/2026 11:00 AM ESTProcedure Visit [facility] [address] [facility] [place] [address] Donna Kennedy PA [address] [facility] [address] [place], [place] [id number] Health MaintenanceDue DateLast DoneCommentsHPV/Jieltu624COVID-19 Vaccine ( season)2025Influenza Vaccine (#1)2026Postponed from 04/11/2025 (Patient Refused)Cervical Cancer Rkptliwyd21/12/2027Pap Smear neumococcal Vaccine: Pediatrics (0 to 5 Years) and At-Risk Patients (6 to 64 Years)Aged OutNo longer eligible based on patient's age to complete this topic Procedures Procedure NamePriorityDate/TimeAssociated DiagnosisCommentsPAP SMEARRoutine 07/22/2024 12:00 AM ESTfrom Last 3 Months or Most Recently Relevant to Health Maintenance Results * Pap Smear (07/22/2024 12:00 AM EST)Specimen (Source)Anatomical Location / LateralityCollection Method / VolumeCollection TimeReceived TimeSwabCervical swab / Unknown Narrative Authorizing ProviderResult TypeResult StatusAmy Brent NESS CYTOLOGY ORDERABLES Final ResultPerforming OrganizationAddressCity/State/ZIP CodePhone Number EXTERNAL LAB from Last 3 Months or Most Recently Relevant to Health Maintenance Insurance Care Teams Team MemberRelationshipSpecialtyStart DateEnd Date Reyes Stout MD [address] [address] PCP - GeneralFamily Medicine12/17/22 Reyes Stout MD [address] [address] PCP - Medical [place] [employer]01/10/2412
--- OUTSIDE RECORDS SUMMARY | 2025-07-26 19:06 | XMS_ITS | Encounter Summary ---
Author Organization [facility] Address [address] [place] [address] Care Team Providers Care Revenue Cycle Analyst Name Role Phone Reyes Stout MD Primary Care Provider + [phone] Reyes Stout MD Unavailable [phone] Encounter Details DateTypeDepartmentCare Team (Latest Contact Info)Cklbtddnfic30/16/2025amboo flowsheet [facility] [address] [address] Donna Kennedy PA [address] [facility] [address] [place], [facility] Social History Tobacco UseTypesPacks/DayYears UsedDateSmoking Tobacco: NeverSmokeless Tobacco: NeverAlcohol UseStandard Drinks/WeekCommentsYes2 (1 standard drink = 0.6 oz pure alcohol)Caffeine intake: 1-2 cups per day coffeeCommentsUnknownSex and Gender InformationValueDate RecordedSex Assigned at BirthNot on fileLegal Sex Lxcpsv6910/23/2022 7:22 PM EDTGender IdentityNot on fileSexual OrientationNot on fileOccupationIndustryJob Start DateJob End DateWorks 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 time babysitter, restaurant managerNot on fileNot on fileNot on filedocumented as of this encounter Plan of Treatment DateTypeDepartmentCare Team (Latest Contact Info)Ykkdnbmiime79/17/2026 11:00 AM ESTProcedure Visit [facility] [address] [place] [address] Donna Kennedy PA [address] [place] [address] documented as of this encounter Visit Diagnoses Not on filedocumented in this encounter Care Teams Team MemberRelationshipSpecialtyStart DateEnd Date Reyes Stout MD [address] [address] PCP - GeneralFamily Medicine12/17/22 Reyes Stout MD [address] [address] PCP - Medical [place] [employer]01/10/24[address]documented as of this encounter
== END 2025-07-26 19:02 | disposition home or self-care (01) ==
LOC: LAB 19:01
PROVIDERS: PCP Family Medicine; Visit Provider Physician Assistant
DX: Z01.419 Encounter for gynecological examination (general) (routine) without abnormal findings (principal)
CPT/HCPCS: 88175